=== PATIENT | male | born 1945 | race Caucasian/White ===

== ENCOUNTER 2020-06-05 09:08 | Inpatient (IN) | payer OTHER, MEDICARE, SELFPAY ==
[2020-06-05] VITALS (12 sets, daily range): BP systolic 82–107; BP diastolic 33–58; PULSE 69–77; RESP 14–22; TEMP 36.6–36.8; O2SAT 94–99; BMI 29.0; BMI 28.1
[2020-06-05 09:22] LABS: Glucose, Whole Blood 166 mg/dL (60-115)
--- NOTE | 2020-06-05 09:36 | ECG_ITS ---
Test Reason : DIZZINESS Blood Pressure : / mmHG Vent. Rate : 078 BPM Atrial Rate : 078 BPM P-R Int : 114 ms QRS Dur : 088 ms QT Int : 402 ms P-R-T Axes : -66 022 046 degrees QTc Int : 458 ms Junctional rhythm with Premature supraventricular complexes Nonspecific T wave abnormality Abnormal ECG No previous ECGs available Referred By: Shoshana Lugo Electronically Signed By:SÁNCHEZ TOMAS MD
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
[2020-06-05] MEDS: 0.9 % Sodium Chloride 500 ML 999 ML IV ×3 (09:54→13:06)
[2020-06-05 10:01] LABS: MANUAL DIFF FLAG NO
[2020-06-05 10:09] LABS: Basophils Absolute Auto 0.1 X10*3/uL (0.0-0.2); Basophils Percent Auto 0.4 % (0-2); Eosinophils Percent Auto 0.3 % (0-4); Hematocrit 40.5 % (42-52); Hemoglobin 13.7 g/dl (14.0-18.0); Imm Gran Abs Auto 0.07 X10*3/uL (0.00-0.03); Imm Gran Pct Auto 0.6 % (0.0-0.4); Lymphocytes Percent Auto 7.7 % (20-40); Mean Corpuscular HGB Conc 33.8 g/dl (31.0-36.0); Mean Corpuscular Hemoglobin 29.1 pg (27.0-33.0); Mean Corpuscular Volume 86.2 fL (80-98); Mean Platelet Volume 9.5 fL (9.4-12.4); Monocytes Absolute Auto 0.8 X10*3/uL (0.1-1.2); Neutrophils Absolute Auto 10.7 X10*3/uL (2.0-8.3); Platelet Count 271 X10*3/uL (160-400); White Blood Count 12.6 X10*3/uL (4.8-10.8)
[2020-06-05 10:19] LABS: Prothrombin Time 12.4 SEC (10.8-13.0)
[2020-06-05 10:31] LABS: Troponin-I High Sensitivity 11.2 ng/L (<3.5-35.0)
[2020-06-05 10:33] LABS: Alanine Aminotransferase 14 U/L (0-40); Albumin Level 3.8 g/dL (3.5-5.0); Alkaline Phosphatase 60 U/L (39-117); Anion Gap 18 (12-20); Aspartate Amino Transferase 10 U/L (5-37); Bilirubin Direct 0.2 mg/dL (0.0-0.5); Bilirubin Total 0.5 mg/dL (0.0-1.0); Blood Urea Nitrogen 56 mg/dL (9-16); Calcium 8.8 mg/dL (8.4-10.2); Carbon Dioxide 16 mmol/L (22-29); Chloride 104 mmol/L (96-108); Creatinine Clr Calc Pharmacy 14.7; Estimated Glomerular Filt Rate 13; Glucose Random 175 mg/dL (60-115); Magnesium 1.8 mg/dL (1.6-2.6); Sodium 134 mmol/L (135-145); Total Protein 6.4 g/dL (6.5-8.0)
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
[2020-06-05 11:59] LABS: Glucose Urine UA NEG (NEG); Leukocyte Esterase Urine NEG (NEG); Nitrite Urine NEG (NEG); Specific Gravity - Urine >= 1.030 (1.005-1.025); Urine Blood NEG (NEG); Urine Ketones 5 MG/DL (NEG); Urine Protein 1+ MG/DL (NEG-TRACE)
[2020-06-05 12:02] LABS: Appearance Urine CLOUDY; Color Urine YELLOW
[2020-06-05 12:12] LABS: Bacteria Urine 1+ /LPF; RBC Urine 0-2 /HPF (0); Squamous Epithelial Cell Urine 1+ /LPF; WBC Urine 0-2 /HPF (0-4)
[2020-06-05 12:13] LABS: Amorphous Sediment Urine 1+ /LPF
--- NOTE | 2020-06-05 12:20 | PC.NURSE ---
PT C-COLLAR WAS REMOVED BY MLP ([email or web address]).
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
[2020-06-05 13:38] LABS: Troponin-I High Sensitivity 10.7 ng/L (<3.5-35.0)
[2020-06-05 14:56] LABS: SARS COV2 PCR INHOUSE NEGATIVE (Negative)
--- NOTE | 2020-06-05 15:45 | PC.NURSE ---
1x attempt to give report
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
--- NOTE | 2020-06-05 16:05 | PC.NURSE ---
report given to Gretel on IMC
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
[2020-06-05] MEDS: 0.9 % Sodium Chloride Flush 3 ML SYRINGE IVFLUSH (17:22)
[2020-06-05] MEDS: 0.9 % Sodium Chloride 1,000 ML 100 ML IVCONT (17:22)
[2020-06-05] MEDS: Heparin Sodium,Porcine 5,000 UNIT/ML VIAL 5000 UNIT SUBCUT (17:22)
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
[2020-06-05] MEDS: Acetaminophen 325 MG TABLET 650 MG PO (17:31)
[2020-06-05] MEDS: Atorvastatin Calcium 10 MG TABLET PO (20:25)
[2020-06-06] VITALS (7 sets, daily range): BP systolic 94–116; BP diastolic 47–56; PULSE 70–85; RESP 16–18; TEMP 36.4–37.5; O2SAT 92–95
[2020-06-06] MEDS: 0.9 % Sodium Chloride Flush 3 ML SYRINGE IVFLUSH ×2 (00:41→15:50)
[2020-06-06] MEDS: 0.9 % Sodium Chloride 1,000 ML 100 ML IVCONT ×2 (02:20→09:18)
[2020-06-06] MEDS: Heparin Sodium,Porcine 5,000 UNIT/ML VIAL 5000 UNIT SUBCUT ×2 (06:13→15:51)
[2020-06-06 06:42] LABS: Basophils Percent Auto 0.2 % (0-2); Eosinophils Absolute Auto 0.1 X10*3/uL (0.0-0.4); Eosinophils Percent Auto 0.3 % (0-4); Hematocrit 34.1 % (42-52); Hemoglobin 11.3 g/dl (14.0-18.0); Imm Gran Abs Auto 0.07 X10*3/uL (0.00-0.03); Imm Gran Pct Auto 0.5 % (0.0-0.4); Lymphocytes Absolute Auto 1.1 X10*3/uL (1.2-4.9); Lymphocytes Percent Auto 7.2 % (20-40); MANUAL DIFF FLAG NO; Mean Corpuscular HGB Conc 33.1 g/dl (31.0-36.0); Mean Corpuscular Volume 87.7 fL (80-98); Mean Platelet Volume 10.3 fL (9.4-12.4); Monocytes Absolute Auto 1.1 X10*3/uL (0.1-1.2); Monocytes Percent Auto 7.6 % (2-11); Neutrophils Absolute Auto 12.4 X10*3/uL (2.0-8.3); Neutrophils Percent Auto 84.2 % (45-73); Platelet Count 244 X10*3/uL (160-400); Red Blood Count 3.89 X10*6/uL (4.60-5.80); Red Cell Distribution Width 12.1 % (11.0-16.0); White Blood Count 14.7 X10*3/uL (4.8-10.8)
[2020-06-06 07:56] LABS: Anion Gap 16 (12-20); Blood Urea Nitrogen 69 mg/dL (9-16); Calcium 7.3 mg/dL (8.4-10.2); Carbon Dioxide 16 mmol/L (22-29); Chloride 101 mmol/L (96-108); Creatinine Clr Calc Pharmacy 14.1; Estimated Glomerular Filt Rate 12; Glucose Random 157 mg/dL (60-115); Potassium 3.8 mmol/l (3.3-5.1); Sodium 129 mmol/L (135-145)
[2020-06-06] MEDS: Acetaminophen 325 MG TABLET 650 MG PO ×2 (09:18→15:50)
--- NOTE | 2020-06-06 11:14 | PM.PNNEP ---
Subjective Subjective Interval history: no complaints, reports minimal UOP Physical Exam Vital Signs: Vital Signs: Vital Signs Temp Pulse Resp BP Pulse Ox 06/06/20 07:19 98.2 F 85 18 101/51 L 93 06/06/20 03:42 98.6 F 76 18 107/53 L 94 06/06/20 00:00 97.6 F 71 18 104/54 L 95 06/05/20 19:56 97.8 F 77 18 99/58 L 94 06/05/20 17:38 73 18 97/52 L 06/05/20 16:37 98.2 F 75 18 89/47 L 96 06/05/20 15:06 69 22 H 90/46 L 99 06/05/20 14:26 97.8 F 73 18 91/54 L 97 06/05/20 13:40 71 18 92/48 L 06/05/20 12:53 70 18 85/49 L 96 06/05/20 12:36 69 16 93/41 L 06/05/20 12:00 71 18 93/41 L 97 06/05/20 11:32 71 14 92/49 L 06/05/20 11:25 69 18 82/33 L 97 Body Mass Index 28.1 Assessment & Plan Time Spent With Patient Time: Total time spent is greater than 50% in coordination of care (as documented) at patient's floor/unit and/or counseling patient:
--- NOTE | 2020-06-06 11:14 | PM.PNNEP ---
Subjective Subjective Interval history: no complaints, reports minimal UOP Physical Exam Vital Signs: Vital Signs: Vital Signs Temp Pulse Resp BP Pulse Ox 06/06/20 11:12 98.5 F 74 18 105/56 L 92 06/06/20 07:19 98.2 F 85 18 101/51 L 93 06/06/20 03:42 98.6 F 76 18 107/53 L 94 06/06/20 00:00 97.6 F 71 18 104/54 L 95 06/05/20 19:56 97.8 F 77 18 99/58 L 94 06/05/20 17:38 73 18 97/52 L 06/05/20 16:37 98.2 F 75 18 89/47 L 96 06/05/20 15:06 69 22 H 90/46 L 99 06/05/20 14:26 97.8 F 73 18 91/54 L 97 06/05/20 13:40 71 18 92/48 L 06/05/20 12:53 70 18 85/49 L 96 06/05/20 12:36 69 16 93/41 L 06/05/20 12:00 71 18 93/41 L 97 06/05/20 11:32 71 14 92/49 L 06/05/20 11:25 69 18 82/33 L 97 Body Mass Index 28.1 oral moist mucosa lungs clear s1s2 abd soft nt +BSs ext no edema neuro awake OX3 Assessment & Plan Assessment and plan (1) Acute renal failure: Status: Acute (2) Hyponatremia: Status: Acute (3) Metabolic acidosis: Status: Acute Assessment and Plan: PT with hypotensive syndrome unclear etiology BP slightly improving after 3L IVFs Hyponatremia associated appropriate ADH release as part of hyposomotic state and hypotension, likely exacerbated by excess dilutional water intake AG MEtabolic acidoses from ZAK, pt had ketones in urine (?starvation vs alcohol not documented, pt denies, doubt Diabetes) REcs GIve 1 liter of D5W+3 amps Na Bicarb 75 ml/h i ordered Thyroid Cortisol urine for esoinophils, FeNa consider BCXs if persistenly hypontesive hold off all BP meds suggest echocardiogram r/o hypokinesis and pericardial effusion I think this is ATN, if no improvement, may consider a renal biopsy. Presently no indications for dialysis Time Spent With Patient Time: Total time spent is greater than 50% in coordination of care (as documented) at patient's floor/unit and/or counseling patient:
--- NOTE | 2020-06-06 11:49 | MHC.CM.PN ---
dc plan home no servceis pt has own transportion home
[2020-06-06 12:10] LABS: T4 Thyroxine 6.2 ug/dL (4.5-12.0); Thyroid Stimulating Hormone 0.96 mIU/mL (0.32-4.0)
[2020-06-06] MEDS: Sodium Bicarbonate 8.4% 150 MEQ in Dextrose 5 % 850 ML 50 MEQ IVCONT (13:11)
[2020-06-06 13:23] LABS: Creatinine Urine 259.17 mg/dL; Sodium Urine Random < 20.0 mmol/L
[2020-06-06 14:36] LABS: EOS Counted 0 CELLS; EOS QC POS YES; EOS Stain Quality OK YES; WBC, Counted 5 CELLS
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
--- NOTE | 2020-06-06 15:00 | CA_ITS ---
Transthoracic Echocardiogram Patient (Last, First, Middle): Ministerio French, Gender: Male Date of : 1945 Age: 74 Procedure Date: 06/06/2020 Procedure Type: Transthoracic Echocardiogram [place] [facility] [place]: 170.18 cm Weight: 77.11 kg BSA: 1.89 m2 Heart Rate: bpm BP: 105 / 56 mmHg Harness Builder: Xavi MD: Josue Valle MD Symptoms: hypotension Study Quality: Good ECG Rhythm: Sinus Conclusions: - The left ventricular systolic function is normal. The visually estimated ejection fraction is between 60-65%. - There is mild calcification of the aortic valve. - There is mild tricuspid valve regurgitation. Findings Left Ventricle Normal left ventricular cavity size. There is normal left ventricular wall thickness. The left ventricular systolic function is normal. The visually estimated ejection fraction is between 60-65%. There is no evidence of regional wall motion abnormalities. Diastolic function is normal for age. Right Ventricle Normal right ventricular cavity size and systolic function. Atria The left atrium is normal in size. The right atrium is normal in size. Aortic Valve There is a normal trileaflet aortic valve. There is mild calcification of the aortic valve. There is no aortic valve stenosis. There is no aortic valve regurgitation. Mitral Valve The mitral valve appears normal. There is trace mitral valve regurgitation. There is no mitral valve stenosis. Pulmonic Valve The pulmonic valve was not well visualized. Tricuspid Valve Normal tricuspid valve structure. There is mild tricuspid valve regurgitation. The pulmonary artery systolic pressure is normal. Great Vessels The aortic annulus, sinuses of valsalva, and asc aorta are normal in size. Venous The inferior vena cava is normal in size and collapses greater than 50% with inspiration. Pericardium/Pleural There is no evidence of pericardial effusion. Prior Study Comparison No prior study available for comparison. Measurements 2D Linear Measurements RVIDd: 2.69 RVIDd Index: 1.42 IVSd: 0.86 0.6-0.9/0.6-1.0 cm LVIDd: 5.54 3.9-5.3/4.2-5.9 cm LVIDd Index: 2.93 2.4-3.2/2.2-3.1 cm/m2 LVIDs: 3.55 2.0-3.6 cm LVPWd: 1.00 0.7-1.1 cm Ao Root: 3.20 2.1-3.5 cm LA Diam: 4.00 2.7-3.8/3.0-4.0 cm LAIDs Index: 2.12 1.5-2.3 cm/m2 LV Mass: 244.09 67-162/88-224 g LV Mass Index: 129.15 43-95/49-115 g/m2 LVOT Diam: 2.10 3.0+(-)1.3 cm 2D Systolic Function EF 4C: 66.40 >55% EF 2C: 70.10 >55% EF BiP: 66.70 >55% Mitral Valve MV Pk E: 0.92 MV PK A: 0.72 MV Decel Time: 215.00 E/A: 1.30 E'Lateral: 13.20 E'Medial: 7.83 E/E' Med: 11.80 E/E' Lat: 7.00 Aortic Valve AoV Pk Frankie: 1.83 AoV Mn Frankie: 1.29 AoV VTI: 0.32 AoV Pk Grad: 13.00 Aov Mn Grad: 8.00 LOBITO Cont.VTI: 1.99 LVOT LVOT Pk Frankie: 0.98 LVOT Mn Frankie: 0.62 LVOT VTI: 0.19 LVOT Pk Grad: 4.00 LVOT Mn Grad: 2.00 LVOT Diam: 2.10 LVOT Area: 3.46 Diastolic Function MV Pk E: 0.92 MV Pk A: 0.72 E/A: 1.30 E'Medial: 7.83 E/E' Med: 11.80 E' Laterial: 13.20 E/E' Lat: 7.00 Tricuspid Valve TR Pk Frankie: 2.64 TR Pk Grad: 28.00 RA Press: 3.00 RVSP: 31.00 Great Vessels Aorta Ao Root-2D: 3.20 2.0-3.7 cm Ao Asc: 3.10 2.1-3.4 cm Ao Arch: 3.20 Updated in Other Vendor System with Status of Final Laron Tavera MD electronically signed on 06/06/2020 5:03:54 PM with status of Final
[2020-06-06] MEDS: Omeprazole 20 MG CAPSULE.DR PO (15:50)
[2020-06-06] MEDS: polyethylene glycoL 3350 17 GM POWD.PACK PO (15:51)
[2020-06-06] MEDS: Atorvastatin Calcium 10 MG TABLET PO (20:29)
[2020-06-07 03:41] VITALS: BP 103/56; PULSE 70; RESP 18; TEMP 36.9; O2SAT 90
[2020-06-07] MEDS: Heparin Sodium,Porcine 5,000 UNIT/ML VIAL 5000 UNIT SUBCUT ×2 (05:28→17:01)
[2020-06-07 06:18] LABS: MANUAL DIFF FLAG NO
[2020-06-07 06:30] LABS: Basophils Percent Auto 0.1 % (0-2); Eosinophils Percent Auto 0.3 % (0-4); Hematocrit 32.3 % (42-52); Hemoglobin 10.9 g/dl (14.0-18.0); Imm Gran Abs Auto 0.05 X10*3/uL (0.00-0.03); Imm Gran Pct Auto 0.4 % (0.0-0.4); Lymphocytes Absolute Auto 1.1 X10*3/uL (1.2-4.9); Lymphocytes Percent Auto 7.8 % (20-40); Mean Corpuscular HGB Conc 33.7 g/dl (31.0-36.0); Mean Corpuscular Hemoglobin 28.8 pg (27.0-33.0); Mean Corpuscular Volume 85.2 fL (80-98); Mean Platelet Volume 10.2 fL (9.4-12.4); Monocytes Absolute Auto 1.1 X10*3/uL (0.1-1.2); Monocytes Percent Auto 7.8 % (2-11); Neutrophils Absolute Auto 11.6 X10*3/uL (2.0-8.3); Neutrophils Percent Auto 83.6 % (45-73); Platelet Count 224 X10*3/uL (160-400); Red Blood Count 3.79 X10*6/uL (4.60-5.80); Red Cell Distribution Width 11.9 % (11.0-16.0); White Blood Count 13.9 X10*3/uL (4.8-10.8)
[2020-06-07 06:52] LABS: Estimated Average Glucose 117 mg/dL; Hemoglobin A1c % 5.7 %
[2020-06-07 07:02] LABS: Anion Gap 17 (12-20); Blood Urea Nitrogen 76 mg/dL (9-16); Calcium 6.9 mg/dL (8.4-10.2); Carbon Dioxide 17 mmol/L (22-29); Chloride 99 mmol/L (96-108); Creatinine Clr Calc Pharmacy 17.4; Estimated Glomerular Filt Rate 16; Glucose Random 147 mg/dL (60-115); Potassium 3.5 mmol/l (3.3-5.1); Sodium 129 mmol/L (135-145)
[2020-06-07 07:35] VITALS: BP 110/60; PULSE 90; RESP 18; TEMP 36.7; O2SAT 97
[2020-06-07] MEDS: polyethylene glycoL 3350 17 GM POWD.PACK PO (08:19)
[2020-06-07] MEDS: 0.9 % Sodium Chloride Flush 3 ML SYRINGE IVFLUSH (08:19)
[2020-06-07] MEDS: Acetaminophen 325 MG TABLET 650 MG PO ×2 (08:29→14:53)
[2020-06-07 10:51] VITALS: BP 110/52; PULSE 71; RESP 18; TEMP 36.6; O2SAT 97
--- NOTE | 2020-06-07 11:15 | PM.PNNEP ---
Subjective Subjective Interval history: reports feeling better this AM Physical Exam Vital Signs: Vital Signs: Vital Signs Temp Pulse Resp BP Pulse Ox 06/07/20 10:51 97.8 F 71 18 110/52 L 97 06/07/20 07:35 98.0 F 90 18 110/60 97 06/07/20 03:41 98.4 F 70 18 103/56 L 90 L 06/06/20 23:31 98.7 F 70 18 94/47 L 95 06/06/20 19:17 99.5 F 78 16 116/56 L 92 06/06/20 16:00 98.1 F 71 18 94/51 L 92 oral moist mucosa lungs clear s1s2 abd soft nt ext no edema neuro AOX3 Body Mass Index 28.1 Assessment & Plan Assessment and plan (1) Acute renal failure: Problem details: improving on fluids, BP improving Status: Acute (2) Hyponatremia: Problem details: improving Status: Acute (3) Metabolic acidosis: Problem details: as a result of ZAK improving on bicarb suppl Status: Acute Assessment and Plan: Continue IVFs with D5W + 150 mEQ (3 amps) NaBicarb at 75 ml/h when bicarb above 20 may discontinue transition to oral bicarb 650 mg PO BID hold off AntiHTN meds pt heading in the right direction Time Spent With Patient Time: Total time spent is greater than 50% in coordination of care (as documented) at patient's floor/unit and/or counseling patient:
[2020-06-07] MEDS: Sodium Bicarbonate 8.4% 150 MEQ in Dextrose 5 % 850 ML 75 MEQ IVCONT (11:44)
[2020-06-07] MEDS: Omeprazole 20 MG CAPSULE.DR PO (11:45)
[2020-06-07] MEDS: Throat Lozenge, Medicated LOZENGE 1 LOZENGE MUCOUS MEM ×2 (14:53→20:05)
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
[2020-06-07 15:31] VITALS: BP 95/54; PULSE 72; RESP 18; TEMP 37.3; O2SAT 92
[2020-06-07 19:40] VITALS: BP 114/57; PULSE 71; RESP 18; TEMP 36.9; O2SAT 92
[2020-06-07] MEDS: Atorvastatin Calcium 10 MG TABLET PO (21:48)
[2020-06-07 23:33] VITALS: BP 106/53; PULSE 66; RESP 18; TEMP 36.8; O2SAT 91
[2020-06-08] MEDS: 0.9 % Sodium Chloride Flush 3 ML SYRINGE IVFLUSH ×3 (02:35→16:40)
[2020-06-08 03:44] VITALS: BP 91/46; PULSE 65; RESP 18; TEMP 37.1; O2SAT 90
[2020-06-08] MEDS: Heparin Sodium,Porcine 5,000 UNIT/ML VIAL 5000 UNIT SUBCUT ×2 (05:54→16:39)
[2020-06-08] MEDS: Omeprazole 20 MG CAPSULE.DR PO (05:54)
[2020-06-08 06:17] LABS: MANUAL DIFF FLAG NO
[2020-06-08 06:41] LABS: Basophils Percent Auto 0.2 % (0-2); Eosinophils Absolute Auto 0.2 X10*3/uL (0.0-0.4); Hematocrit 31.4 % (42-52); Hemoglobin 10.7 g/dl (14.0-18.0); Imm Gran Abs Auto 0.05 X10*3/uL (0.00-0.03); Imm Gran Pct Auto 0.4 % (0.0-0.4); Lymphocytes Absolute Auto 1.2 X10*3/uL (1.2-4.9); Lymphocytes Percent Auto 10.7 % (20-40); Mean Corpuscular HGB Conc 34.1 g/dl (31.0-36.0); Mean Corpuscular Hemoglobin 28.6 pg (27.0-33.0); Mean Platelet Volume 10.9 fL (9.4-12.4); Monocytes Percent Auto 8.9 % (2-11); Neutrophils Absolute Auto 8.7 X10*3/uL (2.0-8.3); Neutrophils Percent Auto 77.8 % (45-73); Platelet Count 223 X10*3/uL (160-400); Red Blood Count 3.74 X10*6/uL (4.60-5.80); Red Cell Distribution Width 11.9 % (11.0-16.0); White Blood Count 11.1 X10*3/uL (4.8-10.8)
[2020-06-08 07:06] LABS: Anion Gap 17 (12-20); Blood Urea Nitrogen 75 mg/dL (9-16); Calcium 6.6 mg/dL (8.4-10.2); Carbon Dioxide 21 mmol/L (22-29); Chloride 99 mmol/L (96-108); Creatinine Clr Calc Pharmacy 18.4; Estimated Glomerular Filt Rate 17; Glucose Random 109 mg/dL (60-115); Potassium 3.6 mmol/l (3.3-5.1); Sodium 133 mmol/L (135-145)
[2020-06-08 07:44] VITALS: BP 112/54; PULSE 77; RESP 18; TEMP 36.8; O2SAT 92
--- NOTE | 2020-06-08 08:42 | PM.PNNEP ---
Subjective Subjective Interval history: patient feeling better this a.m. no complaints, voids OK Physical Exam Vital Signs: Vital Signs: Vital Signs Temp Pulse Resp BP Pulse Ox 06/08/20 07:44 98.3 F 77 18 112/54 L 92 06/08/20 03:44 98.7 F 65 18 91/46 L 90 L 06/07/20 23:33 98.3 F 66 18 106/53 L 91 L 06/07/20 19:40 98.4 F 71 18 114/57 L 92 06/07/20 15:31 99.2 F 72 18 95/54 L 92 06/07/20 10:51 97.8 F 71 18 110/52 L 97 oral moist mucosa lungs clear s1s2 abd soft +BSs ext no edema neuro no focal deficit Body Mass Index 28.1 Assessment & Plan Assessment and plan (1) Acute renal failure: Problem details: improving on fluids, BP improving Status: Acute (2) Hyponatremia: Problem details: improving Status: Acute (3) Metabolic acidosis: Problem details: as a result of ZAK improving on bicarb suppl Status: Acute Assessment and Plan: COntinue current care, gentle D5W + 3 amps (150 meQ Na Bicarbonate) at 75 ml/h for 1 more day if creatinine below 3 mg/dL, may dc home hold all antiHTN meds, on DC give Na-bicarbonate 650 mg PO BID X [address] Mayer next week at [facility] office Time Spent With Patient Time: Total time spent is greater than 50% in coordination of care (as documented) at patient's floor/unit and/or counseling patient:
[2020-06-08] MEDS: Sodium Bicarbonate 650 MG TABLET PO (09:25)
[2020-06-08 11:18] VITALS: BP 95/46; PULSE 63; RESP 18; TEMP 36.9; O2SAT 93
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
--- NOTE | 2020-06-08 13:29 | MHC.CM.PN ---
The goal for dc is for Patient to return home. Per MD documentation, Patient is feeling weak and Creatinine is being monitored (goal less than 3). CM will continue to follow for dc planning and possible need to adjust the dc plan.
[2020-06-08] MEDS: Sodium Bicarbonate 8.4% 150 MEQ in Dextrose 5 % 850 ML 75 MEQ IVCONT (13:39)
[2020-06-08 16:00] VITALS: BP 100/49; PULSE 68; RESP 18; TEMP 36.6; O2SAT 92
[2020-06-08] MEDS: Acetaminophen 325 MG TABLET 650 MG PO (16:43)
[2020-06-08 20:11] VITALS: BP 99/44; PULSE 72; RESP 18; TEMP 36.2; O2SAT 92
[2020-06-08] MEDS: Atorvastatin Calcium 10 MG TABLET PO (21:36)
[2020-06-08 23:18] VITALS: BP 107/55; PULSE 73; RESP 18; TEMP 37.1; O2SAT 94
[2020-06-09] MEDS: 0.9 % Sodium Chloride Flush 3 ML SYRINGE IVFLUSH (00:56)
[2020-06-09 03:27] VITALS: BP 106/57; PULSE 96; RESP 18; TEMP 36.6; O2SAT 93
[2020-06-09] MEDS: Sodium Bicarbonate 8.4% 150 MEQ in Dextrose 5 % 850 ML 75 MEQ IVCONT (03:28)
[2020-06-09] MEDS: Heparin Sodium,Porcine 5,000 UNIT/ML VIAL 5000 UNIT SUBCUT ×2 (06:17→16:14)
[2020-06-09] MEDS: Omeprazole 20 MG CAPSULE.DR PO (06:18)
[2020-06-09] MEDS: Acetaminophen 325 MG TABLET 650 MG PO ×3 (06:25→20:04)
[2020-06-09 07:39] VITALS: BP 107/48; PULSE 80; RESP 18; TEMP 37; O2SAT 94
[2020-06-09 08:09] LABS: Anion Gap 18 (12-20); Blood Urea Nitrogen 70 mg/dL (9-16); Carbon Dioxide 26 mmol/L (22-29); Chloride 95 mmol/L (96-108); Creatinine Clr Calc Pharmacy 20.7; Estimated Glomerular Filt Rate 19; Glucose Random 152 mg/dL (60-115); Potassium 3.3 mmol/l (3.3-5.1); Sodium 136 mmol/L (135-145)
[2020-06-09 08:27] LABS: Calcium 6.6 mg/dL (8.4-10.2)
[2020-06-09] MEDS: Potassium Chloride ER 20 MEQ TAB.ER.PRT PO (08:36)
[2020-06-09 11:34] VITALS: BP 109/54; PULSE 76; RESP 18; TEMP 36.6; O2SAT 94
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
[2020-06-09] MEDS: Lactated Ringers 1,000 ML 80 ML IVCONT (12:47)
[2020-06-09 16:00] VITALS: BP 107/53; PULSE 75; RESP 18; TEMP 37.3; O2SAT 93
[2020-06-09 19:11] VITALS: BP 104/49; PULSE 91; RESP 18; TEMP 37.9; O2SAT 94
[2020-06-09] MEDS: Atorvastatin Calcium 10 MG TABLET PO (20:04)
[2020-06-10] VITALS (7 sets, daily range): BP systolic 105–124; BP diastolic 52–58; PULSE 71–89; RESP 16–18; TEMP 33.8–37.3; O2SAT 92–98
[2020-06-10] MEDS: Lactated Ringers 1,000 ML 80 ML IVCONT ×2 (00:12→11:02)
--- NOTE | 2020-06-10 02:15 | PC.NURSE ---
P. UNABLE TO VOID- I. OOB TO COMMODE-UNABLE TO VOID I. RETURNED TO BED BLADDER SCANNED PERFORMED >900 ML OF URINE I. DR VILLALBA CALLED NOTIFIED 1. PT IS UNABLE TO VOID 2. BLADDER SCAN SHOWING AN EXCESS OF 900ML OF URINE IN BLADDER I. INSERT HOLLEY CATHETER-SEND U/A AND C+S E. ANXIOUS. ALTHOUGH READY TO GO TO SLEEP AFTER HOLLEY INSERTED. INITIALLY # 16 FR HOLLEY INSERTED WITH NO URINE RETURN. AGAIN USING ASEPTIC TECHNIQUE # 18 FR HOLLEY PASSED WITH SOME RESISTANCE ENCOUNTERED PASSING PROSTATE REGION. 1000 ML OF DARK AFSHIN URINE OBTAINED WITH INSERTION. A SMALL AMOUNT OF BLOOD AND STRANDING LIKE CLOT NOTED POST INSERTION. PT STATES GREAT RELIEF FOLLOWING BLADDER DECOMPRESSION. TO NOTE PT SENSORIUM IS INTACT/HE TENDS TO WORRY ABOUT MANY DIFFERENT EVENTS. OF CONCERN IS PTS MOBILITY WHICH IS NOTED TO BE QUITE POOR. PT HAS VERY IMPAIRED WEIGHT BEARING EFFORT AND 2 STAFF MEMBERS ARE ESSENTIAL IN TRANSFERRING PT FROM BED TO COMMODE AND BACK TO BED. PT STATES THAT HIS OSTEOARTHRITIS IS HINDERING HIS MOBILITY. COMPLEXION PALE. SKIN WARM/DRY. 1+ EDEMA APPRECIATED INVOLVING LOWER LEGS. RESP EFFORT IS REGULAR UNLABORED. BREATH SOUNDS CTA/DIMINISHED IN THE BASES. ECG DISPLAYS SR WITH SEVERAL SELF LIMITING RUNS OF PAT NOTED. HEMODYNAMICALLY STABLE. ABDOMEN WAS QUITE FIRM/DISTENDED. ABDOMINAL DISTENSION IMPROVED WITH BLADDER DECOMPRESSION.
[2020-06-10] MEDS: Heparin Sodium,Porcine 5,000 UNIT/ML VIAL 5000 UNIT SUBCUT (06:30)
[2020-06-10] MEDS: Omeprazole 20 MG CAPSULE.DR PO (06:31)
[2020-06-10 07:28] LABS: Anion Gap 16 (12-20); Blood Urea Nitrogen 68 mg/dL (9-16); Calcium 6.3 mg/dL (8.4-10.2); Carbon Dioxide 24 mmol/L (22-29); Chloride 98 mmol/L (96-108); Creatinine Clr Calc Pharmacy 18.5; Estimated Glomerular Filt Rate 17; Glucose Random 122 mg/dL (60-115); Potassium 3.6 mmol/l (3.3-5.1); Sodium 134 mmol/L (135-145)
[2020-06-10] MEDS: Acetaminophen 325 MG TABLET 650 MG PO ×3 (10:15→23:49)
[2020-06-10] MEDS: 0.9 % Sodium Chloride Flush 3 ML SYRINGE IVFLUSH ×2 (10:23→17:07)
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
[2020-06-10] MEDS: Atorvastatin Calcium 10 MG TABLET PO (22:11)
[2020-06-10] MEDS: LORazepam 2 MG/ML VIAL 1 MG IVPUSH (23:49)
[2020-06-11] VITALS: BP 110/52; PULSE 66; RESP 20; TEMP 36.6; O2SAT 92
[2020-06-11] MEDS: 0.9 % Sodium Chloride Flush 3 ML SYRINGE IVFLUSH ×2 (00:57→18:27)
[2020-06-11] MEDS: Lactated Ringers 1,000 ML 80 ML IVCONT (00:57)
[2020-06-11 04:00] VITALS: BP 99/53; PULSE 61; RESP 20; TEMP 36.9; O2SAT 92
[2020-06-11 05:00] LABS: MANUAL DIFF FLAG NO
[2020-06-11 05:29] LABS: Basophils Percent Auto 0.3 % (0-2); Eosinophils Absolute Auto 0.2 X10*3/uL (0.0-0.4); Eosinophils Percent Auto 2.7 % (0-4); Hematocrit 27.8 % (42-52); Hemoglobin 9.4 g/dl (14.0-18.0); Imm Gran Abs Auto 0.06 X10*3/uL (0.00-0.03); Imm Gran Pct Auto 0.7 % (0.0-0.4); Lymphocytes Absolute Auto 1.3 X10*3/uL (1.2-4.9); Lymphocytes Percent Auto 13.9 % (20-40); Mean Corpuscular HGB Conc 33.8 g/dl (31.0-36.0); Mean Corpuscular Hemoglobin 29.2 pg (27.0-33.0); Mean Corpuscular Volume 86.3 fL (80-98); Mean Platelet Volume 10.5 fL (9.4-12.4); Monocytes Absolute Auto 0.9 X10*3/uL (0.1-1.2); Monocytes Percent Auto 9.5 % (2-11); Neutrophils Absolute Auto 6.6 X10*3/uL (2.0-8.3); Neutrophils Percent Auto 72.9 % (45-73); Platelet Count 247 X10*3/uL (160-400); Red Blood Count 3.22 X10*6/uL (4.60-5.80); Red Cell Distribution Width 11.8 % (11.0-16.0)
[2020-06-11 05:57] LABS: Anion Gap 15 (12-20); Blood Urea Nitrogen 54 mg/dL (9-16); Calcium 6.4 mg/dL (8.4-10.2); Carbon Dioxide 24 mmol/L (22-29); Chloride 101 mmol/L (96-108); Estimated Glomerular Filt Rate 23; Glucose Random 103 mg/dL (60-115); Potassium 3.6 mmol/l (3.3-5.1); Sodium 136 mmol/L (135-145)
[2020-06-11] MEDS: Omeprazole 20 MG CAPSULE.DR PO (06:12)
[2020-06-11] MEDS: Heparin Sodium,Porcine 5,000 UNIT/ML VIAL 5000 UNIT SUBCUT (06:12)
[2020-06-11 07:20] VITALS: BP 120/56; PULSE 80; RESP 18; TEMP 37.1; O2SAT 94
[2020-06-11 11:15] VITALS: BP 103/51; PULSE 73; RESP 20; TEMP 36.8; O2SAT 94
--- NOTE | 2020-06-11 14:55 | MHC.CM.PN ---
[facility] not able to take patient. D/W patient and meds referrals to [facility], [facility], [facility] and [facility]. CM will continue to follow for discharge needs.
[2020-06-11 15:17] VITALS: BP 113/57; PULSE 75; RESP 20; TEMP 36.7; O2SAT 95
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
[2020-06-11 19:05] VITALS: BP 106/64; PULSE 72; RESP 20; TEMP 36.8; O2SAT 94
--- NOTE | 2020-06-11 19:07 | PC.NURSE ---
P Patient's sullivan removed this am, unable to urinate. I Bladder scanned for [address] Valle notified. Ordered sullivan to be reinserted. 16 FR sullivan inserted with some resistance. Urine red tinged, hospitalist notified. E Patient tolerated well, resting at present .
[2020-06-11] MEDS: Acetaminophen 325 MG TABLET 650 MG PO (22:34)
[2020-06-11] MEDS: Atorvastatin Calcium 10 MG TABLET PO (22:35)
[2020-06-12] VITALS: BP 112/64; PULSE 76; RESP 18; TEMP 36.9; O2SAT 95
[2020-06-12] MEDS: 0.9 % Sodium Chloride Flush 3 ML SYRINGE IVFLUSH ×2 (01:16→07:52)
[2020-06-12 03:16] VITALS: BP 95/54; PULSE 69; RESP 18; TEMP 36.8; O2SAT 91
[2020-06-12 04:00] VITALS: BP 95/54; PULSE 69; RESP 18; TEMP 36.8; O2SAT 91
[2020-06-12] MEDS: Omeprazole 20 MG CAPSULE.DR PO (05:54)
[2020-06-12] MEDS: Heparin Sodium,Porcine 5,000 UNIT/ML VIAL 5000 UNIT SUBCUT (05:54)
[2020-06-12 06:11] LABS: MANUAL DIFF FLAG NO
[2020-06-12 06:23] LABS: Basophils Percent Auto 0.3 % (0-2); Eosinophils Absolute Auto 0.2 X10*3/uL (0.0-0.4); Eosinophils Percent Auto 2.6 % (0-4); Hematocrit 31.9 % (42-52); Hemoglobin 10.7 g/dl (14.0-18.0); Imm Gran Abs Auto 0.08 X10*3/uL (0.00-0.03); Imm Gran Pct Auto 0.9 % (0.0-0.4); Lymphocytes Percent Auto 10.9 % (20-40); Mean Corpuscular HGB Conc 33.5 g/dl (31.0-36.0); Mean Corpuscular Hemoglobin 28.4 pg (27.0-33.0); Mean Corpuscular Volume 84.6 fL (80-98); Mean Platelet Volume 10.2 fL (9.4-12.4); Monocytes Absolute Auto 0.9 X10*3/uL (0.1-1.2); Monocytes Percent Auto 10.4 % (2-11); Neutrophils Absolute Auto 6.7 X10*3/uL (2.0-8.3); Neutrophils Percent Auto 74.9 % (45-73); Platelet Count 285 X10*3/uL (160-400); Red Blood Count 3.77 X10*6/uL (4.60-5.80); Red Cell Distribution Width 11.7 % (11.0-16.0)
[2020-06-12 07:04] LABS: Anion Gap 15 (12-20); Blood Urea Nitrogen 42 mg/dL (9-16); Carbon Dioxide 23 mmol/L (22-29); Chloride 102 mmol/L (96-108); Creatinine Clr Calc Pharmacy 27.7; Estimated Glomerular Filt Rate 27; Glucose Random 105 mg/dL (60-115); Potassium 3.9 mmol/l (3.3-5.1); Sodium 136 mmol/L (135-145)
[2020-06-12 07:39] VITALS: BP 122/59; PULSE 83; RESP 18; TEMP 36.1; O2SAT 96
--- NOTE | 2020-06-12 09:55 | P.PNNP_ITS ---
Subjective Subjective Interval history: patient feeling better this morning, in better spirits, less bilateral foot pain, denies fever doing OK this AM BP improving Physical Exam Vital Signs: Vital Signs: Vital Signs Temp Pulse Resp BP Pulse Ox 06/12/20 07:39 97.0 F 83 18 122/59 L 96 06/12/20 04:00 98.2 F 69 18 95/54 L 91 L 06/12/20 03:16 98.2 F 69 18 95/54 L 91 L 06/12/20 00:00 98.4 F 76 18 112/64 95 06/11/20 19:05 98.3 F 72 20 106/64 94 06/11/20 15:17 98.0 F 75 20 113/57 L 95 06/11/20 11:15 98.2 F 73 20 103/51 L 94 oral moist mucosa lungs clear s1s2 abd soft +BSs ext no edema Body Mass Index 28.1 Assessment & Plan Assessment and plan (1) Acute renal failure: Problem details: resolving Status: Acute (2) CKD (chronic kidney disease): Status: Inactive Assessment and Plan: pt can be DC home from renal standpoint OK to stop NaBicarbonate tablets no antiHTN meds f/u with Dr Mayer in 1 week pls give LAB SLIP to do labs at his [facility] with copies to Dr Mayer in 5 days. thank you Time Spent With Patient Time: Total time spent is greater than 50% in coordination of care (as documented) at patient's floor/unit and/or counseling patient:
[2020-06-12] MEDS: Finasteride 5 MG TABLET PO (10:54)
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
--- NOTE | 2020-06-12 11:37 | W.MHC.F2F ---
Service Date Service Date: 06/12/20 Encounter Date of encounter: 06/12/20 Encounter: ZAK, borderline blood pressure, urinary retention. Reasons for Services overseeing care: Chaparro Hendrickson MD Homebound: Leaving the home is medically contraindicated at this time without the asist of a device and/or another person due th the listed conditions above and below. Homebound supporting statement: Patient is generalized weak and needed help to go to appointments. Certification: Based on the above findings, I certify that this patient is confined to the home and needs intermittent jail care, physical therapy and/or speech therapy, or continues to need occupational therapy. The patient is under my care, and I have initiated the establishment of the plan of care. The patient will be followed by a physician who will periodically review the plan of care.
[2020-06-12 11:42] VITALS: BP 133/70; PULSE 74; RESP 18; TEMP 37.1; O2SAT 97
== END 2020-06-12 13:00 | disposition home health service (06) | DRG 683 ==
LOC: HO.ED 13:54 → HO.IMC 15:46
PROVIDERS: Hospitalist; Internal Medicine Nephrology; Nurse Practitioner Family; Admitting Provider Nurse Practitioner Acute Care; Emergency Provider Emergency Medicine; PCP Nurse Practitioner Pediatrics; Visit Provider Internal Medicine
DX: N17.0 Acute kidney failure with tubular necrosis (principal); E87.1 Hypo-osmolality and hyponatremia; E87.2 Acidosis; I12.9 Hypertensive chronic kidney disease with stage 1 through stage 4 chronic kidney disease, or unspecified chronic kidney disease; R33.9 Retention of urine, unspecified; R31.9 Hematuria, unspecified; D72.829 Elevated white blood cell count, unspecified; N18.30 Chronic kidney disease, stage 3 unspecified; I95.9 Hypotension, unspecified; E78.5 Hyperlipidemia, unspecified; Z20.828 Contact with and (suspected) exposure to other viral communicable diseases; Z79.899 Other long term (current) drug therapy
CPT/HCPCS: 36415; 70450; 71045; 71250; 72125; 74176; 76775; 80048; 80076; 81001; 81003; 82533; 82550; 82947; 83036; 83735; 84300; 84436; 84443; 84484; 85025; 85610; 87086; 87635; 89190; 93005; 93306; 97162; 99232; 99233; 99285; C1758; J2060

== ENCOUNTER 2020-06-18 10:29 | Outpatient (REF) | payer OTHER, SELFPAY ==
[2020-06-18 12:34] LABS: Anion Gap 13 (12-20); Blood Urea Nitrogen 44 mg/dL (9-16); Carbon Dioxide 21 mmol/L (22-29); Chloride 110 mmol/L (96-108); Estimated Glomerular Filt Rate 40; Glucose Fasting 102 mg/dL (60-99); Potassium 4.8 mmol/l (3.3-5.1); Sodium 139 mmol/L (135-145)
== END 2020-06-18 10:30 | disposition home or self-care (01) ==
LOC: HO.LAB 10:29
PROVIDERS: Visit Provider Internal Medicine
DX: N17.9 Acute kidney failure, unspecified (principal); E87.1 Hypo-osmolality and hyponatremia; E87.2 Acidosis; R33.9 Retention of urine, unspecified
CPT/HCPCS: 80048

== ENCOUNTER → 2020-06-21 13:06 | Outpatient (BNVA) | payer OTHER, SELFPAY | PROVIDERS: PCP Nurse Practitioner Pediatrics; Visit Provider Urology | DX: R33.9 Retention of urine, unspecified (principal); Z46.6 Encounter for fitting and adjustment of urinary device | CPT/HCPCS: 51702; 51703; 51798; 99212 ==

== ENCOUNTER → 2020-06-22 15:48 | Outpatient (BNVA) | payer MEDICARE, OTHER, SELFPAY | PROVIDERS: PCP Nurse Practitioner Pediatrics; Visit Provider Urology | DX: Z76.89 Persons encountering health services in other specified circumstances (principal) ==

== ENCOUNTER → 2020-07-18 09:23 | Outpatient (BNVA) | payer OTHER, SELFPAY | PROVIDERS: PCP Nurse Practitioner Pediatrics; Visit Provider Urology | DX: Z76.89 Persons encountering health services in other specified circumstances (principal) | CPT/HCPCS: 51700; 99212 ==

== ENCOUNTER → 2020-07-31 08:41 | Outpatient (BNVA) | payer OTHER, MEDICARE, SELFPAY | PROVIDERS: Visit Provider Urology | DX: N40.1 Benign prostatic hyperplasia with lower urinary tract symptoms (principal); N13.8 Other obstructive and reflux uropathy; R35.1 Nocturia; R39.12 Poor urinary stream | CPT/HCPCS: 51798; 81002; 99212 ==

== ENCOUNTER 2021-04-29 16:00 | Outpatient (REF) | payer MEDICARE, SELFPAY ==
[2021-04-29 18:34] LABS: Prostate Specific Antigen 14.95 ng/mL (<0.05-4.0)
== END 2021-04-29 16:01 | disposition home or self-care (01) ==
LOC: HO.LAB 16:00
PROVIDERS: Visit Provider Urology
DX: Z12.5 Encounter for screening for malignant neoplasm of prostate (principal); N40.1 Benign prostatic hyperplasia with lower urinary tract symptoms; N13.8 Other obstructive and reflux uropathy
CPT/HCPCS: 36415; 84153

== ENCOUNTER → 2021-05-01 15:24 | Outpatient (BNVA) | payer MEDICARE, SELFPAY | PROVIDERS: Visit Provider Urology | DX: N40.1 Benign prostatic hyperplasia with lower urinary tract symptoms (principal); N13.8 Other obstructive and reflux uropathy; R39.12 Poor urinary stream; R35.1 Nocturia; R97.20 Elevated prostate specific antigen [PSA] | CPT/HCPCS: 51798; 81002; 99212 ==

== ENCOUNTER 2021-10-21 15:41 | Outpatient (REF) | payer MEDICARE, SELFPAY ==
[2021-10-21 17:34] LABS: PSA,Total (Free>4and<10) 16.44 ng/mL (0.00-4.00)
== END 2021-10-21 15:42 | disposition home or self-care (01) ==
LOC: HO.LAB 15:41
PROVIDERS: Visit Provider Urology
DX: Z12.5 Encounter for screening for malignant neoplasm of prostate (principal); N13.8 Other obstructive and reflux uropathy; N40.1 Benign prostatic hyperplasia with lower urinary tract symptoms; R97.20 Elevated prostate specific antigen [PSA]
CPT/HCPCS: 36415; 84153

== ENCOUNTER → 2021-10-30 15:18 | Outpatient (BNVA) | payer MEDICARE, SELFPAY | PROVIDERS: Visit Provider Urology | DX: N40.1 Benign prostatic hyperplasia with lower urinary tract symptoms (principal); N13.8 Other obstructive and reflux uropathy; R33.9 Retention of urine, unspecified; R97.20 Elevated prostate specific antigen [PSA] | CPT/HCPCS: Q3014 ==

== ENCOUNTER 2022-04-18 16:09 | Outpatient (REF) | payer MEDICARE, SELFPAY ==
[2022-04-18 17:51] LABS: PSA,Total (Free>4and<10) 16.56 ng/mL (0.00-4.00)
== END 2022-04-18 16:10 | disposition home or self-care (01) ==
LOC: HO.LAB 16:09
PROVIDERS: Visit Provider Urology
DX: Z12.5 Encounter for screening for malignant neoplasm of prostate (principal); N40.1 Benign prostatic hyperplasia with lower urinary tract symptoms; N13.8 Other obstructive and reflux uropathy
CPT/HCPCS: 36415; 84153

== ENCOUNTER → 2022-04-30 11:51 | Outpatient (BNVA) | payer MEDICARE, SELFPAY | PROVIDERS: Visit Provider Urology | DX: R97.20 Elevated prostate specific antigen [PSA] (principal); N40.1 Benign prostatic hyperplasia with lower urinary tract symptoms; N13.8 Other obstructive and reflux uropathy | CPT/HCPCS: Q3014 ==

== ENCOUNTER 2022-10-28 16:01 | Outpatient (REF) | payer MEDICARE, SELFPAY ==
[2022-10-28 17:49] LABS: Blood Urea Nitrogen 43 mg/dL (9-16); Estimated Glomerular Filt Rate 18
[2022-10-28 18:10] LABS: PSA,Total (Free>4and<10) 13.77 ng/mL (0.00-4.00)
== END 2022-10-28 16:02 | disposition home or self-care (01) ==
LOC: HO.LAB 16:01
PROVIDERS: Visit Provider Urology
DX: R97.20 Elevated prostate specific antigen [PSA] (principal); Z12.5 Encounter for screening for malignant neoplasm of prostate
CPT/HCPCS: 36415; 82565; 84153; 84520

== ENCOUNTER → 2022-12-09 08:34 | Outpatient (BNVA) | payer MEDICARE, SELFPAY | PROVIDERS: Visit Provider Urology | DX: R97.20 Elevated prostate specific antigen [PSA] (principal); N40.1 Benign prostatic hyperplasia with lower urinary tract symptoms; N13.8 Other obstructive and reflux uropathy; R35.1 Nocturia | CPT/HCPCS: Q3014 ==

== ENCOUNTER 2023-06-04 23:21 | Inpatient (IN) | payer MEDICARE, SELFPAY ==
--- NOTE | ~2023-06-04 | IR_ITS ---
EXAMINATION: IR ULTRASOUND AND FLUOROSCOPY-GUIDED PLACEMENT OF PERMACATH CLINICAL INFORMATION: Renal failure. COMPARISON: None available. TECHNIQUE: Following explaining ultrasound and fluoroscopy-guided placement of the right tunneled permacath procedure, benefits and risks, a written consent was obtained. Patient was placed supine on fluoroscopy table and preliminary ultrasound imaging was obtained through the right neck. An optimal site was selected and marked on the skin. The entire right neck was cleaned in the usual sterile manner with 2% chlorhexidine solution and subsequently draped. 1% lidocaine was injected at the marked site. Under sterile ultrasound guidance a single wall needle was advanced and the right jugular vein was punctured distal to the clavicle. After observing venous return, a thin guidewire was placed in the SVC and needle withdrawn. A 5-Malagasy dilator was passed over the guidewire and was anchored to the skin drape with hemostats. Approximately 1 gauze length from the right neck incision along the anterior chest wall, 1% lidocaine was injected. Subsequently, 0.5% Sensorcaine was injected subcutaneously from the right anterior chest wall incision to the right neck incision. The permacath connected to a blind-ending tunneler was then advanced from the right anterior chest wall lesion and tunneled to the right neck incision. The catheter was pulled and the tunneler was removed. At the right neck incision, the guidewire over the 5-Malagasy dilator was removed. A longer 0.035 J-wire was advanced through the guidewire and placed in the IVC. The 5-Malagasy dilator was removed and the track dilated to 12 Malagasy. A 14.5 Malagasy dilator with sheath was advanced over the long guidewire. The guidewire and the dilator were removed. The permacath was then advanced through the peel-away sheath into the SVC. The peel-away sheath was removed as the catheter was advanced and placed in the mid SVC. Both ports of the permacath were flushed with heparinized saline. Nonabsorbing sutures were placed along the distal catheter and anchored to the skin. Sterile dressing applied postprocedure. Patient tolerated procedure extremely well. Conscious sedation was utilized and patient monitored for 25 minutes. There were no immediate complications. FINDINGS: Preliminary imaging of ultrasound reveals widely patent jugular vein. A 14.5-Malagasy 19 cm long tunneled permacath was placed with its tip in the mid SVC. The catheter is ready for use. IR/IR us guide venous access IMPRESSION: Successful insertion of tunneled right permacath with its tip in the mid SVC, ready for use. Fluoroscopy Time: 1.4 minutes. Dose Area Product: 219 cGy/cm2.
--- NOTE | ~2023-06-04 | IR_ITS ---
PROCEDURE: IR INSERTION OF TUNNEL CATHETER CLINICAL INFORMATION: Placement of a dialysis catheter COMPARISON: 06/05/2020 TECHNIQUE: All elements of maximal sterile barrier technique followed including use of cap, mask, sterile gown, sterile gloves, a sterile full body drape and hand hygiene. Also followed skin preparation with 2% chlorhexidine for cutaneous antisepsis, and sterile ultrasound preparation with sterile gel and probe cover when applicable. FINDINGS: Tunneled catheter placed in the brachial and coronal. These place with the right subclavian approach with the tip over the SVC. Partially visualized lungs are clear and heart is not enlarged. There is no pneumothorax. IR/IR cvc insert central tunnel IMPRESSION: Well-positioned tunneled catheter
[2023-06-04 23:25] VITALS: BP 158/72; PULSE 77; O2SAT 98; BMI 32.5
[2023-06-04 23:29] VITALS: BP 177/85; PULSE 82; RESP 16; O2SAT 99
--- NOTE | 2023-06-04 23:32 | ECG_ITS ---
Test Reason : WEAKNESS Blood Pressure : / mmHG Vent. Rate : 077 BPM Atrial Rate : 077 BPM P-R Int : 150 ms QRS Dur : 088 ms QT Int : 420 ms P-R-T Axes : 070 015 073 degrees QTc Int : 475 ms Normal sinus rhythm Nonspecific T wave abnormality Prolonged QT Abnormal ECG When compared with ECG of 05-JUN-2020 10:23, Sinus rhythm has replaced Junctional rhythm Referred By: Blanca Oconnor Electronically Signed By:SÁNCHEZ TOMAS MD
--- NOTE | 2023-06-04 23:33 | ED_ITS ---
HPI - Weakness General Chief complaint: Weakness Stated complaint: weakness Time Seen by Provider: 06/04/23 23:23 Source: patient and EMS Mode of arrival: EMS Limitations: no limitations History of Present Illness HPI Narrative: Patient comes to the emergency room complaining of generalized weakness. Patient states that today he was not sitting in the toilet seat, patient was unable to get up due to weakness in both lower extremities. Patient states that he also noted today that when he walks up the stairs he feels very weak. Patient denies chest pain or shortness of breath. Patient states the weakness started approximately 4 days ago and has gradually been getting worse. Denies pain anywhere. 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 A few days ago he was diagnosed with hyperkalemia, patient states he was given p.o. medications does not know which medications and Lasix. Did not really want to come to the emergency room but his utility worker roller shop and his made him come. Related Data Home Medications Medication Instructions Recorded Confirmed simvastatin 20 mg tablet 20 mg PO BEDTIME 06/05/20 04/30/22 amlodipine 10 mg tablet 10 mg PO DAILY 06/21/20 04/30/22 hydrochlorothiazide 25 mg tablet 12.5 mg PO DAILY 05/01/21 04/30/22 hydrochlorothiazide 12.5 mg tablet 12.5 mg PO DAILY 10/30/21 04/30/22 carvedilol 25 mg tablet 25 mg PO BID 12/09/22 spironolactone 25 mg tablet 25 mg PO DAILY 12/09/22 Previous Rx's Medication Instructions Recorded polyethylene glycol 3350 17 gram 17 g PO DAILY #30 ea 06/12/20 oral powder packet finasteride 5 mg tablet 5 mg PO DAILY 90 days #90 tabs 12/09/22 tamsulosin 0.4 mg capsule 0.4 mg PO BEDTIME #90 caps 12/09/22 Allergies Allergy/AdvReac Type Severity Reaction Status Date / Time No Known Allergies Allergy Verified 12/09/22 08:36 Review of Systems 2 Review of Systems: Constitutional : No Weight loss, No Fever, No Chills, No Night Sweats, No Fatigue, No Malaise , complaining of generalized weakness, ENT/Mouth : No Hearing loss, No Ear Pain, No Nasal Congestion, No Sinus Pain, No Hoarseness, No sore throat, No Rhinorrhea, No Swallowing Difficulty Eyes: No Eye Pain, No Swelling, No Redness, No Foreign Body, No Discharge, No Vision Changes Cardiovascular : No Chest Pain, No SOB, No Dyspnea on Exertion, No Orthopnea, No Edema, No Palpitations Respiratory : No Cough, No Sputum, No Wheezing, No Smoke Exposure, No Dyspnea Gastrointestinal : No Nausea, No Vomiting, No Diarrhea, No Constipation, No abdominal Pain, No Hematochezia, No Melena Genitourinary : no irregular bleeding, No Dysuria, No Urinary Frequency, No Hematuria, No Urinary Incontinence, No Urgency, No Flank Pain, No Urinary Flow Changes, No Hesitancy Musculoskeletal : No joint pain, No Myalgias, No Joint Swelling Skin : No Skin Lesions, No rash Neuro : No Weakness, No Numbness, No Paresthesias, No Loss of Consciousness, No Dizziness, No Headache Psych : No Anxiety/Panic, No Depression, No SI/HI/AH/VH, No Social Issues, Heme/Lymph: No Bruising, No Bleeding,No Lymphadenopathy Endocrine : No Polyuria, No Polydipsia, No Temperature Intolerance [facility] Past Medical History Medical History CKD (chronic kidney disease) High cholesterol Hypertension Social History Social History Household Members: Spouse Housing: House Do you presently have visiting nurse or other home services: No Smoked in Last 30 Days: No Use of substances other than those prescribed or required for medical reasons: No Advance Directives: No Advance Directives Information Provided: No service: No Physical Exam 2 Vital Signs: Vital Signs: Last Vital Signs Temp 97.8 F 06/05/23 01:52 Pulse 76 06/05/23 01:52 Resp 16 06/05/23 01:52 BP 135/69 06/05/23 01:52 Pulse Ox 98 06/05/23 01:52 O2 Del Method Room Air 06/05/23 01:52 BMI result Body Mass Index 32.5 Const: Other: Appearance: Alert. Oriented X3. No acute distress. Seems weak, difficulty sitting due to weakness Eyes: Pupils equal, round and reactive to light. ENT: Pharynx normal. Neck: Normal inspection. Neck supple. No lymph nodes noted. No crepitus CVS: Normal heart rate and rhythm. Pulses normal. Normal S1 and S2 Respiratory: No respiratory distress. Breath sounds normal. No Wheezing. No rales Abdomen: Soft and nontender. No rigidity. No distention. Skin: Skin warm and dry. Normal skin color. Normal skin turgor. Extremities: No lower extremity edema. No Lacerations. No Rash Neuro: Oriented X 3. No motor deficit. No sensory deficit. Moving all extremities. No slurred speech. CN 2 through 12 grossly intact Psych: calm, cooperative, normal affect Course Course Course Narrative: -all of patient's labs pending Medications Administered Discontinued Medications Generic Name Dose Route Start Last Admin Trade Name Freq PRN Reason Stop Dose Admin Sodium Chloride 1,000 mls @ 999 mls/hr 06/05/23 00:41 06/05/23 02:26 Ns IVCONT 06/05/23 01:41 Infused .Q1H1M ONE Infusion Medical Decision Making Medical Decision Making [facility] Narrative: -my interpretation of labs, hematology within normal limits. Patient has significant chemistry abnormalities. Creatinine is above baseline, BUN 105, creatinine 5.89, bicarb 10. -I discussed the patient with Dr. Carlin patient being admitted. Differential Diagnosis Differential Diagnoses: The differential diagnosis associated with the presentation includes (Dehydration, acute kidney injury) Admission/Observation Consideration of admission/observation: Escalation of care including admission/observation considered Consult Healthcare Provider Management of the patient was discussed with: Hospitalist Lab Data [facility] Lab Attestation statement: I reviewed the patient's lab results. 06/04/23 23:52 06/04/23 23:51 Labs: Lab Results 06/04/23 06/04/23 06/05/23 Range/Units 23:51 23:52 02:20 WBC 9.0 (4.8-10.8) X10*3/uL RBC 3.20 L (4.60-5.80) X10*6/uL Hgb 9.8 L (14.0-18.0) g/dl Hct 29.3 L (42.0-52.0) % MCV 91.6 (80.0-98.0) fL MCH 30.6 (27.0-33.0) pg MCHC 33.4 (31.0-36.0) g/dl RDW 13.0 (11.0-16.0) % Plt Count 228 (160-400) X10*3/uL MPV 9.5 (9.4-12.4) fL Immature Gran % (Auto) 0.6 H (0.0-0.4) % Neut % (Auto) 77.1 H (45-73) % Lymph % (Auto) 9.3 L (20-40) % [place] % (Auto) 11.1 H (2-11) % Eos % (Auto) 1.2 (0-4) % Baso % (Auto) 0.7 (0-2) % Lymph # (Auto) 0.8 L (1.2-4.9) X10*3/uL [place] # (Auto) 1.0 (0.1-1.2) X10*3/uL Eos # (Auto) 0.1 (0.0-0.4) X10*3/uL Baso # (Auto) 0.1 (0.0-0.2) X10*3/uL Abs Immat Gran (auto) 0.05 H (0.00-0.03) X10*3/uL Absolute Neuts (auto) 6.9 (2.0-8.3) x10*3/uL Absolute Nucleated RBC 0.000 (0.0-0.012) X10*3/uL Nucleated RBC % (auto) 0.0 (0.0-0.2) /100WBC VBG pH (7.32-7.43) VBG pCO2 mmHg VBG pO2 mmHg VBG HCO3 (22-26) mmol/L VBG O2 Saturation % VBG Base Excess mmol/L Sodium 134 L (135-145) mmol/L Potassium 5.2 H (3.3-5.1) mmol/L Chloride 105 (96-108) mmol/L Carbon Dioxide 10 L* D (22-29) mmol/L Anion Gap 24 H (12-20) BUN 105 H (9-16) mg/dL Creatinine 5.89 H* (0.5-1.4) mg/dL Estim Creat Clear Calc 11.4 Estimated GFR 9 Random Glucose 154 H (60-115) mg/dL Calcium 6.7 L D (8.4-10.2) mg/dL Magnesium 1.8 (1.6-2.6) mg/dL Total Bilirubin 0.3 (0.0-1.0) mg/dL Direct Bilirubin 0.2 (0.0-0.5) mg/dL AST 541 H (5-37) U/L ALT 256 H (0-40) U/L Alkaline Phosphatase 49 (39-117) U/L Troponin I High Sens 20.7 (<3.5-35.0) ng/L Total Protein 6.7 (6.5-8.0) g/dL Albumin 3.4 L (3.5-5.0) g/dL Urine Color Yellow Urine Appearance Clear Urine pH 5.5 (5.0-9.0) Ur Specific [place] 1.015 (1.005-1.025) Urine Protein 100 (2+) H (Neg-Trace) mg/dL Urine Glucose (UA) Negative (Negative) mg/dL Urine Ketones Negative (Negative) mg/dL Urine Blood Large (3+) H (Negative) Urine Nitrite Negative (Negative) Ur Leukocyte Esterase Trace H (Negative) Urine RBC >20 H (0-2) /HPF Urine WBC 0-5 (0-5) /HPF Ur Squamous Epith Cells 0-2 (0-2) /HPF Urine Bacteria None Seen (None Seen) Hyaline Casts 0-2 (0-2) /LPF COVID-19 (ANGELICA) Negative (Negative) COVID-19 Clin Com See Note Influenza Type A (LINO) Negative (Negative) Influenza Type B (LINO) Negative (Negative) Influenza A & B Note See Note 06/05/23 Range/Units 03:33 WBC (4.8-10.8) X10*3/uL RBC (4.60-5.80) X10*6/uL Hgb (14.0-18.0) g/dl Hct (42.0-52.0) % MCV (80.0-98.0) fL MCH (27.0-33.0) pg MCHC (31.0-36.0) g/dl RDW (11.0-16.0) % Plt Count (160-400) X10*3/uL MPV (9.4-12.4) fL Immature Gran % (Auto) (0.0-0.4) % Neut % (Auto) (45-73) % Lymph % (Auto) (20-40) % [place] % (Auto) (2-11) % Eos % (Auto) (0-4) % Baso % (Auto) (0-2) % Lymph # (Auto) (1.2-4.9) X10*3/uL [place] # (Auto) (0.1-1.2) X10*3/uL Eos # (Auto) (0.0-0.4) X10*3/uL Baso # (Auto) (0.0-0.2) X10*3/uL Abs Immat Gran (auto) (0.00-0.03) X10*3/uL Absolute Neuts (auto) (2.0-8.3) x10*3/uL Absolute Nucleated RBC (0.0-0.012) X10*3/uL Nucleated RBC % (auto) (0.0-0.2) /100WBC VBG pH 7.23 L (7.32-7.43) VBG pCO2 23 mmHg VBG pO2 65 mmHg VBG HCO3 10 L (22-26) mmol/L VBG O2 Saturation 89.0 % VBG Base Excess -15.2 mmol/L Sodium (135-145) mmol/L Potassium (3.3-5.1) mmol/L Chloride (96-108) mmol/L Carbon Dioxide (22-29) mmol/L Anion Gap (12-20) BUN (9-16) mg/dL Creatinine (0.5-1.4) mg/dL Estim Creat Clear Calc Estimated GFR Random Glucose (60-115) mg/dL Calcium (8.4-10.2) mg/dL Magnesium (1.6-2.6) mg/dL Total Bilirubin (0.0-1.0) mg/dL Direct Bilirubin (0.0-0.5) mg/dL AST (5-37) U/L ALT (0-40) U/L Alkaline Phosphatase (39-117) U/L Troponin I High Sens (<3.5-35.0) ng/L Total Protein (6.5-8.0) g/dL Albumin (3.5-5.0) g/dL Urine Color Urine Appearance Urine pH (5.0-9.0) Ur Specific [place] (1.005-1.025) Urine Protein (Neg-Trace) mg/dL Urine Glucose (UA) (Negative) mg/dL Urine Ketones (Negative) mg/dL Urine Blood (Negative) Urine Nitrite (Negative) Ur Leukocyte Esterase (Negative) Urine RBC (0-2) /HPF Urine WBC (0-5) /HPF Ur Squamous Epith Cells (0-2) /HPF Urine Bacteria (None Seen) Hyaline Casts (0-2) /LPF COVID-19 (ANGELICA) (Negative) COVID-19 Clin Com Influenza Type A (LINO) (Negative) Influenza Type B (LINO) (Negative) Influenza A & B Note Critical Care Time Critical Care Time Critical Care Time: Yes Total Critical Care Time: 60 Attestation: I have personally provided critical care time. Time includes review of lab data, radiology results, discussion with consultants, and monitoring for potential decompensation. Intervention performed as documented. Discharge Plan Discharge Clinical Impression: Acute kidney injury Patient Disposition: Admitted As Inpatient
[2023-06-04 23:57] LABS: MANUAL DIFF FLAG NO
[2023-06-05] VITALS (8 sets, daily range): BP systolic 135–185; BP diastolic 69–95; PULSE 76–101; RESP 16–21; TEMP 36.2–36.6; O2SAT 97–98
[2023-06-05 00:03] LABS: Basophils Absolute Auto 0.1 X10*3/uL (0.0-0.2); Basophils Percent Auto 0.7 % (0-2); Eosinophils Absolute Auto 0.1 X10*3/uL (0.0-0.4); Eosinophils Percent Auto 1.2 % (0-4); Hematocrit 29.3 % (42.0-52.0); Hemoglobin 9.8 g/dl (14.0-18.0); Imm Gran Abs Auto 0.05 X10*3/uL (0.00-0.03); Imm Gran Pct Auto 0.6 % (0.0-0.4); Lymphocytes Absolute Auto 0.8 X10*3/uL (1.2-4.9); Lymphocytes Percent Auto 9.3 % (20-40); Mean Corpuscular HGB Conc 33.4 g/dl (31.0-36.0); Mean Corpuscular Hemoglobin 30.6 pg (27.0-33.0); Mean Corpuscular Volume 91.6 fL (80.0-98.0); Mean Platelet Volume 9.5 fL (9.4-12.4); Monocytes Percent Auto 11.1 % (2-11); Neutrophils Absolute Auto 6.9 x10*3/uL (2.0-8.3); Neutrophils Percent Auto 77.1 % (45-73); Platelet Count 228 X10*3/uL (160-400)
[2023-06-05 00:17] LABS: Alanine Aminotransferase 256 U/L (0-40); Albumin Level 3.4 g/dL (3.5-5.0); Alkaline Phosphatase 49 U/L (39-117); Anion Gap 24 (12-20); Aspartate Amino Transferase 541 U/L (5-37); Bilirubin Direct 0.2 mg/dL (0.0-0.5); Bilirubin Total 0.3 mg/dL (0.0-1.0); Blood Urea Nitrogen 105 mg/dL (9-16); Calcium 6.7 mg/dL (8.4-10.2); Carbon Dioxide 10 mmol/L (22-29); Chloride 105 mmol/L (96-108); Creatinine Clr Calc Pharmacy 11.4; Estimated Glomerular Filt Rate 9; Glucose Random 154 mg/dL (60-115); Magnesium 1.8 mg/dL (1.6-2.6); Potassium 5.2 mmol/L (3.3-5.1); Sodium 134 mmol/L (135-145); Total Protein 6.7 g/dL (6.5-8.0); Troponin-I High Sensitivity 20.7 ng/L (<3.5-35.0)
[2023-06-05 00:22] LABS: COVID-19 Test Negative (Negative); IDNOW Serial# 08D9AD1C
[2023-06-05 00:39] LABS: IDNOW Serial# BCCEAD1C; Influenza A Negative (Negative); Influenza B2 Negative (Negative)
[2023-06-05] MEDS: 0.9 % Sodium Chloride 1,000 ML 999 ML IVCONT (00:44)
[2023-06-05 02:29] LABS: Appearance Urine Clear; Color Urine Yellow; Glucose Urine UA Negative (Negative); Leukocyte Esterase Urine Trace (Negative); Nitrite Urine Negative (Negative); PH 5.5 (5.0-9.0); Specific Gravity - Urine 1.015 (1.005-1.025); UMIC TRIGGER UACC YES; Urine Blood Large (3+) (Negative); Urine Ketones Negative (Negative); Urine Protein 100 (2+) mg/dL (Neg-Trace)
[2023-06-05 02:44] LABS: Bacteria Urine None Seen (None Seen); Hyaline Casts Urine 0-2 /LPF (0-2); Squamous Epithelial Cell Urine 0-2 /HPF (0-2); WBC Urine 0-5 /HPF (0-5)
[2023-06-05 02:46] LABS: RBC Urine >20 /HPF (0-2)
[2023-06-05 03:39] LABS: Venous Blood Gas Refer to POC result
[2023-06-05 03:40] LABS: VBG Base Excess -15.2 mmol/L; VBG HCO3 10 mmol/L (22-26); VBG pCO2 23 mmHg; VBG pH 7.23 (7.32-7.43); VBG pO2 65 mmHg
--- NOTE | 2023-06-05 03:46 | P.HPHOSP_ITS ---
History of Present Illness Date of Service: 06/05/23 Chief Complaint: Generalized weakness This is a 77-year-old male with pertinent history of chronic kidney disease, BPH, essential hypertension, mixed hyperlipidemia who presents to the emergency department for evaluation of generalized weakness. Patient states he has generalized fatigability that started about 4-5 days prior to presentation. He has difficulty ambulating long distances or walking up the stairs. Patient was unable to get up from the toilet seat on the day of presentation. Patient states he has chronic kidney disease and is followed by his cafe or restaurant manager. He got biopsy of his kidney done which revealed scarring . Patient was on cyclosporine until recently which was discontinued by his cafe or restaurant manager. He still makes urine and has not been on dialysis yet. No fever, chills, nausea, vomiting, diarrhea, abdominal pain, chest discomfort, palpitations, changes in bowel habits. In the emergency department, patient's creatinine was found to be elevated Review of Systems 2 Constitutional: Constitutional: Reports fatigue, Reports lethargy and Reports malaise Cardiovascular: Cardiovascular: Reports no additional cardiovascular complaints Respiratory: Respiratory: Reports no additional respiratory complaints Gastrointestinal: Gastrointestinal: Reports no additional gastrointestinal complaints Genitourinary: Genitourinary: Reports no additional male genitourinary complaints Endocrine: Endocrine: Reports fatigue [facility] Medical History CKD (chronic kidney disease) High cholesterol Hypertension Pertinent family history: No family history of early CAD Social History Household Members: Spouse Housing: House Do you presently have visiting nurse or other home services: No Smoked in Last 30 Days: No Use of substances other than those prescribed or required for medical reasons: No Advance Directives: No Advance Directives Information Provided: No service: No Meds Allergies Allergy/AdvReac Type Severity Reaction Status Date / Time No Known Allergies Allergy Verified 12/09/22 08:36 Home Medications Medication Instructions Recorded Confirmed Last Taken Type simvastatin 20 mg tablet 20 mg PO BEDTIME 06/05/20 04/30/22 06/04/20 History amlodipine 10 mg tablet 10 mg PO DAILY 06/21/20 04/30/22 Unknown History hydrochlorothiazide 25 mg tablet 12.5 mg PO DAILY 05/01/21 04/30/22 Unknown History hydrochlorothiazide 12.5 mg tablet 12.5 mg PO DAILY 10/30/21 04/30/22 Unknown History carvedilol 25 mg tablet 25 mg PO BID 12/09/22 Unknown History spironolactone 25 mg tablet 25 mg PO DAILY 12/09/22 Unknown History Physical Exam 2 Vital Signs and Narrative: Vital Signs: Last Vital Signs Temp 97.8 F 06/05/23 01:52 Pulse 76 06/05/23 01:52 Resp 16 06/05/23 01:52 BP 135/69 06/05/23 01:52 Pulse Ox 98 06/05/23 01:52 O2 Del Method Room Air 06/05/23 01:52 BMI result Body Mass Index 32.5 Middle-aged male lying in bed in no distress Neck supple, no JVD Regular rate and rhythm, S1-S2 heard Regular breath sounds bilaterally, no wheezing or crackles appreciated Abdomen soft nontender, no guarding, no rigidity Patient is awake, alert and oriented to self, place, time and person ; no focal motor deficit Psych: Normal mood No pedal edema Results Labs 06/04/23 23:52 06/04/23 23:51 Labs: Laboratory Results - last 24 hr 06/04/23 06/04/23 06/05/23 23:51 23:52 02:20 MCV 91.6 MCH 30.6 MCHC 33.4 RDW 13.0 Plt Count 228 MPV 9.5 Immature Gran % (Auto) 0.6 H Neut % (Auto) 77.1 H Lymph % (Auto) 9.3 L [place] % (Auto) 11.1 H Eos % (Auto) 1.2 Baso % (Auto) 0.7 Lymph # (Auto) 0.8 L [place] # (Auto) 1.0 Eos # (Auto) 0.1 Baso # (Auto) 0.1 Abs Immat Gran (auto) 0.05 H Absolute Neuts (auto) 6.9 Absolute Nucleated RBC 0.000 Nucleated RBC % (auto) 0.0 VBG pH VBG pCO2 VBG pO2 VBG HCO3 VBG O2 Saturation VBG Base Excess Anion Gap 24 H Estim Creat Clear Calc 11.4 Estimated GFR 9 Random Glucose 154 H Calcium 6.7 L D Magnesium 1.8 Total Bilirubin 0.3 Direct Bilirubin 0.2 AST 541 H ALT 256 H Alkaline Phosphatase 49 Total Protein 6.7 Albumin 3.4 L Urine Color Yellow Urine Appearance Clear Urine pH 5.5 Ur Specific [place] 1.015 Urine Protein 100 (2+) H Urine Glucose (UA) Negative Urine Ketones Negative Urine Blood Large (3+) H Urine Nitrite Negative Ur Leukocyte Esterase Trace H Urine RBC >20 H Urine WBC 0-5 Ur Squamous Epith Cells 0-2 Urine Bacteria None Seen Hyaline Casts 0-2 COVID-19 (ANGELICA) Negative COVID-19 Clin Com See Note Influenza Type A (LINO) Negative Influenza Type B (LINO) Negative Influenza A & B Note See Note 06/05/23 03:33 MCV MCH MCHC RDW Plt Count MPV Immature Gran % (Auto) Neut % (Auto) Lymph % (Auto) [place] % (Auto) Eos % (Auto) Baso % (Auto) Lymph # (Auto) [place] # (Auto) Eos # (Auto) Baso # (Auto) Abs Immat Gran (auto) Absolute Neuts (auto) Absolute Nucleated RBC Nucleated RBC % (auto) VBG pH 7.23 L VBG pCO2 23 VBG pO2 65 VBG HCO3 10 L VBG O2 Saturation 89.0 VBG Base Excess -15.2 Anion Gap Estim Creat Clear Calc Estimated GFR Random Glucose Calcium Magnesium Total Bilirubin Direct Bilirubin AST ALT Alkaline Phosphatase Total Protein Albumin Urine Color Urine Appearance Urine pH Ur Specific [place] Urine Protein Urine Glucose (UA) Urine Ketones Urine Blood Urine Nitrite Ur Leukocyte Esterase Urine RBC Urine WBC Ur Squamous Epith Cells Urine Bacteria Hyaline Casts COVID-19 (ANGELICA) COVID-19 Clin Com Influenza Type A (LINO) Influenza Type B (ILNO) Influenza A & B Note Assessment and Plan (1) Acute kidney injury: Status: Acute Plan This is a 77-year-old male with pertinent history of chronic kidney disease, BPH, essential hypertension, mixed hyperlipidemia who presents to the emergency department for evaluation of generalized weakness. #. Acute kidney injury on chronic kidney disease: Urine studies pending. Consulted Nephrology, appreciate assistance. Monitor creatinine, urine output and avoid nephrotoxins. Received IV crystalloids in the ER #. Anion gap metabolic acidosis, likely in the setting of above. No ketones in urine. Lactic acid pending #. Mixed hyperlipidemia: On statin #. BPH: On finasteride and Flomax #. Essential hypertension: Continue home antihypertensives, avoid nephrotoxins Med rec pending DVT prophylaxis: Heparin Admit as inpatient and will require two night minimum hospital stay for close monitoring of kidney function. Specialist consult pending Time Spent With Patient Time: Total time managing care of this patient today ____ minutes. Quality Stroke Does the patient have a stroke diagnosis?: No VTE Prior VTE?: No VTE Risk Level:: Medical - moderate - high VTE Device Contraindication: Treatment Not Indicated VTE Drug Contraindication: N/A - Med Ordered
[2023-06-05 04:47] LABS: Beta-Hydroxybutyrate 0.17 mmol/L (0.02-0.27)
[2023-06-05 05:15] LABS: Lactic Acid 0.7 mmol/L (0.5-2.0)
[2023-06-05 05:32] LABS: MANUAL DIFF FLAG NO
[2023-06-05] MEDS: Heparin Sodium,Porcine 5,000 UNIT/ML VIAL 5000 UNIT SUBCUT ×2 (05:40→17:34)
[2023-06-05] MEDS: Sodium Bicarbonate 8.4% 50 MEQ/50 ML SYRINGE IVPUSH (05:40)
[2023-06-05 05:42] LABS: Basophils Percent Auto 0.5 % (0-2); Eosinophils Absolute Auto 0.1 X10*3/uL (0.0-0.4); Eosinophils Percent Auto 0.9 % (0-4); Hematocrit 29.2 % (42.0-52.0); Hemoglobin 9.7 g/dl (14.0-18.0); Imm Gran Abs Auto 0.05 X10*3/uL (0.00-0.03); Imm Gran Pct Auto 0.6 % (0.0-0.4); Lymphocytes Absolute Auto 0.8 X10*3/uL (1.2-4.9); Lymphocytes Percent Auto 9.6 % (20-40); Mean Corpuscular HGB Conc 33.2 g/dl (31.0-36.0); Mean Corpuscular Hemoglobin 29.9 pg (27.0-33.0); Mean Corpuscular Volume 90.1 fL (80.0-98.0); Mean Platelet Volume 9.8 fL (9.4-12.4); Monocytes Absolute Auto 0.9 X10*3/uL (0.1-1.2); Monocytes Percent Auto 9.9 % (2-11); Neutrophils Absolute Auto 6.8 x10*3/uL (2.0-8.3); Neutrophils Percent Auto 78.5 % (45-73); Platelet Count 224 X10*3/uL (160-400); Red Blood Count 3.24 X10*6/uL (4.60-5.80); Red Cell Distribution Width 12.9 % (11.0-16.0); White Blood Count 8.7 X10*3/uL (4.8-10.8)
[2023-06-05 05:50] LABS: Anion Gap 23 (12-20); Blood Urea Nitrogen 110 mg/dL (9-16); Calcium 6.5 mg/dL (8.4-10.2); Carbon Dioxide 10 mmol/L (22-29); Chloride 106 mmol/L (96-108); Creatinine Clr Calc Pharmacy 11.8; Estimated Glomerular Filt Rate 10; Glucose Random 126 mg/dL (60-115); Potassium 5.5 mmol/L (3.3-5.1); Sodium 133 mmol/L (135-145)
[2023-06-05] MEDS: Calcium Gluconate/NaCl,Iso-Osm 2 GM/100 ML PLAST..BAG IV (06:31)
[2023-06-05] MEDS: Sodium Zirconium Cyclosilicate 5 GM POWD.PACK PO (06:31)
[2023-06-05] MEDS: Insulin Regular, Human 100 UNIT/ML 3 ML VIAL IVPUSH (06:32)
[2023-06-05 06:53] LABS: Glucose, Whole Blood 101 mg/dL (60-115)
--- NOTE | 2023-06-05 07:11 | PC.NURSE ---
resumed care of patient, he is currently a/ox4, denies pain, all needs met at this time awaiting bed placement
--- NOTE | 2023-06-05 07:28 | P.PNIM_ITS ---
Subjective Subjective Date of Service: 06/05/23 Interval History: f/u on ZAK,hyperkalemia, feels better, no new issues Physical Exam 2 Vital Signs: Vital Signs: Last Vital Signs Temp 97.8 F 06/05/23 01:52 Pulse 80 06/05/23 04:00 Resp 20 06/05/23 04:00 BP 141/82 H 06/05/23 04:00 Pulse Ox 97 06/05/23 04:00 O2 Del Method Room Air 06/05/23 04:00 BMI result Body Mass Index 32.5 Const: Other: General: AO X 3, no acute distress Resp: CTA bilateral CVS: S1,S2,RRR GI: +BS, NT, no distention Skin: No rash Neuro: motor grossly intact Psych: appropriate affect Objective Data Active Medications Acetaminophen (Acetaminophen 325 Mg Tablet) 650 mg PO Q6H PRN PRN Reason: Pain, Mild (Pain Scale 1-3) Dextrose (Dextrose 50 % 25 Gm/50 Ml Syringe) 25 gm IVPUSH Q15M PRN PRN Reason: per Hypoglycemia Standing Ord. Heparin Sodium (Porcine) (Heparin Sodium,Porcine 5,000 Unit/Ml Vial) 5,000 unit SUBCUT Q12H [facility] Last Admin: 06/05/23 05:40 Dose: 5,000 unit Documented By: MELISSA Calcium Gluconate (Calcium Gluconate) 2 gm in 100 mls @ 50 mls/hr IV ONCE ONE Stop: 06/05/23 07:59 Last Admin: 06/05/23 06:31 Dose: 50 mls/hr Documented By: MELISSA Melatonin (Melatonin 3 Mg Tablet) 6 mg PO BEDTIME PRN PRN Reason: Insomnia Ondansetron HCl (Ondansetron Hcl 4 Mg/2 Ml Vial) 4 mg IVPUSH Q8H PRN PRN Reason: Nausea and Vomiting Sodium Chloride (0.9 % Sodium Chloride Flush 3 Ml Syringe) 3 ml IVFLUSH QSHIFT [facility] Labs 06/05/23 05:02 06/05/23 05:02 Labs: Laboratory Results - last 24 hr 06/04/23 06/04/23 06/05/23 23:51 23:52 02:20 MCV 91.6 MCH 30.6 MCHC 33.4 RDW 13.0 Plt Count 228 MPV 9.5 Immature Gran % (Auto) 0.6 H Neut % (Auto) 77.1 H Lymph % (Auto) 9.3 L [place] % (Auto) 11.1 H Eos % (Auto) 1.2 Baso % (Auto) 0.7 Lymph # (Auto) 0.8 L [place] # (Auto) 1.0 Eos # (Auto) 0.1 Baso # (Auto) 0.1 Abs Immat Gran (auto) 0.05 H Absolute Neuts (auto) 6.9 Absolute Nucleated RBC 0.000 Nucleated RBC % (auto) 0.0 VBG pH VBG pCO2 VBG pO2 VBG HCO3 VBG O2 Saturation VBG Base Excess Anion Gap 24 H Estim Creat Clear Calc 11.4 Estimated GFR 9 POC Glucose Random Glucose 154 H Lactic Acid Calcium 6.7 L D Magnesium 1.8 Total Bilirubin 0.3 Direct Bilirubin 0.2 AST 541 H ALT 256 H Alkaline Phosphatase 49 Total Protein 6.7 Albumin 3.4 L Beta-Hydroxybutyrate 0.17 Urine Color Yellow Urine Appearance Clear Urine pH 5.5 Ur Specific [place] 1.015 Urine Protein 100 (2+) H Urine Glucose (UA) Negative Urine Ketones Negative Urine Blood Large (3+) H Urine Nitrite Negative Ur Leukocyte Esterase Trace H Urine RBC >20 H Urine WBC 0-5 Ur Squamous Epith Cells 0-2 Urine Bacteria None Seen Hyaline Casts 0-2 COVID-19 (ANGELICA) Negative COVID-19 Clin Com See Note Influenza Type A (LINO) Negative Influenza Type B (LINO) Negative Influenza A & B Note See Note 06/05/23 06/05/23 06/05/23 03:33 05:02 06:49 MCV 90.1 MCH 29.9 MCHC 33.2 RDW 12.9 Plt Count 224 MPV 9.8 Immature Gran % (Auto) 0.6 H Neut % (Auto) 78.5 H Lymph % (Auto) 9.6 L [place] % (Auto) 9.9 Eos % (Auto) 0.9 Baso % (Auto) 0.5 Lymph # (Auto) 0.8 L [place] # (Auto) 0.9 Eos # (Auto) 0.1 Baso # (Auto) 0.0 Abs Immat Gran (auto) 0.05 H Absolute Neuts (auto) 6.8 Absolute Nucleated RBC 0.000 Nucleated RBC % (auto) 0.0 VBG pH 7.23 L VBG pCO2 23 VBG pO2 65 VBG HCO3 10 L VBG O2 Saturation 89.0 VBG Base Excess -15.2 Anion Gap 23 H Estim Creat Clear Calc 11.8 Estimated GFR 10 POC Glucose 101 Random Glucose 126 H Lactic Acid 0.7 Calcium 6.5 L Magnesium Total Bilirubin Direct Bilirubin AST ALT Alkaline Phosphatase Total Protein Albumin Beta-Hydroxybutyrate Urine Color Urine Appearance Urine pH Ur Specific [place] Urine Protein Urine Glucose (UA) Urine Ketones Urine Blood Urine Nitrite Ur Leukocyte Esterase Urine RBC Urine WBC Ur Squamous Epith Cells Urine Bacteria Hyaline Casts COVID-19 (ANGELICA) COVID-19 Clin Com Influenza Type A (LINO) Influenza Type B (LINO) Influenza A & B Note Assessment and Plan (1) Acute kidney injury: Status: Acute Plan This is a 77-year-old male with pertinent history of chronic kidney disease, BPH, essential hypertension, mixed hyperlipidemia who presents to the emergency department for evaluation of generalized weakness. Acute kidney injury on chronic kidney disease 4: etiology not clear, IVF, Nephrology asssesement repeat labs Hyperkalemia--d/t renal failure, treated with bicab, lokelma. Will repet later. Further w/u per nephrology Anion gap metabolic acidosis, likely in the setting of above. D/t renal failure Mixed hyperlipidemia: On statin Anemia--likely of chronic disease, monitor BPH: On finasteride and Flomax Essential hypertension: Continue home antihypertensives, avoid nephrotoxins DVT prophylaxis: Heparin need for inpatient:,management of severe ZAK, hyperkalemia and expert evaluation Time Spent With Patient Time: Total time managing care of this patient today ____ minutes. Quality Stroke Does the patient have a stroke diagnosis?: No VTE Prior VTE?: No VTE Risk Level:: Medical - moderate - high VTE Device Contraindication: Treatment Not Indicated VTE Drug Contraindication: N/A - Med Ordered
[2023-06-05 08:31] LABS: Creatinine Urine 46.39 mg/dL
--- NOTE | 2023-06-05 09:08 | PC.NURSE ---
pt resting in bed. talking well. no distress. denies pain/CP/SOB/dizziness. pt eating snack. voided in urinal yellow urine. no focal deficits.
--- NOTE | 2023-06-05 09:20 | PHA.MEDREC ---
Pharmacy Consult ? Medication Reconciliation Pharmacy has completed the medication reconciliation. Patient stated his provider stopped him on HCTZ, spironolactone, cyclosporine and furosemide recently
[2023-06-05 09:28] LABS: Glucose, Whole Blood 131 mg/dL (60-115)
--- NOTE | 2023-06-05 12:13 | PC.NURSE ---
called phlebotomy to follow up regarding BMP blood order- stated they are working on coming down- will continue to follow up as needed
--- NOTE | 2023-06-05 13:00 | PC.NURSE ---
pt ate lunch. no distress. no pain noted. breathing well. +CMS. able to turn/pivot with x2 assist to commode.
--- NOTE | 2023-06-05 15:02 | MHC.CM.PN ---
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
--- NOTE | 2023-06-05 15:50 | P.EN_ITS ---
Event Note Date of Service: 06/05/23 Event Note: Pt seen and examined in ER D/w family Full consult to follow 1. ZAK 2. CKD 4/5 3. AG Met Acidosis - Likely due to severe CKD r/o lactic acidosis 4. HYperkalemia Will review out pt records Pt follows up with Dr. 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 Ramirez Time Spent With Patient Time: Total time managing care of this patient today ____ minutes.
[2023-06-05 15:58] LABS: Anion Gap 21 (12-20); Blood Urea Nitrogen 106 mg/dL (9-16); Calcium 7.2 mg/dL (8.4-10.2); Carbon Dioxide 12 mmol/L (22-29); Chloride 106 mmol/L (96-108); Creatinine Clr Calc Pharmacy 11.2; Estimated Glomerular Filt Rate 9; Glucose Random 183 mg/dL (60-115); Potassium 4.8 mmol/L (3.3-5.1); Sodium 134 mmol/L (135-145)
--- NOTE | 2023-06-05 16:00 | PC.NURSE ---
calm, coop. no distress. x2 assist to commode for bm. voided in urinal. breathing well. no pain noted/reported
[2023-06-05 16:51] LABS: Phosphorus 11.4 mg/dL (2.7-4.5)
[2023-06-05] MEDS: Sodium Bicarbonate 8.4% 150 MEQ in Dextrose 5 % 850 ML 100 MEQ IV (17:35)
[2023-06-05] MEDS: 0.9 % Sodium Chloride Flush 3 ML SYRINGE IVFLUSH (17:37)
--- NOTE | 2023-06-05 17:57 | PC.NURSE ---
called phlebotomy to follow up regarding phosphorus level draw as it is not showing up as received in lab. notified RUBINA Medina during report that pt will still need this blood value drawn. report called. calling transport
--- NOTE | 2023-06-05 18:05 | PC.NURSE ---
ed transport on way
--- NOTE | 2023-06-05 18:09 | PC.NURSE ---
confirmed w lab- phosphorus was a duplicate. no need.
[2023-06-05] MEDS: carvediloL 12.5 MG TABLET PO (22:02)
[2023-06-05] MEDS: amLODIPine Besylate 10 MG TABLET PO (22:02)
[2023-06-05] MEDS: Tamsulosin HCL 0.4 MG CAPSULE PO (22:03)
[2023-06-05] MEDS: Finasteride 5 MG TABLET PO (22:03)
[2023-06-06] VITALS (7 sets, daily range): BP systolic 136–154; BP diastolic 73–82; PULSE 77–98; RESP 16–22; TEMP 36.2–37.1; O2SAT 93–97
[2023-06-06] MEDS: Heparin Sodium,Porcine 5,000 UNIT/ML VIAL 5000 UNIT SUBCUT ×2 (05:12→16:47)
[2023-06-06] MEDS: Sodium Bicarbonate 8.4% 150 MEQ in Dextrose 5 % 850 ML 100 MEQ IV ×2 (06:38→16:47)
[2023-06-06 08:45] LABS: Vitamin D 25-OH Total 9.2 ng/mL (>30)
[2023-06-06] MEDS: Acetaminophen 325 MG TABLET 650 MG PO ×2 (09:20→16:46)
[2023-06-06] MEDS: Loratadine 10 MG TABLET PO (09:20)
[2023-06-06] MEDS: amLODIPine Besylate 10 MG TABLET PO (09:20)
[2023-06-06] MEDS: carvediloL 12.5 MG TABLET PO ×2 (09:20→20:52)
[2023-06-06] MEDS: Tamsulosin HCL 0.4 MG CAPSULE PO (09:21)
[2023-06-06] MEDS: Finasteride 5 MG TABLET PO (09:21)
--- NOTE | 2023-06-06 09:31 | HO.PM.IMPN ---
Subjective Subjective Date of Service: 06/06/23 Interval History: f/u on ZAK,hyperkalemia. Renal function is worse, K is normal Physical Exam Vital Signs: Vital Signs: Last Vital Signs Temp 97.6 F 06/06/23 08:00 Pulse 92 06/06/23 08:00 Resp 18 06/06/23 08:00 BP 140/82 H 06/06/23 08:00 Pulse Ox 95 06/06/23 08:00 O2 Del Method Room Air 06/06/23 08:00 BMI result Body Mass Index 32.5 Const: Other: General: AO X 3, no acute distress Resp: CTA bilateral CVS: S1,S2,RRR GI: +BS, NT, no distention Skin: No rash Neuro: motor grossly intact Psych: appropriate affect Objective Data Active Medications Acetaminophen (Acetaminophen 325 Mg Tablet) 650 mg PO Q6H PRN PRN Reason: Pain, Mild (Pain Scale 1-3) Acetaminophen (Acetaminophen 325 Mg Tablet) 650 mg PO BID@0900,1700 [facility] Last Admin: 06/06/23 09:20 Dose: 650 mg Documented By: TIFFANY Amlodipine Besylate (Amlodipine Besylate 10 Mg Tablet) 10 mg PO DAILY [facility]; Protocol Last Admin: 06/06/23 09:20 Dose: 10 mg Documented By: TIFFANY Atorvastatin Calcium (Atorvastatin Calcium 10 Mg Tablet) 10 mg PO BEDTIME [facility] Carvedilol (Carvedilol 12.5 Mg Tablet) 12.5 mg PO BID [facility]; Protocol Last Admin: 06/06/23 09:20 Dose: 12.5 mg Documented By: TIFFANY Dextrose (Dextrose 50 % 25 Gm/50 Ml Syringe) 25 gm IVPUSH Q15M PRN PRN Reason: per Hypoglycemia Standing Ord. Finasteride (Finasteride 5 Mg Tablet) 5 mg PO DAILY [facility] Last Admin: 06/06/23 09:21 Dose: 5 mg Documented By: TIFFANY Heparin Sodium (Porcine) (Heparin Sodium,Porcine 5,000 Unit/Ml Vial) 5,000 unit SUBCUT Q12H [facility] Last Admin: 06/06/23 05:12 Dose: 5,000 unit Documented By: JOSSIE Sodium Bicarbonate 150 meq/ (Dextrose) 1,000 mls @ 100 mls/hr IV .Q10H [facility] Last Admin: 06/06/23 06:38 Dose: 100 mls/hr Documented By: JOSSIE Loratadine (Loratadine 10 Mg Tablet) 10 mg PO DAILY [facility] Last Admin: 06/06/23 09:20 Dose: 10 mg Documented By: TIFFANY Melatonin (Melatonin 3 Mg Tablet) 6 mg PO BEDTIME PRN PRN Reason: Insomnia Ondansetron HCl (Ondansetron Hcl 4 Mg/2 Ml Vial) 4 mg IVPUSH Q8H PRN PRN Reason: Nausea and Vomiting Polyethylene Glycol (Polyethylene Glycol 3350 17 Gm Powd.Pack) 17 gm PO DAILY [facility] Last Admin: 06/06/23 09:21 Dose: Not Given Documented By: TIFFANY Non-Admin Reason: Patient Refused Sodium Chloride (0.9 % Sodium Chloride Flush 3 Ml Syringe) 3 ml IVFLUSH QSHIFT [facility] Last Admin: 06/06/23 09:20 Dose: Not Given Documented By: TIFFANY Non-Admin Reason: IV Running Tamsulosin HCl (Tamsulosin Hcl 0.4 Mg Capsule) 0.4 mg PO DAILY [facility] Last Admin: 06/06/23 09:21 Dose: 0.4 mg Documented By: TIFFANY Labs 06/05/23 05:02 06/05/23 15:35 Labs: Laboratory Results - last 24 hr 06/05/23 06/06/23 15:35 07:46 Hold Purple Top SEE NOTE Anion Gap 21 H Estim Creat Clear Calc 11.2 Estimated GFR 9 Random Glucose 183 H Calcium 7.2 L D Phosphorus 11.4 H 25-OH Vitamin D Total 9.2 L Assessment and Plan (1) Acute kidney injury: Status: Acute Plan This is a 77-year-old male with pertinent history of chronic kidney disease, BPH, essential hypertension, mixed hyperlipidemia who presents to the emergency department for evaluation of generalized weakness. Acute kidney injury on chronic kidney disease 4: etiology not clear, IVF, Nephrology asssesement, follow labs Hyperkalemia--d/t renal failure, treated with bicab, lokelma. Will repet later. Further w/u per nephrology Anion gap metabolic acidosis, likely in the setting of above. bicab Mixed hyperlipidemia: On statin Anemia--likely of chronic disease, monitor BPH: On finasteride and Flomax Essential hypertension: Continue home antihypertensives, avoid nephrotoxins DVT prophylaxis: Heparin need for inpatient:,management of severe ZAK, hyperkalemia and expert evaluation Time Spent With Patient Time: Total time managing care of this patient today ____ minutes. Quality Stroke Does the patient have a stroke diagnosis?: No VTE Prior VTE?: No VTE Risk Level:: Medical - moderate - high VTE Device Contraindication: Treatment Not Indicated VTE Drug Contraindication: N/A - Med Ordered
[2023-06-06 09:53] LABS: Anion Gap 23 (12-20); Blood Urea Nitrogen 116 mg/dL (9-16); Carbon Dioxide 14 mmol/L (22-29); Chloride 103 mmol/L (96-108); Creatinine Clr Calc Pharmacy 11.1; Estimated Glomerular Filt Rate 9; Glucose Random 147 mg/dL (60-115); Potassium 4.4 mmol/L (3.3-5.1); Sodium 136 mmol/L (135-145)
--- NOTE | 2023-06-06 16:57 | P.PNNP_ITS ---
Subjective Subjective Date of Service: 06/06/23 Interval history: f/u on ZAK,hyperkalemia. Renal function is worse, K is normal Physical Exam 2 Vital Signs: Vital Signs: Last Vital Signs Temp 98.8 F 06/06/23 15:46 Pulse 80 06/06/23 15:46 Resp 20 06/06/23 15:46 BP 146/75 H 06/06/23 15:46 Pulse Ox 93 06/06/23 15:46 O2 Del Method Room Air 06/06/23 15:46 BMI result Body Mass Index 32.5 Const: Other: General: AO X 3, no acute distress Resp: CTA bilateral CVS: S1,S2,RRR GI: +BS, NT, no distention Skin: No rash Neuro: motor grossly intact Psych: appropriate affect Objective Data Labs 06/05/23 05:02 06/06/23 07:46 Labs: Laboratory Results - last 24 hr 06/06/23 07:46 Hold Purple Top SEE NOTE Sodium 136 Potassium 4.4 Chloride 103 Carbon Dioxide 14 L Anion Gap 23 H BUN 116 H Creatinine 6.09 H* Estim Creat Clear Calc 11.1 Estimated GFR 9 Random Glucose 147 H Calcium 7.0 L 25-OH Vitamin D Total 9.2 L Procedures Date of Service Date of Service: 06/06/23 Assessment & Plan Assessment and plan (1) Acute renal failure: Status: Acute (2) 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 ZAK vs Progressive CKD / ESRD 2. CKD 5 3. AG Met Acidosis - Likely due to severe CKD r/o lactic acidosis 4. HYperkalemia 5. 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 Ramirez Time Spent With Patient Time: Total time managing care of this patient today ____ minutes. Progress Note: Quality Stroke Does the patient have a stroke diagnosis?: No
[2023-06-06] MEDS: Calcium Acetate 667 MG CAPSULE 1334 MG PO (17:54)
[2023-06-06] MEDS: 0.9 % Sodium Chloride Flush 3 ML SYRINGE IVFLUSH (20:53)
[2023-06-06] MEDS: Melatonin 3 MG TABLET 6 MG PO (20:53)
[2023-06-06] MEDS: Atorvastatin Calcium 10 MG TABLET PO (20:53)
[2023-06-06] MEDS: LORazepam 2 MG/ML VIAL 1 MG IVPUSH (23:50)
[2023-06-07] MEDS: Sodium Bicarbonate 8.4% 150 MEQ in Dextrose 5 % 850 ML 100 MEQ IV ×2 (02:58→14:07)
[2023-06-07 03:15] VITALS: BP 143/78; PULSE 79; RESP 20; TEMP 36.4; O2SAT 96
[2023-06-07] MEDS: Heparin Sodium,Porcine 5,000 UNIT/ML VIAL 5000 UNIT SUBCUT ×2 (04:34→16:29)
--- NOTE | 2023-06-07 06:28 | CONS_ITS ---
DATE OF SERVICE: 06/05/2023 REASON FOR CONSULTATION: Consult requested by the medical team to evaluate and help in management of patient with severe renal insufficiency. HISTORY OF PRESENT ILLNESS: Patient is a 77-year-old male with past medical history of severe chronic kidney disease followed up by Dr. Mayer in the office, history of BPH, hypertension, hyperlipidemia, history of kidney biopsy done in the past, which showed focal segmental glomerulosclerosis for which he was on Cytoxan, which has been discontinued based on the medical records, who presents to the hospital complains of generalized weakness. He had difficulty ambulating and had generalized fatigue for about a week. He was apparently not able to get up from the toilet seat. 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 He continues to pass urine. There is no fever, chills, nausea, vomiting, diarrhea, abdominal pain, chest pain, palpitation. In the ER, patient was noted to have significantly elevated BUN, creatinine, hyperkalemia, and metabolic acidosis. Patient was treated medically for his hyperkalemia. He denies using any nonsteroidal anti-inflammatory agents. He was recommended by his family, who states that there has been some discussion about dialysis, but nothing specific. REVIEW OF SYSTEMS: As noted above. Other systems were reviewed and negative. PAST MEDICAL HISTORY: History of chronic kidney disease stage 4/5 at baseline, baseline creatinine ranging around 4 to 5 day, history of biopsy-proven FSGS for which he has been on immunosuppressive medication, which has been discontinued. Looks like he was on cyclosporine. Unclear if he had treatment with prednisone/steroid. History of hypercholesterolemia, hypertension, history of metabolic acidosis. PERSONAL AND SOCIAL HISTORY: Patient lives with spouse. Does not drink or smoke at the present time. PAST SURGICAL HISTORY: None significant. ALLERGIES: PATIENT HAS NO KNOWN DRUG ALLERGIES. HOME MEDICATIONS: Include simvastatin 20 mg daily, amlodipine, hydrochlorothiazide 12.5 daily, carvedilol, spironolactone 25 mg daily. PHYSICAL EXAMINATION: GENERAL: Patient is resting in the bed. In ER, awake, alert, oriented x3. No significant distress. VITAL SIGNS: Blood pressure was 141/82, pulse was 80, afebrile. HEENT: Shows pupils equal, round, and reactive bilaterally to light. No jugular venous distention is noted. Neck was supple. No thyromegaly is noted. Mucosa dry. There is no scleral icterus or conjunctival congestion. CARDIOVASCULAR SYSTEM: S1, S2 without rub or murmur. RESPIRATORY SYSTEM: Decreased in the bases. No crepitation or rhonchi is noted. ABDOMEN: Soft, nontender. No guarding. Bowel sounds normal. EXTREMITIES: Showed no edema. There is no peripheral cyanosis or clubbing. NEURO: Essentially nonfocal. LABORATORY DATA: Done today, sodium 133, potassium 5.5, chloride 106, CO2 of 10, BUN 110, creatinine 5.72, glucose 126. Hemoglobin 9.7, hematocrit 29.2, WBCs 8.7, platelets 224. Urinalysis shows yellow urine is clear specific gravity 1.015, protein 100, glucose negative, ketone large, RBC more than 20, WBC 0 to 5. COVID testing was negative. ABG here showed metabolic acidosis 7.23, pCO2 of 23, pO2 of 65, anion gap was 23, lactic acid 0.7, calcium 6.5. IMPRESSION: 1. 77-year-old male with severe renal insufficiency. Patient likely has acute kidney injury superimposed on stage 5 chronic kidney disease versus progressive chronic kidney disease. The likely reason for acute kidney injury is poor p.o. intake/dehydration. Patient did have CT scan of the abdomen and pelvis on admission, which did not show any evidence of obstructive uropathy. 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 I do not have the full biopsy report at the present time. 2. Hyperkalemia in the setting of acute kidney injury, chronic kidney disease and use of potassium-sparing diuretics spironolactone. 3. Anion gap metabolic acidosis with normal lactic acid in the setting of severe progressive chronic kidney disease. 4. 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 5. Hypertension. 6. Anemia of chronic disease. RECOMMENDATION: At this juncture, I have taken the liberty to discontinue potassium started the patient on IV fluids with sodium bicarbonate 150 mEq at 100 mL/hour to correct the acidosis. Spot urine for electrolytes protein creatinine has been ordered. I agree with discontinuing hydrochlorothiazide and spironolactone and these 2 medications should not be used in this patient as he has stage 5 chronic kidney disease. Continue present antihypertensive medication. Continue low-potassium diet and use Lokelma to bring down potassium to less than 5.3. Calcium replacement. I will check vitamin D level, PTH level in view of vitamin D analogue, calcitriol/ergocalciferol as needed based on the levels. I suspect he has significant secondary hyperparathyroidism. In regard to anemia, we will check iron stores and consider giving IV iron with erythropoietin. Looks like patient has progressive CKD and his renal function does not improve, he might require initiation of renal replacement therapy during this admission. Above plan was discussed with the medical team and the family/patient at the bedside. Thank you for allowing me to participate in medical management of the patient. MD DOT Baker/CARMELO / [id number]
[2023-06-07 06:46] LABS: Iron 37 mcg/dL (45-160); Percent Iron Saturation 21 % (15-50); Total Iron Binding Capacity 174 mcg/dL (228-428); Unsaturated Iron Binding 137 ug/dL
[2023-06-07 07:05] VITALS: BP 134/77; PULSE 94; RESP 20; TEMP 36.8; O2SAT 95
[2023-06-07] MEDS: Loratadine 10 MG TABLET PO (07:59)
[2023-06-07] MEDS: Calcium Acetate 667 MG CAPSULE 1334 MG PO ×3 (07:59→16:29)
[2023-06-07] MEDS: amLODIPine Besylate 10 MG TABLET PO (07:59)
[2023-06-07] MEDS: Ergocalciferol (Vitamin D2) 1,250 MCG CAPSULE 1250 MCG PO (07:59)
[2023-06-07] MEDS: Acetaminophen 325 MG TABLET 650 MG PO ×2 (07:59→16:29)
[2023-06-07] MEDS: Tamsulosin HCL 0.4 MG CAPSULE PO (07:59)
[2023-06-07] MEDS: carvediloL 12.5 MG TABLET PO ×2 (08:00→21:21)
[2023-06-07] MEDS: 0.9 % Sodium Chloride Flush 3 ML SYRINGE IVFLUSH ×3 (08:00→21:23)
[2023-06-07] MEDS: Finasteride 5 MG TABLET PO (08:00)
[2023-06-07 08:09] LABS: HBS Num1 0.38 mIU/mL (0-7.99); HBc Num1 0.12 S/CO (0.00-0.79); HBsAGNum1 0.51 S/CO (0.00-0.99); Hepatitis B Core Antibody Nonreactive (Nonreactive); Hepatitis B Surface Antigen Negative (Negative); ~Hepatitis B Surface Antibody NONREACTIVE (Nonreactive)
--- NOTE | 2023-06-07 08:35 | HO.PM.IMPN ---
Subjective Subjective Date of Service: 06/07/23 Interval History: f/u on ZAK,hyperkalemia. Renal function is worse, K is normal Physical Exam Vital Signs: Vital Signs: Last Vital Signs Temp 98.2 F 06/07/23 07:05 Pulse 94 06/07/23 07:05 Resp 20 06/07/23 07:05 BP 134/77 06/07/23 07:05 Pulse Ox 95 06/07/23 07:05 O2 Del Method Room Air 06/07/23 07:05 BMI result Body Mass Index 32.5 Const: Other: General: AO X 3, no acute distress Resp: CTA bilateral CVS: S1,S2,RRR GI: +BS, NT, no distention Skin: No rash Neuro: motor grossly intact Psych: appropriate affect Objective Data Active Medications Acetaminophen (Acetaminophen 325 Mg Tablet) 650 mg PO Q6H PRN PRN Reason: Pain, Mild (Pain Scale 1-3) Acetaminophen (Acetaminophen 325 Mg Tablet) 650 mg PO BID@0900,1700 [facility] Last Admin: 06/07/23 07:59 Dose: 650 mg Documented By: YULIA Amlodipine Besylate (Amlodipine Besylate 10 Mg Tablet) 10 mg PO DAILY [facility]; Protocol Last Admin: 06/07/23 07:59 Dose: 10 mg Documented By: YULIA Atorvastatin Calcium (Atorvastatin Calcium 10 Mg Tablet) 10 mg PO BEDTIME [facility] Last Admin: 06/06/23 20:53 Dose: 10 mg Documented By: THOMAS Calcium Acetate (Calcium Acetate 667 Mg Capsule) 1,334 mg PO TIDWM [facility] Last Admin: 06/07/23 07:59 Dose: 1,334 mg Documented By: YULIA Carvedilol (Carvedilol 12.5 Mg Tablet) 12.5 mg PO BID [facility]; Protocol Last Admin: 06/07/23 08:00 Dose: 12.5 mg Documented By: YULIA Dextrose (Dextrose 50 % 25 Gm/50 Ml Syringe) 25 gm IVPUSH Q15M PRN PRN Reason: per Hypoglycemia Standing Ord. Ergocalciferol (Ergocalciferol (Vitamin D2) 1,250 Mcg Capsule) 1,250 mcg PO Maria@0900 [facility] Last Admin: 06/07/23 07:59 Dose: 1,250 mcg Documented By: YULIA Finasteride (Finasteride 5 Mg Tablet) 5 mg PO DAILY [facility] Last Admin: 06/07/23 08:00 Dose: 5 mg Documented By: YULIA Heparin Sodium (Porcine) (Heparin Sodium,Porcine 5,000 Unit/Ml Vial) 5,000 unit SUBCUT Q12H [facility] Last Admin: 06/07/23 04:34 Dose: 5,000 unit Documented By: THOMAS Sodium Bicarbonate 150 meq/ (Dextrose) 1,000 mls @ 100 mls/hr IV .Q10H [facility] Last Admin: 06/07/23 08:12 Dose: Not Given Documented By: YULIA Non-Admin Reason: IV Running Loratadine (Loratadine 10 Mg Tablet) 10 mg PO DAILY [facility] Last Admin: 06/07/23 07:59 Dose: 10 mg Documented By: YULIA Melatonin (Melatonin 3 Mg Tablet) 6 mg PO BEDTIME PRN PRN Reason: Insomnia Last Admin: 06/06/23 20:53 Dose: 6 mg Documented By: THOMAS Ondansetron HCl (Ondansetron Hcl 4 Mg/2 Ml Vial) 4 mg IVPUSH Q8H PRN PRN Reason: Nausea and Vomiting Polyethylene Glycol (Polyethylene Glycol 3350 17 Gm Powd.Pack) 17 gm PO DAILY [facility] Last Admin: 06/07/23 08:01 Dose: Not Given Documented By: YULIA Non-Admin Reason: Patient Refused Sodium Chloride (0.9 % Sodium Chloride Flush 3 Ml Syringe) 3 ml IVFLUSH QSHIFT [facility] Last Admin: 06/07/23 08:00 Dose: 3 ml Documented By: YULIA Tamsulosin HCl (Tamsulosin Hcl 0.4 Mg Capsule) 0.4 mg PO DAILY [facility] Last Admin: 06/07/23 07:59 Dose: 0.4 mg Documented By: YULIA Labs 06/05/23 05:02 06/06/23 07:46 Labs: Laboratory Results - last 24 hr 06/06/23 06/07/23 06/07/23 07:46 06:15 08:19 Hold Purple Top SEE NOTE Anion Gap 23 H Estim Creat Clear Calc 11.1 Estimated GFR 9 Random Glucose 147 H Calcium 7.0 L Iron 37 L TIBC 174 L % Saturation 21 Unsat Iron Binding 137 25-OH Vitamin D Total 9.2 L Hep Bs Antigen Negative Hep Bs Antibody NONREACTIVE Hep B Core Total Ab Nonreactive Assessment and Plan (1) Acute kidney injury: Status: Acute Plan This is a 77-year-old male with pertinent history of chronic kidney disease, BPH, essential hypertension, mixed hyperlipidemia who presents to the emergency department for evaluation of generalized weakness. Acute kidney injury on chronic kidney disease 4: know history of FSGS according to Nephro. Requesting permacath for acute dialysis tomorrow Hyperkalemia--d/t renal failure, treated with bicab, lokelma. Will repet later. Further w/u per nephrology Anion gap metabolic acidosis, likely in the setting of above. bicab Mixed hyperlipidemia: On statin Anemia--likely of chronic disease, monitor BPH: On finasteride and Flomax Essential hypertension: Continue home antihypertensives, avoid nephrotoxins DVT prophylaxis: Heparin need for inpatient:,management of severe ZAK, hyperkalemia and expert evaluation Time Spent With Patient Time: Total time managing care of this patient today ____ minutes. Quality Stroke Does the patient have a stroke diagnosis?: No VTE Prior VTE?: No VTE Risk Level:: Medical - moderate - high VTE Device Contraindication: Treatment Not Indicated VTE Drug Contraindication: N/A - Med Ordered
[2023-06-07 08:44] LABS: INTERNATIONAL NORM RATIO 0.9 (0.9-1.1); Prothrombin Time 11.5 SEC (11.1-13.3)
[2023-06-07 08:47] LABS: Partial Thromboplastin Time 25.1 SEC (26.0-36.4)
[2023-06-07 09:08] LABS: Anion Gap 25 (12-20); Blood Urea Nitrogen 123 mg/dL (9-16); Calcium 6.2 mg/dL (8.4-10.2); Carbon Dioxide 18 mmol/L (22-29); Chloride 96 mmol/L (96-108); Creatinine Clr Calc Pharmacy 9.9; Estimated Glomerular Filt Rate 8; Glucose Random 118 mg/dL (60-115); Potassium 4.6 mmol/L (3.3-5.1); Sodium 134 mmol/L (135-145)
[2023-06-07 11:27] VITALS: BP 115/62; PULSE 80; RESP 20; TEMP 36.4; O2SAT 97
--- NOTE | 2023-06-07 13:13 | PM.PNNEP ---
Subjective Subjective Date of Service: 06/07/23 Interval history: f/u on ZAK,hyperkalemia. Renal function is worse, K is normal] Has a [place] Physical Exam Vital Signs: Vital Signs: Last Vital Signs Temp 97.5 F 06/07/23 11:27 Pulse 80 06/07/23 11:27 Resp 20 06/07/23 11:27 BP 115/62 06/07/23 11:27 Pulse Ox 97 06/07/23 11:27 O2 Del Method Room Air 06/07/23 11:27 BMI result Body Mass Index 32.5 Const: Other: General: AO X 3, no acute distress Resp: CTA bilateral CVS: S1,S2,RRR GI: +BS, NT, no distention Skin: No rash Neuro: motor grossly intact Psych: appropriate affect Objective Data Labs 06/05/23 05:02 06/07/23 08:19 Labs: Laboratory Results - last 24 hr 06/07/23 06/07/23 06:15 08:19 Hold Purple Top SEE NOTE PT 11.5 INR 0.9 APTT 25.1 L Sodium 134 L Potassium 4.6 Chloride 96 Carbon Dioxide 18 L Anion Gap 25 H BUN 123 H Creatinine 6.79 H* Estim Creat Clear Calc 9.9 Estimated GFR 8 Random Glucose 118 H Calcium 6.2 L D Iron 37 L TIBC 174 L % Saturation 21 Unsat Iron Binding 137 Hep Bs Antigen Negative Hep Bs Antibody NONREACTIVE Hep B Core Total Ab Nonreactive Procedures Date of Service Date of Service: 06/07/23 Assessment & Plan Assessment and plan (1) ESRD (end stage renal disease): Status: Acute (2) BPH w urinary obs/LUTS: Status: Acute (3) Metabolic acidosis: Status: Acute (4) Acute renal failure: Status: Acute (5) 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 ZAK vs Progressive CKD 5 . Now ESRD 2. CKD 5 - HTN / Age / FSGS based on Biopsy 3. AG Met Acidosis - Likely due to severe CKD r/o lactic acidosis 4. Hyperkalemia 5. 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 Mayer - I informed the pt that his group does ot come to [place] and Family wants to stay with [facility] for future care D/c IV bicarb and fluids PO phoslow for high PO4/ Vit D Po 50 K once a week F/u PTH levels Will start [employer] - Asked Medical team to order a permcath for Thursday Coag profile OK No improvement in renal func - D/w pt and family - D/w medical team Medical team ordering a Permcath for AM . Keep pt NPO . Coag profile OK / Platelets OK Pt lives in [facility] - [facility] ? [facility] if rehab needed ( Does not want to go to [facility] - Unit) Dr. Peacock Covering in AM - Needs an out pt spot arranged next week based on where the patient is going Thx Dr. Ramirez Time Spent With Patient Time: Total time managing care of this patient today ____ minutes. Progress Note: Quality Stroke Does the patient have a stroke diagnosis?: No
[2023-06-07 16:00] VITALS: BP 132/65; PULSE 83; RESP 20; TEMP 36.7; O2SAT 95
[2023-06-07 19:46] VITALS: BP 153/72; PULSE 80; RESP 18; TEMP 36.2; O2SAT 94
[2023-06-07] MEDS: Melatonin 3 MG TABLET 6 MG PO (21:21)
[2023-06-07 23:47] VITALS: BP 123/72; PULSE 73; RESP 18; TEMP 37.1; O2SAT 92
[2023-06-08] VITALS (7 sets, daily range): BP systolic 112–143; BP diastolic 57–86; PULSE 70–84; RESP 16–20; TEMP 36.4–37.2; O2SAT 93–97
--- NOTE | 2023-06-08 08:26 | HO.PM.IMPN ---
Subjective Subjective Date of Service: 06/08/23 Interval History: f/u on ZAK,hyperkalemia. renal function has progressed, d/t Permacath today Physical Exam Vital Signs: Vital Signs: Last Vital Signs Temp 99.0 F 06/08/23 07:46 Pulse 82 06/08/23 07:46 Resp 18 06/08/23 07:46 BP 134/69 06/08/23 07:46 Pulse Ox 93 06/08/23 07:46 O2 Del Method Room Air 06/08/23 07:46 BMI result Body Mass Index 32.5 Const: Other: General: AO X 3, no acute distress Resp: CTA bilateral CVS: S1,S2,RRR GI: +BS, NT, no distention Skin: No rash Neuro: motor grossly intact Psych: appropriate affect Objective Data Active Medications Acetaminophen (Acetaminophen 325 Mg Tablet) 650 mg PO Q6H PRN PRN Reason: Pain, Mild (Pain Scale 1-3) Acetaminophen (Acetaminophen 325 Mg Tablet) 650 mg PO BID@0900,1700 [facility] Last Admin: 06/07/23 16:29 Dose: 650 mg Documented By: YULIA Amlodipine Besylate (Amlodipine Besylate 10 Mg Tablet) 10 mg PO DAILY [facility]; Protocol Last Admin: 06/07/23 07:59 Dose: 10 mg Documented By: YULIA Atorvastatin Calcium (Atorvastatin Calcium 10 Mg Tablet) 10 mg PO BEDTIME [facility] Last Admin: 06/06/23 20:53 Dose: 10 mg Documented By: THOMAS Calcium Acetate (Calcium Acetate 667 Mg Capsule) 1,334 mg PO TIDWM [facility] Last Admin: 06/07/23 16:29 Dose: 1,334 mg Documented By: YULIA Carvedilol (Carvedilol 12.5 Mg Tablet) 12.5 mg PO BID [facility]; Protocol Last Admin: 06/07/23 21:21 Dose: 12.5 mg Documented By: THOMAS Dextrose (Dextrose 50 % 25 Gm/50 Ml Syringe) 25 gm IVPUSH Q15M PRN PRN Reason: per Hypoglycemia Standing Ord. Ergocalciferol (Ergocalciferol (Vitamin D2) 1,250 Mcg Capsule) 1,250 mcg PO Maria@0900 [facility] Last Admin: 06/07/23 07:59 Dose: 1,250 mcg Documented By: YULIA Finasteride (Finasteride 5 Mg Tablet) 5 mg PO DAILY [facility] Last Admin: 06/07/23 08:00 Dose: 5 mg Documented By: YULIA Heparin Sodium (Porcine) (Heparin Sodium,Porcine 5,000 Unit/Ml Vial) 5,000 unit SUBCUT Q12H [facility] Last Admin: 06/08/23 03:20 Dose: Not Given Documented By: THOMAS Non-Admin Reason: hold per MD.Pt will have procedure in AM Loratadine (Loratadine 10 Mg Tablet) 10 mg PO DAILY [facility] Last Admin: 06/07/23 07:59 Dose: 10 mg Documented By: YULIA Melatonin (Melatonin 3 Mg Tablet) 6 mg PO BEDTIME PRN PRN Reason: Insomnia Last Admin: 06/07/23 21:21 Dose: 6 mg Documented By: THOMAS Ondansetron HCl (Ondansetron Hcl 4 Mg/2 Ml Vial) 4 mg IVPUSH Q8H PRN PRN Reason: Nausea and Vomiting Polyethylene Glycol (Polyethylene Glycol 3350 17 Gm Powd.Pack) 17 gm PO DAILY [facility] Last Admin: 06/07/23 08:01 Dose: Not Given Documented By: YULIA Non-Admin Reason: Patient Refused Sodium Chloride (0.9 % Sodium Chloride Flush 3 Ml Syringe) 3 ml IVFLUSH QSHIFT [facility] Last Admin: 06/07/23 21:23 Dose: 3 ml Documented By: THOMAS Tamsulosin HCl (Tamsulosin Hcl 0.4 Mg Capsule) 0.4 mg PO DAILY [facility] Last Admin: 06/07/23 07:59 Dose: 0.4 mg Documented By: YULIA Labs 06/05/23 05:02 06/07/23 08:19 Labs: Laboratory Results - last 24 hr 06/07/23 08:19 Hold Purple Top SEE NOTE PT 11.5 INR 0.9 APTT 25.1 L Anion Gap 25 H Estim Creat Clear Calc 9.9 Estimated GFR 8 Random Glucose 118 H Calcium 6.2 L D Assessment and Plan (1) Acute kidney injury: Status: Acute Plan This is a 77-year-old male with pertinent history of chronic kidney disease, BPH, essential hypertension, mixed hyperlipidemia who presents to the emergency department for evaluation of generalized weakness. 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 Requesting permacath for acute dialysis today Hyperkalemia--d/t renal failure, treated with bicab, lokelma. Will repet later. Further w/u per nephrology Anion gap metabolic acidosis, likely in the setting of above. bicab Mixed hyperlipidemia: On statin Anemia--likely of chronic disease, monitor BPH: On finasteride and Flomax Essential hypertension: Continue home antihypertensives, avoid nephrotoxins DVT prophylaxis: Heparin need for inpatient:,management of severe ZAK, hyperkalemia and expert evaluation Time Spent With Patient Time: Total time managing care of this patient today ____ minutes. Quality Stroke Does the patient have a stroke diagnosis?: No VTE Prior VTE?: No VTE Risk Level:: Medical - moderate - high VTE Device Contraindication: Treatment Not Indicated VTE Drug Contraindication: N/A - Med Ordered
[2023-06-08] MEDS: Calcium Acetate 667 MG CAPSULE 1334 MG PO ×2 (09:25→15:49)
[2023-06-08] MEDS: Loratadine 10 MG TABLET PO (09:25)
[2023-06-08] MEDS: Finasteride 5 MG TABLET PO (09:26)
[2023-06-08] MEDS: carvediloL 12.5 MG TABLET PO ×2 (09:26→20:15)
[2023-06-08] MEDS: Acetaminophen 325 MG TABLET 650 MG PO ×2 (09:26→15:49)
[2023-06-08] MEDS: 0.9 % Sodium Chloride Flush 3 ML SYRINGE IVFLUSH ×2 (09:26→16:00)
[2023-06-08] MEDS: Tamsulosin HCL 0.4 MG CAPSULE PO (09:26)
[2023-06-08] MEDS: polyethylene glycoL 3350 17 GM POWD.PACK PO (09:26)
[2023-06-08] MEDS: amLODIPine Besylate 10 MG TABLET PO (09:26)
--- NOTE | 2023-06-08 10:16 | MHC.CM.PN ---
Per ROUNDS discussion, Patient is not yet medically cleared for dc (New HD/permacath today); Patient would benefit from a PT eval to assist with disposition. CM will follow.
[2023-06-08 11:48] LABS: Calcium (PTHI) 6.1 mg/dL (8.6-10.3); PTHI 328 pg/mL (16-77)
[2023-06-08 15:44] LABS: Urea, Random Urine 336 mg/dL
[2023-06-08] MEDS: Heparin Sodium,Porcine 5,000 UNIT/ML VIAL 5000 UNIT SUBCUT (16:00)
--- NOTE | 2023-06-08 18:50 | P.PNNP_ITS ---
Subjective Subjective Date of Service: 06/08/23 Interval history: Seen and examined, events noted Physical Exam 2 Vital Signs: Vital Signs: Last Vital Signs Temp 98.4 F 06/08/23 12:45 Pulse 70 06/08/23 12:45 Resp 16 06/08/23 12:45 BP 112/57 L 06/08/23 12:45 Pulse Ox 94 06/08/23 12:45 O2 Del Method Room Air 06/08/23 12:45 BMI result Body Mass Index 32.5 Const: Other: General: AO X 3, no acute distress Resp: CTA bilateral CVS: S1,S2,RRR GI: +BS, NT, no distention Skin: No rash Neuro: motor grossly intact Psych: appropriate affect Objective Data Labs 06/05/23 05:02 06/07/23 08:19 Labs: Laboratory Results - last 24 hr 06/05/23 06/06/23 08:01 07:46 PTH Intact 328 H Calcium (PTH Intact) 6.1 L Ur Random Urea 336 Procedures Date of Service Date of Service: 06/08/23 Assessment & Plan Assessment and plan (1) ESRD (end stage renal disease): Status: Acute (2) BPH w urinary obs/LUTS: Status: Acute (3) Metabolic acidosis: Status: Acute (4) Acute renal failure: Status: Acute (5) 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 ZAK vs Progressive CKD 5 . Now ESRD s/p Permcath and 1st HD Tx today 2. CKD 5 - HTN / Age / FSGS based on Biopsy 3. AG Met Acidosis - Likely due to severe CKD 4. Hyperkalemia 5. 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 Mayer - I informed the pt that his group does ot come to [place] and Family wants to stay with [facility] for future care PO phoslow for high PO4/ Vit D Po 50 K once a week F/u PTH levels Protect non-dominat arm for AVF Pt lives in [facility] - wants to go to [facility] ? [facility] if rehab needed ( Does not want to go to [facility] - Unit) Time Spent With Patient Time: Total time managing care of this patient today ____ minutes. Progress Note: Quality Stroke Does the patient have a stroke diagnosis?: No
[2023-06-09] MEDS: Heparin Sodium,Porcine 5,000 UNIT/ML VIAL 5000 UNIT SUBCUT ×2 (03:07→16:32)
[2023-06-09 03:11] VITALS: BP 141/67; PULSE 80; RESP 18; TEMP 37.1; O2SAT 93
[2023-06-09 08:00] VITALS: BP 124/67; PULSE 88; RESP 20; TEMP 36.4; O2SAT 93
[2023-06-09 11:46] VITALS: BP 143/78; PULSE 92; RESP 20; TEMP 36.7; O2SAT 94
[2023-06-09] MEDS: Calcium Acetate 667 MG CAPSULE 1334 MG PO ×2 (11:51→16:33)
[2023-06-09] MEDS: Finasteride 5 MG TABLET PO (11:51)
[2023-06-09] MEDS: amLODIPine Besylate 10 MG TABLET PO (11:52)
[2023-06-09] MEDS: carvediloL 12.5 MG TABLET PO ×2 (11:52→19:46)
[2023-06-09] MEDS: Tamsulosin HCL 0.4 MG CAPSULE PO (11:53)
[2023-06-09] MEDS: Acetaminophen 325 MG TABLET 650 MG PO ×2 (11:53→16:33)
[2023-06-09] MEDS: 0.9 % Sodium Chloride Flush 3 ML SYRINGE IVFLUSH ×2 (11:54→16:33)
[2023-06-09] MEDS: Loratadine 10 MG TABLET PO (12:02)
[2023-06-09 15:23] VITALS: BP 131/65; PULSE 82; RESP 20; TEMP 36.6; O2SAT 92
--- NOTE | 2023-06-09 17:00 | HO.PM.IMPN ---
Subjective Subjective Date of Service: 06/09/23 Interval History: f/u on ZAK,hyperkalemia. renal function has progressed, d/t Permacath today Review of Systems no new c/o Physical Exam Vital Signs: Vital Signs: Last Vital Signs Temp 97.8 F 06/09/23 15:23 Pulse 82 06/09/23 15:23 Resp 20 06/09/23 15:23 BP 131/65 06/09/23 15:23 Pulse Ox 92 06/09/23 15:23 O2 Del Method Room Air 06/09/23 15:23 BMI result Body Mass Index 32.5 General: AO X 3, no acute distress Resp: CTA bilateral CVS: S1,S2,RRR GI: +BS, NT, no distention Skin: No rash Neuro: motor grossly intact Psych: appropriate affect Objective Data Active Medications Acetaminophen (Acetaminophen 325 Mg Tablet) 650 mg PO Q6H PRN PRN Reason: Pain, Mild (Pain Scale 1-3) Acetaminophen (Acetaminophen 325 Mg Tablet) 650 mg PO BID@0900,1700 [facility] Last Admin: 06/09/23 16:33 Dose: 650 mg Documented By: VASYL Amlodipine Besylate (Amlodipine Besylate 10 Mg Tablet) 10 mg PO DAILY [facility]; Protocol Last Admin: 06/09/23 11:52 Dose: 10 mg Documented By: VASYL Atorvastatin Calcium (Atorvastatin Calcium 10 Mg Tablet) 10 mg PO BEDTIME [facility] Last Admin: 06/06/23 20:53 Dose: 10 mg Documented By: THOMAS Calcium Acetate (Calcium Acetate 667 Mg Capsule) 1,334 mg PO TIDWM [facility] Last Admin: 06/09/23 16:33 Dose: 1,334 mg Documented By: VASYL Carvedilol (Carvedilol 12.5 Mg Tablet) 12.5 mg PO BID [facility]; Protocol Last Admin: 06/09/23 11:52 Dose: 12.5 mg Documented By: VASYL Dextrose (Dextrose 50 % 25 Gm/50 Ml Syringe) 25 gm IVPUSH Q15M PRN PRN Reason: per Hypoglycemia Standing Ord. Ergocalciferol (Ergocalciferol (Vitamin D2) 1,250 Mcg Capsule) 1,250 mcg PO Maria@0900 [facility] Last Admin: 06/07/23 07:59 Dose: 1,250 mcg Documented By: YULIA Finasteride (Finasteride 5 Mg Tablet) 5 mg PO DAILY [facility] Last Admin: 06/09/23 11:51 Dose: 5 mg Documented By: VASYL Heparin Sodium (Porcine) (Heparin Sodium,Porcine 5,000 Unit/Ml Vial) 5,000 unit SUBCUT Q12H [facility] Last Admin: 06/09/23 16:32 Dose: 5,000 unit Documented By: VASYL Loratadine (Loratadine 10 Mg Tablet) 10 mg PO DAILY [facility] Last Admin: 06/09/23 12:02 Dose: 10 mg Documented By: VASYL Melatonin (Melatonin 3 Mg Tablet) 6 mg PO BEDTIME PRN PRN Reason: Insomnia Last Admin: 06/07/23 21:21 Dose: 6 mg Documented By: THOMAS Ondansetron HCl (Ondansetron Hcl 4 Mg/2 Ml Vial) 4 mg IVPUSH Q8H PRN PRN Reason: Nausea and Vomiting Polyethylene Glycol (Polyethylene Glycol 3350 17 Gm Powd.Pack) 17 gm PO DAILY [facility] Last Admin: 06/09/23 12:02 Dose: Not Given Documented By: VASYL Non-Admin Reason: Patient Refused Sodium Chloride (0.9 % Sodium Chloride Flush 3 Ml Syringe) 3 ml IVFLUSH QSHIFT [facility] Last Admin: 06/09/23 16:33 Dose: 3 ml Documented By: VASYL Tamsulosin HCl (Tamsulosin Hcl 0.4 Mg Capsule) 0.4 mg PO DAILY [facility] Last Admin: 06/09/23 11:53 Dose: 0.4 mg Documented By: VASYL Labs 06/05/23 05:02 06/07/23 08:19 Assessment and Plan (1) Acute kidney injury: Status: Acute (2) ESRD (end stage renal disease): Status: Acute Plan 77-year-old male with pertinent history of chronic kidney disease, BPH, essential hypertension, mixed hyperlipidemia who presents to the emergency department for evaluation of generalized weakness. 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 Requesting permacath for acute dialysis today Hyperkalemia--d/t renal failure, treated with deepali campos. Will repet later. Further w/u per nephrology Anion gap metabolic acidosis, likely in the setting of above. bicab Mixed hyperlipidemia: On statin Anemia--likely of chronic disease, monitor BPH: On finasteride and Flomax Essential hypertension: Continue home antihypertensives, avoid nephrotoxins DVT prophylaxis: Heparin need for inpatient:,management of severe ZAK-requiring HD. Time Spent With Patient Time: Total time managing care of this patient today ____ minutes. Quality Stroke Does the patient have a stroke diagnosis?: No VTE Prior VTE?: No VTE Risk Level:: Medical - moderate - high VTE Device Contraindication: Treatment Not Indicated VTE Drug Contraindication: N/A - Med Ordered
[2023-06-09 19:10] VITALS: BP 124/58; PULSE 77; RESP 20; TEMP 36.9; O2SAT 93
--- NOTE | 2023-06-09 19:52 | P.PNNP_ITS ---
Subjective Subjective Date of Service: 06/09/23 Interval history: Seen and examiend, events noted currnently in HD (day # 2) Physical Exam 2 Vital Signs: Vital Signs: Last Vital Signs Temp 98.5 F 06/09/23 19:10 Pulse 77 06/09/23 19:10 Resp 20 06/09/23 19:10 BP 124/58 L 06/09/23 19:10 Pulse Ox 93 06/09/23 19:10 O2 Del Method Room Air 06/09/23 19:10 BMI result Body Mass Index 32.5 Const: Other: General: AO X 3, no acute distress Resp: CTA bilateral CVS: S1,S2,RRR GI: +BS, NT, no distention Skin: No rash Neuro: motor grossly intact Psych: appropriate affect Objective Data Labs 06/05/23 05:02 06/07/23 08:19 Procedures Date of Service Date of Service: 06/09/23 Assessment & Plan Assessment and plan (1) ESRD (end stage renal disease): Status: Acute (2) BPH w urinary obs/LUTS: Status: Acute (3) Metabolic acidosis: Status: Acute (4) Acute renal failure: Status: Acute (5) 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 ZAK vs Progressive CKD 5 . Now ESRD s/p Permcath and day # 2 HD Tx today 2. CKD 5 - HTN / Age / FSGS based on Biopsy 3. AG Met Acidosis - Likely due to severe CKD--resolving 4. Hyperkalemia -- resolved 5. 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 Mayer - Dr Ramirez informed the pt that his group does not come to Patient again restated he and Family want to stay with [facility] for future care PO phoslow for high PO4/ Vit D Po 50 K once a week F/u PTH levels Protect non-dominat arm for AVF Pt [facility] in [facility] - wants to go to [facility] unit ? [facility] if rehab needed ( Does not want to go to [facility] - Unit); I gave info to [facility] to begin process of getting him a spot Time Spent With Patient Time: Total time managing care of this patient today ____ minutes. Progress Note: Quality Stroke Does the patient have a stroke diagnosis?: No
[2023-06-09 23:50] VITALS: BP 129/65; PULSE 78; RESP 18; TEMP 36.6; O2SAT 96
[2023-06-10] VITALS (7 sets, daily range): BP systolic 105–142; BP diastolic 57–66; PULSE 74–80; RESP 16–18; TEMP 35.9–36.5; O2SAT 92–97
[2023-06-10] MEDS: Heparin Sodium,Porcine 5,000 UNIT/ML VIAL 5000 UNIT SUBCUT ×2 (03:42→15:19)
[2023-06-10] MEDS: 0.9 % Sodium Chloride Flush 3 ML SYRINGE IVFLUSH ×2 (08:56→15:19)
[2023-06-10] MEDS: Finasteride 5 MG TABLET PO (09:01)
[2023-06-10] MEDS: amLODIPine Besylate 10 MG TABLET PO (09:02)
[2023-06-10] MEDS: carvediloL 12.5 MG TABLET PO ×2 (09:02→22:12)
[2023-06-10] MEDS: Acetaminophen 325 MG TABLET 650 MG PO ×2 (09:02→16:37)
[2023-06-10] MEDS: Calcium Acetate 667 MG CAPSULE 1334 MG PO ×3 (09:02→16:36)
[2023-06-10] MEDS: Loratadine 10 MG TABLET PO (09:02)
[2023-06-10] MEDS: Tamsulosin HCL 0.4 MG CAPSULE PO (09:02)
--- NOTE | 2023-06-10 10:12 | MHC.CM.PN ---
Patient would benefit from a PT eval to assist with disposition and he will need a new HD slot. CM will follow.
--- NOTE | 2023-06-10 12:51 | MHC.CM.PN ---
PT is recommending STR and Patient is a new HD Patient. Referrals have been made to the 2 SNFs with on-site HD ([facility] and [facility]); CM will follow.
--- NOTE | 2023-06-10 15:20 | HO.PM.IMPN ---
Subjective Subjective Date of Service: 06/10/23 Interval History: f/u on ZAK,hyperkalemia. renal function has progressed, d/t Permacath Review of Systems no new c/o Physical Exam Vital Signs: Vital Signs: Last Vital Signs Temp 97.3 F 06/10/23 11:14 Pulse 79 06/10/23 11:14 Resp 18 06/10/23 11:14 BP 105/57 L 06/10/23 11:14 Pulse Ox 94 06/10/23 11:14 O2 Del Method Room Air 06/10/23 11:14 BMI result Body Mass Index 32.5 General: AO X 3, no acute distress Resp: CTA bilateral CVS: S1,S2,RRR GI: +BS, NT, no distention Skin: No rash Neuro: motor grossly intact Psych: appropriate affect Objective Data Active Medications Acetaminophen (Acetaminophen 325 Mg Tablet) 650 mg PO Q6H PRN PRN Reason: Pain, Mild (Pain Scale 1-3) Acetaminophen (Acetaminophen 325 Mg Tablet) 650 mg PO BID@0900,1700 [facility] Last Admin: 06/10/23 09:02 Dose: 650 mg Documented By: PARISH Amlodipine Besylate (Amlodipine Besylate 10 Mg Tablet) 10 mg PO DAILY [facility]; Protocol Last Admin: 06/10/23 09:02 Dose: 10 mg Documented By: PARISH Atorvastatin Calcium (Atorvastatin Calcium 10 Mg Tablet) 10 mg PO BEDTIME [facility] Last Admin: 06/06/23 20:53 Dose: 10 mg Documented By: THOMAS Calcium Acetate (Calcium Acetate 667 Mg Capsule) 1,334 mg PO TIDWM [facility] Last Admin: 06/10/23 11:51 Dose: 1,334 mg Documented By: PARISH Carvedilol (Carvedilol 12.5 Mg Tablet) 12.5 mg PO BID [facility]; Protocol Last Admin: 06/10/23 09:02 Dose: 12.5 mg Documented By: PARISH Dextrose (Dextrose 50 % 25 Gm/50 Ml Syringe) 25 gm IVPUSH Q15M PRN PRN Reason: per Hypoglycemia Standing Ord. Ergocalciferol (Ergocalciferol (Vitamin D2) 1,250 Mcg Capsule) 1,250 mcg PO Maria@0900 [facility] Last Admin: 06/07/23 07:59 Dose: 1,250 mcg Documented By: YULIA Finasteride (Finasteride 5 Mg Tablet) 5 mg PO DAILY [facility] Last Admin: 06/10/23 09:01 Dose: 5 mg Documented By: PARISH Heparin Sodium (Porcine) (Heparin Sodium,Porcine 5,000 Unit/Ml Vial) 5,000 unit SUBCUT Q12H [facility] Last Admin: 06/10/23 03:42 Dose: 5,000 unit Documented By: LAFLAMSam Loratadine (Loratadine 10 Mg Tablet) 10 mg PO DAILY [facility] Last Admin: 06/10/23 09:02 Dose: 10 mg Documented By: PARISH Melatonin (Melatonin 3 Mg Tablet) 6 mg PO BEDTIME PRN PRN Reason: Insomnia Last Admin: 06/07/23 21:21 Dose: 6 mg Documented By: THOMAS Ondansetron HCl (Ondansetron Hcl 4 Mg/2 Ml Vial) 4 mg IVPUSH Q8H PRN PRN Reason: Nausea and Vomiting Polyethylene Glycol (Polyethylene Glycol 3350 17 Gm Powd.Pack) 17 gm PO DAILY [facility] Last Admin: 06/10/23 08:56 Dose: Not Given Documented By: PARISH Non-Admin Reason: Patient Refused Sodium Chloride (0.9 % Sodium Chloride Flush 3 Ml Syringe) 3 ml IVFLUSH QSHIFT [facility] Last Admin: 06/10/23 08:56 Dose: 3 ml Documented By: PARISH Tamsulosin HCl (Tamsulosin Hcl 0.4 Mg Capsule) 0.4 mg PO DAILY [facility] Last Admin: 06/10/23 09:02 Dose: 0.4 mg Documented By: PARISH Labs 06/05/23 05:02 06/07/23 08:19 Assessment and Plan (1) Acute kidney injury: Status: Acute Plan 77-year-old male with pertinent history of chronic kidney disease, BPH, essential hypertension, mixed hyperlipidemia who presents to the emergency department for evaluation of generalized weakness. 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 Requesting permacath for acute dialysis today Hyperkalemia--d/t renal failure, treated with deepali campos. Will repet later. Further w/u per nephrology Anion gap metabolic acidosis, likely in the setting of above. bicab Mixed hyperlipidemia: On statin Anemia--likely of chronic disease, monitor BPH: On finasteride and Flomax Essential hypertension: Continue home antihypertensives, avoid nephrotoxins DVT prophylaxis: Heparin need for inpatient:,management of severe ZAK-requiring HD.( need dialysis spot arranged). Quality Stroke Does the patient have a stroke diagnosis?: No VTE Prior VTE?: No VTE Risk Level:: Medical - moderate - high VTE Device Contraindication: Treatment Not Indicated VTE Drug Contraindication: N/A - Med Ordered
--- NOTE | 2023-06-10 18:24 | P.PNNP_ITS ---
Subjective Subjective Date of Service: 06/10/23 Interval history: Seen and examiend, events noted Physical Exam 2 Vital Signs: Vital Signs: Last Vital Signs Temp 97.6 F 06/10/23 15:19 Pulse 74 06/10/23 15:19 Resp 18 06/10/23 15:19 BP 114/57 L 06/10/23 15:19 Pulse Ox 93 06/10/23 15:19 O2 Del Method Room Air 06/10/23 15:19 BMI result Body Mass Index 32.5 Const: Other: General: AO X 3, no acute distress Resp: CTA bilateral CVS: S1,S2,RRR GI: +BS, NT, no distention Skin: No rash Neuro: motor grossly intact Psych: appropriate affect Objective Data Labs 06/05/23 05:02 06/07/23 08:19 Procedures Date of Service Date of Service: 06/10/23 Assessment & Plan Assessment and plan (1) ESRD (end stage renal disease): Status: Acute (2) BPH w urinary obs/LUTS: Status: Acute (3) Metabolic acidosis: Status: Acute (4) Acute renal failure: Status: Acute (5) 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 ZAK vs Progressive CKD 5 . Now ESRD s/p Permcath and s/p HD x 2 2. CKD 5 - HTN / Age / FSGS based on Biopsy 3. AG Met Acidosis - Likely due to severe CKD--resolving 4. Hyperkalemia -- resolved 5. 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 Mayer - Dr Ramirez informed the pt that his group does not come to Patient again restated he and Family want to stay with [facility] for future care PO phoslow for high PO4/ Vit D Po 50 K once a week F/u PTH levels Protect non-dominat arm for AVF D/C planning--looks like to weakto go home so looking at Rehab ( [facility]ton Flores) Pt [facility] in [facility] - wants to go to [facility] ? Adalid Florse if rehab needed ( Does not want to go to [place] - Unit); I gave info to [facility] to begin process of getting him a spot Time Spent With Patient Time: Total time managing care of this patient today ____ minutes. Progress Note: Quality Stroke Does the patient have a stroke diagnosis?: No
[2023-06-11 03:05] VITALS: BP 127/62; PULSE 77; RESP 16; TEMP 36.8; O2SAT 96
[2023-06-11] MEDS: Melatonin 3 MG TABLET PO (03:17)
[2023-06-11] MEDS: Heparin Sodium,Porcine 5,000 UNIT/ML VIAL 5000 UNIT SUBCUT ×2 (03:18→15:32)
[2023-06-11] MEDS: carvediloL 12.5 MG TABLET PO ×2 (09:53→20:40)
[2023-06-11] MEDS: Acetaminophen 325 MG TABLET 650 MG PO ×2 (09:53→17:00)
[2023-06-11] MEDS: Loratadine 10 MG TABLET PO (09:54)
[2023-06-11] MEDS: Finasteride 5 MG TABLET PO (09:54)
[2023-06-11] MEDS: Tamsulosin HCL 0.4 MG CAPSULE PO (09:54)
[2023-06-11] MEDS: amLODIPine Besylate 10 MG TABLET PO (09:54)
[2023-06-11 09:58] VITALS: BP 137/63; PULSE 94; RESP 17; TEMP 36.4; O2SAT 94
[2023-06-11 11:13] VITALS: BP 112/58; PULSE 82; RESP 17; TEMP 36.5; O2SAT 94
[2023-06-11] MEDS: Calcium Acetate 667 MG CAPSULE 1334 MG PO ×2 (11:59→17:00)
[2023-06-11 15:22] VITALS: BP 118/59; PULSE 61; RESP 18; TEMP 37; O2SAT 96
--- NOTE | 2023-06-11 15:28 | P.PNIM_ITS ---
Subjective Subjective Date of Service: 06/11/23 Interval History: f/u on ZAK,hyperkalemia. renal function has progressed, d/t Permacath Review of Systems eating breakfast, denies any chest pain or shortness of breath. Physical Exam 2 Vital Signs: Vital Signs: Last Vital Signs Temp 98.6 F 06/11/23 15:22 Pulse 61 06/11/23 15:22 Resp 18 06/11/23 15:22 BP 118/59 L 06/11/23 15:22 Pulse Ox 96 06/11/23 15:22 O2 Del Method Room Air 06/11/23 15:22 BMI result Body Mass Index 32.5 General: AO X 3, no acute distress Resp: CTA bilateral CVS: S1,S2,RRR GI: +BS, NT, no distention Skin: No rash Neuro: motor grossly intact Psych: appropriate affect Objective Data Active Medications Acetaminophen (Acetaminophen 325 Mg Tablet) 650 mg PO Q6H PRN PRN Reason: Pain, Mild (Pain Scale 1-3) Acetaminophen (Acetaminophen 325 Mg Tablet) 650 mg PO BID@0900,1700 [facility] Last Admin: 06/11/23 09:53 Dose: 650 mg Documented By: SHIRLEY Amlodipine Besylate (Amlodipine Besylate 10 Mg Tablet) 10 mg PO DAILY [facility]; Protocol Last Admin: 06/11/23 09:54 Dose: 10 mg Documented By: SHIRLEY Atorvastatin Calcium (Atorvastatin Calcium 10 Mg Tablet) 10 mg PO BEDTIME [facility] Last Admin: 06/06/23 20:53 Dose: 10 mg Documented By: THOMAS Calcium Acetate (Calcium Acetate 667 Mg Capsule) 1,334 mg PO TIDWM [facility] Last Admin: 06/11/23 11:59 Dose: 1,334 mg Documented By: SHIRLEY Carvedilol (Carvedilol 12.5 Mg Tablet) 12.5 mg PO BID [facility]; Protocol Last Admin: 06/11/23 09:53 Dose: 12.5 mg Documented By: SHIRLEY Dextrose (Dextrose 50 % 25 Gm/50 Ml Syringe) 25 gm IVPUSH Q15M PRN PRN Reason: per Hypoglycemia Standing Ord. Ergocalciferol (Ergocalciferol (Vitamin D2) 1,250 Mcg Capsule) 1,250 mcg PO Maria@0900 [facility] Last Admin: 06/07/23 07:59 Dose: 1,250 mcg Documented By: YULIA Finasteride (Finasteride 5 Mg Tablet) 5 mg PO DAILY [facility] Last Admin: 06/11/23 09:54 Dose: 5 mg Documented By: SHIRLEY Heparin Sodium (Porcine) (Heparin Sodium,Porcine 5,000 Unit/Ml Vial) 5,000 unit SUBCUT Q12H [facility] Last Admin: 06/11/23 03:18 Dose: 5,000 unit Documented By: DEEDEE Loratadine (Loratadine 10 Mg Tablet) 10 mg PO DAILY [facility] Last Admin: 06/11/23 09:54 Dose: 10 mg Documented By: SHIRLEY Melatonin (Melatonin 3 Mg Tablet) 6 mg PO BEDTIME PRN PRN Reason: Insomnia Last Admin: 06/07/23 21:21 Dose: 6 mg Documented By: THOMAS Ondansetron HCl (Ondansetron Hcl 4 Mg/2 Ml Vial) 4 mg IVPUSH Q8H PRN PRN Reason: Nausea and Vomiting Polyethylene Glycol (Polyethylene Glycol 3350 17 Gm Powd.Pack) 17 gm PO DAILY [facility] Last Admin: 06/11/23 09:04 Dose: Not Given Documented By: SHIRLEY Non-Admin Reason: Off unit: Dialysis Sodium Chloride (0.9 % Sodium Chloride Flush 3 Ml Syringe) 3 ml IVFLUSH QSHIFT [facility] Last Admin: 06/11/23 09:04 Dose: Not Given Documented By: SHIRLEY Non-Admin Reason: Off unit: Dialysis Tamsulosin HCl (Tamsulosin Hcl 0.4 Mg Capsule) 0.4 mg PO DAILY [facility] Last Admin: 06/11/23 09:54 Dose: 0.4 mg Documented By: SHIRLEY Labs 06/05/23 05:02 06/07/23 08:19 Assessment and Plan (1) Acute kidney injury: Status: Acute Plan 77-year-old male with pertinent history of chronic kidney disease, BPH, essential hypertension, mixed hyperlipidemia who presents to the emergency department for evaluation of generalized weakness. 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 Requesting permacath for acute dialysis today Hyperkalemia--d/t renal failure, treated with bicabdeepali. Will repet later. Further w/u per nephrology Anion gap metabolic acidosis, likely in the setting of above. bicab Mixed hyperlipidemia: On statin Anemia--likely of chronic disease, monitor BPH: On finasteride and Flomax Essential hypertension: Continue home antihypertensives, avoid nephrotoxins DVT prophylaxis: Heparin need for inpatient:,management of severe ZAK-requiring HD.( need dialysis spot arranged). Quality Stroke Does the patient have a stroke diagnosis?: No VTE Prior VTE?: No VTE Risk Level:: Medical - moderate - high VTE Device Contraindication: Treatment Not Indicated VTE Drug Contraindication: N/A - Med Ordered
[2023-06-11] MEDS: 0.9 % Sodium Chloride Flush 3 ML SYRINGE IVFLUSH ×2 (15:33→23:35)
--- NOTE | 2023-06-11 15:40 | PM.PNNEP ---
Subjective Subjective Date of Service: 06/11/23 Interval history: Seen and examiend,aisha lopez noted Feels tired after HD Tx Physical Exam Vital Signs: Vital Signs: Last Vital Signs Temp 98.6 F 06/11/23 15:22 Pulse 61 06/11/23 15:22 Resp 18 06/11/23 15:22 BP 118/59 L 06/11/23 15:22 Pulse Ox 96 06/11/23 15:22 O2 Del Method Room Air 06/11/23 15:22 BMI result Body Mass Index 32.5 Const: Other: General: AO X 3, no acute distress Resp: CTA bilateral CVS: S1,S2,RRR GI: +BS, NT, no distention Skin: No rash Neuro: motor grossly intact Psych: appropriate affect Objective Data Labs 06/05/23 05:02 06/07/23 08:19 Procedures Date of Service Date of Service: 06/11/23 Assessment & Plan Assessment and plan (1) ESRD (end stage renal disease): Status: Acute (2) BPH w urinary obs/LUTS: Status: Acute (3) Metabolic acidosis: Status: Acute (4) Acute renal failure: Status: Acute (5) 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 ZAK vs Progressive CKD 5 . Now ESRD TTS s/p Permcath and s/p HD x 3 2. CKD 5 - HTN / Age / FSGS based on Biopsy Pt has FSGS based on Bx - Baseline creat 5-5.5 Pt follows up with Dr. Mayer - Dr Ramirez informed the pt that his group does not come to Patient again restated he and Family want to stay with [facility] for future care PO phoslow for high PO4/ Vit D Po 50 K once a week F/u PTH levels Protect non-dominat arm for AVF D/C planning--looks like to weak to go home so looking at Rehab ( Everton Flores) Pt lives in [facility] - wants to go to [facility] unit ? Adalid Flores if rehab needed ( Does not want to go to [place] - Unit); I gave info to [facility] [place] [facility] to begin process of getting him a spot Time Spent With Patient Time: Total time managing care of this patient today ____ minutes. Progress Note: Quality Stroke Does the patient have a stroke diagnosis?: No
[2023-06-11 20:00] VITALS: BP 131/60; PULSE 71; RESP 18; TEMP 36.4; O2SAT 96
[2023-06-11 23:32] VITALS: BP 127/60; PULSE 60; RESP 20; TEMP 36.1; O2SAT 95
[2023-06-12] VITALS (7 sets, daily range): BP systolic 110–137; BP diastolic 57–65; PULSE 62–77; RESP 18–20; TEMP 36.2–37.1; O2SAT 95–96
[2023-06-12] MEDS: Heparin Sodium,Porcine 5,000 UNIT/ML VIAL 5000 UNIT SUBCUT ×2 (04:01→14:26)
[2023-06-12] MEDS: amLODIPine Besylate 10 MG TABLET PO (07:58)
[2023-06-12] MEDS: 0.9 % Sodium Chloride Flush 3 ML SYRINGE IVFLUSH ×3 (07:58→20:03)
[2023-06-12] MEDS: carvediloL 12.5 MG TABLET PO ×2 (07:58→20:02)
[2023-06-12] MEDS: Loratadine 10 MG TABLET PO (07:59)
[2023-06-12] MEDS: Acetaminophen 325 MG TABLET 650 MG PO ×2 (07:59→16:17)
[2023-06-12] MEDS: Tamsulosin HCL 0.4 MG CAPSULE PO (07:59)
[2023-06-12] MEDS: Finasteride 5 MG TABLET PO (07:59)
[2023-06-12] MEDS: Calcium Acetate 667 MG CAPSULE 1334 MG PO ×3 (08:01→16:17)
--- NOTE | 2023-06-12 08:45 | MHC.CM.PN ---
CM awaits a HD slot and STR SNF bed offer; CM will follow.
[2023-06-12 09:35] LABS: Anion Gap 17 (12-20); Blood Urea Nitrogen 61 mg/dL (9-16); Calcium 8.3 mg/dL (8.4-10.2); Carbon Dioxide 22 mmol/L (22-29); Chloride 97 mmol/L (96-108); Creatinine Clr Calc Pharmacy 13.1; Estimated Glomerular Filt Rate 11; Glucose Random 125 mg/dL (60-115); Potassium 4.2 mmol/L (3.3-5.1); Sodium 132 mmol/L (135-145)
--- NOTE | 2023-06-12 15:38 | P.PNNP_ITS ---
Subjective Subjective Date of Service: 06/12/23 Interval history: dialyzed yesterday Physical Exam 2 Vital Signs: Vital Signs: Last Vital Signs Temp 98.7 F 06/12/23 15:23 Pulse 68 06/12/23 15:23 Resp 18 06/12/23 15:23 BP 114/60 06/12/23 15:23 Pulse Ox 96 06/12/23 15:23 O2 Del Method Room Air 06/12/23 15:23 BMI result Body Mass Index 32.5 Const: Other: General: AO X 3, no acute distress Resp: CTA bilateral CVS: S1,S2,RRR GI: +BS, NT, no distention Skin: No rash Neuro: motor grossly intact Psych: appropriate affect Objective Data Labs 06/05/23 05:02 06/12/23 08:24 Labs: Laboratory Results - last 24 hr 06/12/23 08:24 Hold Purple Top SEE NOTE Sodium 132 L Potassium 4.2 Chloride 97 Carbon Dioxide 22 Anion Gap 17 BUN 61 H Creatinine 5.13 H* Estim Creat Clear Calc 13.1 Estimated GFR 11 Random Glucose 125 H Calcium 8.3 L D Procedures Date of Service Date of Service: 06/12/23 Assessment & Plan Assessment and plan (1) ESRD (end stage renal disease): Status: Acute (2) BPH w urinary obs/LUTS: Status: Acute (3) Metabolic acidosis: Status: Acute (4) Acute renal failure: Status: Acute (5) 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 ZAK vs Progressive CKD 5 . Now ESRD TTS s/p Permcath and s/p HD initiation. Pt has FSGS based on Bx Protect non-dominat arm for AVF D/C planning--looks like to weak to go home so looking at Rehab ( Everton Flores) Pt lives in [facility] - wants to go to [place] [facility] unit ? Adalid Flores if rehab needed ( Does not want to go to [place] - Unit) [facility] [place] [facility] to begin process of getting him a spot Time Spent With Patient Time: Total time managing care of this patient today ____ minutes. Progress Note: Quality Stroke Does the patient have a stroke diagnosis?: No
--- NOTE | 2023-06-12 16:03 | HO.PM.IMPN ---
Subjective Subjective Date of Service: 06/12/23 Interval History: f/u on ZAK,hyperkalemia. renal function has progressed, d/t Permacath Review of Systems eating breakfast, denies any chest pain or shortness of breath. Physical Exam Vital Signs: Vital Signs: Last Vital Signs Temp 98.7 F 06/12/23 15:23 Pulse 68 06/12/23 15:23 Resp 18 06/12/23 15:23 BP 114/60 06/12/23 15:23 Pulse Ox 96 06/12/23 15:23 O2 Del Method Room Air 06/12/23 15:23 BMI result Body Mass Index 32.5 General: AO X 3, no acute distress Resp: CTA bilateral CVS: S1,S2,RRR GI: +BS, NT, no distention Skin: No rash Neuro: motor grossly intact Psych: appropriate affect Objective Data Active Medications Acetaminophen (Acetaminophen 325 Mg Tablet) 650 mg PO Q6H PRN PRN Reason: Pain, Mild (Pain Scale 1-3) Acetaminophen (Acetaminophen 325 Mg Tablet) 650 mg PO BID@0900,1700 [facility] Last Admin: 06/12/23 07:59 Dose: 650 mg Documented By: RENNY Amlodipine Besylate (Amlodipine Besylate 10 Mg Tablet) 10 mg PO DAILY [facility]; Protocol Last Admin: 06/12/23 07:58 Dose: 10 mg Documented By: RENNY Atorvastatin Calcium (Atorvastatin Calcium 10 Mg Tablet) 10 mg PO BEDTIME [facility] Last Admin: 06/06/23 20:53 Dose: 10 mg Documented By: THOMAS Calcium Acetate (Calcium Acetate 667 Mg Capsule) 1,334 mg PO TIDWM [facility] Last Admin: 06/12/23 11:23 Dose: 1,334 mg Documented By: RENNY Carvedilol (Carvedilol 12.5 Mg Tablet) 12.5 mg PO BID [facility]; Protocol Last Admin: 06/12/23 07:58 Dose: 12.5 mg Documented By: RENNY Dextrose (Dextrose 50 % 25 Gm/50 Ml Syringe) 25 gm IVPUSH Q15M PRN PRN Reason: per Hypoglycemia Standing Ord. Ergocalciferol (Ergocalciferol (Vitamin D2) 1,250 Mcg Capsule) 1,250 mcg PO Maria@0900 [facility] Last Admin: 06/07/23 07:59 Dose: 1,250 mcg Documented By: YULIA Finasteride (Finasteride 5 Mg Tablet) 5 mg PO DAILY [facility] Last Admin: 06/12/23 07:59 Dose: 5 mg Documented By: RENNY Heparin Sodium (Porcine) (Heparin Sodium,Porcine 5,000 Unit/Ml Vial) 5,000 unit SUBCUT Q12H [facility] Last Admin: 06/12/23 14:26 Dose: 5,000 unit Documented By: RENNY Loratadine (Loratadine 10 Mg Tablet) 10 mg PO DAILY [facility] Last Admin: 06/12/23 07:59 Dose: 10 mg Documented By: RENNY Melatonin (Melatonin 3 Mg Tablet) 6 mg PO BEDTIME PRN PRN Reason: Insomnia Last Admin: 06/07/23 21:21 Dose: 6 mg Documented By: THOMAS Ondansetron HCl (Ondansetron Hcl 4 Mg/2 Ml Vial) 4 mg IVPUSH Q8H PRN PRN Reason: Nausea and Vomiting Polyethylene Glycol (Polyethylene Glycol 3350 17 Gm Powd.Pack) 17 gm PO DAILY [facility] Last Admin: 06/12/23 07:59 Dose: Not Given Documented By: RENNY Non-Admin Reason: Patient Refused Sodium Chloride (0.9 % Sodium Chloride Flush 3 Ml Syringe) 3 ml IVFLUSH QSHIFT [facility] Last Admin: 06/12/23 14:27 Dose: 3 ml Documented By: RENNY Tamsulosin HCl (Tamsulosin Hcl 0.4 Mg Capsule) 0.4 mg PO DAILY [facility] Last Admin: 06/12/23 07:59 Dose: 0.4 mg Documented By: RENNY Labs 06/05/23 05:02 06/12/23 08:24 Labs: Laboratory Results - last 24 hr 06/12/23 08:24 Hold Purple Top SEE NOTE Anion Gap 17 Estim Creat Clear Calc 13.1 Estimated GFR 11 Random Glucose 125 H Calcium 8.3 L D Assessment and Plan (1) 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 Requesting permacath for acute dialysis today Hyperkalemia--d/t renal failure, treated with bicab, lokelma. Will repet later. Further w/u per nephrology Anion gap metabolic acidosis, likely in the setting of above. bicab Mixed hyperlipidemia: On statin Anemia--likely of chronic disease, monitor BPH: On finasteride and Flomax Essential hypertension: Continue home antihypertensives, avoid nephrotoxins DVT prophylaxis: Heparin need for inpatient:,management of severe ZAK-requiring HD.( need dialysis spot arranged). Quality Stroke Does the patient have a stroke diagnosis?: No VTE Prior VTE?: No VTE Risk Level:: Medical - moderate - high VTE Device Contraindication: Treatment Not Indicated VTE Drug Contraindication: N/A - Med Ordered
[2023-06-13 03:09] VITALS: BP 125/60; PULSE 78; RESP 20; TEMP 36.9; O2SAT 95
[2023-06-13] MEDS: Heparin Sodium,Porcine 5,000 UNIT/ML VIAL 5000 UNIT SUBCUT ×2 (04:13→16:38)
--- NOTE | 2023-06-13 09:14 | P.PNNP_ITS ---
Subjective Subjective Date of Service: 06/13/23 Interval history: f/u on ZAK,hyperkalemia. renal function has progressed, d/t Permacath Physical Exam 2 Vital Signs: Vital Signs: Last Vital Signs Temp 98.5 F 06/13/23 03:09 Pulse 78 06/13/23 03:09 Resp 20 06/13/23 03:09 BP 125/60 06/13/23 03:09 Pulse Ox 95 06/13/23 03:09 O2 Del Method Room Air 06/13/23 03:09 BMI result Body Mass Index 32.5 Const: Other: General: AO X 3, no acute distress Resp: CTA bilateral CVS: S1,S2,RRR GI: +BS, NT, no distention Skin: No rash Neuro: motor grossly intact Psych: appropriate affect Objective Data Labs 06/05/23 05:02 06/12/23 08:24 Labs: Laboratory Results - last 24 hr 06/12/23 08:24 Sodium 132 L Potassium 4.2 Chloride 97 Carbon Dioxide 22 Anion Gap 17 BUN 61 H Creatinine 5.13 H* Estim Creat Clear Calc 13.1 Estimated GFR 11 Random Glucose 125 H Calcium 8.3 L D Procedures Date of Service Date of Service: 06/13/23 Assessment & Plan Assessment and plan (1) ESRD (end stage renal disease): Status: Acute (2) BPH w urinary obs/LUTS: Status: Acute (3) Metabolic acidosis: Status: Acute (4) Acute renal failure: Status: Acute (5) 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 Progressive CKD 5 transitioned to ESRD s/p Permcath and s/p HD initiation. Pt has FSGS based on Bx Plan: - hd TTS schedule - c/w amlodipine and coreg - Protect non-dominat arm for AVF -D/C planning--looks like to weak to go home so looking at Rehab ( Everton Flores) Time Spent With Patient Time: Total time managing care of this patient today ____ minutes. Progress Note: Quality Stroke Does the patient have a stroke diagnosis?: No
[2023-06-13 09:39] VITALS: BP 132/73; PULSE 65; RESP 20; TEMP 37.1; O2SAT 96
[2023-06-13] MEDS: 0.9 % Sodium Chloride Flush 3 ML SYRINGE IVFLUSH ×3 (09:39→21:23)
[2023-06-13] MEDS: Calcium Acetate 667 MG CAPSULE 1334 MG PO ×3 (09:40→17:54)
[2023-06-13] MEDS: Acetaminophen 325 MG TABLET 650 MG PO ×2 (09:40→17:55)
[2023-06-13] MEDS: Tamsulosin HCL 0.4 MG CAPSULE PO (09:41)
[2023-06-13] MEDS: carvediloL 12.5 MG TABLET PO ×2 (09:41→21:23)
[2023-06-13] MEDS: amLODIPine Besylate 10 MG TABLET PO (09:41)
[2023-06-13] MEDS: Loratadine 10 MG TABLET PO (09:41)
[2023-06-13] MEDS: Finasteride 5 MG TABLET PO (09:42)
[2023-06-13 11:12] VITALS: BP 116/59; PULSE 53; RESP 20; TEMP 36.4; O2SAT 97
--- NOTE | 2023-06-13 12:27 | HO.PM.IMPN ---
Subjective Subjective Date of Service: 06/13/23 Interval History: zak,advanced renal dis, s/p permacath Review of Systems denies any chest pain or shortness of breath. Physical Exam Vital Signs: Vital Signs: Last Vital Signs Temp 97.6 F 06/13/23 11:12 Pulse 53 06/13/23 11:12 Resp 20 06/13/23 11:12 BP 116/59 L 06/13/23 11:12 Pulse Ox 97 06/13/23 11:12 O2 Del Method Room Air 06/13/23 11:12 BMI result Body Mass Index 32.5 General: AO X 3, no acute distress Resp: CTA bilateral CVS: S1,S2,RRR GI: +BS, NT, no distention Skin: No rash Neuro: motor grossly intact Psych: appropriate affect Objective Data Active Medications Acetaminophen (Acetaminophen 325 Mg Tablet) 650 mg PO Q6H PRN PRN Reason: Pain, Mild (Pain Scale 1-3) Acetaminophen (Acetaminophen 325 Mg Tablet) 650 mg PO BID@0900,1700 [facility]S [facility] 234 BEDS AT [facility] Last Admin: 06/13/23 09:40 Dose: 650 mg Documented By: ANANDA Amlodipine Besylate (Amlodipine Besylate 10 Mg Tablet) 10 mg PO DAILY COUNTS INCLUDE 234 BEDS AT THE [facility]; Protocol Last Admin: 06/13/23 09:41 Dose: 10 mg Documented By: ANANDA Atorvastatin Calcium (Atorvastatin Calcium 10 Mg Tablet) 10 mg PO BEDTIME COUNTS INCLUDE 234 BEDS AT THE [facility] Last Admin: 06/06/23 20:53 Dose: 10 mg Documented By: THOMAS Calcium Acetate (Calcium Acetate 667 Mg Capsule) 1,334 mg PO TIDWM COUNTS INCLUDE 234 BEDS AT THE [facility] Last Admin: 06/13/23 09:40 Dose: 1,334 mg Documented By: ANANDA Carvedilol (Carvedilol 12.5 Mg Tablet) 12.5 mg PO BID COUNTS INCLUDE 234 BEDS AT THE [facility]; Protocol Last Admin: 06/13/23 09:41 Dose: 12.5 mg Documented By: ANANDA Dextrose (Dextrose 50 % 25 Gm/50 Ml Syringe) 25 gm IVPUSH Q15M PRN PRN Reason: per Hypoglycemia Standing Ord. Ergocalciferol (Ergocalciferol (Vitamin D2) 1,250 Mcg Capsule) 1,250 mcg PO Maria@0900 COUNTS INCLUDE 234 BEDS AT THE [facility] Last Admin: 06/07/23 07:59 Dose: 1,250 mcg Documented By: YULIA Finasteride (Finasteride 5 Mg Tablet) 5 mg PO DAILY COUNTS INCLUDE 234 BEDS AT THE [facility] Last Admin: 06/13/23 09:42 Dose: 5 mg Documented By: ANANDA Heparin Sodium (Porcine) (Heparin Sodium,Porcine 5,000 Unit/Ml Vial) 5,000 unit SUBCUT Q12H COUNTS INCLUDE 234 BEDS AT THE [facility] Last Admin: 06/13/23 04:13 Dose: 5,000 unit Documented By: MIK Loratadine (Loratadine 10 Mg Tablet) 10 mg PO DAILY COUNTS INCLUDE 234 BEDS AT THE [facility] Last Admin: 06/13/23 09:41 Dose: 10 mg Documented By: ANANDA Melatonin (Melatonin 3 Mg Tablet) 6 mg PO BEDTIME PRN PRN Reason: Insomnia Last Admin: 06/07/23 21:21 Dose: 6 mg Documented By: THOMAS Ondansetron HCl (Ondansetron Hcl 4 Mg/2 Ml Vial) 4 mg IVPUSH Q8H PRN PRN Reason: Nausea and Vomiting Polyethylene Glycol (Polyethylene Glycol 3350 17 Gm Powd.Pack) 17 gm PO DAILY COUNTS INCLUDE 234 BEDS AT THE [facility] Last Admin: 06/13/23 09:42 Dose: Not Given Documented By: ANANDA Non-Admin Reason: Patient Refused Sodium Chloride (0.9 % Sodium Chloride Flush 3 Ml Syringe) 3 ml IVFLUSH QSHIFT COUNTS INCLUDE 234 BEDS AT THE [facility] Last Admin: 06/13/23 09:39 Dose: 3 ml Documented By: ANANDA Tamsulosin HCl (Tamsulosin Hcl 0.4 Mg Capsule) 0.4 mg PO DAILY COUNTS INCLUDE 234 BEDS AT THE [facility] Last Admin: 06/13/23 09:41 Dose: 0.4 mg Documented By: ANANDA Labs 06/05/23 05:02 06/12/23 08:24 Assessment and Plan (1) Acute kidney injury: Status: Acute Plan 77-year-old male with pertinent history of chronic kidney disease, BPH, essential hypertension, mixed hyperlipidemia who presents to the emergency department for evaluation of generalized weakness. 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 Requesting permacath for acute dialysis today Hyperkalemia--d/t renal failure, treated with bicabdeepali. Will repet later. Further w/u per nephrology Anion gap metabolic acidosis, likely in the setting of above. bicab Mixed hyperlipidemia: On statin Anemia--likely of chronic disease, monitor BPH: On finasteride and Flomax Essential hypertension: Continue home antihypertensives, avoid nephrotoxins DVT prophylaxis: Heparin need for inpatient:,management of severe ZAK-requiring HD.( need dialysis spot arranged). Quality Stroke Does the patient have a stroke diagnosis?: No VTE Prior VTE?: No VTE Risk Level:: Medical - moderate - high VTE Device Contraindication: Treatment Not Indicated VTE Drug Contraindication: N/A - Med Ordered
[2023-06-13 15:37] VITALS: BP 118/58; PULSE 75; RESP 18; TEMP 36.7; O2SAT 97
[2023-06-13 19:50] VITALS: BP 122/62; PULSE 58; RESP 18; TEMP 36.6; O2SAT 94
[2023-06-13 23:15] VITALS: BP 120/58; PULSE 77; RESP 17; TEMP 37.1; O2SAT 93
[2023-06-14 03:04] VITALS: BP 124/62; PULSE 89; RESP 18; TEMP 36.8; O2SAT 95
[2023-06-14] MEDS: Heparin Sodium,Porcine 5,000 UNIT/ML VIAL 5000 UNIT SUBCUT ×2 (03:10→16:45)
[2023-06-14 07:29] VITALS: BP 119/69; PULSE 66; RESP 20; TEMP 36.7; O2SAT 98
--- NOTE | 2023-06-14 08:33 | P.PNNP_ITS ---
Subjective Subjective Date of Service: 06/14/23 Interval history: no events overnight Physical Exam 2 Vital Signs: Vital Signs: Last Vital Signs Temp 98.1 F 06/14/23 07:29 Pulse 66 06/14/23 07:29 Resp 20 06/14/23 07:29 BP 119/69 06/14/23 07:29 Pulse Ox 98 06/14/23 07:29 O2 Del Method Room Air 06/14/23 07:29 BMI result Body Mass Index 32.5 Const: Other: General: AO X 3, no acute distress Resp: CTA bilateral CVS: S1,S2,RRR GI: +BS, NT, no distention Skin: No rash Neuro: motor grossly intact Psych: appropriate affect Objective Data Labs 06/05/23 05:02 06/12/23 08:24 Procedures Date of Service Date of Service: 06/14/23 Assessment & Plan Assessment and plan (1) ESRD (end stage renal disease): Status: Acute (2) BPH w urinary obs/LUTS: Status: Acute (3) Metabolic acidosis: Status: Acute (4) Acute renal failure: Status: Acute (5) 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 Progressive CKD 5 transitioned to ESRD s/p Permcath and s/p HD initiation. 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 Progress Note: Quality Stroke Does the patient have a stroke diagnosis?: No
[2023-06-14] MEDS: Loratadine 10 MG TABLET PO (09:59)
[2023-06-14] MEDS: Acetaminophen 325 MG TABLET 650 MG PO ×2 (09:59→16:46)
[2023-06-14] MEDS: carvediloL 12.5 MG TABLET PO ×2 (09:59→20:46)
[2023-06-14] MEDS: amLODIPine Besylate 10 MG TABLET PO (09:59)
[2023-06-14] MEDS: Finasteride 5 MG TABLET PO (09:59)
[2023-06-14] MEDS: Tamsulosin HCL 0.4 MG CAPSULE PO (09:59)
[2023-06-14] MEDS: Calcium Acetate 667 MG CAPSULE 1334 MG PO ×3 (09:59→16:45)
[2023-06-14] MEDS: 0.9 % Sodium Chloride Flush 3 ML SYRINGE IVFLUSH ×2 (10:00→16:45)
[2023-06-14 11:19] VITALS: BP 112/61; PULSE 65; RESP 20; TEMP 37.4; O2SAT 96
[2023-06-14] MEDS: Ergocalciferol (Vitamin D2) 1,250 MCG CAPSULE 1250 MCG PO (11:31)
--- NOTE | 2023-06-14 12:49 | P.PNIM_ITS ---
Subjective Subjective Date of Service: 06/14/23 Interval History: kiera,advanced renal dis, s/p permacath Review of Systems denies any chest pain or shortness of breath. Physical Exam 2 Vital Signs: Vital Signs: Last Vital Signs Temp 99.4 F 06/14/23 11:19 Pulse 65 06/14/23 11:19 Resp 20 06/14/23 11:19 BP 112/61 06/14/23 11:19 Pulse Ox 96 06/14/23 11:19 O2 Del Method Room Air 06/14/23 11:19 BMI result Body Mass Index 32.5 General: AO X 3, no acute distress Resp: CTA bilateral CVS: S1,S2,RRR GI: +BS, NT, no distention Skin: No rash Neuro: motor grossly intact Psych: appropriate affect Objective Data Active Medications Acetaminophen (Acetaminophen 325 Mg Tablet) 650 mg PO Q6H PRN PRN Reason: Pain, Mild (Pain Scale 1-3) Acetaminophen (Acetaminophen 325 Mg Tablet) 650 mg PO BID@0900,1700 [facility] Last Admin: 06/14/23 09:59 Dose: 650 mg Documented By: ANANDA Amlodipine Besylate (Amlodipine Besylate 10 Mg Tablet) 10 mg PO DAILY [facility]; Protocol Last Admin: 06/14/23 09:59 Dose: 10 mg Documented By: ANANDA Atorvastatin Calcium (Atorvastatin Calcium 10 Mg Tablet) 10 mg PO BEDTIME [facility] Last Admin: 06/06/23 20:53 Dose: 10 mg Documented By: THOMAS Calcium Acetate (Calcium Acetate 667 Mg Capsule) 1,334 mg PO TIDWM [facility] Last Admin: 06/14/23 11:31 Dose: 1,334 mg Documented By: ANANDA Carvedilol (Carvedilol 12.5 Mg Tablet) 12.5 mg PO BID [facility]; Protocol Last Admin: 06/14/23 09:59 Dose: 12.5 mg Documented By: ANANDA Dextrose (Dextrose 50 % 25 Gm/50 Ml Syringe) 25 gm IVPUSH Q15M PRN PRN Reason: per Hypoglycemia Standing Ord. Ergocalciferol (Ergocalciferol (Vitamin D2) 1,250 Mcg Capsule) 1,250 mcg PO Maria@0900 [facility] Last Admin: 06/14/23 11:31 Dose: 1,250 mcg Documented By: ANANDA Finasteride (Finasteride 5 Mg Tablet) 5 mg PO DAILY [facility] Last Admin: 06/14/23 09:59 Dose: 5 mg Documented By: ANANDA Heparin Sodium (Porcine) (Heparin Sodium,Porcine 5,000 Unit/Ml Vial) 5,000 unit SUBCUT Q12H [facility] Last Admin: 06/14/23 03:10 Dose: 5,000 unit Documented By: ANA Loratadine (Loratadine 10 Mg Tablet) 10 mg PO DAILY [facility] Last Admin: 06/14/23 09:59 Dose: 10 mg Documented By: ANANDA Melatonin (Melatonin 3 Mg Tablet) 6 mg PO BEDTIME PRN PRN Reason: Insomnia Last Admin: 06/07/23 21:21 Dose: 6 mg Documented By: THOMAS Ondansetron HCl (Ondansetron Hcl 4 Mg/2 Ml Vial) 4 mg IVPUSH Q8H PRN PRN Reason: Nausea and Vomiting Polyethylene Glycol (Polyethylene Glycol 3350 17 Gm Powd.Pack) 17 gm PO DAILY [facility] Last Admin: 06/14/23 10:00 Dose: Not Given Documented By: ANANDA Non-Admin Reason: Patient Refused Sodium Chloride (0.9 % Sodium Chloride Flush 3 Ml Syringe) 3 ml IVFLUSH QSHIFT [facility] Last Admin: 06/14/23 10:00 Dose: 3 ml Documented By: ANANDA Tamsulosin HCl (Tamsulosin Hcl 0.4 Mg Capsule) 0.4 mg PO DAILY [facility] Last Admin: 06/14/23 09:59 Dose: 0.4 mg Documented By: ANANDA Labs 06/05/23 05:02 06/12/23 08:24 Assessment and Plan (1) Acute kidney injury: Status: Acute Plan 77-year-old male with pertinent history of chronic kidney disease, BPH, essential hypertension, mixed hyperlipidemia who presents to the emergency department for evaluation of generalized weakness. 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 Requesting permacath for acute dialysis today Hyperkalemia--d/t renal failure, treated with bicabdeepali. Will repet later. Further w/u per nephrology Anion gap metabolic acidosis, likely in the setting of above. bicab Mixed hyperlipidemia: On statin Anemia--likely of chronic disease, monitor BPH: On finasteride and Flomax Essential hypertension: Continue home antihypertensives, avoid nephrotoxins DVT prophylaxis: Heparin need for inpatient:,management of severe KIERA-requiring HD.( need dialysis spot arranged). Quality Stroke Does the patient have a stroke diagnosis?: No VTE Prior VTE?: No VTE Risk Level:: Medical - moderate - high VTE Device Contraindication: Treatment Not Indicated VTE Drug Contraindication: N/A - Med Ordered
[2023-06-14 15:28] VITALS: BP 115/56; PULSE 73; RESP 18; TEMP 36.3; O2SAT 95
[2023-06-14 19:57] VITALS: BP 123/58; PULSE 70; RESP 18; TEMP 36.5; O2SAT 95
[2023-06-14 23:30] VITALS: BP 105/59; PULSE 62; RESP 18; TEMP 36.7; O2SAT 97
[2023-06-15] MEDS: Heparin Sodium,Porcine 5,000 UNIT/ML VIAL 5000 UNIT SUBCUT ×2 (03:04→15:27)
[2023-06-15 03:33] VITALS: BP 125/60; PULSE 67; RESP 18; TEMP 37.3; O2SAT 96
[2023-06-15] MEDS: 0.9 % Sodium Chloride Flush 3 ML SYRINGE IVFLUSH ×3 (07:21→20:02)
[2023-06-15 07:59] VITALS: BP 134/69; PULSE 76; RESP 18; TEMP 36.5; O2SAT 97
[2023-06-15] MEDS: Acetaminophen 325 MG TABLET 650 MG PO ×2 (08:16→17:16)
[2023-06-15] MEDS: carvediloL 12.5 MG TABLET PO ×2 (08:16→20:02)
[2023-06-15] MEDS: Finasteride 5 MG TABLET PO (08:16)
[2023-06-15] MEDS: Calcium Acetate 667 MG CAPSULE 1334 MG PO ×3 (08:17→17:16)
[2023-06-15] MEDS: Tamsulosin HCL 0.4 MG CAPSULE PO (08:17)
[2023-06-15] MEDS: amLODIPine Besylate 10 MG TABLET PO (08:17)
[2023-06-15] MEDS: Loratadine 10 MG TABLET PO (08:17)
--- NOTE | 2023-06-15 09:29 | MHC.CLN ---
NUTRITION ADDED DIABETIC 2000 KCAL TO DIET ORDER. DIET=DIABETIC 2000 KCAL, 2 G SODIUM. PATIENT WITH DIABETES, ESRD, RECEIVES HD.
--- NOTE | 2023-06-15 10:28 | MHC.CM.PN ---
Per ROUNDS discussion, Patient is medically cleared for dc today to STR. Patient is a new HD Patient.The 2 SNFs with onsite HD ([facility] and [facility]) are following for snf bed availability and a new HD slot. CM will continue to follow.
[2023-06-15 11:27] VITALS: BP 125/58; PULSE 56; RESP 20; TEMP 37; O2SAT 96
--- NOTE | 2023-06-15 13:12 | PM.PNNEP ---
Subjective Subjective Date of Service: 06/15/23 Interval history: Seen and examined,events noted Physical Exam Vital Signs: Vital Signs: Last Vital Signs Temp 98.6 F 06/15/23 11:27 Pulse 56 06/15/23 11:27 Resp 20 06/15/23 11:27 BP 125/58 L 06/15/23 11:27 Pulse Ox 96 06/15/23 11:27 O2 Del Method Room Air 06/15/23 11:27 BMI result Body Mass Index 32.5 Const: Other: General: AO X 3, no acute distress Resp: CTA bilateral CVS: S1,S2,RRR GI: +BS, NT, no distention Skin: No rash Neuro: motor grossly intact Psych: appropriate affect Objective Data Labs 06/05/23 05:02 06/12/23 08:24 Procedures Date of Service Date of Service: 06/15/23 Assessment & Plan Assessment and plan (1) ESRD (end stage renal disease): Status: Acute (2) BPH w urinary obs/LUTS: Status: Acute (3) Metabolic acidosis: Status: Acute (4) Acute renal failure: Status: Acute (5) 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 Progressive CKD 5 transitioned to ESRD s/p Permcath and s/p HD initiation. 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 Progress Note: Quality Stroke Does the patient have a stroke diagnosis?: No
--- NOTE | 2023-06-15 14:48 | HO.PM.IMPN ---
Subjective Subjective Date of Service: 06/15/23 Interval History: kiera,advanced renal dis, s/p permacath Review of Systems denies any chest pain or shortness of breath. Physical Exam Vital Signs: Vital Signs: Last Vital Signs Temp 98.6 F 06/15/23 11:27 Pulse 56 06/15/23 11:27 Resp 20 06/15/23 11:27 BP 125/58 L 06/15/23 11:27 Pulse Ox 96 06/15/23 11:27 O2 Del Method Room Air 06/15/23 11:27 BMI result Body Mass Index 32.5 General: AO X 3, no acute distress Resp: CTA bilateral CVS: S1,S2,RRR GI: +BS, NT, no distention Skin: No rash Neuro: motor grossly intact Psych: appropriate affect Objective Data Active Medications Acetaminophen (Acetaminophen 325 Mg Tablet) 650 mg PO Q6H PRN PRN Reason: Pain, Mild (Pain Scale 1-3) Acetaminophen (Acetaminophen 325 Mg Tablet) 650 mg PO BID@0900,1700 [facility] Last Admin: 06/15/23 08:16 Dose: 650 mg Documented By: DARCY Amlodipine Besylate (Amlodipine Besylate 10 Mg Tablet) 10 mg PO DAILY [facility]; Protocol Last Admin: 06/15/23 08:17 Dose: 10 mg Documented By: DARCY Atorvastatin Calcium (Atorvastatin Calcium 10 Mg Tablet) 10 mg PO BEDTIME [facility] Last Admin: 06/06/23 20:53 Dose: 10 mg Documented By: THOMAS Calcium Acetate (Calcium Acetate 667 Mg Capsule) 1,334 mg PO TIDWM [facility] Last Admin: 06/15/23 11:31 Dose: 1,334 mg Documented By: DARCY Carvedilol (Carvedilol 12.5 Mg Tablet) 12.5 mg PO BID [facility]; Protocol Last Admin: 06/15/23 08:16 Dose: 12.5 mg Documented By: DARCY Dextrose (Dextrose 50 % 25 Gm/50 Ml Syringe) 25 gm IVPUSH Q15M PRN PRN Reason: per Hypoglycemia Standing Ord. Ergocalciferol (Ergocalciferol (Vitamin D2) 1,250 Mcg Capsule) 1,250 mcg PO Maria@0900 [facility] Last Admin: 06/14/23 11:31 Dose: 1,250 mcg Documented By: ANANDA Finasteride (Finasteride 5 Mg Tablet) 5 mg PO DAILY [facility] Last Admin: 06/15/23 08:16 Dose: 5 mg Documented By: DARCY Heparin Sodium (Porcine) (Heparin Sodium,Porcine 5,000 Unit/Ml Vial) 5,000 unit SUBCUT Q12H [facility] Last Admin: 06/15/23 03:04 Dose: 5,000 unit Documented By: ANA Loratadine (Loratadine 10 Mg Tablet) 10 mg PO DAILY [facility] Last Admin: 06/15/23 08:17 Dose: 10 mg Documented By: DARCY Melatonin (Melatonin 3 Mg Tablet) 6 mg PO BEDTIME PRN PRN Reason: Insomnia Last Admin: 06/07/23 21:21 Dose: 6 mg Documented By: THOMAS Ondansetron HCl (Ondansetron Hcl 4 Mg/2 Ml Vial) 4 mg IVPUSH Q8H PRN PRN Reason: Nausea and Vomiting Polyethylene Glycol (Polyethylene Glycol 3350 17 Gm Powd.Pack) 17 gm PO DAILY [facility] Last Admin: 06/15/23 08:16 Dose: Not Given Documented By: DARCY Non-Admin Reason: Patient Refused Sodium Chloride (0.9 % Sodium Chloride Flush 3 Ml Syringe) 3 ml IVFLUSH QSHIFT [facility] Last Admin: 06/15/23 07:21 Dose: 3 ml Documented By: DARCY Tamsulosin HCl (Tamsulosin Hcl 0.4 Mg Capsule) 0.4 mg PO DAILY [facility] Last Admin: 06/15/23 08:17 Dose: 0.4 mg Documented By: DARCY Labs 06/05/23 05:02 06/12/23 08:24 Assessment and Plan (1) Acute kidney injury: Status: Acute Plan 77-year-old male with pertinent history of chronic kidney disease, BPH, essential hypertension, mixed hyperlipidemia who presents to the emergency department for evaluation of generalized weakness. 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 Requesting permacath for acute dialysis today Hyperkalemia--d/t renal failure, treated with bicab, lokelma. Will repet later. Further w/u per nephrology Anion gap metabolic acidosis, likely in the setting of above. bicab Mixed hyperlipidemia: On statin Anemia--likely of chronic disease, monitor BPH: On finasteride and Flomax Essential hypertension: Continue home antihypertensives, avoid nephrotoxins DVT prophylaxis: Heparin need for inpatient:,management of severe KIERA-requiring HD.( need dialysis spot arranged). Quality Stroke Does the patient have a stroke diagnosis?: No VTE Prior VTE?: No VTE Risk Level:: Medical - moderate - high VTE Device Contraindication: Treatment Not Indicated VTE Drug Contraindication: N/A - Med Ordered
[2023-06-15 15:17] VITALS: BP 127/57; PULSE 65; RESP 20; TEMP 36.2; O2SAT 96
--- NOTE | 2023-06-15 16:06 | MHC.CM.PN ---
CM has assisted Patient with the completion of a HCP; Patient has named his /[facility]ora as his Agent.
[2023-06-15 19:18] VITALS: BP 114/61; PULSE 66; RESP 20; TEMP 36.6; O2SAT 95
[2023-06-15 23:49] VITALS: BP 121/64; PULSE 72; RESP 20; TEMP 36.2; O2SAT 96
[2023-06-16] VITALS (7 sets, daily range): BP systolic 107–137; BP diastolic 56–66; PULSE 64–75; RESP 20; TEMP 36.1–36.8; O2SAT 96–98
[2023-06-16] MEDS: Heparin Sodium,Porcine 5,000 UNIT/ML VIAL 5000 UNIT SUBCUT ×2 (03:47→16:48)
[2023-06-16] MEDS: carvediloL 12.5 MG TABLET PO ×2 (08:57→22:02)
[2023-06-16] MEDS: amLODIPine Besylate 10 MG TABLET PO (08:57)
[2023-06-16] MEDS: Loratadine 10 MG TABLET PO (08:57)
[2023-06-16] MEDS: Acetaminophen 325 MG TABLET 650 MG PO ×2 (08:57→16:49)
[2023-06-16] MEDS: Calcium Acetate 667 MG CAPSULE 1334 MG PO ×3 (08:57→16:49)
[2023-06-16] MEDS: Finasteride 5 MG TABLET PO (08:57)
[2023-06-16] MEDS: Tamsulosin HCL 0.4 MG CAPSULE PO (08:57)
[2023-06-16] MEDS: 0.9 % Sodium Chloride Flush 3 ML SYRINGE IVFLUSH (08:58)
--- NOTE | 2023-06-16 14:54 | P.PNIM_ITS ---
Subjective Subjective Date of Service: 06/16/23 Interval History: kiera,advanced renal dis, Review of Systems denies any chest pain or shortness of breath. boderline bp post hd. Physical Exam 2 Vital Signs: Vital Signs: Last Vital Signs Temp 97.7 F 06/16/23 10:57 Pulse 68 06/16/23 13:14 Resp 20 06/16/23 10:57 BP 109/56 L 06/16/23 13:14 Pulse Ox 98 06/16/23 13:14 O2 Del Method Room Air 06/16/23 10:57 BMI result Body Mass Index 32.5 General: AO X 3, no acute distress Resp: CTA bilateral CVS: S1,S2,RRR GI: +BS, NT, no distention Skin: No rash Neuro: motor grossly intact Psych: appropriate affect Objective Data Active Medications Acetaminophen (Acetaminophen 325 Mg Tablet) 650 mg PO Q6H PRN PRN Reason: Pain, Mild (Pain Scale 1-3) Acetaminophen (Acetaminophen 325 Mg Tablet) 650 mg PO BID@0900,1700 [facility] Last Admin: 06/16/23 08:57 Dose: 650 mg Documented By: BILL Amlodipine Besylate (Amlodipine Besylate 10 Mg Tablet) 10 mg PO DAILY [facility]; Protocol Last Admin: 06/16/23 08:57 Dose: 10 mg Documented By: BILL Atorvastatin Calcium (Atorvastatin Calcium 10 Mg Tablet) 10 mg PO BEDTIME [facility] Last Admin: 06/06/23 20:53 Dose: 10 mg Documented By: THOMAS Calcium Acetate (Calcium Acetate 667 Mg Capsule) 1,334 mg PO TIDWM [facility] Last Admin: 06/16/23 12:41 Dose: 1,334 mg Documented By: JI Carvedilol (Carvedilol 12.5 Mg Tablet) 12.5 mg PO BID [facility]; Protocol Last Admin: 06/16/23 08:57 Dose: 12.5 mg Documented By: BILL Dextrose (Dextrose 50 % 25 Gm/50 Ml Syringe) 25 gm IVPUSH Q15M PRN PRN Reason: per Hypoglycemia Standing Ord. Ergocalciferol (Ergocalciferol (Vitamin D2) 1,250 Mcg Capsule) 1,250 mcg PO Maria@0900 [facility] Last Admin: 06/14/23 11:31 Dose: 1,250 mcg Documented By: ANANDA Finasteride (Finasteride 5 Mg Tablet) 5 mg PO DAILY [facility] Last Admin: 06/16/23 08:57 Dose: 5 mg Documented By: BILL Heparin Sodium (Porcine) (Heparin Sodium,Porcine 5,000 Unit/Ml Vial) 5,000 unit SUBCUT Q12H [facility] Last Admin: 06/16/23 03:47 Dose: 5,000 unit Documented By: NAVEED Loratadine (Loratadine 10 Mg Tablet) 10 mg PO DAILY [facility] Last Admin: 06/16/23 08:57 Dose: 10 mg Documented By: BILL Melatonin (Melatonin 3 Mg Tablet) 6 mg PO BEDTIME PRN PRN Reason: Insomnia Last Admin: 06/07/23 21:21 Dose: 6 mg Documented By: THOMAS Ondansetron HCl (Ondansetron Hcl 4 Mg/2 Ml Vial) 4 mg IVPUSH Q8H PRN PRN Reason: Nausea and Vomiting Polyethylene Glycol (Polyethylene Glycol 3350 17 Gm Powd.Pack) 17 gm PO DAILY [facility] Last Admin: 06/16/23 08:58 Dose: Not Given Documented By: BILL Non-Admin Reason: Patient Refused Sodium Chloride (0.9 % Sodium Chloride Flush 3 Ml Syringe) 3 ml IVFLUSH QSHIFT [facility] Last Admin: 06/16/23 08:58 Dose: 3 ml Documented By: BILL Tamsulosin HCl (Tamsulosin Hcl 0.4 Mg Capsule) 0.4 mg PO DAILY [facility] Last Admin: 06/16/23 08:57 Dose: 0.4 mg Documented By: BILL Labs 06/05/23 05:02 06/12/23 08:24 Assessment and Plan (1) Acute kidney injury: Status: Acute Plan 77-year-old male with pertinent history of chronic kidney disease, BPH, essential hypertension, mixed hyperlipidemia who presents to the emergency department for evaluation of generalized weakness. Acute kidney injury on chronic kidney disease 4: know history of FSGS according to Nephro with baseline /Cr 5 to 5.5.has permacath on HD bodelrine bp -hold bpmeds. Hyperkalemia--d/t renal failure, treated with bicabeankelma. Will repet later. Further w/u per nephrology Anion gap metabolic acidosis, likely in the setting of above. bicab Mixed hyperlipidemia: On statin Anemia--likely of chronic disease, monitor BPH: On finasteride and Flomax Essential hypertension: Continue home antihypertensives, avoid nephrotoxins DVT prophylaxis: Heparin need for inpatient:,awaiting placement). Quality Stroke Does the patient have a stroke diagnosis?: No VTE Prior VTE?: No VTE Risk Level:: Medical - moderate - high VTE Device Contraindication: Treatment Not Indicated VTE Drug Contraindication: N/A - Med Ordered
--- NOTE | 2023-06-16 18:53 | PM.PNNEP ---
Subjective Subjective Date of Service: 06/16/23 Interval history: Seen and examined,e vents noted Physical Exam Vital Signs: Vital Signs: Last Vital Signs Temp 98.1 F 06/16/23 15:20 Pulse 75 06/16/23 15:20 Resp 20 06/16/23 15:20 BP 120/58 L 06/16/23 15:20 Pulse Ox 96 06/16/23 15:20 O2 Del Method Room Air 06/16/23 15:20 BMI result Body Mass Index 32.5 Const: Other: General: AO X 3, no acute distress Resp: CTA bilateral CVS: S1,S2,RRR GI: +BS, NT, no distention Skin: No rash Neuro: motor grossly intact Psych: appropriate affect Objective Data Labs 06/05/23 05:02 06/12/23 08:24 Procedures Date of Service Date of Service: 06/16/23 Assessment & Plan Assessment and plan (1) ESRD (end stage renal disease): Status: Acute (2) BPH w urinary obs/LUTS: Status: Acute (3) Metabolic acidosis: Status: Acute (4) Acute renal failure: Status: Acute (5) 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 Progressive CKD 5 transitioned to ESRD s/p Permcath and s/p HD initiation. 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 Progress Note: Quality Stroke Does the patient have a stroke diagnosis?: No
[2023-06-16] MEDS: Docusate Sodium 100 MG CAPSULE 200 MG PO (22:02)
[2023-06-17 03:08] VITALS: BP 126/58; PULSE 62; RESP 20; TEMP 36.3; O2SAT 97
[2023-06-17] MEDS: 0.9 % Sodium Chloride Flush 3 ML SYRINGE IVFLUSH ×2 (03:32→07:56)
[2023-06-17] MEDS: Heparin Sodium,Porcine 5,000 UNIT/ML VIAL 5000 UNIT SUBCUT (03:57)
[2023-06-17 07:44] VITALS: BP 138/68; PULSE 73; RESP 20; TEMP 36.4; O2SAT 95
[2023-06-17] MEDS: Calcium Acetate 667 MG CAPSULE 1334 MG PO (07:55)
[2023-06-17] MEDS: Tamsulosin HCL 0.4 MG CAPSULE PO (07:55)
[2023-06-17] MEDS: Acetaminophen 325 MG TABLET 650 MG PO (07:55)
[2023-06-17] MEDS: Loratadine 10 MG TABLET PO (07:55)
[2023-06-17] MEDS: amLODIPine Besylate 10 MG TABLET PO (07:56)
[2023-06-17] MEDS: Finasteride 5 MG TABLET PO (07:56)
[2023-06-17] MEDS: carvediloL 12.5 MG TABLET PO (07:56)
--- NOTE | 2023-06-17 08:10 | MHC.CM.PN ---
Per MD, Patient is medically cleared for dc today to SNF/STR. Patient will dc to his first choice SNF/[facility] today at 3 PM(after receiving HD here this morning), via [facility].CM met with Patient at bedside and addressed IMM with him, providing Patient with the original and placing a copy on the chart. CM left a detailed message for /HCP/Debora @ [phone], informing her of the dc plan.
--- NOTE | 2023-06-17 12:26 | P.DS_ITS ---
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 Patient states he has generalized fatigability that started about 4-5 days prior to presentation. He has difficulty ambulating long distances or walking up the stairs. Patient was unable to get up from the toilet seat on the day of presentation. Patient states he has chronic kidney disease and is followed by his behavioral health counselor. He got biopsy of his kidney done which revealed scarring . Patient was on cyclosporine until recently which was discontinued by his behavioral health counselor. He still makes urine and has not been on dialysis yet. No fever, chills, nausea, vomiting, diarrhea, abdominal pain, chest discomfort, palpitations, changes in bowel habits. In the emergency department, patient's creatinine was found to be elevated. Hospital course: Patient initially admitted for ZAK on CKD, anion gap metabolic acidosis: started iv hydration with bicarb and consulted nephrology:as per nephrology notes patient has FSGS : patient did not improve with above -placed permacath and started on HD. HTN : Blood pressure is in 110-130 range, specially after the dialysis. We will adjust amlodipine to 5 mg and continue Coreg. Monitor blood pressure in rehab and further management outpatient. Monitor BMP Patient is to follow-up PCP and Nephrology Dr cox ( [facility] group). plan: Continue hemodialysis, follow-up BMP and outpatient nephrology. Monitor blood pressure closely if needed further adjustment of above medications including amlodipine can be done in rehab. Assessment plan coordination time spent 50 minute, plan discussed with patient and his family in detail and they understand in agreement with the plan. Time Attestation Discharge coordination time: Greater than 30 minutes Quality: Safe Use of Opioids Does Pt have an Active Cancer Diagnosis on the Problem List?: No Quality: Stroke Does the patient have a stroke diagnosis?: No Physical Exam Vital Signs: Vital Signs: Last Vital Signs Temp 97.6 F 06/17/23 07:44 Pulse 73 06/17/23 07:44 Resp 20 06/17/23 07:44 BP 138/68 06/17/23 07:44 Pulse Ox 95 06/17/23 07:44 O2 Del Method Room Air 06/17/23 07:44 BMI result Body Mass Index 32.5 General: AO X 3, no acute distress Resp: CTA bilateral CVS: S1,S2,RRR GI: +BS, NT, no distention Skin: No rash Neuro: motor grossly intact Psych: appropriate affect DS: Data Imaging Chest x-ray: Radiologist's impression: ITS Impressions Insertion Tunneled Catheter 06/08/23 12:22 IMPRESSION: Well-positioned tunneled catheter Discharge Plan Discharge Anticipated Discharge Date/Time: 06/17/23 12:15 Patient Disposition: Xfer SNF Discharge Diagnosis: advanced renal failure need HD. Referrals: [facility] [Outside] - 1 Week Physician,Mercedes Conde [Primary Care Provider] - 1 Week Discharge Medications: Continued finasteride 5 mg tablet 5 mg PO DAILY 90 Days Qty: 90 2RF simvastatin 20 mg Tablet 20 mg PO BEDTIME polyethylene glycol 3350 17 gram Powder In Packet 17 g PO DAILY Qty: 30 0RF acetaminophen [Tylenol Arthritis Pain] 650 mg Tablet Extended Release 650 mg PO BID@0900,1700 loratadine 10 mg Tablet 10 mg PO DAILY tamsulosin 0.4 mg capsule 0.4 mg PO DAILY carvedilol 25 mg tablet 12.5 mg PO BID Changed amlodipine 10 mg tablet 5 mg PO DAILY Qty: 1 0RF Discharge Orders: Discharge Order (Routine); Ordered 06/17/23 Ordered By: Chaparro Hendrickson Diet: Advance to usual diet Activity on Discharge: As tolerated Stand Alone Forms: Patient Portal Discharge page Care Plan Goals: Patient initially admitted for ZAK on CKD, anion gap metabolic acidosis: started iv hydration with bicarb and consulted nephrology:as per nephrology notes patient has FSGS : patient did not improve with above -placed permacath and started on HD. HTN : Blood pressure is in 110-130 range, specially after the dialysis. We will adjust amlodipine to 5 mg and continue Coreg. Monitor blood pressure in rehab and further management outpatient. Monitor BMP Patient is to follow-up PCP and Nephrology Dr cox ( [facility] group). Health Concerns: As above. Plan of Treatment: As above. Assessment: As above.
[2023-06-17 12:32] VITALS: BP 141/64
--- NOTE | 2023-06-17 15:00 | PC.NURSE ---
RN to RN report given to Shavonne at [facility] @ [phone]
--- NOTE | 2023-06-17 16:00 | MHC.CM.PN ---
CORRECTION! Patient will transport via [facility], not [facility]( [facility]).
== END 2023-06-17 17:16 | disposition skilled nursing facility (03) | DRG 673 ==
LOC: HO.ED 06-05 00:34 → HO.EDOVER 06-05 03:59 → HO.IMC 06-05 17:02
PROVIDERS: Internal Medicine Nephrology; Radiology Diagnostic Radiology; Admitting Provider Student in an Organized Health Care Education/Training Program; Emergency Provider Emergency Medicine; Responsible Provider Internal Medicine; Visit Provider Internal Medicine
DX: I12.0 Hypertensive chronic kidney disease with stage 5 chronic kidney disease or end stage renal disease (principal); N18.6 End stage renal disease; N17.9 Acute kidney failure, unspecified; E87.20 Acidosis, unspecified; N13.8 Other obstructive and reflux uropathy; N25.81 Secondary hyperparathyroidism of renal origin; E87.5 Hyperkalemia; N40.1 Benign prostatic hyperplasia with lower urinary tract symptoms; E10.22 Type 1 diabetes mellitus with diabetic chronic kidney disease; D63.1 Anemia in chronic kidney disease; E86.0 Dehydration; E78.2 Mixed hyperlipidemia; Z20.822 Contact with and (suspected) exposure to COVID-19; Z79.899 Other long term (current) drug therapy
CPT/HCPCS: 36415; 36558; 76937; 80048; 80076; 81001; 82010; 82306; 82570; 82803; 82947; 83540; 83605; 83735; 83970; 84100; 84300; 84484; 84540; 85025; 85610; 85730; 86704; 86706; 87340; 87502; 87635; 90999; 93005; 97116; 97162; 97530; 99152; 99153; 99285; C1750; C1769; J0613; J1643; J2060

== ENCOUNTER 2023-06-05 03:42 | Outpatient (BNV) | payer MEDICARE, SELFPAY | END 2023-06-08 11:45 | PROVIDERS: Admitting Provider Student in an Organized Health Care Education/Training Program; Emergency Provider Emergency Medicine; Responsible Provider Internal Medicine; Visit Provider Radiology Diagnostic Radiology | DX: N18.6 End stage renal disease (principal) | CPT/HCPCS: 36566; 76937; 77001 ==

== ENCOUNTER → 2023-06-05 03:42 | Outpatient (BNV) | payer MEDICARE, SELFPAY | PROVIDERS: Admitting Provider Student in an Organized Health Care Education/Training Program; Emergency Provider Emergency Medicine; Visit Provider Student in an Organized Health Care Education/Training Program | DX: N17.9 Acute kidney failure, unspecified (principal); E10.22 Type 1 diabetes mellitus with diabetic chronic kidney disease; N18.6 End stage renal disease; E87.20 Acidosis, unspecified; N40.1 Benign prostatic hyperplasia with lower urinary tract symptoms; N13.8 Other obstructive and reflux uropathy | CPT/HCPCS: 99222; 99231; 99232; 99233; 99239; 99499 ==

== ENCOUNTER 2023-06-18 05:54 | Outpatient (REF) | payer MEDICARE, SELFPAY ==
[2023-06-18 05:56] LABS: MANUAL DIFF FLAG NO
[2023-06-18 06:23] LABS: Basophils Absolute Auto 0.1 X10*3/uL (0.0-0.2); Basophils Percent Auto 0.6 % (0-2); Eosinophils Absolute Auto 0.2 X10*3/uL (0.0-0.4); Eosinophils Percent Auto 1.8 % (0-4); Hematocrit 22.7 % (42.0-52.0); Hemoglobin 7.4 g/dl (14.0-18.0); Imm Gran Abs Auto 0.17 X10*3/uL (0.00-0.03); Imm Gran Pct Auto 1.6 % (0.0-0.4); Lymphocytes Absolute Auto 1.4 X10*3/uL (1.2-4.9); Lymphocytes Percent Auto 13.6 % (20-40); Mean Corpuscular HGB Conc 32.6 g/dl (31.0-36.0); Mean Corpuscular Hemoglobin 30.2 pg (27.0-33.0); Mean Corpuscular Volume 92.7 fL (80.0-98.0); Mean Platelet Volume 9.7 fL (9.4-12.4); Monocytes Absolute Auto 1.3 X10*3/uL (0.1-1.2); Monocytes Percent Auto 12.1 % (2-11); Neutrophils Absolute Auto 7.2 x10*3/uL (2.0-8.3); Neutrophils Percent Auto 70.3 % (45-73); Platelet Count 231 X10*3/uL (160-400); Red Blood Count 2.45 X10*6/uL (4.60-5.80); Red Cell Distribution Width 12.8 % (11.0-16.0); White Blood Count 10.3 X10*3/uL (4.8-10.8)
[2023-06-18 06:42] LABS: Alanine Aminotransferase 13 U/L (0-40); Alkaline Phosphatase 47 U/L (39-117); Anion Gap 16 (12-20); Aspartate Amino Transferase 12 U/L (5-37); Bilirubin Total 0.2 mg/dL (0.0-1.0); Blood Urea Nitrogen 58 mg/dL (9-16); Carbon Dioxide 18 mmol/L (22-29); Chloride 101 mmol/L (96-108); Estimated Glomerular Filt Rate 11; Glucose Random 106 mg/dL (60-115); Potassium 4.3 mmol/L (3.3-5.1); Sodium 131 mmol/L (135-145); Total Protein 5.7 g/dL (6.5-8.0)
== END 2023-06-18 05:55 | disposition home or self-care (01) ==
LOC: HO.MMNH1L 05:54
PROVIDERS: Visit Provider Family Medicine
DX: N17.9 Acute kidney failure, unspecified (principal)
CPT/HCPCS: 36415; 80053; 85025

== ENCOUNTER 2023-06-22 06:24 | Outpatient (REF) | payer MEDICARE, SELFPAY ==
[2023-06-22 06:19] LABS: MANUAL DIFF FLAG NO
[2023-06-22 07:03] LABS: Basophils Absolute Auto 0.1 X10*3/uL (0.0-0.2); Basophils Percent Auto 0.8 % (0-2); Eosinophils Absolute Auto 0.3 X10*3/uL (0.0-0.4); Eosinophils Percent Auto 3.7 % (0-4); Hematocrit 21.3 % (42.0-52.0); Imm Gran Abs Auto 0.06 X10*3/uL (0.00-0.03); Imm Gran Pct Auto 0.7 % (0.0-0.4); Lymphocytes Absolute Auto 1.4 X10*3/uL (1.2-4.9); Lymphocytes Percent Auto 16.6 % (20-40); Mean Corpuscular HGB Conc 31.5 g/dl (31.0-36.0); Mean Corpuscular Hemoglobin 30.3 pg (27.0-33.0); Mean Corpuscular Volume 96.4 fL (80.0-98.0); Mean Platelet Volume 10.2 fL (9.4-12.4); Monocytes Absolute Auto 0.9 X10*3/uL (0.1-1.2); Monocytes Percent Auto 11.1 % (2-11); Neutrophils Absolute Auto 5.6 x10*3/uL (2.0-8.3); Neutrophils Percent Auto 67.1 % (45-73); Platelet Count 246 X10*3/uL (160-400); Red Blood Count 2.21 X10*6/uL (4.60-5.80); Red Cell Distribution Width 12.7 % (11.0-16.0); White Blood Count 8.3 X10*3/uL (4.8-10.8)
[2023-06-22 07:17] LABS: Anion Gap 18 (12-20); Bilirubin Total 0.2 mg/dL (0.0-1.0); Blood Urea Nitrogen 69 mg/dL (9-16); Carbon Dioxide 20 mmol/L (22-29); Chloride 101 mmol/L (96-108); Glucose Random 87 mg/dL (60-115); Sodium 135 mmol/L (135-145)
[2023-06-22 07:18] LABS: Alanine Aminotransferase 8 U/L (0-40); Alkaline Phosphatase 47 U/L (39-117); Aspartate Amino Transferase 11 U/L (5-37); Calcium 6.9 mg/dL (8.4-10.2); Total Protein 5.8 g/dL (6.5-8.0)
[2023-06-22 07:25] LABS: Hemoglobin 6.7 g/dl (14.0-18.0)
[2023-06-22 07:54] LABS: Estimated Glomerular Filt Rate 8
== END 2023-06-22 06:25 | disposition home or self-care (01) ==
LOC: HO.MMNH1L 06:24
PROVIDERS: Visit Provider Family Medicine
DX: N17.9 Acute kidney failure, unspecified (principal)
CPT/HCPCS: 36415; 80053; 85025

== ENCOUNTER 2023-06-23 05:41 | Outpatient (REF) | payer MEDICARE, SELFPAY ==
[2023-06-23 05:44] LABS: MANUAL DIFF FLAG NO
[2023-06-23 06:11] LABS: Basophils Absolute Auto 0.1 X10*3/uL (0.0-0.2); Basophils Percent Auto 0.9 % (0-2); Eosinophils Absolute Auto 0.3 X10*3/uL (0.0-0.4); Eosinophils Percent Auto 3.7 % (0-4); Hematocrit 21.4 % (42.0-52.0); Imm Gran Abs Auto 0.05 X10*3/uL (0.00-0.03); Imm Gran Pct Auto 0.7 % (0.0-0.4); Lymphocytes Absolute Auto 1.4 X10*3/uL (1.2-4.9); Lymphocytes Percent Auto 18.8 % (20-40); Mean Corpuscular HGB Conc 31.8 g/dl (31.0-36.0); Mean Corpuscular Hemoglobin 29.8 pg (27.0-33.0); Mean Corpuscular Volume 93.9 fL (80.0-98.0); Mean Platelet Volume 9.5 fL (9.4-12.4); Monocytes Absolute Auto 0.9 X10*3/uL (0.1-1.2); Monocytes Percent Auto 12.2 % (2-11); Neutrophils Absolute Auto 4.9 x10*3/uL (2.0-8.3); Neutrophils Percent Auto 63.7 % (45-73); Platelet Count 255 X10*3/uL (160-400); Red Blood Count 2.28 X10*6/uL (4.60-5.80); Red Cell Distribution Width 12.7 % (11.0-16.0); White Blood Count 7.6 X10*3/uL (4.8-10.8)
[2023-06-23 06:23] LABS: Hemoglobin 6.8 g/dl (14.0-18.0)
== END 2023-06-23 05:42 | disposition home or self-care (01) ==
LOC: HO.MMNH1L 05:41
PROVIDERS: Visit Provider Family Medicine
DX: I10 Essential (primary) hypertension (principal); E78.5 Hyperlipidemia, unspecified; N40.0 Benign prostatic hyperplasia without lower urinary tract symptoms
CPT/HCPCS: 36415; 85025

== ENCOUNTER 2023-06-25 05:41 | Outpatient (REF) | payer MEDICARE, SELFPAY ==
[2023-06-25 06:38] LABS: Ferritin 255 ng/mL (20-250); Iron 47 mcg/dL (45-160); Percent Iron Saturation 25 % (15-50); Phosphorus 3.7 mg/dL (2.7-4.5); Total Iron Binding Capacity 187 mcg/dL (228-428); Unsaturated Iron Binding 140 ug/dL; Vitamin D 25-OH Total 13.6 ng/mL (>30)
== END 2023-06-25 05:42 | disposition home or self-care (01) ==
LOC: HO.MMNH1L 05:41
PROVIDERS: Visit Provider Family Medicine
DX: N18.6 End stage renal disease (principal)
CPT/HCPCS: 36415; 82306; 82728; 83540; 84100

== ENCOUNTER 2023-06-29 06:49 | Outpatient (REF) | payer MEDICARE, SELFPAY ==
[2023-06-29 06:44] LABS: MANUAL DIFF FLAG NO
[2023-06-29 07:13] LABS: Basophils Absolute Auto 0.1 X10*3/uL (0.0-0.2); Basophils Percent Auto 0.9 % (0-2); Eosinophils Absolute Auto 0.3 X10*3/uL (0.0-0.4); Eosinophils Percent Auto 4.3 % (0-4); Hematocrit 22.6 % (42.0-52.0); Hemoglobin 7.2 g/dl (14.0-18.0); Imm Gran Abs Auto 0.07 X10*3/uL (0.00-0.03); Lymphocytes Absolute Auto 1.3 X10*3/uL (1.2-4.9); Lymphocytes Percent Auto 17.9 % (20-40); Mean Corpuscular HGB Conc 31.9 g/dl (31.0-36.0); Mean Corpuscular Hemoglobin 30.6 pg (27.0-33.0); Mean Corpuscular Volume 96.2 fL (80.0-98.0); Monocytes Absolute Auto 0.7 X10*3/uL (0.1-1.2); Monocytes Percent Auto 9.8 % (2-11); Neutrophils Absolute Auto 4.6 x10*3/uL (2.0-8.3); Neutrophils Percent Auto 66.1 % (45-73); Platelet Count 235 X10*3/uL (160-400); Red Blood Count 2.35 X10*6/uL (4.60-5.80); Red Cell Distribution Width 12.6 % (11.0-16.0)
[2023-06-29 07:35] LABS: Alanine Aminotransferase 8 U/L (0-40); Albumin Level 3.2 g/dL (3.5-5.0); Alkaline Phosphatase 43 U/L (39-117); Anion Gap 14 (12-20); Aspartate Amino Transferase 14 U/L (5-37); Bilirubin Total 0.3 mg/dL (0.0-1.0); Blood Urea Nitrogen 22 mg/dL (9-16); Calcium 7.7 mg/dL (8.4-10.2); Carbon Dioxide 28 mmol/L (22-29); Chloride 99 mmol/L (96-108); Estimated Glomerular Filt Rate 17; Glucose Random 90 mg/dL (60-115); Potassium 3.8 mmol/L (3.3-5.1); Sodium 137 mmol/L (135-145); Total Protein 5.8 g/dL (6.5-8.0)
== END 2023-06-29 06:50 | disposition home or self-care (01) ==
LOC: HO.MMNH1L 06:49
PROVIDERS: Visit Provider Family Medicine
DX: N17.9 Acute kidney failure, unspecified (principal)
CPT/HCPCS: 36415; 80053; 85025

== ENCOUNTER 2023-11-19 16:41 | Outpatient (REF) | payer MEDICARE, SELFPAY ==
[2023-11-19 18:11] LABS: PSA,Total (Free>4and<10) 14.17 ng/mL (0.00-4.00)
== END 2023-11-19 16:42 | disposition home or self-care (01) ==
LOC: HO.LAB 16:41
PROVIDERS: PCP Internal Medicine; Visit Provider Urology
DX: N40.1 Benign prostatic hyperplasia with lower urinary tract symptoms (principal); N13.8 Other obstructive and reflux uropathy; Z12.5 Encounter for screening for malignant neoplasm of prostate
CPT/HCPCS: 36415; 84153

== ENCOUNTER 2023-12-09 15:46 | Outpatient (AMB) | payer MEDICARE, SELFPAY ==
--- NOTE | 2023-12-09 15:48 | MHC.OFFVIS ---
Intake Visit Reasons: 6m/PSA(set)vm to confirm Intake Note: Patient is Present for Telephone Follow Up For Urology Med: Tamsulosin, Finasteride Antibiotic Allergy: None Blood Thinner:None Allergies No Known Allergies Allergy (Verified 12/09/23 15:48) Medication List - Last Reconciled 12/09/23 by Fernie Lorenzo MD acetaminophen ER (Tylenol Arthritis Pain) 650 mg PO BID@0900,1700 amlodipine 5 mg (1/2 x 10 mg) PO DAILY carvedilol 12.5 mg PO BID finasteride 5 mg PO DAILY 90 days loratadine 10 mg PO DAILY polyethylene glycol 3350 17 grams PO DAILY simvastatin 20 mg PO BEDTIME tamsulosin 0.4 mg PO DAILY 90 days HPI Comments Details: 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 He seen for the following urologic issues - lower urinary tract symptoms - elevated PSA Telemedicine evaluation 15 minute consultation Wan Shidao management ivone Video attempted Discussed current PSA Recently started dialysis due to renal failure Still making urine Will continue with prostate medications 11/30 MRI shows 2.1 and 1.9 cm lesions, total volume 120 cc Lesions described as PI-RADS 4 and PI-RADS 5 Discussed biopsy with patient - at this stage he would prefer to continue to follow PSA as this has remained relatively stable for the past 5-6 years Prior negative biopsy 2004 PSA has run in the 12-15 range for many years HUEY normal Lower urinary tract symptoms Current visit is for - further evaluation of lower urinary tract symptoms, predominantly obstructive - episode of retention June 2020 Current treatment includes - tamsulosin and finasteride Prior treatments include - none Prostate Symptom Score - moderate, bother 2 Symptoms include - incomplete emptying, weak stream, nocturia Results from testing include - PSA 04/30 15 this is in historic range for him and has prior negative biopsy from 2004 - 15.0, 05/01 16.5, 10/30 13.7, 12/01 14 Prostate volume 120g Testing at next visit will include - PSA in 6 months [facility] Medical History ESRD (end stage renal disease) 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 CKD (chronic kidney disease) High cholesterol Hypertension Social History Household Members: Family Housing: House Do you presently have visiting nurse or other home services: No Comment: bed 2 Patient Tobacco Use Status: Never used Tobacco service: No Review of Systems Const All systems reviewed & are unremarkable except as noted in HPI and below Reports no additional complaints Resp Reports no additional complaints GI Reports no additional complaints Reports as per HPI Musc Reports no additional complaints Physical Exam Telemedicine evaluation Appropriate responses Regular breathing rate and rhythm HEENT Head: Yes normal to inspection Ears: hearing grossly normal bilaterally Eyes General: appearance normal, both eyes and all related structures Neck Neck: Yes normal visual inspection Chest Chest palpation & inspection: normal inspection of the chest Resp Effort & Inspection: normal respiratory effort and able to speak in complete sentences Telehealth Telehealth Telehealth Platform: Telephone Location of provider rendering services: practice address Location of patient: address on file Patient Identification confirmed using: Name, : Yes Telehealth method: voice only Patient verbally consented to treatment: Yes Patient verbally consented to billing insurance company: Yes Patient informed of any privacy concerns related to visit: Yes Minutes spent on Phone/Video with Pt.: 15 Assessment & Plan Assessment & Plan (1) Elevated PSA: Code(s): R97.20 - Elevated prostate specific antigen [PSA] Category: Medical (2) BPH w urinary obs/LUTS: Code(s): N40.1 - Benign prostatic hyperplasia with lower urinary tract symptoms; N13.8 - Other obstructive and reflux uropathy Category: Medical Plan Six-month follow-up Orders: Orders Prostate Specific Antigen 6 Months R97.20 - Elevated prostate specific antigen [PSA] Medications: Changed From tamsulosin 0.4 mg PO DAILY To tamsulosin 0.4 mg PO DAILY 90 days 90 caps 1RF Refilled finasteride 5 mg PO DAILY 90 days 90 tabs 1RF N13.8 - Other obstructive and reflux uropathy, N40.1 - Benign prostatic hyperplasia with lower urinary tract symptoms Patient Instructions: Imaging studies, laboratory and physical exam results were discussed and reviewed in detail. No major barriers to patient understanding were identified. An opportunity to ask questions regarding the treatment plan was provided. All questions were answered. The patient expressed understanding and agreement with the above treatment plan. The patient is aware they should contact our office by phone for worsening of their current condition or the appearance of new urologic symptoms. Compliance is encouraged with any medications and followup testing that is ordered. It is a privilege to participate in the urologic care of your patient. If you have any questions or concerns regarding treatment for the above conditions, or other urologic issues, please do not hesitate to contact me. The office telephone contact is [phone]. This note is constructed using voice recognition software. While every effort has been made to ensure accuracy testing projects administrator errors may have been included. Yours sincerely, Dr Fernie Lorenzo MD, [facility] - Urology Providers of Expert, Compassionate Care for the Genitourinary System Coding Level of Care Code Tele Est Pt Level 3 (57721) Diagnoses Elevated PSA R97.20 BPH w urinary obs/LUTS N40.1; N13.8
== END 2023-12-09 16:39 | disposition home or self-care (01) ==
LOC: HO.HUSH 15:46
PROVIDERS: PCP Internal Medicine; Visit Provider Urology
DX: R97.20 Elevated prostate specific antigen [PSA] (principal); N40.1 Benign prostatic hyperplasia with lower urinary tract symptoms; N13.8 Other obstructive and reflux uropathy
CPT/HCPCS: 99442

== ENCOUNTER → 2023-12-09 15:46 | Outpatient (BNVA) | payer MEDICARE, SELFPAY | PROVIDERS: PCP Internal Medicine; Visit Provider Urology ==

== ENCOUNTER 2023-12-14 13:39 | Outpatient (AMB) | payer MEDICARE, SELFPAY ==
--- NOTE | 2023-12-14 13:39 | MHC.PC.OV ---
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 Intake Note: Patient is a new patient here to establish care [place] Required: No Allergies No Known Allergies Allergy (Verified 12/14/23 13:45) Medication List - Last Reconciled 12/14/23 by Jada Andrews MD acetaminophen ER (Tylenol Arthritis Pain) 650 mg PO BID@0900,1700 amlodipine 5 mg PO DAILY calcium acetate(phosphat bind) 1,334 mg orally; carvedilol 12.5 mg PO BID docusate sodium (Colace) 100 mg PO DAILY ergocalciferol (vitamin D2) 62.5 mcg PO DAILY finasteride 5 mg PO DAILY 90 days loratadine 10 mg PO DAILY [renovite 1 tab PO .QD] simvastatin 20 mg PO BEDTIME tamsulosin 0.4 mg PO DAILY 90 days Tobacco use date assessed: 12/14/23 Fall risk assessment: No Falls in past year Last assessed Fall Risk: 12/14/23 Dental Screening Dental Screen Date: 12/14/23 Did you have a dental visit in the last 12 months?: Yes Did you have a dental problem in the last 6 months where you did not have access to dental care?: No Was dental information given to patient?: Patient has dentist 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 Patient follows up with urology December 2023 for elevated PSA had an MRI in November 2022 showing lesions in the prostate. Declined prostate biopsy but has been stable for the past 5-6 years has had biopsy before in 2004-on tamsulosin and finasteride prostate volume 120 g.. May 2023 ER visit patient follows up with Nephrology FSGS. Has hypertension, hypercholesterolemia. MWF Dr. Peacock. on Dialysis days stop amlodipine PFSH Medical History (Updated 12/14/23 @ 14:22 by Jada Andrews MD) Weak urinary stream Acute kidney injury ESRD (end stage renal disease) CKD (chronic kidney disease) High cholesterol Hypertension Surgical History (Updated 12/14/23 @ 14:14 by Jada Andrews MD) Hx of tonsillectomy Social History (Updated 12/14/23 @ 14:15 by Jada Andrews MD) Household Members: Family Housing: House Do you presently have visiting nurse or other home services: No Alcohol intake: never Patient Tobacco Use Status: Never used Tobacco Years Smoked: quit 25 year/old service: No 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: Yes (walker ) Hearing needs: No Vision needs: No Questionnaire PHQ-9 Over the last 2 weeks, how often have you been bothered by any of the following problems? 1. Little interest or pleasure in doing things: not at all 2. Feeling down, depressed, or hopeless: not at all 3. Trouble falling or staying asleep, or sleeping too much: not at all 4. Feeling tired or having little energy: not at all 5. Poor appetite or overeating: not at all 6. Feeling bad about yourself - or that you are a failure or have let yourself or your family down: not at all 7. Trouble concentrating on things, such as reading the newspaper or watching television: not at all 8. Moving or speaking so slowly that other people could have noticed. Or the opposite - being so fidgety or restless that you have been moving around a lot more than usual: not at all 9. Thoughts that you would be better off or of hurting yourself in some way: not at all Total score: 0 Depression Screening Interpretation: Negative Depression Screening Done: Yes 84936 - PHQ-9 Billing: Yes Source: Developed by Drs. Ministerio Ngo, Marcella Mariano, Azar Bower and colleagues, with an educational letitia from [employer]. Thrive Questionnaire Date Thrive assessed: 12/14/23 I am a: Patient What is your living situation today?: I have a steady place to live Within the past 12 months, did the food you bought not last and you didn't have the money to get more?: Never true Within the past 12 months, did you worry whether your food would run out before you got money to buy more?: Never true Do you have trouble paying for medicines?: No Do you have trouble getting transportation to medical appointments?: No Do you have trouble paying your heating and electricity bill?: No Do you have trouble taking care of your child, family member or friend?: No Do you have trouble with day-to-day activities such as bathing, preparing meals, shopping, managing finances, etc.?: No Are you currently unemployed and looking for a job?: No Are you interested in more education?: No Please select the resources that you would like help with: None Currently or been in a relationship where the following occur: no concerns reported THRIVE Score: 0 AUDIT C Alcohol Use Questionnaire (AUDIT-C) 1. How often do you have a drink containing alcohol?: Never 2. How many drinks containing alcohol do you have on a typical day when you are drinking?: 1 or 2 3. How often do you have six or more drinks on one occasion?: Never Total Score: 0 BONNY-7 AMB Questionnaire BONNY-7 Date BONNY - 7 assessed: 12/14/23 Feeling nervous, anxious, or on edge: 0 = Not at all Not being able to stop or control worryin = Not at all Worrying too much about different things: 0 = Not at all Trouble relaxin = Not at all Being so restless that it is hard to sit still: 0 = Not at all Becoming easily annoyed or irritable: 0 = Not at all Feeling afraid as if something awful might happen: 0 = Not at all Total BONNY-7 score (0-4 normal; 5-9 mild; 10-14 moderate; 15-21 severe): 0 Source: Developed by Drs. Ministerio Ngo, Marcella Mariano, Azar Bower and colleagues, with an educational letitia from [employer]. BONNY-7 Assessment Billing BONNY-7 Assessment Tool: BONNY-7 Assessment 68235 Physical exam (Primary Care) Vital Signs: Last Vital Signs Pulse 73 12/14/23 13:42 BP 130/62 12/14/23 13:42 Pulse Ox 96 12/14/23 13:42 Oxygen Delivery Method Room Air 12/14/23 13:42 BMI result Body Mass Index 32.3 Tobacco/Smoking Status: Tobacco use Status Tobacco use date assessed 12/14/23 12/14/23 13:53 Patient Tobacco Use Status Never used Tobacco 12/14/23 13:40 PHQ-9: PHQ-9 Score PHQ-9: Total score 0 12/14/23 13:56 Depression Screening Interpretation: Negative Thrive Assessment: Date of Thrive Assessment Date Thrive assessed 12/14/23 12/14/23 13:40 Currently or been in a relationship where the following occur: no concerns reported Const General: alert; No acute distress Eyes Conjunctivae: conjunctivae normal Resp Auscultation: clear to auscultation bilaterally Cardio Rate: regular rate Rhythm: regular rhythm GI Inspection: Yes normal to inspection Extrem General: Yes normal to inspection and No edema Assessment and Plan Assessment & Plan (1) BPH w urinary obs/LUTS: Code(s): N40.1 - Benign prostatic hyperplasia with lower urinary tract symptoms; N13.8 - Other obstructive and reflux uropathy Plan: Patient follows up with urology on finasteride and tamsulosin (2) Elevated PSA: Code(s): R97.20 - Elevated prostate specific antigen [PSA] Plan: Continue to be followed up by Urology (3) ESRD (end stage renal disease): Code(s): N18.6 - End stage renal disease Plan: Patient on dialysis (4) Hypercholesterolemia: Code(s): E78.00 - Pure hypercholesterolemia, unspecified Plan: Avoid fried foods, chicken skin, eggs, butter margarine, pastries and meat. Be it pork or beef they have a lot of cholesterol LDL goal of less than 100 and triglyceride of less than 150. Patient on simvastatin 20 mg at bedtime (5) Hypertension: Code(s): I10 - Essential (primary) hypertension Plan: Continue with blood pressure medication. Decrease salt intake and exercise carvedilol 12.5 mg twice a day amlodipine 5 mg once a day (6) Umbilical hernia: Code(s): K42.9 - Umbilical hernia without obstruction or gangrene Plan: avoid heavy lifting Orders: Orders Complete Blood Count Auto Diff Today E78.00 - Pure hypercholesterolemia, unspecified Comprehensive Met. Panel Today E78.00 - Pure hypercholesterolemia, unspecified Vitamin B12 and Folate Today E78.00 - Pure hypercholesterolemia, unspecified Lipid Panel Today E78.00 - Pure hypercholesterolemia, unspecified Magnesium Today E78.00 - Pure hypercholesterolemia, unspecified Phosphorus Today E78.00 - Pure hypercholesterolemia, unspecified Ferritin Today E78.00 - Pure hypercholesterolemia, unspecified IRON PROFILE Today E78.00 - Pure hypercholesterolemia, unspecified Reticulocyte Count Today E78.00 - Pure hypercholesterolemia, unspecified Vitamin D 25-OH Total Today E78.00 - Pure hypercholesterolemia, unspecified Thyroid Stimulating Hormone Today E78.00 - Pure hypercholesterolemia, unspecified Free T4 (Free Thyroxine) Today E78.00 - Pure hypercholesterolemia, unspecified Hemoglobin A1c Today E78.00 - Pure hypercholesterolemia, unspecified Medications: New atorvastatin 10 mg PO DAILY 30 tabs 3RF E78.00 - Pure hypercholesterolemia, unspecified Coding Level of Care Code New Pt Level 4 (19543) Diagnoses BPH w urinary obs/LUTS N40.1; N13.8 Elevated PSA R97.20 ESRD (end stage renal disease) N18.6 Hypercholesterolemia E78.00 Hypertension I10 Umbilical hernia K42.9 Additional Codes BONNY-7 Assessment Billing - BONNY-7 Assessment Tool: BONNY-7 Assessment [id number] ([id number])
[2023-12-14 13:42] VITALS: BP 130/62; PULSE 73; O2SAT 96; BMI 32.3
== END 2023-12-14 14:33 | disposition home or self-care (01) ==
PROVIDERS: PCP Internal Medicine; Visit Provider Internal Medicine
DX: I12.0 Hypertensive chronic kidney disease with stage 5 chronic kidney disease or end stage renal disease (principal); N18.6 End stage renal disease; N40.1 Benign prostatic hyperplasia with lower urinary tract symptoms; N13.8 Other obstructive and reflux uropathy; R97.20 Elevated prostate specific antigen [PSA]; E78.00 Pure hypercholesterolemia, unspecified; K42.9 Umbilical hernia without obstruction or gangrene
CPT/HCPCS: 99204

== ENCOUNTER 2024-04-12 07:00 | Outpatient (REF) | payer MEDICARE, SELFPAY ==
[2024-04-12 07:13] LABS: MANUAL DIFF FLAG NO
[2024-04-12 07:27] LABS: Basophils Absolute Auto 0.1 X10*3/uL (0.0-0.2); Basophils Percent Auto 1.1 % (0-2); Eosinophils Absolute Auto 0.2 X10*3/uL (0.0-0.4); Eosinophils Percent Auto 3.2 % (0-4); Hematocrit 28.2 % (42.0-52.0); Hemoglobin 9.6 g/dl (14.0-18.0); Imm Gran Abs Auto 0.05 X10*3/uL (0.00-0.03); Imm Gran Pct Auto 0.7 % (0.0-0.4); Immature Retic Fraction 15.6 % (2.3-13.4); Lymphocytes Absolute Auto 2.1 X10*3/uL (1.2-4.9); Lymphocytes Percent Auto 28.2 % (20-40); Mean Corpuscular Hemoglobin 32.3 pg (27.0-33.0); Mean Corpuscular Volume 94.9 fL (80.0-98.0); Mean Platelet Volume 9.1 fL (9.4-12.4); Monocytes Absolute Auto 0.7 X10*3/uL (0.1-1.2); Monocytes Percent Auto 9.7 % (2-11); Neutrophils Absolute Auto 4.3 x10*3/uL (2.0-8.3); Neutrophils Percent Auto 57.1 % (45-73); Platelet Count 201 X10*3/uL (160-400); Red Blood Count 2.97 X10*6/uL (4.60-5.80); Red Cell Distribution Width 14.6 % (11.0-16.0); Reticulocyte Percent 2.3 % (0.5-1.8); Reticulocytes Absolute 0.068 X10*6/uL (0.026-0.095); White Blood Count 7.6 X10*3/uL (4.8-10.8)
[2024-04-12 07:33] LABS: Estimated Average Glucose 186 mg/dL; Hemoglobin A1c % 8.1 % (<6.0)
[2024-04-12 08:17] LABS: Alanine Aminotransferase 21 U/L (0-40); Albumin Level 4.4 g/dL (3.5-5.0); Alkaline Phosphatase 44 U/L (39-117); Anion Gap 20 (12-20); Aspartate Amino Transferase 15 U/L (5-37); Bilirubin Total 0.3 mg/dL (0.0-1.0); Blood Urea Nitrogen 56 mg/dL (9-16); Calcium 9.6 mg/dL (8.4-10.2); Carbon Dioxide 28 mmol/L (22-29); Chloride 92 mmol/L (96-108); Cholesterol 227 mg/dL (<200); Estimated Glomerular Filt Rate 10; Glucose Random 204 mg/dL (60-115); HDL Cholesterol 36 mg/dL (>40); Iron 96 mcg/dL (45-160); Percent Iron Saturation 38 % (15-50); Phosphorus 4.1 mg/dL (2.7-4.5); Potassium 4.1 mmol/L (3.3-5.1); Sodium 136 mmol/L (135-145); Total Iron Binding Capacity 253 mcg/dL (228-428); Total Protein 7.7 g/dL (6.5-8.0); Triglycerides 546 mg/dL (<150); Unsaturated Iron Binding 157 ug/dL
[2024-04-12 08:26] LABS: Free T4 (Free Thyroxine) 0.86 ng/dL (0.71-1.85); Thyroid Stimulating Hormone 3.13 uIU/mL (0.32-4.0); Vitamin D 25-OH Total 20.9 ng/mL (>30)
[2024-04-12 08:27] LABS: Folate 17.4 ng/mL (> or = 4.0); Vitamin B12 460 pg/mL (200-900)
[2024-04-12 09:02] LABS: Ferritin 2221 ng/mL (20-250)
== END 2024-04-12 07:01 | disposition home or self-care (01) ==
LOC: HO.LAB 07:00
PROVIDERS: PCP Internal Medicine; Visit Provider Internal Medicine
DX: E78.00 Pure hypercholesterolemia, unspecified (principal); Z13.1 Encounter for screening for diabetes mellitus
CPT/HCPCS: 36415; 80053; 80061; 82306; 82607; 82728; 82746; 83036; 83540; 83735; 84100; 84439; 84443; 85025; 85045

== ENCOUNTER 2024-08-18 14:46 | Outpatient (AMB) | payer MEDICARE, SELFPAY ==
[2024-08-18 15:15] VITALS: BP 128/72; PULSE 75; O2SAT 98; BMI 32.4
--- NOTE | 2024-08-18 15:15 | A.OFFPC_ITS ---
Vital Signs 08/18/24 15:15 Height 5 ft 7 in Weight 207 lb BMI 32.4 BP 128/72 Blood Pressure Location Rt brachial Position Sitting Pulse 75 Pulse Source Pulse Oximeter Pulse Oximetry (%) 98 Oxygen Delivery Method Room Air Intake Visit Reasons: PE Allergies No Known Allergies Allergy (Verified 08/18/24 15:15) Medication List - Last Reconciled 08/18/24 by Jada Andrews MD acetaminophen ER (Tylenol Arthritis Pain) 650 mg PO BID@0900,1700 amlodipine 5 mg PO DAILY atorvastatin 10 mg PO DAILY carvedilol 12.5 mg PO BID docusate sodium (Colace) 100 mg PO DAILY ergocalciferol (vitamin D2) 62.5 mcg PO DAILY finasteride 5 mg PO DAILY 90 days loratadine 10 mg PO DAILY [renovite 1 tab PO .QD] sevelamer HCl 400 mg PO DAILY tamsulosin 0.4 mg PO DAILY 90 days Tobacco use date assessed: 08/18/24 Fall risk assessment: No Falls in past year Last assessed Fall Risk: 08/18/24 Dental Screening Dental Screen Date: 08/18/24 Did you have a dental visit in the last 12 months?: No Did you have a dental problem in the last 6 months where you did not have access to dental care?: No Was dental information given to patient?: Patient has dentist HPI PE HPI Details dialysis May 2023 Dr. Peacock The patient is an 79-year-old male presenting with a follow-up for the management of multiple chronic conditions, including Chronic Kidney Disease (CKD) requiring dialysis, and Diabetes Mellitus Type 2. The patient started dialysis on June 08, 2023, and undergoes treatment three times per week. he reports no significant side effects from dialysis and feels that it is going well. She exercises regularly and maintains a good diet. His diabetes mellitus has been managed with lifestyle measures, but recent labs indicate a Hemoglobin A1c of 8.1%, indicating poor control. The patient reports fruit juices consumption decreased due to high sugar content, and he has been mindful of dietary intake. The patient?s hyperlipidemia is being monitored, and she reports consuming a low-fat diet with little fast food. However, recent tests revealed triglycerides at 546 mg/dL and LDL cholesterol was persistently high. Despite diet measures, his blood sugar levels have fluctuated, with a past glucose of 204 mg/dL. he does not check her blood glucose levels regularly but is willing to begin monitoring. 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 - Received influenza, COVID-19, shingles , and RSV vaccinations. - Advised regular monitoring and control of blood glucose levels. - Discussed dietary changes to manage hy perlipidemia and blood pressure. - Exercise is maintained regularly; clark mmended to continue current activity levels. - Follow-up was recommended with an assistance specialist for annual diabetic retinopathy screening. - Does not consume alcohol or tobacco. - Exercises regularly; walks and stretch es most days of the week. - Attempts to maintain a balanced diet w ith reduced fat intake. - Lives independently and manages hishea lth actively. - Cardiovascular: Denies chest pain, hannah rtness of breath, or edema. - Gastrointestinal: Denies nausea, vomit ing, or bowel irregularities. - Genitourinary: Denies urinary incontin ence. - Neurological: Denies dizziness, fainti ng, or motor weakness. - Musculoskeletal: Reports arthritis in both feet, particularly in the right foot. - Ears, Nose & Throat: Hearing difficult ies noted. - Labs: Hemoglobin A1c 8.1%; Triglycerid es 546 mg/dL; LDL cholesterol elevated; creatinine around 5; anemia noted with hemoglobin at 9.6; glucose was recorded at 204 mg/dL in past labs. [facility] Medical History (Updated 08/18/24 @ 16:02 by Jada Andrews MD) Weak urinary stream Acute kidney injury ESRD (end stage renal disease) CKD (chronic kidney disease) High cholesterol Hypertension Surgical History (Updated 12/14/23 @ 14:14 by Jada Andrews MD) Hx of tonsillectomy Social History (Updated 12/14/23 @ 14:15 by Jada Andrews MD) Household Members: Family Housing: House Do you presently have visiting nurse or other home services: No Alcohol intake: never Patient Tobacco Use Status: Former Tobacco user Tobacco use type: Cigarette Years Smoked: quit 25 year/old e-Cigarette/Vaping Use: Never Used Second Hand Smoke Exposure: No service: No 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: Yes (walker ) Hearing needs: No Vision needs: Yes Questionnaire PHQ-9 Over the last 2 weeks, how often have you been bothered by any of the following problems? 1. Little interest or pleasure in doing things: not at all 2. Feeling down, depressed, or hopeless: not at all 3. Trouble falling or staying asleep, or sleeping too much: not at all 4. Feeling tired or having little energy: not at all 5. Poor appetite or overeating: not at all 6. Feeling bad about yourself - or that you are a failure or have let yourself or your family down: not at all 7. Trouble concentrating on things, such as reading the newspaper or watching television: not at all 8. Moving or speaking so slowly that other people could have noticed. Or the opposite - being so fidgety or restless that you have been moving around a lot more than usual: not at all 9. Thoughts that you would be better off or of hurting yourself in some way: not at all Total score: 0 Source: Developed by Drs. Ministerio Ngo, Marcella Mariano, Azar Bower and colleagues, with an educational letitia from [employer]. Thrive Questionnaire Date Thrive assessed: 08/18/24 I am a: Patient What is your living situation today?: I have a steady place to live Within the past 12 months, did the food you bought not last and you didn't have the money to get more?: Never true Within the past 12 months, did you worry whether your food would run out before you got money to buy more?: Never true Do you have trouble paying for medicines?: No Do you have trouble getting transportation to medical appointments?: No Do you have trouble paying your heating and electricity bill?: No Do you have trouble taking care of your child, family member or friend?: No Do you have trouble with day-to-day activities such as bathing, preparing meals, shopping, managing finances, etc.?: No Are you currently unemployed and looking for a job?: No Are you interested in more education?: No Please select the resources that you would like help with: None Currently or been in a relationship where the following occur: No concerns reported THRIVE Score: 0 AUDIT C Alcohol Use Questionnaire (AUDIT-C) 1. How often do you have a drink containing alcohol?: Never Total Score: 0 BONNY-7 AMB Questionnaire BONNY-7 Date BONNY - 7 assessed: 08/18/24 Feeling nervous, anxious, or on edge: 0 = Not at all Not being able to stop or control worryin = Not at all Worrying too much about different things: 0 = Not at all Trouble relaxin = Not at all Being so restless that it is hard to sit still: 0 = Not at all Becoming easily annoyed or irritable: 0 = Not at all Feeling afraid as if something awful might happen: 0 = Not at all Total BONNY-7 score (0-4 normal; 5-9 mild; 10-14 moderate; 15-21 severe): 0 Source: Developed by Drs. Ministerio Ngo, Marcella Mariano, Azar Bower and colleagues, with an educational letitia from [employer]. Review of Systems Const Denies poor appetite and Denies weakness Eyes Denies no additional complaints ENT Reports Normal hearing present, Denies dizziness, Denies nasal congestion, Denies tinnitus and Denies sore throat Card Denies chest pain, Denies syncope, Denies rapid heart rate and Denies dyspnea Resp Denies cough and Denies dyspnea GI Denies change in stool character, Reports constipation, Denies diarrhea, Denies nausea and Denies vomiting Denies dysuria and Denies urinary frequency Neuro Reports Normal hearing present, Denies confusion, Denies dizziness, Denies syncope and Denies weakness Psych Denies confusion Physical exam (Primary Care) Vital Signs: Last Vital Signs Pulse 75 08/18/24 15:15 BP 128/72 08/18/24 15:15 Pulse Ox 98 08/18/24 15:15 Oxygen Delivery Method Room Air 08/18/24 15:15 BMI result Body Mass Index 32.4 Tobacco/Smoking Status: Tobacco use Status Tobacco use date assessed 08/18/24 08/18/24 15:18 Patient Tobacco Use Status Former Tobacco user 08/18/24 15:18 Tobacco use type Cigarette 08/18/24 15:18 e-Cigarette/Vaping Use Never Used 08/18/24 15:18 PHQ-9: PHQ-9 Score PHQ-9: Total score 0 08/18/24 15:59 Thrive Assessment: Date of Thrive Assessment Date Thrive assessed 08/18/24 08/18/24 15:18 Currently or been in a relationship where the following occur: No concerns reported Const General: No confusion Orientation/consciousness: No confusion HENMT Head: Yes normocephalic Ears: external ears normal and TM's normal bilaterally Face and sinus: Yes normal facial exam Mouth: moist mucous membranes Throat: Yes tonsils normal Eyes Conjunctivae: conjunctivae normal Pupils: Equal, round and reactive pupils present and Pupil accommodation reflex normal Direct Ophthalmoscopy: normal light reflex Neck Neck: No lymphadenopathy Thyroid: Thyroid normal Chest Chest palpation & inspection: normal inspection of the chest Resp Effort & Inspection: normal respiratory effort and no audible wheezes Auscultation: clear to auscultation bilaterally, no crackles, no wheezes and lung sounds not diminished Cardio Rate: regular rate Rhythm: regular rhythm Peripheral pulses: radial pulses present and dorsalis pedis present GI Other: Guaiac negative stools enlarged prostate Palpation (GI): no masses Auscultation: normal bowel sounds and normoactive bowel sounds Skin General skin exam: no rashes or lesions noted Rashes: no rashes Neuro General: No confusion Cranial nerves: Yes Equal, round and reactive pupils present and Yes Normal hearing present Cognition (Neuro): normal cognition Gait exam (Neuro): Normal gait present Motor exam (neuro): 5/5 motor strength present throughout Deep tendon reflexes (DTR's): Right brachioradialis reflex intensity grade: 2+, Left brachioradialis reflex intensity grade: 2+, Right patellar reflex intensity grade: 2+ and Left patellar reflex intensity grade: 2+ Extrem General: No edema Coding Level of Care Code Est Pt Prev Care >65y(69486) Diagnoses Annual physical exam Z00.00 Type 2 diabetes mellitus with hyperglycemia E11.65 Hypertension I10 Hypercholesterolemia E78.00 ESRD (end stage renal disease) N18.6 BPH w urinary obs/LUTS N40.1; N13.8 Assessment & Plan Assessment & Plan (1) Annual physical exam: Code(s): Z00.00 - Encounter for general adult medical examination without abnormal findings Category: Medical (2) Type 2 diabetes mellitus with hyperglycemia: Code(s): E11.65 - Type 2 diabetes mellitus with hyperglycemia Category: Medical (3) Hypertension: Code(s): I10 - Essential (primary) hypertension Category: Medical (4) Hypercholesterolemia: Code(s): E78.00 - Pure hypercholesterolemia, unspecified Category: Medical (5) ESRD (end stage renal disease): Comment: L arm fistula dialysis 06/2023 Code(s): N18.6 - End stage renal disease Category: Medical (6) BPH w urinary obs/LUTS: Code(s): N40.1 - Benign prostatic hyperplasia with lower urinary tract symptoms; N13.8 - Other obstructive and reflux uropathy Category: Medical Plan - Initiate regular blood glucose monitoring with provided glucometer. - Adjust diet further to reduce triglycerides and LDL levels. - Continue current antihypertensive medications and adjust if necessary based on home BP monitors. - Manage CKD with ongoing dialysis and monthly EPO injections. - Monitor and manage anemia; consider further supplementation if necessary. - Schedule follow-up appointments after the next set of lab tests. I explained the importance of better controlling her blood glucose levels and recommended starting home monitoring to help adjust his dietary intake effectively. We discussed her current cholesterol levels and the possible need for medication adjustments once the follow-up lab tests are available. I emphasized the importance of regular ophthalmological evaluations due to the risks associated with diabetes. I addressed her questions about sugars and provided clear guidance on dietary adjustments for both her diabetes and cholesterol management. There was also a discussion about the potential need for insulin therapy should her glucose not improve. The patient was made aware of the need to continue EPO therapy to treat anemia secondary to CKD. - Begin using the glucometer to check blood glucose before meals once a day, alternating between breakfast, lunch, and dinner. - Reduce consumption of foods high in sugars and fats, including fruit juices and refined carbohydrates. - Maintain regular exercise and follow the prescribed medication regimen. - Schedule a yearly eye examination to screen for diabetic retinopathy. - Return for follow-up blood work in three months to re-evaluate cholesterol and glucose levels. Orders: Orders Thyroid Stimulating Hormone Today E11.65 - Type 2 diabetes mellitus with hyperglycemia Vitamin D 25-OH Total Today E11.65 - Type 2 diabetes mellitus with hyperglycemia Ferritin Today E11.65 - Type 2 diabetes mellitus with hyperglycemia Hemoglobin A1c Today E11.65 - Type 2 diabetes mellitus with hyperglycemia Complete Blood Count Auto Diff Today E11.65 - Type 2 diabetes mellitus with hyperglycemia Comprehensive Met. Panel Today E11.65 - Type 2 diabetes mellitus with hyperglycemia Free T4 (Free Thyroxine) Today E11.65 - Type 2 diabetes mellitus with hyperglycemia Lipid Panel Today E11.65 - Type 2 diabetes mellitus with hyperglycemia, E78.00 - Pure hypercholesterolemia, unspecified Vitamin B12 and Folate Today E11.65 - Type 2 diabetes mellitus with hyperglycemia IRON PROFILE Today E11.65 - Type 2 diabetes mellitus with hyperglycemia Reticulocyte Count Today E11.65 - Type 2 diabetes mellitus with hyperglycemia Medications: New blood-glucose meter (FreeStyle Lite Meter kit) As directed 1 ea 0RF E11.65 - Type 2 diabetes mellitus with hyperglycemia lancets (FreeStyle Lancets) As directed check BS QD 300 ea 3RF E11.65 - Type 2 diabetes mellitus with hyperglycemia blood sugar diagnostic (FreeStyle Lite Strips) As directed check the BS TID 300 ea 3RF E11.65 - Type 2 diabetes mellitus with hyperglycemia, E11.9 - Type 2 diabetes mellitus without complications
== END 2024-08-18 16:28 | disposition home or self-care (01) ==
PROVIDERS: PCP Internal Medicine; Visit Provider Internal Medicine
DX: Z00.00 Encounter for general adult medical examination without abnormal findings (principal); I12.0 Hypertensive chronic kidney disease with stage 5 chronic kidney disease or end stage renal disease; E11.65 Type 2 diabetes mellitus with hyperglycemia; N18.6 End stage renal disease; E78.00 Pure hypercholesterolemia, unspecified; N40.1 Benign prostatic hyperplasia with lower urinary tract symptoms; N13.8 Other obstructive and reflux uropathy

== ENCOUNTER → 2024-08-18 14:46 | Outpatient (BNVA) | payer MEDICARE, SELFPAY | PROVIDERS: PCP Internal Medicine; Visit Provider Internal Medicine | DX: Z00.00 Encounter for general adult medical examination without abnormal findings (principal); E11.22 Type 2 diabetes mellitus with diabetic chronic kidney disease; E11.65 Type 2 diabetes mellitus with hyperglycemia; I10 Essential (primary) hypertension; E78.00 Pure hypercholesterolemia, unspecified; N18.6 End stage renal disease; N40.1 Benign prostatic hyperplasia with lower urinary tract symptoms; N13.8 Other obstructive and reflux uropathy; Z99.2 Dependence on renal dialysis | CPT/HCPCS: 96127; 99397 ==

== ENCOUNTER 2024-10-05 15:48 | Outpatient (REF) | payer MEDICARE, SELFPAY ==
[2024-10-05 16:00] LABS: MANUAL DIFF FLAG NO
[2024-10-05 16:11] LABS: Basophils Absolute Auto 0.1 X10*3/uL (0.0-0.2); Basophils Percent Auto 0.6 % (0-2); Eosinophils Absolute Auto 0.2 X10*3/uL (0.0-0.4); Eosinophils Percent Auto 1.8 % (0-4); Hemoglobin 10.1 g/dl (14.0-18.0); Imm Gran Abs Auto 0.06 X10*3/uL (0.00-0.03); Imm Gran Pct Auto 0.7 % (0.0-0.4); Immature Retic Fraction 19.2 % (2.3-13.4); Lymphocytes Absolute Auto 1.3 X10*3/uL (1.2-4.9); Lymphocytes Percent Auto 15.3 % (20-40); Mean Corpuscular HGB Conc 32.6 g/dl (31.0-36.0); Mean Platelet Volume 9.2 fL (9.4-12.4); Monocytes Absolute Auto 0.9 X10*3/uL (0.1-1.2); Monocytes Percent Auto 10.4 % (2-11); Neutrophils Percent Auto 71.2 % (45-73); Platelet Count 259 X10*3/uL (160-400); Red Blood Count 3.37 X10*6/uL (4.60-5.80); Red Cell Distribution Width 15.7 % (11.0-16.0); Reticulocyte Percent 1.1 % (0.5-1.8); Reticulocytes Absolute 0.037 X10*6/uL (0.026-0.095); White Blood Count 8.5 X10*3/uL (4.8-10.8)
[2024-10-05 16:17] LABS: Estimated Average Glucose 126 mg/dL
[2024-10-05 16:52] LABS: Alanine Aminotransferase 26 U/L (0-40); Alkaline Phosphatase 44 U/L (39-117); Anion Gap 17 (12-20); Aspartate Amino Transferase 19 U/L (5-37); Bilirubin Total 0.4 mg/dL (0.0-1.0); Blood Urea Nitrogen 31 mg/dL (9-16); Calcium 8.7 mg/dL (8.4-10.2); Carbon Dioxide 31 mmol/L (22-29); Chloride 95 mmol/L (96-108); Cholesterol 134 mg/dL (<200); Estimated Glomerular Filt Rate 23; Glucose Random 113 mg/dL (60-115); HDL Cholesterol 27 mg/dL (>40); Iron 50 mcg/dL (45-160); LDL Cholesterol Calculated 35 mg/dL (<100); Percent Iron Saturation 25 % (15-50); Potassium 3.5 mmol/L (3.3-5.1); Sodium 139 mmol/L (135-145); Total Iron Binding Capacity 203 mcg/dL (228-428); Triglycerides 360 mg/dL (<150); Unsaturated Iron Binding 153 ug/dL
[2024-10-05 16:58] LABS: Prostate Specific Antigen 26.76 ng/mL (<0.05-4.0)
[2024-10-05 17:12] LABS: Folate 16.2 ng/mL (> or = 4.0); Vitamin B12 457 pg/mL (200-900)
[2024-10-05 17:15] LABS: Free T4 (Free Thyroxine) 1.11 ng/dL (0.71-1.85); Thyroid Stimulating Hormone 2.43 uIU/mL (0.32-4.0); Vitamin D 25-OH Total 20.5 ng/mL (>30)
[2024-10-05 17:48] LABS: Ferritin 2284 ng/mL (20-250)
--- OUTSIDE RECORDS SUMMARY | 2024-10-05 19:19 | XMS_ITS | Encounter Summary ---
Author Organization [facility] Address [address] [place] [address] Phone Care Team Providers Care Kiln Stacker Name Role Phone Unavailable Primary Care Provider Unavailabl e Encounter Details Date Type Department Care Team (Late st Contact Info) Description 11/20/2022 Documentation Only [facility] [address] [address] Shubham Mayer MD [address] [place] [id number] Social History Tobacco Use Types Packs/Day Years Used Date Smoking Tobacco: Never Smokeless Tobacco: Never Sex and Gender Information Value Date Recorded Sex Assigned at Not on file Legal Sex Male 11:55 AM EDT Gender Identity Not on file Sexual Orientation Not on file documented as of this encounter Plan of Treatment Not on file documented as of this encounter Visit Diagnoses Not on filedocumented in this encounter
--- OUTSIDE RECORDS SUMMARY | 2024-10-05 19:19 | XMS_ITS | Clinical Summary ---
Author Organization [facility] Address [address] [address] Phone Care Team Providers Care Wire Inserter Name Role Phone Unavailable Primary Care Provider Unavailabl e Allergies No known active allergies Medications lisinopril (PRINIVIL,ZESTR IL) 40 MG tablet Take 40 mg by mouth 1 (one) time each day 04/21/2020 Active finasteride (PROSCAR) 5 MG tablet Take 5 mg by mouth 1 (one) time each day 06/12/2020 Active loratadine (CLARITIN) 10 MG tablet Take 10 mg by mouth Active Elastic Bandages & Supports (T.E.D. Below Knee/Medium) misc 1 Device 12/09/2011 Active tamsulosin (FLOMAX) 0.4 MG 24 hr capsule 0.4 mg 06/21/2020 Activ e hydroCHLOROthia zide 12.5 MG tablet TAKE 1 TABLET BY MOUTH 1 TIME EACH DAY. 90 tablet 3 04/21/2022 Active spironolactone (Aldactone) 25 MG tablet Take 1 tablet (25 mg total) by mouth 1 (one) time each day 30 tablet 11 10/22/2022 Active dicloxacillin (DYNAPEN) 250 MG capsule TAKE 1 CAPSULE (250 MG TOTAL) BY MOUTH IN THE MORNING, IN THE EVENING, AND BEFORE BEDTIME. 21 capsule 04/14/2023 Active simvastatin (ZOCOR) 20 MG tablet TAKE 1 TABLET (20 MG TOTAL) BY MOUTH EVERY NIGHT. 90 tablet 3 04/14/2023 Active amLODIPine (NORVASC) 10 MG tablet TAKE 1 TABLET BY MOUTH EVERY DAY 90 tablet 3 04/14/2023 Active furosemide (LASIX) 80 MG tablet Take 1 tablet (80 mg total) by mouth in the morning and 1 tablet (80 mg total) in the evening. 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 Acute nontraumatic kidney injury 06/25/2020 Anemia 06/22/2020 Primary gout 05/29/2020 Stage 3b chronic kidney disease 04/24/2017 Overview (08/13/2020): Update for Diagnosis Load 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 Benign essential hypertension 11/12/2005 Pure hypercholesterolemia 11/12/2005 Encounters Date Type Department Care Team Description 09/28/2024 Treatment [facility] [address] [address] Quan Peacock MD 09/19/2024 Treatment [facility] [address] [address] Quan Peacock MD 09/12/2024 Treatment [facility] [address] [address] Quan Peacock MD 09/09/2024 Treatment [facility] [address] [address] Quan Peacock MD 09/02/2024 Treatment [facility] [address] [address] Quan Peacock MD 08/31/2024 Orders Only [facility] [address] [address] Quan Peacock MD 08/19/2024 Treatment [facility] [address] [address] Quan Peacock MD 08/12/2024 Treatment [facility] [address] [address] Quan Peacock MD 08/02/2024 Treatment [facility] [address] [address] Quan Peacock MD 07/27/2024 Treatment [facility] [address] [address] Quan Peacock MD 07/20/2024 Treatment [facility] [address] [address] Quan Peacock MD 07/13/2024 Treatment [facility] [address] [address] Quan Peacock MD 07/05/2024 Treatment [facility] [address] [address] Quan Peacock MD from Last 3 Months Immunizations Name Administration Dates Next Due Influenza Split High Dose Pr eservative Free IM 06/22/2020,07/21/2019,07/16/2018,04/28 Influenza TIV (IM) 06/06/2016, 5,07/20/2013,06/08,07/09/2010,05/15/2009 Pneumococcal Conjugate 13-Valent 06/30/2016 Pneumococcal Polysaccharide 12/28/2017, 0 Td 06/30/2016,01/01/2006 Zoster 02/23/2013 Family History Medical History Relation Comments Hypertension Maternal Grandfather mi Diabetes Maternal Grandmother Suicide Attempts Mother depression Relation Status Comments Father Maternal Grandfather Maternal Grandmother Mother Social History Tobacco Use Types Packs/Day Years Used Date Smoking Tobacco: Never Smokeless Tobacco: Never Sex and Gender Information Value Date Recorded Sex Assigned at Not on file Legal Sex Male 11:55 AM EDT Gender Identity Not on file Sexual Orientation Not on file Last Filed Vital Signs Vital Sign Reading Time Taken Comments Blood Pressure 120/73 05/12/2023 9:24 AM EDT Pulse - - Temperature - - Respiratory Rate - - Oxygen Saturation - - Inhaled Oxygen Concentration - - Weight - - Height - - Body Mass Index - - Plan of Treatment Health Maintenance Due Date Last Done Comments Hepatitis B Vaccine (1 of 5 - Risk Dialysis 4-dose series) 1965 Influenza Vaccine (#1) 2024 0, 06/22/2020, 07/21/2019, Additional history exists Pneumococcal Vaccine: 65+ Years Completed 12/28/2017, 06/30/2016, 07/09/2010 Procedures Procedure Name Priority Date/Time Associated Diagnosis Comments HEMOGLOBIN Routine 10/03/2024 3:00 AM EST LIH () Routine 09/28/2024 3:00 AM EST POTASSIUM Routine 09/28/2024 3:00 AM EST LIH () Routine 09/21/2024 3:00 AM EST POTASSIUM Routine 09/21/2024 3:00 AM EST TRANSFERRIN SATURATION Routine 3:00 AM EST PROTEIN, TOTAL, SERUM Routine 09/14/2024 3:00 AM EST MAGNESIUM Routine 09/14/2024 3:00 AM EST ELECTROLYTE PANEL Routine 09/14/2024 3:0 0 AM EST LIH (HC) Routine 09/14/2024 3:00 AM EST GLUCOSE, RANDOM Routine 09/14/2024 3:00 AM EST LACTATE DEHYDROGENASE Routine 09/14/2024 3:00 AM EST CREATININE, SERUM Routine 09/14/2024 3:0 0 AM EST BILIRUBIN, TOTAL Routine 09/14/2024 3:00 AM EST AST Routine 09/14/2024 3:00 AM EST CALCIUM PHOSPHORUS PRODUCT, ADJUSTED (HC) Routine 09/14/2024 3:00 AM EST ALT Routine 09/14/2024 3:00 AM EST ALKALINE PHOSPHATASE Routine 09/14/2024 3:00 AM EST FERRITIN Routine 09/14/2024 3:00 AM EST KT/V NATURAL LOG, URR (HC) Routine 09/14/2024 3:00 AM EST CBC AND DIFFERENTIAL Routine 09/14/2024 3:00 AM EST LIH (HC) Routine 09/07/2024 3:00 AM EST POTASSIUM Routine 09/07/2024 3:00 AM EST POTASSIUM Routine 08/31/2024 3:00 AM EST LIH (HC) Routine 08/31/2024 3:00 AM EST LIH (HC) Routine 08/24/2024 3:00 AM EST POTASSIUM Routine 08/24/2024 3:00 AM EST ALUMINUM LEVEL Routine 08/17/2024 3:00 AM EST CONFIRMATION TEST HCV Routine 08/17/2024 3:00 AM EST HEPATITIS C ABS W/REFLEX RNA DETECTR Routine 08/17/2024 3:00 AM EST HEPATITIS B SURFACE ANTIGEN W/REFL CONFIRM Routine 08/17/2024 3:00 AM EST URIC ACID Routine 08/17/2024 3:00 AM EST TRANSFERRIN SATURATION Routine 3:00 AM EST PROTEIN, TOTAL, SERUM Routine 08/17/2024 3:00 AM EST MAGNESIUM Routine 08/17/2024 3:00 AM EST ELECTROLYTE PANEL Routine 08/17/2024 3:0 0 AM EST LIPID PANEL Routine 08/17/2024 3:00 AM EST LIH (HC) Routine 08/17/2024 3:00 AM EST LACTATE DEHYDROGENASE Routine 08/17/2024 3:00 AM EST GLUCOSE, RANDOM Routine 08/17/2024 3:00 AM EST CREATININE, SERUM Routine 08/17/2024 3:0 0 AM EST BILIRUBIN, TOTAL Routine 08/17/2024 3:00 AM EST AST Routine 08/17/2024 3:00 AM EST ALT Routine 08/17/2024 3:00 AM EST ALKALINE PHOSPHATASE Routine 08/17/2024 3:00 AM EST CALCIUM PHOSPHORUS PRODUCT, ADJUSTED (HC) Routine 08/17/2024 3:00 AM EST PTH, INTACT Routine 08/17/2024 3:00 AM EST FERRITIN Routine 08/17/2024 3:00 AM EST HEPATITIS B SURFACE ANTIBODY QUANT Routine 08/17/2024 3:00 AM EST CBC AND DIFFERENTIAL Routine 08/17/2024 3:00 AM EST KT/V NATURAL LOG, URR (HC) Routine 08/17/2024 3:00 AM EST HEPATITIS B SURFACE ANTIGEN W/REFL CONFIRM Routine 07/13/2024 3:00 AM EST PROTEIN, TOTAL, SERUM Routine 07/13/2024 3:00 AM EST MAGNESIUM Routine 07/13/2024 3:00 AM EST ELECTROLYTE PANEL Routine 07/13/2024 3:0 0 AM EST TRANSFERRIN SATURATION Routine 3:00 AM EST GLUCOSE, RANDOM Routine 07/13/2024 3:00 AM EST LACTATE DEHYDROGENASE Routine 07/13/2024 3:00 AM EST LIH (HC) Routine 07/13/2024 3:00 AM EST AST Routine 07/13/2024 3:00 AM EST BILIRUBIN, TOTAL Routine 07/13/2024 3:00 AM EST ALT Routine 07/13/2024 3:00 AM EST CREATININE, SERUM Routine 07/13/2024 3:0 0 AM EST ALKALINE PHOSPHATASE Routine 07/13/2024 3:00 AM EST CALCIUM PHOSPHORUS PRODUCT, ADJUSTED (HC) Routine 07/13/2024 3:00 AM EST CBC AND DIFFERENTIAL Routine 07/13/2024 3:00 AM EST KT/V NATURAL LOG, URR (HC) Routine 07/13/2024 3:00 AM EST from Last 3 Months Results * (ABNORMAL) Hemoglobin (10/03/2024 3:00 AM EST) Hgb 9.1(L) 13.7 - 17.5 g/dL [facility] Hemoglobin x 3 27.3(L) 41.1 - 52.5 g/dL [facility] 10/03/2024 3:00 AM EST 10/04/2024 12:58 PM EST Quan Peacock MD LAB BLOOD ORDERABLES Final Re sult [facility] [address] [place] [address] * LIH (09/28/2024 3:00 AM EST) Only the most recent of8 resultswithin the time period is included. Lipemia Normal Normal [facility] Icterus Normal Normal [facility] Hemolysis Normal Normal [facility] 09/28/2024 3:00 AM EST 09/30/2024 12:52 PM EST Quan Peacock MD LAB [id number] SOLICITED RESULTS Final Result Performing Organization Address City/[facility]/ZIP Co de Phone Number [facility] [address] [place] [address] * Potassium (09/28/2024 3:00 AM EST) Only the most recent of5 resultswithin the time period is included. Potassium 4.3 3.4 - 5.0 mEq/L [facility] 09/28/2024 3:00 AM EST 09/30/2024 12:52 PM EST us Quan Peacock MD LAB BLOOD ORDERABLES Final Re sult Performing Organization Address [facility] Co de Phone Number [facility] [address] [place] [address] * (ABNORMAL) Kt/V Natural Log, URR (09/14/2024 3:00 AM EST) Only the most recent of3 resultswithin the time period is included. Treatment Time 195 min [facility] Pre-Weight, lb 92.3 kg [facility] Post-Weight, lb 90.8 kg [facility] Ultrafiltration Rate 5 <=13 mL/kg/hr [facility] Comment: Recommend achieving Ultrafiltration Rate (UFR) <=10 mL/kg/hr References: Ralph MARIE et al. Kidney Int. 2010; 79(2):250-257 BUN 60(H) 7 - 25 mg/dL [facility] BUN Post Dialysis 16 7 - 25 mg/dL [facility] UREA REDUCTION RATIO (%) 73 >=65 % [facility] Kt/V Natural Log 1.48 >=1.2 [facility] 09/14/2024 3:00 AM EST 09/15/2024 1:18 PM EST Quan Peacock MD LAB [id number] SOLICITED RESULTS Final Result Performing Organization Address [facility] de Phone Number [facility] [address] [place] [address] * (ABNORMAL) Calcium Phosphorus Product, Adjusted (09/14/2024 3:00 AM EST) Only the most recent of3 resultswithin the time period is included. Albumin 4.6 3.6 - 5.4 g/dL [facility] Calcium 9.0 8.6 - 10.3 mg/dL [facility] Phosphorus, Serum 5.3(H) 2.5 - 5.0 mg/dL [facility] Ca*PO4 47.7 <55.0 mg2/dL2 [facility] Calcium, Adjusted Total 9.0 8.6 - 10.3 mg/dL [facility] CA*PO4 CORRCTD 47.7 <55.0 mg2/dL2 [facility] 09/14/2024 3:00 AM EST 09/15/2024 1:18 PM EST Quan Peacock MD LAB [id number] SOLICITED RESULTS Final Result Performing Organization Address [facility] de Phone Number [facility] [address] [place] [address] * (ABNORMAL) TSAT (09/14/2024 3:00 AM EST) Only the most recent of3 resultswithin the time period is included. Pathologist [facility] Iron 44(L) 65 - 175 ug/dL [facility] Transferrin 196(L) 215 - 365 mg/dL [facility] TIBC 274 211 - 406 ug/dL [facility] Iron Saturation (TSat) 16(L) 22 - 52 % [facility] 09/14/2024 3:00 AM EST 09/15/2024 1:18 PM EST Quan Peacock MD LAB BLOOD ORDERABLES Final Re sult Performing Organization Address [facility] de Phone Number [facility] [address] [place] [address] * (ABNORMAL) CBC and Differential (09/14/2024 3:00 AM EST) Only the most recent of3 resultswithin the time period is included. Pathologist [facility] DIFFERENTIAL MANUAL, 2 Not Indicated [facility] White Blood Cells 6.9 4.2 - 9.1 K/uL [facility] RBC 3.16(L) 4.63 - 6.08 M/uL [facility] Hgb 9.7(L) 13.7 - 17.5 g/dL [facility] Hemoglobin x 3 29.1(L) 41.1 - 52.5 g/dL [facility] Hematocrit 31.0(L) 40.1 - 51.0 % [facility] MCV 98.1(H) 79.0 - 92.2 fL [facility] MCH 30.7 25.7 - 32.2 pg [facility] MCHC 31.3(L) 32.3 - 36.5 g/dL [facility] Platelets 201 163 - 337 K/uL [facility] RDW 16.4(H) 11.6 - 14.4 % [facility] Neutrophils Relative 58.2 34.0 - 67.9 % [facility] Lymphocytes Relative 25.4 21.8 - 53.1 % [facility] Monocytes 11.4 5.3 - 12.2 % [facility] Eosinophils Relative 2.8 0.8 - 7.0 % [facility] Basophils Relative 0.9 0.2 - 1.2 % [facility] Immature Granulocytes 1.3(H) 0.0 - 1.0 % [facility] 09/14/2024 3:00 AM EST 09/15/2024 1:10 PM EST Quan Peacock MD LAB BLOOD ORDERABLES Final Re sult Performing Organization Address [facility] de Phone Number [facility] [address] [place] [address] * ALT (09/14/2024 3:00 AM EST) Only the most recent of3 resultswithin the time period is included. ALT (SGPT) 13 10 - 49 U/L [facility] 09/14/2024 3:00 AM EST 09/15/2024 1:18 PM EST Quan Peacock MD LAB BLOOD ORDERABLES Final Re sult Performing Organization Address [facility] de Phone Number [facility] [address] [place] [address] * AST (09/14/2024 3:00 AM EST) Only the most recent of3 resultswithin the time period is included. AST (SGOT) 14 <34 U/L [facility] 09/14/2024 3:00 AM EST 09/15/2024 1:18 PM EST Quan Peacock MD LAB BLOOD ORDERABLES Final Re sult Performing Organization Address [facility] de Phone Number [facility] [address] [place] [address] * Protein, total (09/14/2024 3:00 AM EST) Only the most recent of3 resultswithin the time period is included. Total Protein 7.3 6.4 - 8.9 g/dL [facility] 09/14/2024 3:00 AM EST 09/15/2024 1:18 PM EST Quan Peacock MD LAB BLOOD ORDERABLES Final Re sult Performing Organization Address [facility] Co de Phone Number [facility] [address] [place] [address] * (ABNORMAL) Alkaline phosphatase (09/14/2024 3:00 AM EST) Only the most recent of3 resultswithin the time period is included. Alkaline Phosphatase 33(L) 46 - 116 U/L [facility] 09/14/2024 3:00 AM EST 09/15/2024 1:18 PM EST Quan Peacock MD LAB BLOOD ORDERABLES Final Re sult Performing Organization Address [facility] Co de Phone Number [facility] [address] [place] [address] * (ABNORMAL) Magnesium (09/14/2024 3:00 AM EST) Only the most recent of3 resultswithin the time period is included. Magnesium 1.8(L) 1.9 - 2.7 mg/dL [facility] 09/14/2024 3:00 AM EST 09/15/2024 1:18 PM EST Quan Peacock MD LAB BLOOD ORDERABLES Final Re sult Performing Organization Address [facility] Co de Phone Number [facility] [address] [place] [address] * Lactate dehydrogenase (09/14/2024 3:00 AM EST) Only the most recent of3 resultswithin the time period is included. LDH 231 120 - 246 U/L [facility] 09/14/2024 3:00 AM EST 09/15/2024 1:18 PM EST Quan Peacock MD LAB BLOOD ORDERABLES Final Re sult Performing Organization Address [facility] de Phone Number [facility] [address] [place] [address] * (ABNORMAL) Glucose, random (09/14/2024 3:00 AM EST) Only the most recent of3 resultswithin the time period is included. Glucose 168(H) 74 - 109 mg/dL [facility] 09/14/2024 3:00 AM EST 09/15/2024 1:18 PM EST Quan Peacock MD LAB BLOOD ORDERABLES Final Re sult Performing Organization Address [facility] de Phone Number [facility] [address] [place] [address] * (ABNORMAL) Ferritin (09/14/2024 3:00 AM EST) Only the most recent of2 resultswithin the time period is included. Ferritin 947(H) 22 - 322 ng/mL [facility] 09/14/2024 3:00 AM EST 09/15/2024 1:18 PM EST Quan Peacock MD LAB BLOOD ORDERABLES Final Re sult Performing Organization Address [facility] de Phone Number [facility] [address] [place] [address] * (ABNORMAL) Creatinine, serum (09/14/2024 3:00 AM EST) Only the most recent of3 resultswithin the time period is included. Creatinine 5.44(H) 0.70 - 1.30 mg/dL [facility] 09/14/2024 3:00 AM EST 09/15/2024 1:18 PM EST Quan Peacock MD LAB BLOOD ORDERABLES Final Re sult Performing Organization Address [facility] Co de Phone Number [facility] [address] [place] [address] * Bilirubin, total (09/14/2024 3:00 AM EST) Only the most recent of3 resultswithin the time period is included. Total Bilirubin 0.3 0.3 - 1.2 mg/dL [facility] 09/14/2024 3:00 AM EST 09/15/2024 1:18 PM EST Quan Peacock MD LAB BLOOD ORDERABLES Final Re sult Performing Organization Address [facility] de Phone Number [facility] [address] [place] [address] * (ABNORMAL) Electrolyte panel (09/14/2024 3:00 AM EST) Only the most recent of3 resultswithin the time period is included. Sodium 135(L) 136 - 145 mEq/L [facility] Potassium 4.1 3.4 - 5.0 mEq/L [facility] Chloride 98 98 - 107 mEq/L [facility] Bicarbonate (CO2) 24 21 - 31 mEq/L [facility] Anion Gap 13 3 - 14 mEq/L [facility] 09/14/2024 3:00 AM EST 09/15/2024 1:18 PM EST Quan Peacock MD LAB BLOOD ORDERABLES Final Re sult Performing Organization Address [facility] de Phone Number [facility] [address] [place] [address] * Confirmation Test HCV (08/17/2024 3:00 AM EST) Hep C Ab Confirmation Not needed [facility] 08/17/2024 3:00 AM EST 08/18/2024 1:26 PM EST Quan Peacock MD LAB BLOOD ORDERABLES Final Re sult Performing Organization Address [facility] de Phone Number [facility] [address] [place] [address] * HEPATITIS C ABS W/REFLEX RNA DETECTR (08/17/2024 3:00 AM EST) Hep C Virus Ab Non-Reacti ve Non-Reacti ve [facility] 08/17/2024 3:00 AM EST 08/18/2024 12:58 PM EST us Quan Peacock MD LAB [id number] SOLICITED RESULTS Final Result Performing Organization Address [facility] de Phone Number [facility] [address] [place] [address] * Hepatitis B Surface Ag w/Reflex Confirmation (08/17/2024 3:00 AM EST) Only the most recent of2 resultswithin the time period is included. Pathologist [facility] Hep B Surface Antigen Negative Negative [facility] 08/17/2024 3:00 AM EST 08/18/2024 12:58 PM EST Quan Peacock MD LAB BLOOD ORDERABLES Final Re sult Performing Organization Address [facility] de Phone Number [facility] [address] [place] [address] * Aluminum level (08/17/2024 3:00 AM EST) Pathologist [facility] Aluminum 4 1 - 20 ug/L [facility] 08/17/2024 3:00 AM EST 08/18/2024 12:37 PM EST Quan Peacock MD LAB BLOOD ORDERABLES Final Re sult Performing Organization Address [facility] de Phone Number [facility] [address] [place] [address] * Hepatitis B Surface Antibody (08/17/2024 3:00 AM EST) Hep B Surface Antibody 459 mIU/mL [facility] Comment: Interpretation: <10: No Immunity >=10: Probable Immunity 08/17/2024 3:00 AM EST 08/18/2024 12:58 PM EST Quan Peacock MD LAB BLOOD ORDERABLES Final Re sult Performing Organization Address [facility] de Phone Number [facility] [address] [place] [address] * (ABNORMAL) Uric Acid (08/17/2024 3:00 AM EST) Uric Acid 8.1(H) 4.4 - 7.6 mg/dL [facility] 08/17/2024 3:00 AM EST 08/18/2024 12:58 PM EST Quan Peacock MD LAB BLOOD ORDERABLES Final Re sult Performing Organization Address [facility] Phone Number [facility] [address] [place] [address] * PTH, Intact (08/17/2024 3:00 AM EST) PTH, Intact 271 160 - 721 pg/mL [facility] Comment: Suggested (KDIGO) ESRD maintenance range is two to nine times the upper normal limit (80.1 pg/mL) for the laboratory. 08/17/2024 3:00 AM EST 08/18/2024 12:58 PM EST Quan Peacock MD LAB BLOOD ORDERABLES Final Re sult Performing Organization Address [facility] de Phone Number [facility] [address] [place] [address] * (ABNORMAL) Lipid panel (08/17/2024 3:00 AM EST) Cholesterol 166 <200 mg/dL [facility] Comment: Optimal: ?<200 Borderline: ? 200-239 Higher Risk: ?>239 Triglycerides 549(A) <150 mg/dL [facility] Comment: Optimal: ?<150 Borderline High: ??150-199 High: ? 200-499 Very High: ?>499 HDL 30(A) >59 mg/dL [facility] Comment: Desirable: ?>59 Higher Risk: ?<40 LDL-Calc See Comment <100 mg/dL [facility] Comment: LDL/VLDL Cholesterol calculation not valid for Triglycerides >400 Optimal: ?<100 Above Optimal: ?100-129 Borderline High: ??130-159 High: ? 160-189 Very High: ?>189 VLDL Cholesterol Juaquin See Comment <30 mg/dL [facility] Comment: LDL/VLDL Cholesterol calculation not valid for Triglycerides >400 Optimal: ?<30 Borderline High: ??30-39 High: ? 40-99 Very High: ?>99 Chol/HDL Ratio 5.5(A) <3.3 [facility] Comment: Optimal: ?<3.3 Higher Risk: ?>6.2 08/17/2024 3:00 AM EST 08/18/2024 12:58 PM EST us Quan Peacock MD LAB BLOOD ORDERABLES Final Re sult [facility] [address] [place] [address] from Last 3 Months Insurance [facility] [place] [address] [place] [address]
--- OUTSIDE RECORDS SUMMARY | 2024-10-05 19:19 | XMS_ITS | Encounter Summary ---
Author Organization [facility], Address [address] [place] [address] Phone Care Team Providers Care Transit Specialist Name Role Phone Unavailable Primary Care Provider Unavailabl e Encounter Details Date Type Department Care Team (Late st Contact Info) Description 06/02/2023 Documentation Only [facility], [address] [place] [address] Yeol Davey, [address] [place] [id number] Social History Tobacco Use Types Packs/Day Years [...]
--- OUTSIDE RECORDS SUMMARY | 2024-10-05 19:19 | XMS_ITS | Encounter Summary ---
Author Organization [facility] Address [address] [place] [address] Phone Care Team Providers Care Hydrogen Power Plant Manager Name Role Phone Unavailable Primary Care Provider Unavailabl e Encounter Details Date Type Department Care Team (Late st Contact Info) Description 03/20/2023 Documentation Only [facility] [address] [address] Shubham Mayer MD [address] [place] [phone] Social History Tobacco Use Types Packs/Day Years [...]
--- OUTSIDE RECORDS SUMMARY | 2024-10-05 19:19 | XMS_ITS | Encounter Summary ---
Author Organization [facility] Address [address] [place] [address] Phone Care Team Providers Care Director Airport Name Role Phone Unavailable Primary Care Provider Unavailabl e Encounter Details Date Type Department Care Team (Late st Contact Info) Description 04/16/2023 Documentation Only [facility] [address] [place] [address] Shubham Mayer MD [address] [place] [phone] Social History Tobacco Use Types Packs/Day Years [...]
--- OUTSIDE RECORDS SUMMARY | 2024-10-05 19:19 | XMS_ITS ---
Author Name Ge[facility]a, Clinic Address [address] [place] [address] Phone [phone] Organization [facility] Formerly [facility] e, NA DOCUMENT DISCLAIMER Multiple document versions may exist, please be sure you review the latest version. The information in the [facility] Continuity of Care Document represents a summary of certain health and medical information. It may not contain the complete medical history for the patient and should be independently verified. The represented time in the document is Eastern Time. PROBLEMS Problem Code Status Onset Date Dependence on renal dialysis Z99.2 Active January 11, 2024 Coagulation defect, unspecified D68.9 Active January 11, 2024 ALLERGIES AND ADVERSE REACTIONS No Known Allergies SOCIAL HISTORY Tobacco Use Status Tobacco Type Unknown if ever consumed tobacco - Caregiver Characteristics No Information Available Characteristics of Home environment No Information Available Gender and Sex Information Gender Identity Sexual Orientation No Information Available No Information Available MEDICATIONS No Medications VITAL SIGNS Other Other Value Date / Time Height 170 cm January 11, 2024 12 :00 AM LAB RESULTS Infectious Diseases Result Type Result Value Relevant Referen ce Range Interpretation Date Hep B Surface Ag (HBsAg) Negative No Reference Range Provided - January 11, 2024 Hep B core Ab Total (anti-HBc) Negative No Reference Range Provided - January 11, 2024 Hep B Surface Ab (anti-HBs) > 1000 mIU/mL No Reference Range Provided - January 11, 2024 TRANSPLANT WAITLIST STATUS No Information on Transplant Waitlist Status
--- OUTSIDE RECORDS SUMMARY | 2024-10-05 19:19 | XMS_ITS | Encounter Summary ---
Author Organization [facility] Address [address] [place] [address] Phone Care Team Providers Care Boiler House Operator Name Role Phone Unavailable Primary Care Provider Unavailabl e Encounter Details Date Type Department Care Team (Late st Contact Info) Description 05/20/2023 Documentation Only [facility] [address] [place] [address] Shubham Mayer MD [address] [place] [phone] Social History Tobacco Use Types Packs/Day Years [...]
--- OUTSIDE RECORDS SUMMARY | 2024-10-05 19:19 | XMS_ITS | Encounter Summary ---
Author Organization [facility] [place], Address [address] [place] [address] Phone Care Team Providers Care Ingot Passer Name Role Phone Unavailable Primary Care Provider Unavailabl e Reason for Visit * Reason Comments Med Refill Encounter Details Date Type Department Care Team (Late st Contact Info) Description 08/09/2022 Refill [facility], [address] [place] [address] Shubham Mayer MD [address] [place] [phone] Social History Tobacco Use Types Packs/Day Years [...]
--- OUTSIDE RECORDS SUMMARY | 2024-10-05 19:19 | XMS_ITS | Encounter Summary ---
Author Organization [facility] Address [address] [place] [address] Phone Care Team Providers Care Supervisor Garage Name Role Phone Unavailable Primary Care Provider Unavailabl e Encounter Details Date Type Department Care Team (Late st Contact Info) Description 04/21/2023 Documentation Only [facility] [address] [place] [address] Shubham Mayer MD [address] [place] [phone] Social History Tobacco Use Types Packs/Day Years [...]
--- OUTSIDE RECORDS SUMMARY | 2024-10-05 19:19 | XMS_ITS | Encounter Summary ---
Author Organization [facility] Address [address] [place] [address] Phone Care Team Providers Care First Assistant Manager Name Role Phone Unavailable Primary Care Provider Unavailabl e Encounter Details Date Type Department Care Team (Late st Contact Info) Description 01/30/2023 Documentation Only [facility] [address] [place] [address] Shubham Mayer MD [address] [place] [phone] Social History Tobacco Use Types Packs/Day Years [...]
--- OUTSIDE RECORDS SUMMARY | 2024-10-05 19:20 | XMS_ITS | Encounter Summary ---
Author Organization [facility] Address [address] [place] [phone] Phone Care Team Providers Care Identification Clerk Name Role Phone Unavailable Primary Care Provider Unavailabl e Encounter Details Date Type Department Care Team ([facility] st Contact Info) Description 09/02/2024 Treatment [facility] [address] [address] Kelli Calvin MD [address] [address] Social History Tobacco Use Types Packs/Day Years Used Date Smoking Tobacco: Never Smokeless Tobacco: Never Sex and Gender Information Value Date Recorded Sex Assigned at Not on file Legal Sex Male 11:55 AM EDT Gender Identity Not on file Sexual Orientation Not on file documented as of this encounter Miscellaneous Notes * Dialysis Note - Kelli Calvin MD - 09/02/2024 12:00 AM EST Patient: Ministerio French : 1945 Note Type: Dialysis Rounds-Basic Telehealth Service Date: 09/02/2024 Telehealth encounter using audiovisual technology, performed according to state requirements. Appropriate patient consent obtained. This patient was personally seen for a basic visit as part of routine monthly dialysis care for end stage renal disease. Attending Pinball Machine Repairer: KELLI CALVIN Dialysis Location: [facility] Schedule: Shift: 1 ADEQUACY ASSESSMENT Kt/V, Natural Log 1.44 (08/17/24) 1.35 (07/13/24) 1.57 (06/15/24) UREA REDUCTION RATIO (%) 72 (08/17/24) 69 (07/13/24) 76 (06/15/24) BUN 76 (08/17/24) 49 (07/13/24) 45 (06/15/24) BUN Post Dialysis 21 (08/17/24) 15 (07/13/24) 11 (06/15/24) Creatinine 6.52 (08/17/24) 4.80 (07/13/24) 4.72 (06/15/24) Bicarbonate (CO2) 25 (08/17/24) 26 (07/13/24) 25 (06/15/24) Sodium 130 (08/17/24) 136 (07/13/24) 139 (06/15/24) ANEMIA ASSESSMENT Hgb 10.3 (08/17/24) 10.2 (07/13/24) 9.3 (06/15/24) Iron Saturation (TSat) 29 (08/17/24) 42 (07/13/24) 16 (06/15/24) Ferritin 1,268 (08/17/24) 923 (06/15/24) Iron 65 (08/17/24) 92 (07/13/24) 39 (06/15/24) TIBC 223 (08/17/24) 217 (07/13/24) 242 (06/15/24) MCV 94.1 (08/17/24) 96.9 (07/13/24) 100.3 (06/15/24) Platelets 210 (08/17/24) 233 (07/13/24) 233 (06/15/24) BMM ASSESSMENT Calcium, Adjusted Total 9.0 08/17/24 10.2 07/13/24 9.8 06/15/24 Calcium 9.0 08/17/24 10.2 07/13/24 9.8 06/15/24 Phosphorus, Serum 5.4 08/17/24 4.4 07/13/24 4.3 06/15/24 Ca*PO4 48.6 08/17/24 44.9 07/13/24 42.1 06/15/24 PTH, Intact 271 08/17/24 Magnesium 1.9 08/17/24 1.9 07/13/24 1.8 06/15/24 Alkaline Phosphatase 47 08/17/24 41 07/13/24 39 06/15/24 Aluminum 4 08/17/24 NUTRITION ASSESSMENT Albumin 4.5 08/17/24 4.4 07/13/24 4.4 06/15/24 Potassium 4.0 08/31/24 4.0 08/24/24 4.0 08/17/24 ADDITIONAL LABS White Blood Cells 7.6 (08/17/24) 6.8 (07/13/24) 6.9 (06/15/24) Cholesterol 166 (08/17/24) HDL 30 (08/17/24) LDL-Calc See Comment (08/17/24) Triglycerides 549 (08/17/24) Hep B Surface Antibody 459 (08/17/24) Hepatitis B Surface Ab >1,000 (01/11/24) Uric Acid 8.1 (08/17/24) ADDITIONAL COMMENT COMMENTS: 07/13/24 doing well stable 07/27/24 no new issues 08/02/24 stable 08/12/23 doing ok 08/19/24 stable 09/02/24 stable 04/13/24 stable 05/04/24 doing ok 05/11/24 stable 05/18/24 no need to issues 05/25/24 stable 06/03/24 doing ok 06/17/24 stable 06/24/24 no new issues 06/27/24 doong well 07/05/24 stable Signed by: KELLI CALVIN MD on 09/08/2024 at 08:49:14 AM Transcribed by: KELLI CALVIN MD on 09/08/2024 at 08:49:14 AM documented in this encounter Plan of Treatment Not on file documented as of this encounter Visit Diagnoses Not on filedocumented in this encounter
--- OUTSIDE RECORDS SUMMARY | 2024-10-05 19:20 | XMS_ITS | Encounter Summary ---
Author Organization [facility], Address [address] [place] [address] Phone Care Team Providers Care Automation Control Integrator Name Role Phone Unavailable Primary Care Provider Unavailabl e Reason for Visit * Reason Comments Med Refill Encounter Details Date Type Department Care Team (Late st Contact Info) Description 10/03/2023 Refill [facility], [address] [place] [address] Shubham Mayer MD [address] [place] [phone] Social History Tobacco Use Types Packs/Day Years [...]
--- OUTSIDE RECORDS SUMMARY | 2024-10-05 19:20 | XMS_ITS | Encounter Summary ---
Author Organization [facility] Address [address] [place] [phone] Phone Care Team Providers Care Chalk Machine Operator Name Role Phone Unavailable Primary Care Provider Unavailabl e Encounter Details Date Type Department Care Team ([facility] st Contact Info) Description 09/19/2024 Treatment [facility] [address] [phone] Kelli Calvin MD [address] [address] Social History Tobacco Use Types Packs/Day Years Used Date Smoking Tobacco: Never Smokeless Tobacco: Never Sex and Gender Information Value Date Recorded Sex Assigned at Not on file Legal Sex Male 11:55 AM EDT Gender Identity Not on file Sexual Orientation Not on file documented as of this encounter Miscellaneous Notes * Dialysis Note - Kelli Calvin MD - 09/19/2024 12:00 AM EST Patient: Ministerio French : 1945 Note Type: Dialysis Rounds-Basic Service Date: 09/19/2024 This patient was personally seen for a basic visit as part of routine monthly dialysis care for end stage renal disease. Attending Dyslexia Teacher: KELLI CALVIN MD Dialysis Location: [facility] Schedule: Shift: 1 ADEQUACY ASSESSMENT Kt/V, Natural Log 1.48 (09/14/24) 1.44 (08/17/24) 1.35 (07/13/24) UREA REDUCTION RATIO (%) 73 (09/14/24) 72 (08/17/24) 69 (07/13/24) BUN 60 (09/14/24) 76 (08/17/24) 49 (07/13/24) BUN Post Dialysis 16 (09/14/24) 21 (08/17/24) 15 (07/13/24) Creatinine 5.44 (09/14/24) 6.52 (08/17/24) 4.80 (07/13/24) Bicarbonate (CO2) 24 (09/14/24) 25 (08/17/24) 26 (07/13/24) Sodium 135 (09/14/24) 130 (08/17/24) 136 (07/13/24) ANEMIA ASSESSMENT Hgb 9.7 (09/14/24) 10.3 (08/17/24) 10.2 (07/13/24) Iron Saturation (TSat) 16 (09/14/24) 29 (08/17/24) 42 (07/13/24) Ferritin 947 (09/14/24) 1,268 (08/17/24) 923 (06/15/24) Iron 44 (09/14/24) 65 (08/17/24) 92 (07/13/24) TIBC 274 (09/14/24) 223 (08/17/24) 217 (07/13/24) MCV 98.1 (09/14/24) 94.1 (08/17/24) 96.9 (07/13/24) Platelets 201 (09/14/24) 210 (08/17/24) 233 (07/13/24) BMM ASSESSMENT Calcium, Adjusted Total 9.0 09/14/24 9.0 08/17/24 10.2 07/13/24 Calcium 9.0 09/14/24 9.0 08/17/24 10.2 07/13/24 Phosphorus, Serum 5.3 09/14/24 5.4 08/17/24 4.4 07/13/24 Ca*PO4 47.7 09/14/24 48.6 08/17/24 44.9 07/13/24 PTH, Intact 271 08/17/24 Magnesium 1.8 09/14/24 1.9 08/17/24 1.9 07/13/24 Alkaline Phosphatase 33 09/14/24 47 08/17/24 41 07/13/24 Aluminum 4 08/17/24 NUTRITION ASSESSMENT Albumin 4.6 09/14/24 4.5 08/17/24 4.4 07/13/24 Potassium 4.1 09/14/24 4.0 09/07/24 4.0 08/31/24 ADDITIONAL LABS White Blood Cells 6.9 (09/14/24) 7.6 (08/17/24) 6.8 (07/13/24) Cholesterol 166 (08/17/24) HDL 30 (08/17/24) LDL-Calc See Comment (08/17/24) Triglycerides 549 (08/17/24) Hep B Surface Antibody 459 (08/17/24) Hepatitis B Surface Ab >1,000 (01/11/24) Uric Acid 8.1 (08/17/24) ADDITIONAL COMMENT COMMENTS: 09/12/24 stable 09/19/24 doing well 07/13/24 doing well stable 07/27/24 no new issues 08/02/24 stable 08/12/23 doing ok 08/19/24 stable 09/02/24 stable 09/09/24 no new issues 04/13/24 stable 05/04/24 doing ok 05/11/24 stable 05/18/24 no need to issues 05/25/24 stable 06/03/24 doing ok 06/17/24 stable 06/24/24 no new issues 06/27/24 doong well 07/05/24 stable Signed by: KELLI CALVIN MD on 09/19/2024 at 09:09:30 AM documented in this encounter Plan of Treatment Not on file documented as of this encounter Visit Diagnoses Not on filedocumented in this encounter
--- OUTSIDE RECORDS SUMMARY | 2024-10-05 19:20 | XMS_ITS | Encounter Summary ---
Author Organization [facility] Address [address] [place] [phone] Phone Care Team Providers Care Community Association Manager Name Role Phone Unavailable Primary Care Provider Unavailabl e Encounter Details Date Type Department Care Team ([facility] st Contact Info) Description 09/09/2024 Treatment [facility] [address] [address] Kelli Calvin MD [address] [phone] Social History Tobacco Use Types Packs/Day Years Used Date Smoking Tobacco: Never Smokeless Tobacco: Never Sex and Gender Information Value Date Recorded Sex Assigned at Not on file Legal Sex Male 11:55 AM EDT Gender Identity Not on file Sexual Orientation Not on file documented as of this encounter Miscellaneous Notes * Dialysis Note - Kelli Calvin MD - 09/09/2024 12:00 AM EST Patient: Ministerio French : 1945 Note Type: Dialysis Rounds-Basic Telehealth Service Date: 09/09/2024 Telehealth encounter using audiovisual technology, performed according to state requirements. Appropriate patient consent obtained. This patient was personally seen for a basic visit as part of routine monthly dialysis care for end stage renal disease. Attending Nurse Midwife/Clinical Instructor: KELLI CALVIN Dialysis Location: [facility] Schedule: Shift: 1 ADEQUACY ASSESSMENT Kt/V, [...] 08/17/24 4.4 07/13/24 4.4 06/15/24 Potassium 4.0 09/07/24 4.0 08/31/24 4.0 08/24/24 ADDITIONAL LABS White Blood Cells 7.6 (08/17/24) [...] stable Signed by: KELLI CALVIN MD on 09/09/2024 at 07:52:42 PM Transcribed by: KELLI CALVIN MD on 09/09/2024 at 07:52:42 PM documented in this encounter Plan of Treatment Not on file documented as of this encounter Visit Diagnoses Not on filedocumented in this encounter
--- OUTSIDE RECORDS SUMMARY | 2024-10-05 19:20 | XMS_ITS | Encounter Summary ---
Author Organization [facility] Address [address] [place] [phone] Phone Care Team Providers Care Simulation Software Engineer Name Role Phone Unavailable Primary Care Provider Unavailabl e Encounter Details Date Type Department Care Team ([facility] st Contact Info) Description 09/12/2024 Treatment [facility] [address] [phone] Kelli Calvin MD [address] [phone] Social History Tobacco Use Types Packs/Day Years Used Date Smoking Tobacco: Never Smokeless Tobacco: Never Sex and Gender Information Value Date Recorded Sex Assigned at Not on file Legal Sex Male 11:55 AM EDT Gender Identity Not on file Sexual Orientation Not on file documented as of this encounter Miscellaneous Notes * Dialysis Note - Kelli Calvin MD - 09/12/2024 12:00 AM EST Patient: Ministerio French : 1945 Note Type: Dialysis Rounds-Comp Service Date: 09/12/2024 This patient was personally seen for a complete visit as part of routine monthly dialysis care for end stage renal disease. Attending Laundry Machine Tender: KELLI CALVIN MD [facility] [...] 8.1 (08/17/24) ADDITIONAL COMMENT COMMENTS: 09/12/24 stable 07/13/24 doing well stable 07/27/24 no new issues 08/02/24 stable 08/12/23 doing ok 08/19/24 stable 09/02/24 stable 09/09/24 no new issues 04/13/24 stable 05/04/24 doing ok 05/11/24 stable 05/18/24 no need to issues 05/25/24 stable 06/03/24 doing ok 06/17/24 stable 06/24/24 no new issues 06/27/24 doong well 07/05/24 stable Signed by: KELLI CALVIN MD on 09/12/2024 at 09:51:07 PM documented in this encounter Plan of Treatment Not on file documented as of this encounter Visit Diagnoses Not on filedocumented in this encounter
--- OUTSIDE RECORDS SUMMARY | 2024-10-05 19:20 | XMS_ITS | Encounter Summary ---
Author Organization [facility] Address [address] [place] [phone] Phone Care Team Providers Care Pigment Presser Name Role Phone Unavailable Primary Care Provider Unavailabl e Encounter Details Date Type Department Care Team ([facility] st Contact Info) Description 09/28/2024 Treatment [facility] [address] [phone] Kelli Calvin MD [address] [phone] Social History Tobacco Use Types Packs/Day Years Used Date Smoking Tobacco: Never Smokeless Tobacco: Never Sex and Gender Information Value Date Recorded Sex Assigned at Not on file Legal Sex Male 11:55 AM EDT Gender Identity Not on file Sexual Orientation Not on file documented as of this encounter Miscellaneous Notes * Dialysis Note - Kelli Calvin MD - 09/28/2024 12:00 AM EST Patient: Ministerio French : 1945 Note Type: Dialysis Rounds-Basic Telehealth Service Date: 09/28/2024 Telehealth encounter using audiovisual technology, performed according to state requirements. Appropriate patient consent obtained. This patient was personally seen for a basic visit as part of routine monthly dialysis care for end stage renal disease. Attending Microbiology Manager: KELLI CALVIN MD Dialysis Location: [facility] Schedule: Shift: 1 ADEQUACY ASSESSMENT Kt/V, [...] 4.6 09/14/24 4.5 08/17/24 4.4 07/13/24 Potassium 4.3 09/28/24 4.6 09/21/24 4.1 09/14/24 ADDITIONAL LABS White Blood Cells 6.9 (09/14/24) 7.6 (08/17/24) 6.8 (07/13/24) Cholesterol 166 (08/17/24) HDL 30 (08/17/24) LDL-Calc See Comment (08/17/24) Triglycerides 549 (08/17/24) Hep B Surface Antibody 459 (08/17/24) Hepatitis B Surface Ab >1,000 (01/11/24) Uric Acid 8.1 (08/17/24) ADDITIONAL COMMENT COMMENTS: 09/12/24 stable 09/19/24 doing well 09/28/24 no new issues 07/13/24 doing well stable 07/27/24 no new issues 08/02/24 stable 08/12/23 doing ok 08/19/24 stable 09/02/24 stable 09/09/24 no new issues 04/13/24 stable 05/04/24 doing ok 05/11/24 stable 05/18/24 no need to issues 05/25/24 stable 06/03/24 doing ok 06/17/24 stable 06/24/24 no new issues 06/27/24 doong well 07/05/24 stable Signed by: KELLI CALVIN MD on 10/02/2024 at 02:24:54 PM documented in this encounter Plan of Treatment Not on file documented as of this encounter Visit Diagnoses Not on filedocumented in this encounter
--- OUTSIDE RECORDS SUMMARY | 2024-10-05 19:20 | XMS_ITS | Encounter Summary ---
Author Organization [facility], Address [address] [place] [address] Phone Care Team Providers Care Polysomnograph Tech Name Role Phone Unavailable Primary Care Provider Unavailabl e Reason for Visit * Reason Comments Med Refill Encounter Details Date Type Department Care Team ([facility] st Contact Info) Description 06/01/2024 Refill [facility], [address] [place] [phone] Shubham Mayer MD [address] [place] [phone] Social History Tobacco Use Types Packs/Day Years Used Date Smoking Tobacco: Never Smokeless Tobacco: Never Sex and Gender Information Value Date Recorded Sex Assigned at Not on file Legal Sex Male 11:55 AM EDT Gender Identity Not on file Sexual Orientation Not on file documented as of this encounter Plan of Treatment Not on file documented as of this encounter Procedures Procedure Name Priority Date/Time Associated Diagnosis Comments ENDER () Routine 08/24/2024 3:00 AM EST POTASSIUM Routine 08/24/2024 3:00 AM EST CONFIRMATION TEST HCV Routine 08/17/2024 3:00 AM EST STEVEN () Routine 08/17/2024 3:00 AM EST KT/V NATURAL LOG, URR () Routine 08/17/2024 3:00 AM EST CALCIUM PHOSPHORUS PRODUCT, ADJUSTED (HC) Routine 08/17/2024 3:00 AM EST HEPATITIS C ABS W/REFLEX RNA DETECTR Routine 08/17/2024 3:00 AM EST HEPATITIS B SURFACE ANTIGEN W/REFL CONFIRM Routine 08/17/2024 3:00 AM EST TRANSFERRIN SATURATION Routine 3:00 AM EST ALUMINUM LEVEL Routine 08/17/2024 3:00 AM EST HEPATITIS B SURFACE ANTIBODY QUANT Routine 08/17/2024 3:00 AM EST CBC AND DIFFERENTIAL Routine 08/17/2024 3:00 AM EST URIC ACID Routine 08/17/2024 3:00 AM EST ALT Routine 08/17/2024 3:00 AM EST AST Routine 08/17/2024 3:00 AM EST PROTEIN, TOTAL, SERUM Routine 08/17/2024 3:00 AM EST ALKALINE PHOSPHATASE Routine 08/17/2024 3:00 AM EST PTH, INTACT Routine 08/17/2024 3:00 AM EST MAGNESIUM Routine 08/17/2024 3:00 AM EST LACTATE DEHYDROGENASE Routine 08/17/2024 3:00 AM EST GLUCOSE, RANDOM Routine 08/17/2024 3:00 AM EST FERRITIN Routine 08/17/2024 3:00 AM EST CREATININE, SERUM Routine 08/17/2024 3:0 0 AM EST BILIRUBIN, TOTAL Routine 08/17/2024 3:00 AM EST LIPID PANEL Routine 08/17/2024 3:00 AM EST ELECTROLYTE PANEL Routine 08/17/2024 3:0 0 AM EST LIH (HC) Routine 07/13/2024 3:00 AM EST KT/V NATURAL LOG, URR (HC) Routine 07/13/2024 3:00 AM EST CALCIUM PHOSPHORUS PRODUCT, ADJUSTED (HC) Routine 07/13/2024 3:00 AM EST HEPATITIS B SURFACE ANTIGEN W/REFL CONFIRM Routine 07/13/2024 3:00 AM EST TRANSFERRIN SATURATION Routine 3:00 AM EST CBC AND DIFFERENTIAL Routine 07/13/2024 3:00 AM EST ALT Routine 07/13/2024 3:00 AM EST AST Routine 07/13/2024 3:00 AM EST PROTEIN, TOTAL, SERUM Routine 07/13/2024 3:00 AM EST ALKALINE PHOSPHATASE Routine 07/13/2024 3:00 AM EST MAGNESIUM Routine 07/13/2024 3:00 AM EST LACTATE DEHYDROGENASE Routine 07/13/2024 3:00 AM EST GLUCOSE, RANDOM Routine 07/13/2024 3:00 AM EST CREATININE, SERUM Routine 07/13/2024 3:0 0 AM EST BILIRUBIN, TOTAL Routine 07/13/2024 3:00 AM EST ELECTROLYTE PANEL Routine 07/13/2024 3:0 0 AM EST LIH (HC) Routine 06/15/2024 3:00 AM EST KT/V NATURAL LOG, URR (HC) Routine 06/15/2024 3:00 AM EST CALCIUM PHOSPHORUS PRODUCT, ADJUSTED (HC) Routine 06/15/2024 3:00 AM EST HEPATITIS B SURFACE ANTIGEN W/REFL CONFIRM Routine 06/15/2024 3:00 AM EST TRANSFERRIN SATURATION Routine 3:00 AM EST CBC AND DIFFERENTIAL Routine 06/15/2024 3:00 AM EST ALT Routine 06/15/2024 3:00 AM EST AST Routine 06/15/2024 3:00 AM EST PROTEIN, TOTAL, SERUM Routine 06/15/2024 3:00 AM EST ALKALINE PHOSPHATASE Routine 06/15/2024 3:00 AM EST MAGNESIUM Routine 06/15/2024 3:00 AM EST LACTATE DEHYDROGENASE Routine 06/15/2024 3:00 AM EST GLUCOSE, RANDOM Routine 06/15/2024 3:00 AM EST FERRITIN Routine 06/15/2024 3:00 AM EST CREATININE, SERUM Routine 06/15/2024 3:0 0 AM EST BILIRUBIN, TOTAL Routine 06/15/2024 3:00 AM EST ELECTROLYTE PANEL Routine 06/15/2024 3:0 0 AM EST documented in this encounter Results * LIH (08/24/2024 3:00 AM EST) Lipemia Normal Normal [facility] Icterus Normal Normal [facility] Hemolysis Normal Normal [facility] 08/24/2024 3:00 AM EST 08/25/2024 3:11 PM EST Quan Peacock MD LAB [id number] SOLICITED RESULTS Final Result Performing Organization Address [facility] de Phone Number [facility] [address] [place] [address] * Potassium (08/24/2024 3:00 AM EST) Pathologist [facility] Potassium 4.0 3.4 - 5.0 mEq/L [facility] 08/24/2024 3:00 AM EST 08/25/2024 3:11 PM EST Quan Peacock MD LAB BLOOD ORDERABLES Final Re sult Performing Organization Address [facility] de Phone Number [facility] [address] [place] [address] * Aluminum level (08/17/2024 3:00 AM EST) Pathologist [facility] Aluminum 4 1 - 20 ug/L [facility] 08/17/2024 3:00 AM EST 08/18/2024 12:37 PM EST Quan Peacock MD LAB BLOOD ORDERABLES Final Re sult Performing Organization Address [facility] de Phone Number [facility] [address] [place] [address] * Confirmation Test HCV (08/17/2024 3:00 AM EST) Pathologist [facility] Hep C Ab Confirmation Not needed [facility] 08/17/2024 3:00 AM EST 08/18/2024 1:26 PM EST Quan Peacock MD LAB BLOOD ORDERABLES Final Re sult Performing Organization Address [facility] Co de Phone Number [facility] [address] [place] [address] * HEPATITIS C ABS W/REFLEX RNA DETECTR (08/17/2024 3:00 AM EST) Pathologist [facility] Hep C Virus Ab Non-Reacti ve Non-Reacti ve [facility] 08/17/2024 3:00 AM EST 08/18/2024 12:58 PM EST Quan Peacock MD LAB [id number] SOLICITED RESULTS Final Result Performing Organization Address [facility] de Phone Number [facility] [address] [place] [address] * Hepatitis B Surface Ag w/Reflex Confirmation (08/17/2024 3:00 AM EST) Pathologist [facility] Hep B Surface Antigen Negative Negative [facility] 08/17/2024 3:00 AM EST 08/18/2024 12:58 PM EST Quan Peacock MD LAB BLOOD ORDERABLES Final Re sult Performing Organization Address [facility] de Phone Number [facility] [address] [place] [address] * (ABNORMAL) Uric Acid (08/17/2024 3:00 AM EST) [facility] Uric Acid 8.1(H) 4.4 - 7.6 mg/dL [facility] 08/17/2024 3:00 AM EST 08/18/2024 12:58 PM EST Quan Peacock MD LAB BLOOD ORDERABLES Final Re sult Performing Organization Address [facility] de Phone Number [facility] [address] [place] [address] * (ABNORMAL) TSAT (08/17/2024 3:00 AM EST) Pathologist [facility] Iron 65 65 - 175 ug/dL [facility] Transferrin 159(L) 215 - 365 mg/dL [facility] TIBC 223 211 - 406 ug/dL [facility] Iron Saturation (TSat) 29 22 - 52 % [facility] 08/17/2024 3:00 AM EST 08/18/2024 12:58 PM EST Quan Peacock MD LAB BLOOD ORDERABLES Final Re sult Performing Organization Address [facility] de Phone Number [facility] [address] [place] [address] * Protein, total (08/17/2024 3:00 AM EST) Total Protein 7.3 6.4 - 8.9 g/dL [facility] 08/17/2024 3:00 AM EST 08/18/2024 12:58 PM EST Quan Peacock MD LAB BLOOD ORDERABLES Final Re sult Performing Organization Address [facility] de Phone Number [facility] [address] [place] [address] * Magnesium (08/17/2024 3:00 AM EST) Pathologist [facility] Magnesium 1.9 1.9 - 2.7 mg/dL [facility] 08/17/2024 3:00 AM EST 08/18/2024 12:58 PM EST Quan Peacock MD LAB BLOOD ORDERABLES Final Re sult Performing Organization Address [facility] de Phone Number [facility] [address] [place] [address] * (ABNORMAL) Electrolyte panel (08/17/2024 3:00 AM EST) Sodium 130(L) 136 - 145 mEq/L [facility] Potassium 4.0 3.4 - 5.0 mEq/L [facility] Chloride 91(L) 98 - 107 mEq/L [facility] Bicarbonate (CO2) 25 21 - 31 mEq/L [facility] Anion Gap 14 3 - 14 mEq/L [facility] 08/17/2024 3:00 AM EST 08/18/2024 12:58 PM EST us Quan Peacock MD LAB BLOOD ORDERABLES Final Re sult [facility] [address] [place] [address] * (ABNORMAL) Lipid panel (08/17/2024 3:00 AM [...] Re sult Performing Organization Address [facility] Co de Phone Number [facility] [address] [place] [address] * LIH (08/17/2024 3:00 AM EST) Lipemia Normal Normal [facility] Icterus Normal Normal [facility] Hemolysis Normal Normal [facility] 08/17/2024 3:00 AM EST 08/18/2024 12:58 PM EST us Quan Peacock MD LAB [id number] SOLICITED RESULTS Final Result Performing Organization Address [facility] Phone Number [facility] [address] [place] [address] * Lactate dehydrogenase (08/17/2024 3:00 AM EST) Pathologist [facility] LDH 203 120 - 246 U/L [facility] 08/17/2024 3:00 AM EST 08/18/2024 12:58 PM EST us Quan Peacock MD LAB BLOOD ORDERABLES Final Re sult Performing Organization Address [facility] de Phone Number [facility] [address] [place] [address] * (ABNORMAL) Glucose, random (08/17/2024 3:00 AM EST) Pathologist [facility] Glucose 290(H) 74 - 109 mg/dL [facility] 08/17/2024 3:00 AM EST 08/18/2024 12:58 PM EST us Quan Peacock MD LAB BLOOD ORDERABLES Final Re sult Performing Organization Address [facility] de Phone Number [facility] [address] [place] [address] * (ABNORMAL) Creatinine, serum (08/17/2024 3:00 AM EST) Pathologist [facility] Creatinine 6.52(H) 0.70 - 1.30 mg/dL [facility] 08/17/2024 3:00 AM EST 08/18/2024 12:58 PM EST Quan Peacock MD LAB BLOOD ORDERABLES Final Re sult Performing Organization Address [facility] de Phone Number [facility] [address] [place] [address] * Bilirubin, total (08/17/2024 3:00 AM EST) Total Bilirubin 0.3 0.3 - 1.2 mg/dL [facility] 08/17/2024 3:00 AM EST 08/18/2024 12:58 PM EST Quan Peacock MD LAB BLOOD ORDERABLES Final Re sult Performing Organization Address [facility] de Phone Number [facility] [address] [place] [address] * AST (08/17/2024 3:00 AM EST) AST (SGOT) 13 <34 U/L [facility] 08/17/2024 3:00 AM EST 08/18/2024 12:58 PM EST Quan Peacock MD LAB BLOOD ORDERABLES Final Re sult Performing Organization Address [facility] de Phone Number [facility] [address] [place] [address] * ALT (08/17/2024 3:00 AM EST) ALT (SGPT) 17 10 - 49 U/L [facility] 08/17/2024 3:00 AM EST 08/18/2024 12:58 PM EST Quan Peacock MD LAB BLOOD ORDERABLES Final Re sult Performing Organization Address [facility] de Phone Number [facility] [address] [place] [address] * Alkaline phosphatase (08/17/2024 3:00 AM EST) Alkaline Phosphatase 47 46 - 116 U/L [facility] 08/17/2024 3:00 AM EST 08/18/2024 12:58 PM EST Quan Peacock MD LAB BLOOD ORDERABLES Final Re sult Performing Organization Address [facility] de Phone Number [facility] [address] [place] [address] * (ABNORMAL) Calcium Phosphorus Product, Adjusted (08/17/2024 3:00 AM EST) Albumin 4.5 3.6 - 5.4 g/dL [facility] Calcium 9.0 8.6 - 10.3 mg/dL [facility] Phosphorus, Serum 5.4(H) 2.5 - 5.0 mg/dL [facility] Ca*PO4 48.6 <55.0 mg2/dL2 [facility] Calcium, Adjusted Total 9.0 8.6 - 10.3 mg/dL [facility] CA*PO4 CORRCTD 48.6 <55.0 mg2/dL2 [facility] 08/17/2024 3:00 AM EST 08/18/2024 12:58 PM EST Quan Peacock MD LAB [id number] SOLICITED RESULTS Final Result Performing Organization Address [facility] de Phone Number [facility] [address] [place] [address] * PTH, Intact (08/17/2024 3:00 AM EST) PTH, Intact 271 160 - 721 pg/mL [facility] Comment: Suggested (KDIGO) ESRD maintenance range is two to nine times the upper normal limit (80.1 pg/mL) for the laboratory. 08/17/2024 3:00 AM EST 08/18/2024 12:58 PM EST Quan Peacock MD LAB BLOOD ORDERABLES Final Re sult Performing Organization Address [facility] de Phone Number [facility] [address] [place] [address] * (ABNORMAL) Ferritin (08/17/2024 3:00 AM EST) [facility] Ferritin 1,268(H) 22 - 322 ng/mL [facility] 08/17/2024 3:00 AM EST 08/18/2024 12:58 PM EST Quan Peacock MD LAB BLOOD ORDERABLES Final Re sult Performing Organization Address [facility] de Phone Number [facility] [address] [place] [address] * Hepatitis B Surface Antibody (08/17/2024 3:00 AM EST) [facility] Hep B Surface Antibody 459 mIU/mL [facility] Comment: Interpretation: <10: No Immunity >=10: Probable Immunity 08/17/2024 3:00 AM EST 08/18/2024 12:58 PM EST Quan Peacock MD LAB BLOOD ORDERABLES Final Re sult Performing Organization Address [facility] de Phone Number [facility] [address] [place] [address] * (ABNORMAL) CBC and Differential (08/17/2024 3:00 AM EST) [facility] DIFFERENTIAL MANUAL, 2 Not Indicated [facility] White Blood Cells 7.6 4.2 - 9.1 K/uL [facility] RBC 3.22(L) 4.63 - 6.08 M/uL [facility] Hgb 10.3(L) 13.7 - 17.5 g/dL [facility] Hemoglobin x 3 30.9(L) 41.1 - 52.5 g/dL [facility] Hematocrit 30.3(L) 40.1 - 51.0 % [facility] MCV 94.1(H) 79.0 - 92.2 fL [facility] MCH 32.0 25.7 - 32.2 pg [facility] MCHC 34.0 32.3 - 36.5 g/dL [facility] Platelets 210 163 - 337 K/uL [facility] RDW 16.3(H) 11.6 - 14.4 % [facility] Neutrophils Relative 56.8 34.0 - 67.9 % [facility] Lymphocytes Relative 27.2 21.8 - 53.1 % [facility] Monocytes 10.9 5.3 - 12.2 % [facility] Eosinophils Relative 2.8 0.8 - 7.0 % [facility] Basophils Relative 1.1 0.2 - 1.2 % [facility] Immature Granulocytes 1.2(H) 0.0 - 1.0 % [facility] 08/17/2024 3:00 AM EST 08/18/2024 1:26 PM EST Quan Peacock MD LAB BLOOD ORDERABLES Final Re sult Performing Organization Address [facility] Co de Phone Number [facility] [address] [place] [address] * (ABNORMAL) Kt/V Natural Log, URR (08/17/2024 3:00 AM EST) Pathologist [facility] Treatment Time 197 min [facility] Pre-Weight, lb 94.4 kg [facility] Post-Weight, lb 92.7 kg [facility] Ultrafiltration Rate 6 <=13 mL/kg/hr [facility] Comment: Recommend achieving Ultrafiltration Rate (UFR) <=10 mL/kg/hr References: Ralph MARIE et al. Kidney Int. 2010; 79(2):250-257 BUN 76(H) 7 - 25 mg/dL [facility] BUN Post Dialysis 21 7 - 25 mg/dL [facility] UREA REDUCTION RATIO (%) 72 >=65 % [facility] Kt/V Natural Log 1.44 >=1.2 [facility] 08/17/2024 3:00 AM EST 08/18/2024 12:52 PM EST Quan Peacock MD LAB [id number] SOLICITED RESULTS Final Result Performing Organization Address [facility] Co de Phone Number [facility] [address] [place] [address] * Hepatitis B Surface Ag w/Reflex Confirmation (07/13/2024 3:00 AM EST) Hep B Surface Antigen Negative Negative [facility] 07/13/2024 3:00 AM EST 07/14/2024 3:21 PM EST us Quan Peacock MD LAB BLOOD ORDERABLES Final Re sult Performing Organization Address [facility] Phone Number [facility] [address] [place] [address] * Protein, total (07/13/2024 3:00 AM EST) Pathologist [facility] Total Protein 7.3 6.4 - 8.9 g/dL [facility] 07/13/2024 3:00 AM EST 07/14/2024 3:21 PM EST us Quan Peacock MD LAB BLOOD ORDERABLES Final Re sult Performing Organization Address [facility] Phone Number [facility] [address] [place] [address] * Magnesium (07/13/2024 3:00 AM EST) Pathologist [facility] Magnesium 1.9 1.9 - 2.7 mg/dL [facility] 07/13/2024 3:00 AM EST 07/14/2024 3:21 PM EST us Quan Peacock MD LAB BLOOD ORDERABLES Final Re sult Performing Organization Address [facility] Phone Number [facility] [address] [place] [address] * Electrolyte panel (07/13/2024 3:00 AM EST) Sodium 136 136 - 145 mEq/L [facility] Potassium 4.6 3.4 - 5.0 mEq/L [facility] Chloride 98 98 - 107 mEq/L [facility] Bicarbonate (CO2) 26 21 - 31 mEq/L [facility] Anion Gap 12 3 - 14 mEq/L [facility] 07/13/2024 3:00 AM EST 07/14/2024 3:21 PM EST Quan Peacock MD LAB BLOOD ORDERABLES Final Re sult Performing Organization Address [facility] Co de Phone Number [facility] [address] [place] [address] * (ABNORMAL) TSAT (07/13/2024 3:00 AM EST) Iron 92 65 - 175 ug/dL [facility] Transferrin 155(L) 215 - 365 mg/dL [facility] TIBC 217 211 - 406 ug/dL [facility] Iron Saturation (TSat) 42 22 - 52 % [facility] 07/13/2024 3:00 AM EST 07/14/2024 3:21 PM EST Quan Peacock MD LAB BLOOD ORDERABLES Final Re sult Performing Organization Address [facility] de Phone Number [facility] [address] [place] [address] * (ABNORMAL) Glucose, random (07/13/2024 3:00 AM EST) Glucose 180(H) 74 - 109 mg/dL [facility] 07/13/2024 3:00 AM EST 07/14/2024 3:21 PM EST Quan Peacock MD LAB BLOOD ORDERABLES Final Re sult Performing Organization Address [facility] de Phone Number [facility] [address] [place] [address] * Lactate dehydrogenase (07/13/2024 3:00 AM EST) LDH 186 120 - 246 U/L [facility] 07/13/2024 3:00 AM EST 07/14/2024 3:21 PM EST Quan Peacock MD LAB BLOOD ORDERABLES Final Re sult Performing Organization Address [facility] de Phone Number [facility] [address] [place] [address] * LIH (07/13/2024 3:00 AM EST) Lipemia Normal Normal [facility] Icterus Normal Normal [facility] Hemolysis Normal Normal [facility] 07/13/2024 3:00 AM EST 07/14/2024 3:21 PM EST us Quan Peacock MD LAB [id number] SOLICITED RESULTS Final Result Performing Organization Address [facility] Phone Number [facility] [address] [place] [address] * AST (07/13/2024 3:00 AM EST) AST (SGOT) 14 <34 U/L [facility] 07/13/2024 3:00 AM EST 07/14/2024 3:21 PM EST Quan Peacock MD LAB BLOOD ORDERABLES Final Re sult Performing Organization Address [facility] Phone Number [facility] [address] [place] [address] * (ABNORMAL) Bilirubin, total (07/13/2024 3:00 AM EST) Total Bilirubin 0.2(L) 0.3 - 1.2 mg/dL [facility] 07/13/2024 3:00 AM EST 07/14/2024 3:21 PM EST Quan Peacock MD LAB BLOOD ORDERABLES Final Re sult Performing Organization Address [facility] de Phone Number [facility] [address] [place] [address] * ALT (07/13/2024 3:00 AM EST) ALT (SGPT) 17 10 - 49 U/L [facility] 07/13/2024 3:00 AM EST 07/14/2024 3:21 PM EST us Quan Peacock MD LAB BLOOD ORDERABLES Final Re sult [facility] [address] [place] [address] * (ABNORMAL) Creatinine, serum (07/13/2024 3:00 AM EST) Creatinine 4.80(H) 0.70 - 1.30 mg/dL [facility] 07/13/2024 3:00 AM EST 07/14/2024 3:21 PM EST us Quan Peacock MD LAB BLOOD ORDERABLES Final Re sult Performing Organization Address [facility] de Phone Number [facility] [address] [place] [address] * (ABNORMAL) Alkaline phosphatase (07/13/2024 3:00 AM EST) Alkaline Phosphatase 41(L) 46 - 116 U/L [facility] 07/13/2024 3:00 AM EST 07/14/2024 3:21 PM EST us Quan Peacock MD LAB BLOOD ORDERABLES Final Re sult Performing Organization Address [facility] de Phone Number [facility] [address] [place] [address] * Calcium Phosphorus Product, Adjusted (07/13/2024 3:00 AM EST) Albumin 4.4 3.6 - 5.4 g/dL [facility] Calcium 10.2 8.6 - 10.3 mg/dL [facility] Phosphorus, Serum 4.4 2.5 - 5.0 mg/dL [facility] Ca*PO4 44.9 <55.0 mg2/dL2 [facility] Calcium, Adjusted Total 10.2 8.6 - 10.3 mg/dL [facility] CA*PO4 CORRCTD 44.9 <55.0 mg2/dL2 [facility] 07/13/2024 3:00 AM EST 07/14/2024 3:21 PM EST us Quan Peacock MD LAB [id number] SOLICITED RESULTS Final Result [facility] [address] [place] [address] * (ABNORMAL) CBC and Differential (07/13/2024 3:00 AM EST) Pathologist [facility] DIFFERENTIAL MANUAL, 2 Not Indicated [facility] White Blood Cells 6.8 4.2 - 9.1 K/uL [facility] RBC 3.26(L) 4.63 - 6.08 M/uL [facility] Hgb 10.2(L) 13.7 - 17.5 g/dL [facility] Hemoglobin x 3 30.6(L) 41.1 - 52.5 g/dL [facility] Hematocrit 31.6(L) 40.1 - 51.0 % [facility] MCV 96.9(H) 79.0 - 92.2 fL [facility] MCH 31.3 25.7 - 32.2 pg [facility] MCHC 32.3 32.3 - 36.5 g/dL [facility] Platelets 233 163 - 337 K/uL [facility] RDW 15.2(H) 11.6 - 14.4 % [facility] Neutrophils Relative 55.6 34.0 - 67.9 % [facility] Lymphocytes Relative 30.1 21.8 - 53.1 % [facility] Monocytes 9.9 5.3 - 12.2 % [facility] Eosinophils Relative 3.0 0.8 - 7.0 % [facility] Basophils Relative 1.3(H) 0.2 - 1.2 % [facility] Immature Granulocytes 0.1 0.0 - 1.0 % [facility] 07/13/2024 3:00 AM EST 07/14/2024 3:26 PM EST us Quan Peacock MD LAB BLOOD ORDERABLES Final Re sult Performing Organization Address [facility] Co de Phone Number [facility] [address] [place] [address] * (ABNORMAL) Kt/V Natural Log, URR (07/13/2024 3:00 AM EST) Pathologist [facility] Treatment Time 205 min [facility] Pre-Weight, lb 94.8 kg [facility] Post-Weight, lb 92.6 kg [facility] Ultrafiltration Rate 7 <=13 mL/kg/hr [facility] Comment: Recommend achieving Ultrafiltration Rate (UFR) <=10 mL/kg/hr References: Ralph MARIE et al. Kidney Int. 2010; 79(2):250-257 BUN 49(H) 7 - 25 mg/dL [facility] BUN Post Dialysis 15 7 - 25 mg/dL [facility] UREA REDUCTION RATIO (%) 69 >=65 % [facility] Kt/V Natural Log 1.35 >=1.2 [facility] 07/13/2024 3:00 AM EST 07/14/2024 3:19 PM EST Quan Peacock MD LAB [id number] SOLICITED RESULTS Final Result Performing Organization Address [facility] de Phone Number [facility] [address] [place] [address] * Hepatitis B Surface Ag w/Reflex Confirmation (06/15/2024 3:00 AM EST) Hep B Surface Antigen Negative Negative [facility] 06/15/2024 3:00 AM EST 06/16/2024 5:14 PM EST Quan Peacock MD LAB BLOOD ORDERABLES Final Re sult Performing Organization Address [facility] de Phone Number [facility] [address] [place] [address] * (ABNORMAL) Ferritin (06/15/2024 3:00 AM EST) Ferritin 923(H) 22 - 322 ng/mL [facility] 06/15/2024 3:00 AM EST 06/16/2024 5:14 PM EST Quan Peacock MD LAB BLOOD ORDERABLES Final Re sult Performing Organization Address [facility] de Phone Number [facility] [address] [place] [address] * (ABNORMAL) TSAT (06/15/2024 3:00 AM EST) Iron 39(L) 65 - 175 ug/dL [facility] Transferrin 173(L) 215 - 365 mg/dL [facility] TIBC 242 211 - 406 ug/dL [facility] Iron Saturation (TSat) 16(L) 22 - 52 % [facility] 06/15/2024 3:00 AM EST 06/16/2024 5:14 PM EST Quan Peacock MD LAB BLOOD ORDERABLES Final Re sult Performing Organization Address [facility] de Phone Number [facility] [address] [place] [address] * (ABNORMAL) Magnesium (06/15/2024 3:00 AM EST) Magnesium 1.8(L) 1.9 - 2.7 mg/dL [facility] 06/15/2024 3:00 AM EST 06/16/2024 5:14 PM EST Quan Peacock MD LAB BLOOD ORDERABLES Final Re sult Performing Organization Address [facility] de Phone Number [facility] [address] [place] [address] * Protein, total (06/15/2024 3:00 AM EST) Pathologist [facility] Total Protein 7.0 6.4 - 8.9 g/dL [facility] 06/15/2024 3:00 AM EST 06/16/2024 5:14 PM EST Quan Peacock MD LAB BLOOD ORDERABLES Final Re sult Performing Organization Address [facility] de Phone Number [facility] [address] [place] [address] * LIH (06/15/2024 3:00 AM EST) Lipemia Normal Normal [facility] Icterus Normal Normal [facility] Hemolysis Normal Normal [facility] 06/15/2024 3:00 AM EST 06/16/2024 5:14 PM EST Quan Peacock MD LAB [id number] SOLICITED RESULTS Final Result Performing Organization Address [facility] de Phone Number [facility] [address] [place] [address] * Lactate dehydrogenase (06/15/2024 3:00 AM EST) LDH 221 120 - 246 U/L [facility] 06/15/2024 3:00 AM EST 06/16/2024 5:14 PM EST Quan Peacock MD LAB BLOOD ORDERABLES Final Re sult Performing Organization Address [facility] Co de Phone Number [facility] [address] [place] [address] * Electrolyte panel (06/15/2024 3:00 AM EST) Sodium 139 136 - 145 mEq/L [facility] Potassium 4.4 3.4 - 5.0 mEq/L [facility] Chloride 101 98 - 107 mEq/L [facility] Bicarbonate (CO2) 25 21 - 31 mEq/L [facility] Anion Gap 13 3 - 14 mEq/L [facility] 06/15/2024 3:00 AM EST 06/16/2024 5:14 PM EST Quna Peacock MD LAB BLOOD ORDERABLES Final Re sult Performing Organization Address [facility] de Phone Number [facility] [facility] [address] [place] [address] * (ABNORMAL) Creatinine, serum (06/15/2024 3:00 AM EST) Creatinine 4.72(H) 0.70 - 1.30 mg/dL [facility] 06/15/2024 3:00 AM EST 06/16/2024 5:14 PM EST Quan Peacock MD LAB BLOOD ORDERABLES Final Re sult Performing Organization Address [facility] Co de Phone Number APS [facility] [address] [place] [address] * (ABNORMAL) Glucose, random (06/15/2024 3:00 AM EST) Glucose 155(H) 74 - 109 mg/dL [facility] 06/15/2024 3:00 AM EST 06/16/2024 5:14 PM EST Quan Peacock MD LAB BLOOD ORDERABLES Final Re sult Performing Organization Address [facility] de Phone Number [facility] [address] [place] [address] * (ABNORMAL) Bilirubin, total (06/15/2024 3:00 AM EST) Total Bilirubin 0.2(L) 0.3 - 1.2 mg/dL [facility] 06/15/2024 3:00 AM EST 06/16/2024 5:14 PM EST Quan Peacock MD LAB BLOOD ORDERABLES Final Re sult Performing Organization Address [facility] de Phone Number [facility]PS [facility] [address] [place] [address] * AST (06/15/2024 3:00 AM EST) AST (SGOT) 14 <34 U/L [facility] 06/15/2024 3:00 AM EST 06/16/2024 5:14 PM EST Quan Peacock MD LAB BLOOD ORDERABLES Final Re sult Performing Organization Address [facility] de Phone Number [facility]PS [facility] [address] [place] [address] * ALT (06/15/2024 3:00 AM EST) ALT (SGPT) 14 10 - 49 U/L [facility] 06/15/2024 3:00 AM EST 06/16/2024 5:14 PM EST Quan Peacock MD LAB BLOOD ORDERABLES Final Re sult Performing Organization Address [facility] de Phone Number [facility] [address] [place] [address] * (ABNORMAL) Alkaline phosphatase (06/15/2024 3:00 AM EST) Alkaline Phosphatase 39(L) 46 - 116 U/L [facility] 06/15/2024 3:00 AM EST 06/16/2024 5:14 PM EST Quan Peacock MD LAB BLOOD ORDERABLES Final Re sult Performing Organization Address [facility] de Phone Number [facility]PS [facility] [address] [place] [address] * Calcium Phosphorus Product, Adjusted (06/15/2024 3:00 AM EST) Pathologist [facility] Albumin 4.4 3.6 - 5.4 g/dL [facility] Calcium 9.8 8.6 - 10.3 mg/dL [facility] Phosphorus, Serum 4.3 2.5 - 5.0 mg/dL [facility] Ca*PO4 42.1 <55.0 mg2/dL2 [facility] Calcium, Adjusted Total 9.8 8.6 - 10.3 mg/dL [facility] CA*PO4 CORRCTD 42.1 <55.0 mg2/dL2 [facility] 06/15/2024 3:00 AM EST 06/16/2024 5:14 PM EST Quan Peacock MD LAB [id number] SOLICITED RESULTS Final Result Performing Organization Address [facility] de Phone Number [facility]PS [facility] [address] [place] [address] * (ABNORMAL) Kt/V Natural Log, URR (06/15/2024 3:00 AM EST) Pathologist [facility] Treatment Time 195 min [facility] Pre-Weight, lb 95.2 kg [facility] Post-Weight, lb 93.7 kg [facility] Ultrafiltration Rate 5 <=13 mL/kg/hr [facility] Comment: Recommend achieving Ultrafiltration Rate (UFR) <=10 mL/kg/hr References: Ralph MARIE et al. Kidney Int. 2010; 79(2):250-257 BUN 45(H) 7 - 25 mg/dL [facility] BUN Post Dialysis 11 7 - 25 mg/dL [facility] UREA REDUCTION RATIO (%) 76 >=65 % [facility] Kt/V Natural Log 1.57 >=1.2 [facility] 06/15/2024 3:00 AM EST 06/16/2024 5:14 PM EST us Quan Peacock MD LAB [id number] SOLICITED RESULTS Final Result [facility] [address] [place] [address] * (ABNORMAL) CBC and Differential (06/15/2024 3:00 AM EST) DIFFERENTIAL MANUAL, 2 Not Indicated [facility] White Blood Cells 6.9 4.2 - 9.1 K/uL [facility] RBC 2.98(L) 4.63 - 6.08 M/uL [facility] Hgb 9.3(L) 13.7 - 17.5 g/dL [facility] Hemoglobin x 3 27.9(L) 41.1 - 52.5 g/dL [facility] Hematocrit 29.9(L) 40.1 - 51.0 % [facility] MCV 100.3(H) 79.0 - 92.2 fL [facility] MCH 31.2 25.7 - 32.2 pg [facility] MCHC 31.1(L) 32.3 - 36.5 g/dL [facility] Platelets 233 163 - 337 K/uL [facility] RDW 15.1(H) 11.6 - 14.4 % [facility] Neutrophils Relative 62.4 34.0 - 67.9 % [facility] Lymphocytes Relative 23.7 21.8 - 53.1 % [facility] Monocytes 9.7 5.3 - 12.2 % [facility] Eosinophils Relative 2.9 0.8 - 7.0 % [facility] Basophils Relative 0.9 0.2 - 1.2 % [facility] Immature Granulocytes 0.4 0.0 - 1.0 % [facility] 06/15/2024 3:00 AM EST 06/16/2024 5:15 PM EST us Quan Peacock MD LAB BLOOD ORDERABLES Final Re sult [facility] [address] [place] [address] documented in this encounter Visit Diagnoses Not on filedocumented in this encounter
== END 2024-10-05 15:49 | disposition home or self-care (01) ==
LOC: HO.LAB 15:48
PROVIDERS: PCP Internal Medicine; Visit Provider Urology
DX: R97.20 Elevated prostate specific antigen [PSA] (principal); E11.65 Type 2 diabetes mellitus with hyperglycemia; E78.00 Pure hypercholesterolemia, unspecified; Z12.5 Encounter for screening for malignant neoplasm of prostate
CPT/HCPCS: 36415; 80053; 80061; 82306; 82607; 82728; 82746; 83036; 83540; 84153; 84439; 84443; 85025; 85045

== ENCOUNTER → 2024-10-12 15:27 | Outpatient (BNVA) | payer MEDICARE, SELFPAY | PROVIDERS: PCP Internal Medicine; Visit Provider Urology ==

== ENCOUNTER 2024-11-17 15:43 | Outpatient (AMB) | payer MEDICARE, SELFPAY ==
[2024-11-17 15:46] VITALS: BP 122/74; PULSE 86; O2SAT 96; BMI 30.6
--- NOTE | 2024-11-17 15:46 | MHC.PC.OV ---
Vital Signs 11/17/24 15:46 Height 5 ft 7 in Weight 195 lb 6 oz BMI 30.6 BP 122/74 Blood Pressure Location Lt brachial Position Sitting Pulse 86 Pulse Source Pulse Oximeter Pulse Oximetry (%) 96 Oxygen Delivery Method Room Air Intake Visit Reasons: DM , Hypertriglyceride Senior Credit Analyst Required: No Accompanied by: Self / Same As Patient Allergies No Known Allergies Allergy (Verified 11/17/24 15:47) Medication List - Last Reconciled 11/17/24 by Jada Andrews MD acetaminophen ER (Tylenol Arthritis Pain) 650 mg PO BID@0900,1700 amlodipine 5 mg PO DAILY atorvastatin 10 mg PO DAILY blood sugar diagnostic (FreeStyle Lite Strips) As directed check the BS TID blood-glucose meter (FreeStyle Lite Meter kit) As directed carvedilol 12.5 mg PO BID docusate sodium (Colace) 100 mg PO DAILY ergocalciferol (vitamin D2) 62.5 mcg PO DAILY finasteride 5 mg PO DAILY 90 days lancets (FreeStyle Lancets) As directed check BS QD loratadine 10 mg PO DAILY [renovite 1 tab PO .QD] sevelamer HCl 400 mg PO DAILY tamsulosin 0.4 mg PO DAILY 90 days Tobacco use date assessed: 11/17/24 Fall risk assessment: No Falls in past year Last assessed Fall Risk: 11/17/24 Dental Screening Dental Screen Date: 11/17/24 Did you have a dental visit in the last 12 months?: No Did you have a dental problem in the last 6 months where you did not have access to dental care?: No Was dental information given to patient?: No [facility] Medical History (Updated 11/17/24 @ 16:29 by Jada Andrews MD) Weak urinary stream Acute kidney injury ESRD (end stage renal disease) CKD (chronic kidney disease) High cholesterol Hypertension Surgical History Hx of tonsillectomy Social History Household Members: Family Housing: House Do you presently have visiting nurse or other home services: No Alcohol intake: never Patient Tobacco Use Status: Former Tobacco user Tobacco use type: Cigarette Years Smoked: quit 25 year/old e-Cigarette/Vaping Use: Never Used Second Hand Smoke Exposure: No service: No 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: Yes (walker ) Hearing needs: No Vision needs: Yes Questionnaire PHQ-9 Over the last 2 weeks, how often have you been bothered by any of the following problems? 1. Little interest or pleasure in doing things: not at all 2. Feeling down, depressed, or hopeless: not at all 3. Trouble falling or staying asleep, or sleeping too much: not at all 4. Feeling tired or having little energy: not at all 5. Poor appetite or overeating: not at all 6. Feeling bad about yourself - or that you are a failure or have let yourself or your family down: not at all 7. Trouble concentrating on things, such as reading the newspaper or watching television: not at all 8. Moving or speaking so slowly that other people could have noticed. Or the opposite - being so fidgety or restless that you have been moving around a lot more than usual: not at all 9. Thoughts that you would be better off or of hurting yourself in some way: not at all Total score: 0 Source: Developed by Drs. Ministerio Ngo, Marcella Mariano, Azar Bower and colleagues, with an educational letitia from [employer]. Thrive Questionnaire Date Thrive assessed: 11/17/24 I am a: Patient What is your living situation today?: I have a steady place to live Within the past 12 months, did the food you bought not last and you didn't have the money to get more?: Never true Within the past 12 months, did you worry whether your food would run out before you got money to buy more?: Never true Do you have trouble paying for medicines?: No Do you have trouble getting transportation to medical appointments?: No Do you have trouble paying your heating and electricity bill?: No Do you have trouble taking care of your child, family member or friend?: No Do you have trouble with day-to-day activities such as bathing, preparing meals, shopping, managing finances, etc.?: No Are you currently unemployed and looking for a job?: No Are you interested in more education?: No Please select the resources that you would like help with: None Currently or been in a relationship where the following occur: No concerns reported THRIVE Score: 0 AUDIT C Alcohol Use Questionnaire (AUDIT-C) 1. How often do you have a drink containing alcohol?: Never 3. How often do you have six or more drinks on one occasion?: Never Total Score: 0 BONNY-7 AMB Questionnaire BONNY-7 Date BONNY - 7 assessed: 11/17/24 Feeling nervous, anxious, or on edge: 0 = Not at all Not being able to stop or control worryin = Not at all Worrying too much about different things: 0 = Not at all Trouble relaxin = Not at all Being so restless that it is hard to sit still: 0 = Not at all Becoming easily annoyed or irritable: 0 = Not at all Feeling afraid as if something awful might happen: 0 = Not at all Total BONNY-7 score (0-4 normal; 5-9 mild; 10-14 moderate; 15-21 severe): 0 Source: Developed by Drs. Ministerio Ngo, Marcella Mariano, Azar Bower and colleagues, with an educational letitia from [employer]. Physical exam (Primary Care) Vital Signs: Last Vital Signs Pulse 86 11/17/24 15:46 BP 122/74 11/17/24 15:46 Pulse Ox 96 11/17/24 15:46 Oxygen Delivery Method Room Air 11/17/24 15:46 BMI result Body Mass Index 30.6 Tobacco/Smoking Status: Tobacco use Status Tobacco use date assessed 11/17/24 11/17/24 15:51 Patient Tobacco Use Status Former Tobacco user 11/17/24 15:51 Tobacco use type Cigarette 11/17/24 15:51 e-Cigarette/Vaping Use Never Used 11/17/24 15:51 PHQ-9: PHQ-9 Score PHQ-9: Total score 0 11/17/24 16:29 Thrive Assessment: Date of Thrive Assessment Date Thrive assessed 11/17/24 11/17/24 15:51 Currently or been in a relationship where the following occur: No concerns reported Const General: alert; No acute distress Eyes Conjunctivae: conjunctivae normal Resp Auscultation: clear to auscultation bilaterally Cardio Rate: regular rate Rhythm: regular rhythm GI Inspection: Yes normal to inspection Extrem General: Yes normal to inspection and No edema Coding Level of Care Code Est Pt Level 4 (54485) Complex EM visit Add On G2211 Diagnoses Type 2 diabetes mellitus with hyperglycemia E11.65 Hypertension I10 Hypercholesterolemia E78.00 ESRD (end stage renal disease) N18.6 BPH w urinary obs/LUTS N40.1; N13.8 Cloudy urine R82.90 Assessment & Plan Assessment & Plan (1) Type 2 diabetes mellitus with hyperglycemia: Code(s): E11.65 - Type 2 diabetes mellitus with hyperglycemia Category: Medical Plan: T Decrease the amount of carbohydrate intake, pasta, bread, rice and potatoes are all sugar and that is aside from all the sweet stuff, remember that fruits are good but they are Sweet also. Hemoglobin A1c goal of less than 7.0 on diet control (2) Hypertension: Code(s): I10 - Essential (primary) hypertension Category: Medical Plan: Continue with blood pressure medication. Decrease salt intake and exercise on carvedilol 12.5 mg twice a day amlodipine 5 mg once once a day (3) Hypercholesterolemia: Code(s): E78.00 - Pure hypercholesterolemia, unspecified Category: Medical Plan: Avoid fried foods, chicken skin, eggs, butter margarine, pastries and meat. Be it pork or beef they have a lot of cholesterol on atorvastatin 10 mg once a day. Discussed my concerns about triglyceride being elevated to 300+. Concern about pancreatitis. Medication can not be given due to very low GFR (4) ESRD (end stage renal disease): Comment: L arm fistula dialysis 06/2023 Code(s): N18.6 - End stage renal disease Category: Medical Plan: Continue with dialysis (5) BPH w urinary obs/LUTS: Code(s): N40.1 - Benign prostatic hyperplasia with lower urinary tract symptoms; N13.8 - Other obstructive and reflux uropathy Category: Medical Plan: On tamsulosin finasteride (6) Cloudy urine: Code(s): R82.90 - Unspecified abnormal findings in urine Category: Medical Plan History of Present Illness The patient is a 79-year-old male presenting for a follow-up visit for hypertension, hypercholesterolemia, diabetes mellitus, and monitoring of prostate-specific antigen (PSA) levels. He has a history of end-stage renal disease on dialysis since 2022. The patient reports a 12-pound weight loss and episodes of intermittent hematuria. His diabetes is managed with an A1c of 6.0%, while his cholesterol levels are under control with atorvastatin. Hypertriglyceridemia remains an issue with levels at 360 mg/dL, and treatment options such as fenofibrate are avoided due to contraindications with kidney function. The patient reports seeing a urologist for further evaluation of an elevated PSA level of 26. Additionally, the patient has been diagnosed with a cataract in the left eye, with possible surgery anticipated. Health Maintenance - Vaccinations up to date: Shingles, RSV, Pneumonia, Influenza - Discussion on low-potassium and low-phosphate diet for dialysis - Encouragement to maintain a hydration level of 40 ounces daily - Walking 1.5 hours a day, four days a week, outside of dialysis days - Low-cholesterol diet with attention to triglyceride levels - Review of medications for hypertension, cholesterol, and renal care Social History - The patient is actively engaged in family life and enjoys playing the [employer] - Does not consume unhealthy foods like pepperoni or kielbasa and follows a clean, lean protein-rich diet - Complies with dietary restrictions aligned with renal care, including low potassium and low phosphate intake - Regular exercise includes walking 1.5 hours daily, four days a week Review of Systems - Cardiovascular: Reports decreased blood pressure management with carvedilol and amlodipine - Gastrointestinal: Denies issues with bowel movements, no longer requires dulcolax - Genitourinary: Reports intermittent hematuria, changes in urination pattern, cloudy urine, with advice to increase fluid intake - Musculoskeletal: Reports regular walking regimen without issues - Visual: Reports cataracts in the left eye, possible surgery in the near future - General: Reports feeling better with weight loss, no acute malaise Physical Exam Results - Labs: Hemoglobin 10.2 g/dL, A1c 6.0%, Creatinine 2.73 mg/dL, LDL cholesterol 35 mg/dL, Elevated Triglycerides 360 mg/dL, PSA 26 ng/mL - Imaging: Cataract in left eye pending evaluation Plan I managed the patient's chronic conditions with a specific and focused approach. Hypertension is addressed with carvedilol and amlodipine. His LDL cholesterol management with atorvastatin continues to prove effective. Due to renal contraindications, I advised dietary management for elevated triglycerides. I recommended a urinalysis to further investigate episodes of hematuria. The patient's diabetes remains controlled with dietary management, maintaining the A1c goal. I emphasized follow-up with his urologist for elevated PSA levels and to determine further actions for his BPH. His cataract in the left eye may need surgery, contingent on symptom progression. Regular follow-up for blood pressure, cholesterol, anemia, and renal function is planned. Patient was informed and verbally consented to the use of an ambient scribe for clinic note documentation during this visit. Discussion Notes I discussed the patient's diagnosis of hypertension, hypercholesterolemia, diabetes management, and elevated PSA. The benefits of the current medication regimen for blood pressure and cholesterol were reviewed, and the risks of high triglycerides and potential pancreatitis were addressed, noting that fenofibrate is contraindicated. I advised dietary changes and regular exercise as an alternative management for triglycerides due to renal concerns. I discussed the follow-up plan for evaluating elevated PSA with urology and emphasized the importance of follow-up to monitor the potential need for cataract surgery for his left eye. I highlighted the importance of avoiding certain medications due to renal function and advised regular monitoring via follow-up visits and urologist evaluations. Patient Instructions - Continue taking carvedilol and amlodipine for blood pressure as prescribed. - Maintain a healthy diet focused on low cholesterol and low-potassium intake. - Engage in regular physical activity, walking four days a week, 1.5 hours daily. - Schedule an appointment with your urologist within three weeks to evaluate PSA levels. - Monitor and limit foods contributing to high triglycerides, aiming to lower them through diet. - Drink 40 ounces of water daily to assist with urination and reduce cloudy urine. - Follow up for a urinalysis to further assess episodes of hematuria. - Plan a follow-up visit to assess the need for cataract surgery based on symptom progression. - Contact the clinic if experiencing any new or worsening symptoms. Orders: Orders UA CC w/rflx Micro + Cult Today R30.0 - Dysuria Medications: New amlodipine 5 mg QD except for Dialysis days not taken 5 mg PO DAILY 90 tabs 2RF E78.00 - Pure hypercholesterolemia, unspecified Refilled atorvastatin 10 mg PO DAILY 90 tabs 2RF E78.00 - Pure hypercholesterolemia, unspecified
--- OUTSIDE RECORDS SUMMARY | 2024-11-17 17:51 | XMS_ITS | Encounter Summary ---
Author Organization [facility] Address [address] [place] [address] Phone Care Team Providers Care Building Inspection Engineer Name Role Phone Unavailable Primary Care Provider Unavailabl e Encounter Details Date Type Department Care Team (Late st Contact Info) Description 11/20/2022 Documentation Only [facility] [address] [place] [address] Shubham Mayer MD [address] [place] [phone] Social History Tobacco Use Types Packs/Day Years [...]
--- OUTSIDE RECORDS SUMMARY | 2024-11-17 17:51 | XMS_ITS | Encounter Summary ---
Author Organization [facility] Address [address] [place] [address] Phone Care Team Providers Care Customs And Immigration Officer Name Role Phone Unavailable Primary Care Provider Unavailabl e Reason for Visit * Reason Comments Med Refill Encounter Details Date Type Department Care Team (Late st Contact Info) Description 08/09/2022 Refill [facility] [place], [address] [place] [address] Shubham Mayer MD [address] [place] [phone] Social History Tobacco Use Types Packs/Day Years [...]
--- OUTSIDE RECORDS SUMMARY | 2024-11-17 17:51 | XMS_ITS | Encounter Summary ---
Author Organization [facility] Address [address] [place] [address] Phone Care Team Providers Care Prison Warden Name Role Phone Unavailable Primary Care Provider Unavailabl e Encounter Details Date Type Department Care Team (Late st Contact Info) Description 01/30/2023 Documentation Only [facility] [address] [place] [address] Shubham Mayer MD [address] [place] [phone] Social History Tobacco Use Types Packs/Day Years [...]
--- OUTSIDE RECORDS SUMMARY | 2024-11-17 17:51 | XMS_ITS | Encounter Summary ---
Author Organization [facility] Address [address] [place] [address] Phone Care Team Providers Care Licensed Physical Therapist Name Role Phone Unavailable Primary Care Provider Unavailabl e Encounter Details Date Type Department Care Team (Late st Contact Info) Description 04/16/2023 Documentation Only [facility] [address] [place] [address] Shubham Mayer MD [address] [place] [phone] Social History Tobacco Use Types Packs/Day Years [...]
--- OUTSIDE RECORDS SUMMARY | 2024-11-17 17:51 | XMS_ITS | Clinical Summary ---
Author Organization [facility] Address [address] [address] Phone Care Team Providers Care Clinical Rehabilitation Specialist Name Role Phone Unavailable Primary Care [...] Encounters Date Type Department Care Team Description 11/11/2024 Treatment [facility] [address] [phone] Quan Peacock MD End stage renal disease; Dependence on renal dialysis 11/09/2024 Treatment [facility] [address] [phone] Quan Peacock MD End stage renal disease; Dependence on renal dialysis 11/04/2024 Treatment [facility] [place] [id number] [phone] Quan Peacock MD End stage renal disease; Dependence on renal dialysis 10/31/2024 Treatment [facility] [address] [phone] Quan Peacock MD End stage renal disease; Dependence on renal dialysis 10/24/2024 Treatment [facility] [address] [address] Quan Peacock MD End stage renal disease; Dependence on renal dialysis 10/14/2024 Treatment [facility] [address] [address] Quan Peacock MD End stage renal disease; Dependence on renal dialysis 10/07/2024 Treatment [facility] [address] [phone] Quan Peacock MD End stage renal disease; Dependence on renal dialysis 09/28/2024 Treatment [facility] [address] [phone] Quan Peacock MD 09/19/2024 Treatment [facility] [address] [phone] Quan Peacock MD 09/12/2024 Treatment [facility] [address] [phone] Quan Peacock MD 09/09/2024 Treatment [facility] [address] [address] Quan Peacock MD 09/02/2024 Treatment [facility] [address] [address] Quan Peacock MD 08/31/2024 Orders Only [facility] [address] [address] Quan Peacock MD 08/19/2024 Treatment [facility] [address] [phone] Quan Peacock MD from Last 3 Months Immunizations Immunization Administration Dates Next Due Influenza Split High [...] Risk Dialysis 4-dose series) 1965 Influenza Vaccine (Season Ended) 2025 06/22/2020, 06/22/2020, 07/21/2019, Additional history exists Pneumococcal Vaccine: 50+ Years Completed 12/28/2017, 06/30/2016, 07/09/2010 Procedures Procedure Name Priority Date/Time Associated Diagnosis Comments FERRITIN Routine 11/09/2024 3:00 AM EDT PTH, INTACT Routine 11/09/2024 3:00 AM EDT TRANSFERRIN SATURATION Routine 3:00 AM EDT PROTEIN, TOTAL, SERUM Routine 11/09/2024 3:00 AM EDT MAGNESIUM Routine 11/09/2024 3:00 AM EDT LIPID PANEL Routine 11/09/2024 3:00 AM EDT ELECTROLYTE PANEL Routine 11/09/2024 3:0 0 AM EDT LIH (HC) Routine 11/09/2024 3:00 AM EDT LACTATE DEHYDROGENASE Routine 11/09/2024 3:00 AM EDT GLUCOSE, RANDOM Routine 11/09/2024 3:00 AM EDT CREATININE, SERUM Routine 11/09/2024 3:0 0 AM EDT BILIRUBIN, TOTAL Routine 11/09/2024 3:00 AM EDT ALT Routine 11/09/2024 3:00 AM EDT AST Routine 11/09/2024 3:00 AM EDT ALKALINE PHOSPHATASE Routine 11/09/2024 3:00 AM EDT CALCIUM PHOSPHORUS PRODUCT, ADJUSTED (HC) Routine 11/09/2024 3:00 AM EDT CBC AND DIFFERENTIAL Routine 11/09/2024 3:00 AM EDT KT/V NATURAL LOG, URR (HC) Routine 11/09/2024 3:00 AM EDT HEMOGLOBIN Routine 11/07/2024 3:00 AM EDT LIH (HC) Routine 11/02/2024 3:00 AM EDT POTASSIUM Routine 11/02/2024 3:00 AM EDT HEMOGLOBIN Routine 11/02/2024 3:00 AM EDT HEMOGLOBIN Routine 10/26/2024 3:00 AM EDT POTASSIUM Routine 10/26/2024 3:00 AM EDT LIH (HC) Routine 10/26/2024 3:00 AM EDT LIH (HC) Routine 10/19/2024 3:00 AM EDT POTASSIUM Routine 10/19/2024 3:00 AM EDT TRANSFERRIN SATURATION Routine 3:00 AM EST PROTEIN, TOTAL, SERUM Routine 10/12/2024 3:00 AM EST MAGNESIUM Routine 10/12/2024 3:00 AM EST ELECTROLYTE PANEL Routine 10/12/2024 3:0 0 AM EST LACTATE DEHYDROGENASE Routine 10/12/2024 3:00 AM EST LIH (HC) Routine 10/12/2024 3:00 AM EST CREATININE, SERUM Routine 10/12/2024 3:0 0 AM EST GLUCOSE, RANDOM Routine 10/12/2024 3:00 AM EST AST Routine 10/12/2024 3:00 AM EST BILIRUBIN, TOTAL Routine 10/12/2024 3:00 AM EST ALKALINE PHOSPHATASE Routine 10/12/2024 3:00 AM EST CALCIUM PHOSPHORUS PRODUCT, ADJUSTED (HC) Routine 10/12/2024 3:00 AM EST ALT Routine 10/12/2024 3:00 AM EST FERRITIN Routine 10/12/2024 3:00 AM EST CBC AND DIFFERENTIAL Routine 10/12/2024 3:00 AM EST KT/V NATURAL LOG, URR (HC) Routine 10/12/2024 3:00 AM EST LIH (HC) Routine 10/05/2024 3:00 AM EST POTASSIUM Routine 10/05/2024 3:00 AM EST HEMOGLOBIN Routine 10/03/2024 3:00 AM EST LIH (HC) Routine 09/28/2024 3:00 AM EST POTASSIUM Routine 09/28/2024 3:00 AM EST LIH (HC) Routine 09/21/2024 3:00 AM EST POTASSIUM Routine [...] EST POTASSIUM Routine 08/24/2024 3:00 AM EST from Last 3 Months Results * LIH (11/09/2024 3:00 AM EDT) Only the most recent of12 resultswithin the time period is included. Lipemia Normal Normal [facility] Icterus Normal Normal [facility] Hemolysis Normal Normal [facility] 11/09/2024 3:00 AM EDT 11/11/2024 5:13 PM EDT us Quan Peacock MD LAB [id number] SOLICITED RESULTS Final Result [facility] [address] [place] [address] * (ABNORMAL) Kt/V Natural Log, URR (11/09/2024 3:00 AM EDT) Only the most recent of3 resultswithin the time period is included. Treatment Time 198 min [facility] Pre-Weight, lb 89.3 kg [facility] Post-Weight, lb 87.4 kg [facility] Ultrafiltration Rate 7 <=13 mL/kg/hr [facility] Comment: Recommend achieving Ultrafiltration Rate (UFR) <=10 mL/kg/hr References: Ralph MARIE et al. Kidney Int. 2010; 79(2):250-257 BUN 67(H) 7 - 25 mg/dL [facility] BUN Post Dialysis 18 7 - 25 mg/dL [facility] UREA REDUCTION RATIO (%) 73 >=65 % [facility] Kt/V Natural Log 1.48 >=1.2 [facility] 11/09/2024 3:00 AM EDT 11/11/2024 4:56 PM EDT us Quan Peacock MD LAB [id number] SOLICITED RESULTS Final Result Performing Organization Address [facility] de Phone Number [facility]PS [facility] [address] [place] [address] * (ABNORMAL) Calcium Phosphorus Product, Adjusted (11/09/2024 3:00 AM EDT) Only the most recent of3 resultswithin the time period is included. Albumin 4.5 3.6 - 5.4 g/dL [facility] Calcium 8.7 8.6 - 10.3 mg/dL [facility] Phosphorus, Serum 5.6(H) 2.5 - 5.0 mg/dL [facility] Ca*PO4 48.7 <55.0 mg2/dL2 [facility] Calcium, Adjusted Total 8.7 8.6 - 10.3 mg/dL [facility] CA*PO4 CORRCTD 48.7 <55.0 mg2/dL2 [facility] 11/09/2024 3:00 AM EDT 11/11/2024 5:13 PM EDT Quan Peacock MD LAB [id number] SOLICITED RESULTS Final Result Performing Organization Address [facility] Co de Phone Number [facility] [address] [place] [address] * (ABNORMAL) TSAT (11/09/2024 3:00 AM EDT) Only the most recent of3 resultswithin the time period is included. [facility] Iron 62(L) 65 - 175 ug/dL [facility] Transferrin 172(L) 215 - 365 mg/dL [facility] TIBC 241 211 - 406 ug/dL [facility] Iron Saturation (TSat) 26 22 - 52 % [facility] 11/09/2024 3:00 AM EDT 11/11/2024 5:13 PM EDT Quan Peacock MD LAB BLOOD ORDERABLES Final Re sult Performing Organization Address [facility] de Phone Number [facility] [address] [place] [address] * (ABNORMAL) CBC and Differential (11/09/2024 3:00 AM EDT) Only the most recent of3 resultswithin the time period is included. [facility] DIFFERENTIAL MANUAL, 2 Not Indicated [facility] White Blood Cells 7.2 4.2 - 9.1 K/uL [facility] RBC 3.41(L) 4.63 - 6.08 M/uL [facility] Hgb 10.2(L) 13.7 - 17.5 g/dL [facility] Hemoglobin x 3 30.6(L) 41.1 - 52.5 g/dL [facility] Hematocrit 32.2(L) 40.1 - 51.0 % [facility] MCV 94.4(H) 79.0 - 92.2 fL [facility] MCH 29.9 25.7 - 32.2 pg [facility] MCHC 31.7(L) 32.3 - 36.5 g/dL [facility] Platelets 244 163 - 337 K/uL [facility] RDW 16.2(H) 11.6 - 14.4 % [facility] Neutrophils Relative 60.6 34.0 - 67.9 % [facility] Lymphocytes Relative 28.1 21.8 - 53.1 % [facility] Monocytes 7.6 5.3 - 12.2 % [facility] Eosinophils Relative 2.5 0.8 - 7.0 % [facility] Basophils Relative 0.8 0.2 - 1.2 % [facility] Immature Granulocytes 0.4 0.0 - 1.0 % [facility] 11/09/2024 3:00 AM EDT 11/11/2024 5:17 PM EDT Quan Peacock MD LAB BLOOD ORDERABLES Final Re sult Performing Organization Address [facility] Co de Phone Number [facility] [address] [place] [address] * ALT (11/09/2024 3:00 AM EDT) Only the most recent of3 resultswithin the time period is included. ALT (SGPT) 16 10 - 49 U/L [facility] 11/09/2024 3:00 AM EDT 11/11/2024 5:13 PM EDT us Quan Peacock MD LAB BLOOD ORDERABLES Final Re sult Performing Organization Address [facility] de Phone Number [facility] [address] [place] [address] * AST (11/09/2024 3:00 AM EDT) Only the most recent of3 resultswithin the time period is included. AST (SGOT) 14 <34 U/L [facility] 11/09/2024 3:00 AM EDT 11/11/2024 5:13 PM EDT us Quan Peacock MD LAB BLOOD ORDERABLES Final Re sult Performing Organization Address [facility] de Phone Number [facility] [address] [place] [address] * Protein, total (11/09/2024 3:00 AM EDT) Only the most recent of3 resultswithin the time period is included. Total Protein 7.4 6.4 - 8.9 g/dL [facility] 11/09/2024 3:0 0 AM EDT 11/11/2024 5:13 PM EDT Quan Peacock MD LAB BLOOD ORDERABLES Final Re sult Performing Organization Address [facility] Co de Phone Number [facility] [address] [place] [address] * (ABNORMAL) Alkaline phosphatase (11/09/2024 3:00 AM EDT) Only the most recent of3 resultswithin the time period is included. Alkaline Phosphatase 45(L) 46 - 116 U/L [facility] 11/09/2024 3:00 AM EDT 11/11/2024 5:13 PM EDT Quan Peacock MD LAB BLOOD ORDERABLES Final Re sult Performing Organization Address [facility] de Phone Number [facility] [address] [place] [address] * PTH, Intact (11/09/2024 3:00 AM EDT) PTH, Intact 387 160 - 721 pg/mL [facility] Comment: Suggested (KDIGO) ESRD maintenance range is two to nine times the upper normal limit (80.1 pg/mL) for the laboratory. 11/09/2024 3:00 AM EDT 11/11/2024 5:13 PM EDT Quan Peacock MD LAB BLOOD ORDERABLES Final Re sult Performing Organization Address [facility] de Phone Number [facility] [address] [place] [address] * Magnesium (11/09/2024 3:00 AM EDT) Only the most recent of3 resultswithin the time period is included. Magnesium 2.1 1.9 - 2.7 mg/dL [facility] 11/09/2024 3:00 AM EDT 11/11/2024 5:13 PM EDT us Quan Peacock MD LAB BLOOD ORDERABLES Final Re sult Performing Organization Address [facility] Co de Phone Number [facility] [address] [place] [address] * Lactate dehydrogenase (11/09/2024 3:00 AM EDT) Only the most recent of3 resultswithin the time period is included. LDH 225 120 - 246 U/L [facility] 11/09/2024 3:00 AM EDT 11/11/2024 5:13 PM EDT us Quan Peacock MD LAB BLOOD ORDERABLES Final Re sult Performing Organization Address [facility] de Phone Number [facility] [address] [place] [address] * (ABNORMAL) Glucose, random (11/09/2024 3:00 AM EDT) Only the most recent of3 resultswithin the time period is included. Glucose 129(H) 74 - 109 mg/dL [facility] 11/09/2024 3:00 AM EDT 11/11/2024 5:13 PM EDT us Quan Peacock MD LAB BLOOD ORDERABLES Final Re sult Performing Organization Address [facility] de Phone Number [facility] [address] [place] [address] * (ABNORMAL) Ferritin (11/09/2024 3:00 AM EDT) Only the most recent of3 resultswithin the time period is included. Ferritin 1,469(H) 22 - 322 ng/mL [facility] 11/09/2024 3:00 AM EDT 11/11/2024 5:13 PM EDT us Quan Peacock MD LAB BLOOD ORDERABLES Final Re sult Performing Organization Address [facility] de Phone Number [facility] [address] [place] [address] * (ABNORMAL) Creatinine, serum (11/09/2024 3:00 AM EDT) Only the most recent of3 resultswithin the time period is included. Creatinine 4.85(H) 0.70 - 1.30 mg/dL [facility] 11/09/2024 3:00 AM EDT 11/11/2024 5:13 PM EDT us Quan Peacock MD LAB BLOOD ORDERABLES Final Re sult Performing Organization Address [facility] de Phone Number [facility] [address] [place] [address] * Bilirubin, total (11/09/2024 3:00 AM EDT) Only the most recent of3 resultswithin the time period is included. Total Bilirubin 0.3 0.3 - 1.2 mg/dL [facility] 11/09/2024 3:00 AM EDT 11/11/2024 5:13 PM EDT us Quan Peacock MD LAB BLOOD ORDERABLES Final Re sult Performing Organization Address [facility] de Phone Number [facility] [address] [place] [address] * (ABNORMAL) Lipid panel (11/09/2024 3:00 AM EDT) Cholesterol 137 <200 mg/dL [facility] Comment: Optimal: ?<200 Borderline: ? 200-239 Higher Risk: ?>239 Triglycerides 311(A) <150 mg/dL [facility] Comment: Optimal: ?<150 Borderline High: ??150-199 High: ? 200-499 Very High: ?>499 HDL 27(A) >59 mg/dL [facility] Comment: Desirable: ?>59 Higher Risk: ?<40 LDL-Calc 48 <100 mg/dL [facility] Comment: Optimal: ?<100 Above Optimal: ?100-129 Borderline High: ??130-159 High: ? 160-189 Very High: ?>189 VLDL Cholesterol Juaquin 62(A) <30 mg/dL [facility] Comment: Optimal: ?<30 Borderline High: ??30-39 High: ? 40-99 Very High: ?>99 Chol/HDL Ratio 5.1(A) <3.3 [facility] Comment: Optimal: ?<3.3 Higher Risk: ?>6.2 11/09/2024 3:00 AM EDT 11/11/2024 5:13 PM EDT Quan Peacock MD LAB BLOOD ORDERABLES Final Re sult Performing Organization Address [facility] de Phone Number [facility] [address] [place] [address] * (ABNORMAL) Electrolyte panel (11/09/2024 3:00 AM EDT) Only the most recent of3 resultswithin the time period is included. Sodium 133(L) 136 - 145 mEq/L [facility] Potassium 4.1 3.4 - 5.0 mEq/L [facility] Chloride 95(L) 98 - 107 mEq/L [facility] Bicarbonate (CO2) 23 21 - 31 mEq/L [facility] Anion Gap 15(H) 3 - 14 mEq/L [facility] 11/09/2024 3:00 AM EDT 11/11/2024 5:13 PM EDT Quan Peacock MD LAB BLOOD ORDERABLES Final Re sult Performing Organization Address [facility] Co de Phone Number [facility] [address] [place] [address] * (ABNORMAL) Hemoglobin (11/07/2024 3:00 AM EDT) Only the most recent of4 resultswithin the time period is included. Hgb 9.9(L) 13.7 - 17.5 g/dL [facility] Hemoglobin x 3 29.7(L) 41.1 - 52.5 g/dL [facility] 11/07/2024 3:00 AM EDT 11/08/2024 1:22 PM EDT Quan Peacock MD LAB BLOOD ORDERABLES Final Re sult Performing Organization Address [facility] Co de Phone Number [facility] [address] [place] [address] * Potassium (11/02/2024 3:00 AM EDT) Only the most recent of9 resultswithin the time period is included. Potassium 4.1 3.4 - 5.0 mEq/L [facility] 11/02/2024 3:00 AM EDT 11/03/2024 12:45 PM EDT Quan Peacock MD LAB BLOOD ORDERABLES Final Re sult Performing Organization Address [facility] de Phone Number [facility] [address] [place] [address] from Last [address] [place] [address]
--- OUTSIDE RECORDS SUMMARY | 2024-11-17 17:51 | XMS_ITS | Encounter Summary ---
Author Organization [facility] Address [address] [place] [phone] Phone Care Team Providers Care Informatics Educator Name Role Phone Unavailable Primary Care Provider Unavailabl e Encounter Details Date Type Department Care Team ([facility] st Contact Info) Description 11/11/2024 Treatment [facility] [address] [phone] Kelli Calvin MD [address] [phone] End stage renal disease; Dependence on renal dialysis Social History Tobacco Use Types Packs/Day Years Used Date Smoking Tobacco: Never Smokeless Tobacco: Never Sex and Gender Information Value Date Recorded Sex Assigned at Not on file Legal Sex Male 11:55 AM EDT Gender Identity Not on file Sexual Orientation Not on file documented as of this encounter Miscellaneous Notes * Dialysis Note - Kelli Calvin MD - 11/11/2024 12:00 AM EDT BASIC NOTE Patient: Ministerio French : 1945 Note Author: KELLI CALVIN MD Service Date: 11/11/2024 This patient was personally seen for a basic visit as part of routine monthly dialysis care for end stage renal disease. Attending Environmental Health Officer: KELLI CALVIN Dialysis Location: [facility] Schedule: Shift: OVERVIEW Patient is stable. ADEQUACY ASSESSMENT Kt/V, Natural Log 1.43 (10/12/24) 1.48 (09/14/24) 1.44 (08/17/24) UREA REDUCTION RATIO (%) 72 (10/12/24) 73 (09/14/24) 72 (08/17/24) BUN 60 (10/12/24) 60 (09/14/24) 76 (08/17/24) BUN Post Dialysis 17 (10/12/24) 16 (09/14/24) 21 (08/17/24) Creatinine 3.92 (10/12/24) 5.44 (09/14/24) 6.52 (08/17/24) Bicarbonate (CO2) 22 (10/12/24) 24 (09/14/24) 25 (08/17/24) Sodium 134 (10/12/24) 135 (09/14/24) 130 (08/17/24) ANEMIA ASSESSMENT Hgb 9.9 (11/07/24) 9.8 (11/02/24) 9.6 (10/26/24) Iron Saturation (TSat) 19 (10/12/24) 16 (09/14/24) 29 (08/17/24) Ferritin 860 (10/12/24) 947 (09/14/24) 1,268 (08/17/24) Iron 46 (10/12/24) 44 (09/14/24) 65 (08/17/24) TIBC 241 (10/12/24) 274 (09/14/24) 223 (08/17/24) MCV 96.6 (10/12/24) 98.1 (09/14/24) 94.1 (08/17/24) Platelets 332 (10/12/24) 201 (09/14/24) 210 (08/17/24) BMM ASSESSMENT Calcium, Adjusted Total 8.9 10/12/24 9.0 09/14/24 9.0 08/17/24 Calcium 8.9 10/12/24 9.0 09/14/24 9.0 08/17/24 Phosphorus, Serum 3.9 10/12/24 5.3 09/14/24 5.4 08/17/24 Ca*PO4 34.7 10/12/24 47.7 09/14/24 48.6 08/17/24 PTH, Intact 271 08/17/24 Magnesium 1.8 10/12/24 1.8 09/14/24 1.9 08/17/24 Alkaline Phosphatase 43 10/12/24 33 09/14/24 47 08/17/24 Aluminum 4 08/17/24 NUTRITION ASSESSMENT Albumin 4.0 10/12/24 4.6 09/14/24 4.5 08/17/24 Potassium 4.1 11/02/24 4.3 10/26/24 4.6 10/19/24 ADDITIONAL LABS White Blood Cells 8.9 (10/12/24) 6.9 (09/14/24) 7.6 (08/17/24) Cholesterol 166 (08/17/24) HDL 30 (08/17/24) LDL-Calc See Comment (08/17/24) Triglycerides 549 (08/17/24) Hep B Surface Antibody 459 (08/17/24) Hepatitis B Surface Ab >1,000 (01/11/24) Uric Acid 8.1 (08/17/24) ADDITIONAL COMMENT COMMENTS: 09/12/24 stable 09/19/24 doing well 09/28/24 no new issues 10/07/24 same 10/14/24 stable 10/24/24 doing ok 10/31.25 stable 11/04/24 no new issues 11/09/24 no new issues 11/11/24 stable 07/13/24 doing well stable 07/27/24 no new issues 08/02/24 stable 08/12/23 doing ok 08/19/24 stable 09/02/24 stable 09/09/24 no new issues 04/13/24 stable 05/04/24 doing ok 05/11/24 stable 05/18/24 no need to issues 05/25/24 stable 06/03/24 doing ok 06/17/24 stable 06/24/24 no new issues 06/27/24 doong well 07/05/24 stable Signed by: KELLI CALVIN MD on 11/11/2024 at 06:00:30 PM Transcribed by: KELLI CALVIN MD on 11/11/2024 at 06:00:30 PM documented in this encounter Plan of Treatment Not on file documented as of this encounter Visit Diagnoses Diagnosis End stage renal disease Dependence on renal dialysis documented in this encounter
--- OUTSIDE RECORDS SUMMARY | 2024-11-17 17:51 | XMS_ITS | Encounter Summary ---
Author Organization [facility] [place] [facility], Address [address] [place] [address] Phone Care Team Providers Care Hammer Fitter Name Role Phone Unavailable Primary Care Provider Unavailabl e Encounter Details Date Type Department Care Team (Late st Contact Info) Description 06/02/2023 Documentation Only [facility], [address] [place] [address] Yoel Davey, [address] [place] [phone] Social History Tobacco Use Types Packs/Day Years [...]
--- OUTSIDE RECORDS SUMMARY | 2024-11-17 17:51 | XMS_ITS ---
Author Name Geetha, Clinic Address [address] [place] [id number] Phone [phone] Organization [facility] e, NA DOCUMENT DISCLAIMER Multiple document versions may exist, please be sure you review the latest version. The information in the [facility] Continuity of Care Document represents a summary of certain health and medical information. It may not contain the complete medical history for the patient and should be independently verified. The represented time in the document is Eastern Time. PROBLEMS No Known Problems ALLERGIES AND ADVERSE REACTIONS No Known Allergies [...]
--- OUTSIDE RECORDS SUMMARY | 2024-11-17 17:51 | XMS_ITS | Encounter Summary ---
Author Organization [facility] Address [address] [place] [address] Phone Care Team Providers Care Middle School Teacher Name Role Phone Unavailable Primary Care Provider Unavailabl e Encounter Details Date Type Department Care Team (Late st Contact Info) Description 04/21/2023 Documentation Only [facility] [address] [place] [address] hSubham Mayer MD [address] [place] [id number] Social History Tobacco Use Types Packs/Day Years [...]
--- OUTSIDE RECORDS SUMMARY | 2024-11-17 17:51 | XMS_ITS | Encounter Summary ---
Author Organization [facility], Address [address] [place] [address] Phone Care Team Providers Care Truck Rental Service Attendant Name Role Phone Unavailable Primary Care Provider Unavailabl e Reason for Visit * Reason Comments Med Refill Encounter Details Date Type Department Care Team ([facility] st Contact Info) Description 06/01/2024 Refill [facility], [address] [place] [phone] Shubham Mayer MD [address] [place] [phone] Social History Tobacco Use Types Packs/Day Years [...] 3:11 PM EST Quan Peacock MD LAB [id number] SOLICITED RESULTS Final Result Performing Organization Address [facility] de Phone Number [facility] [address] [place] [address] * Potassium (08/24/2024 3:00 AM EST) Pathologist [facility] Potassium 4.0 3.4 - 5.0 mEq/L [facility] 08/24/2024 3:00 AM EST 08/25/2024 3:11 PM EST Quan Peacock MD LAB BLOOD ORDERABLES Final Re sult Performing Organization Address [facility] de Phone Number [facility] [address] [place] [address] * Aluminum level (08/17/2024 3:00 AM EST) Pathologist [facility] Aluminum 4 1 - 20 ug/L [facility] 08/17/2024 3:00 AM EST 08/18/2024 12:37 PM EST Quan Peacock MD LAB BLOOD ORDERABLES Final Re sult Performing Organization Address [facility] de Phone Number [facility] [address] [place] [address] * Confirmation Test HCV (08/17/2024 3:00 AM EST) Pathologist [facility] Hep C Ab Confirmation Not needed [facility] 08/17/2024 3:00 AM EST 08/18/2024 1:26 PM EST Quan Peacock MD LAB BLOOD ORDERABLES Final Re sult Performing Organization Address [facility] Co de Phone Number [facility] [address] [place] [address] * HEPATITIS C ABS W/REFLEX RNA DETECTR (08/17/2024 3:00 AM EST) Pathologist [facility] Hep C Virus Ab Non-Reacti ve Non-Reacti ve [facility] 08/17/2024 3:00 AM EST 08/18/2024 12:58 PM EST Quan Peacock MD LAB [id number] SOLICITED RESULTS Final Result Performing Organization Address [facility] de Phone Number [facility] [address] [place] [address] * Hepatitis B Surface Ag w/Reflex Confirmation (08/17/2024 3:00 AM EST) Pathologist [facility] Hep B Surface Antigen Negative Negative [facility] 08/17/2024 3:00 AM EST 08/18/2024 12:58 PM EST Quan Peacock MD LAB BLOOD ORDERABLES Final Re sult Performing Organization Address [facility] de Phone Number [facility] [address] [place] [address] * (ABNORMAL) Uric Acid (08/17/2024 3:00 AM EST) [facility] Uric Acid 8.1(H) 4.4 - 7.6 mg/dL [facility] 08/17/2024 3:00 AM EST 08/18/2024 12:58 PM EST Quan Peacock MD LAB BLOOD ORDERABLES Final Re sult Performing Organization Address [facility] de Phone Number [facility] [address] [place] [address] * (ABNORMAL) TSAT (08/17/2024 3:00 AM EST) Pathologist [facility] Iron 65 65 - 175 ug/dL [facility] Transferrin 159(L) 215 - 365 mg/dL [facility] TIBC 223 211 - 406 ug/dL [facility] Iron Saturation (TSat) 29 22 - 52 % [facility] 08/17/2024 3:00 AM EST 08/18/2024 12:58 PM EST Quan Peacock MD LAB BLOOD ORDERABLES Final Re sult Performing Organization Address [facility] de Phone Number [facility] [address] [place] [address] * Protein, total (08/17/2024 3:00 AM EST) Total Protein 7.3 6.4 - 8.9 g/dL [facility] 08/17/2024 3:00 AM EST 08/18/2024 12:58 PM EST Quan Peacock MD LAB BLOOD ORDERABLES Final Re sult Performing Organization Address [facility] de Phone Number [facility] [address] [place] [address] * Magnesium (08/17/2024 3:00 AM EST) Pathologist [facility] Magnesium 1.9 1.9 - 2.7 mg/dL [facility] 08/17/2024 3:00 AM EST 08/18/2024 12:58 PM EST Quan Peacock MD LAB BLOOD ORDERABLES Final Re sult Performing Organization Address [facility] de Phone Number [facility] [address] [place] [address] * (ABNORMAL) Electrolyte panel (08/17/2024 3:00 AM [...] Final Re sult [facility] [address] [place] [address] * (ABNORMAL) Lipid panel (08/17/2024 3:00 AM [...] ORDERABLES Final Re sult Performing Organization Address [facility] Co de Phone Number [facility] [address] [place] [address] * LIH (08/17/2024 3:00 AM EST) Lipemia Normal Normal [facility] Icterus Normal Normal [facility] Hemolysis Normal Normal [facility] 08/17/2024 3:00 AM EST 08/18/2024 12:58 PM EST us Quan Peacock MD LAB [id number] SOLICITED RESULTS Final Result Performing Organization Address [facility] Phone Number [facility] [address] [place] [address] * Lactate dehydrogenase (08/17/2024 3:00 AM EST) Pathologist [facility] LDH 203 120 - 246 U/L [facility] 08/17/2024 3:00 AM EST 08/18/2024 12:58 PM EST us Quan Peacock MD LAB BLOOD ORDERABLES Final Re sult Performing Organization Address [facility] de Phone Number [facility] [address] [place] [address] * (ABNORMAL) Glucose, random (08/17/2024 3:00 AM EST) Pathologist [facility] Glucose 290(H) 74 - 109 mg/dL [facility] 08/17/2024 3:00 AM EST 08/18/2024 12:58 PM EST us Quan ePacock MD LAB BLOOD ORDERABLES Final Re sult Performing Organization Address [facility] de Phone Number [facility] [address] [place] [address] * (ABNORMAL) Creatinine, serum (08/17/2024 3:00 AM EST) Pathologist [facility] Creatinine 6.52(H) 0.70 - 1.30 mg/dL [facility] 08/17/2024 3:0 0 AM EST 08/18/2024 12:58 PM EST Quan Peacock MD LAB BLOOD ORDERABLES Final Re sult Performing Organization Address [facility] de Phone Number [facility] [address] [place] [address] * Bilirubin, total (08/17/2024 3:00 AM EST) Total Bilirubin 0.3 0.3 - 1.2 mg/dL [facility] 08/17/2024 3:00 AM EST 08/18/2024 12:58 PM EST Quan Peacock MD LAB BLOOD ORDERABLES Final Re sult Performing Organization Address [facility] de Phone Number [facility] [address] [place] [address] * AST (08/17/2024 3:00 AM EST) AST (SGOT) 13 <34 U/L [facility] 08/17/2024 3:00 AM EST 08/18/2024 12:58 PM EST Quan Peacock MD LAB BLOOD ORDERABLES Final Re sult Performing Organization Address [facility] de Phone Number [facility] [address] [place] [address] * ALT (08/17/2024 3:00 AM EST) ALT (SGPT) 17 10 - 49 U/L [facility] 08/17/2024 3:00 AM EST 08/18/2024 12:58 PM EST Quan Peacock MD LAB BLOOD ORDERABLES Final Re sult Performing Organization Address [facility] de Phone Number [facility] [address] [place] [address] * Alkaline phosphatase (08/17/2024 3:00 AM EST) Alkaline Phosphatase 47 46 - 116 U/L [facility] 08/17/2024 3:00 AM EST 08/18/2024 12:58 PM EST Quan Peacock MD LAB BLOOD ORDERABLES Final Re sult Performing Organization Address [facility] de Phone Number [facility] [address] [place] [address] * (ABNORMAL) Calcium Phosphorus Product, Adjusted (08/17/2024 [...] 12:58 PM EST Quan Peacock MD LAB [id number] SOLICITED RESULTS Final Result Performing Organization Address [facility] de Phone Number [facility] [address] [place] [address] * PTH, Intact (08/17/2024 3:00 AM EST) PTH, Intact 271 160 - 721 pg/mL [facility] Comment: Suggested (KDIGO) ESRD maintenance range is two to nine times the upper normal limit (80.1 pg/mL) for the laboratory. 08/17/2024 3:00 AM EST 08/18/2024 12:58 PM EST Quan Peacock MD LAB BLOOD ORDERABLES Final Re sult Performing Organization Address [facility] de Phone Number [facility] [address] [place] [address] * (ABNORMAL) Ferritin (08/17/2024 3:00 AM EST) [facility] Ferritin 1,268(H) 22 - 322 ng/mL [facility] 08/17/2024 3:00 AM EST 08/18/2024 12:58 PM EST Quan Peacock MD LAB BLOOD ORDERABLES Final Re sult Performing Organization Address [facility] de Phone Number [facility] [address] [place] [address] * Hepatitis B Surface Antibody (08/17/2024 3:00 AM EST) [facility] Hep B Surface Antibody 459 mIU/mL [facility] Comment: Interpretation: <10: No Immunity >=10: Probable Immunity 08/17/2024 3:00 AM EST 08/18/2024 12:58 PM EST Quan Peacock MD LAB BLOOD ORDERABLES Final Re sult Performing Organization Address [facility] de Phone Number [facility] [address] [place] [address] * (ABNORMAL) CBC and Differential (08/17/2024 3:00 AM EST) [facility] DIFFERENTIAL MANUAL, 2 Not Indicated [facility] [...] ORDERABLES Final Re sult Performing Organization Address [facility] Co de Phone Number [facility] [address] [place] [address] * (ABNORMAL) Kt/V Natural Log, URR (08/17/2024 3:00 AM EST) Pathologist [facility] Treatment Time 197 min [facility] Pre-Weight, lb [...] 12:52 PM EST Quan Peacock MD LAB [id number] SOLICITED RESULTS Final Result Performing Organization Address [facility] Co de Phone Number [facility] [address] [place] [address] * Hepatitis B Surface Ag w/Reflex Confirmation (07/13/2024 3:00 AM EST) Hep B Surface Antigen Negative Negative [facility] 07/13/2024 3:00 AM EST 07/14/2024 3:21 PM EST us Quan Peacock MD LAB BLOOD ORDERABLES Final Re sult Performing Organization Address [facility] Phone Number [facility] [address] [place] [address] * Protein, total (07/13/2024 3:00 AM EST) Pathologist [facility] Total Protein 7.3 6.4 - 8.9 g/dL [facility] 07/13/2024 3:00 AM EST 07/14/2024 3:21 PM EST us Quan Peacock MD LAB BLOOD ORDERABLES Final Re sult Performing Organization Address [facility] Phone Number [facility] [address] [place] [address] * Magnesium (07/13/2024 3:00 AM EST) Pathologist [facility] Magnesium 1.9 1.9 - 2.7 mg/dL [facility] 07/13/2024 3:00 AM EST 07/14/2024 3:21 PM EST us Quan Peacock MD LAB BLOOD ORDERABLES Final Re sult Performing Organization Address [facility] Phone Number [facility] [address] [place] [address] * Electrolyte panel (07/13/2024 3:00 AM EST) [...] ORDERABLES Final Re sult Performing Organization Address [facility] de Phone Number [facility] [address] [place] [address] * (ABNORMAL) TSAT (07/13/2024 3:00 AM EST) Iron 92 65 - 175 ug/dL [facility] Transferrin 155(L) 215 - 365 mg/dL [facility] TIBC 217 211 - 406 ug/dL [facility] Iron Saturation (TSat) 42 22 - 52 % [facility] 07/13/2024 3:00 AM EST 07/14/2024 3:21 PM EST Quan Peacock MD LAB BLOOD ORDERABLES Final Re sult Performing Organization Address [facility] de Phone Number [facility] [address] [place] [address] * (ABNORMAL) Glucose, random (07/13/2024 3:00 AM EST) Glucose 180(H) 74 - 109 mg/dL [facility] 07/13/2024 3:00 AM EST 07/14/2024 3:21 PM EST Quan Peacock MD LAB BLOOD ORDERABLES Final Re sult Performing Organization Address [facility] de Phone Number [facility] [address] [place] [address] * Lactate dehydrogenase (07/13/2024 3:00 AM EST) LDH 186 120 - 246 U/L [facility] 07/13/2024 3:00 AM EST 07/14/2024 3:21 PM EST Quan Peacock MD LAB BLOOD ORDERABLES Final Re sult Performing Organization Address [facility] de Phone Number [facility] [address] [place] [address] * LIH (07/13/2024 3:00 AM EST) Lipemia Normal Normal [facility] Icterus Normal Normal [facility] Hemolysis Normal Normal [facility] 07/13/2024 3:00 AM EST 07/14/2024 3:21 PM EST us Quan Peacock MD LAB [id number] SOLICITED RESULTS Final Result Performing Organization Address [facility] Phone Number [facility] [address] [place] [address] * AST (07/13/2024 3:00 AM EST) AST (SGOT) 14 <34 U/L [facility] 07/13/2024 3:00 AM EST 07/14/2024 3:21 PM EST us Quan Peacock MD LAB BLOOD ORDERABLES Final Re sult Performing Organization Address [facility] Phone Number [facility] [address] [place] [address] * (ABNORMAL) Bilirubin, total (07/13/2024 3:00 AM EST) Total Bilirubin 0.2(L) 0.3 - 1.2 mg/dL [facility] 07/13/2024 3:00 AM EST 07/14/2024 3:21 PM EST us Quan Peacock MD LAB BLOOD ORDERABLES Final Re sult Performing Organization Address [facility] Phone Number [facility] [address] [place] [address] * ALT (07/13/2024 3:00 AM EST) ALT (SGPT) 17 10 - 49 U/L [facility] 07/13/2024 3:00 AM EST 07/14/2024 3:21 PM EST us Quan Peacock MD LAB BLOOD ORDERABLES Final Re sult [facility] [address] [place] [address] * (ABNORMAL) Creatinine, serum (07/13/2024 3:00 AM EST) Creatinine 4.80(H) 0.70 - 1.30 mg/dL [facility] 07/13/2024 3:00 AM EST 07/14/2024 3:21 PM EST us Quan Peacock MD LAB BLOOD ORDERABLES Final Re sult Performing Organization Address [facility] de Phone Number [facility] [address] [place] [address] * (ABNORMAL) Alkaline phosphatase (07/13/2024 3:00 AM EST) Alkaline Phosphatase 41(L) 46 - 116 U/L [facility] 07/13/2024 3:00 AM EST 07/14/2024 3:21 PM EST us Quan Peacock MD LAB BLOOD ORDERABLES Final Re sult Performing Organization Address [facility] de Phone Number [facility] [address] [place] [address] * Calcium Phosphorus Product, Adjusted (07/13/2024 3:00 [...] PM EST us Quan Peacock MD LAB [id number] SOLICITED RESULTS Final Result [facility] [address] [place] [address] * (ABNORMAL) CBC and Differential (07/13/2024 3:00 AM EST) Pathologist [facility] DIFFERENTIAL MANUAL, 2 [...] ORDERABLES Final Re sult Performing Organization Address [facility]/ZIP Co de Phone Number [facility] [address] [place] [address] * (ABNORMAL) Kt/V Natural Log, URR (07/13/2024 3:00 AM EST) Pathologist [facility] Treatment Time 205 min [facility] Pre-Weight, lb [...] 3:19 PM EST Quan Peacock MD LAB [id number] SOLICITED RESULTS Final Result Performing Organization Address [facility] de Phone Number [facility] [address] [place] [address] * Hepatitis B Surface Ag w/Reflex Confirmation (06/15/2024 3:00 AM EST) Hep B Surface Antigen Negative Negative [facility] 06/15/2024 3:00 AM EST 06/16/2024 5:14 PM EST Quan Peacock MD LAB BLOOD ORDERABLES Final Re sult Performing Organization Address [facility] de Phone Number [facility] [address] [place] [address] * (ABNORMAL) Ferritin (06/15/2024 3:00 AM EST) Ferritin 923(H) 22 - 322 ng/mL [facility] 06/15/2024 3:00 AM EST 06/16/2024 5:14 PM EST Quan Peacock MD LAB BLOOD ORDERABLES Final Re sult Performing Organization Address [facility] de Phone Number [facility] [address] [place] [address] * (ABNORMAL) TSAT (06/15/2024 3:00 AM EST) Iron 39(L) 65 - 175 ug/dL [facility] Transferrin 173(L) 215 - 365 mg/dL [facility] TIBC 242 211 - 406 ug/dL [facility] Iron Saturation (TSat) 16(L) 22 - 52 % [facility] 06/15/2024 3:00 AM EST 06/16/2024 5:14 PM EST us Quan Peacock MD LAB BLOOD ORDERABLES Final Re sult Performing Organization Address [facility] de Phone Number [facility] [address] [place] [address] * (ABNORMAL) Magnesium (06/15/2024 3:00 AM EST) Magnesium 1.8(L) 1.9 - 2.7 mg/dL [facility] 06/15/2024 3:00 AM EST 06/16/2024 5:14 PM EST Quan Peacock MD LAB BLOOD ORDERABLES Final Re sult Performing Organization Address [facility] de Phone Number [facility] [address] [place] [address] * Protein, total (06/15/2024 3:00 AM EST) Total Protein 7.0 6.4 - 8.9 g/dL [facility] 06/15/2024 3:00 AM EST 06/16/2024 5:14 PM EST Quan Peacock MD LAB BLOOD ORDERABLES Final Re sult Performing Organization Address [facility] de Phone Number [facility] [address] [place] [address] * LIH (06/15/2024 3:00 AM EST) Lipemia Normal Normal [facility] Icterus Normal Normal [facility] Hemolysis Normal Normal [facility] 06/15/2024 3:00 AM EST 06/16/2024 5:14 PM EST us Quan Peacock MD LAB [id number] SOLICITED RESULTS Final Result Performing Organization Address [facility]/ZIP Co de Phone Number [facility] [address] [place] [address] * Lactate dehydrogenase (06/15/2024 3:00 AM EST) LDH 221 120 - 246 U/L [facility] 06/15/2024 3:00 AM EST 06/16/2024 5:14 PM EST Quan Peacock MD LAB BLOOD ORDERABLES Final Re sult Performing Organization Address [facility] Co de Phone Number [facility] [address] [place] [address] * Electrolyte panel (06/15/2024 3:00 AM EST) [...] ORDERABLES Final Re sult Performing Organization Address [facility] Co de Phone Number [facility] [address] [place] [address] * (ABNORMAL) Creatinine, serum (06/15/2024 3:00 AM EST) Pathologist [facility] Creatinine 4.72(H) 0.70 - 1.30 mg/dL [facility] 06/15/2024 3:00 AM EST 06/16/2024 5:14 PM EST Quan Peacock MD LAB BLOOD ORDERABLES Final Re sult Performing Organization Address [facility] Co de Phone Number [facility] [address] [place] [address] * (ABNORMAL) Glucose, random (06/15/2024 3:00 AM EST) Glucose 155(H) 74 - 109 mg/dL [facility] 06/15/2024 3:00 AM EST 06/16/2024 5:14 PM EST Quan Peacock MD LAB BLOOD ORDERABLES Final Re sult Performing Organization Address [facility] Co de Phone Number [facility] [address] [place] [address] * (ABNORMAL) Bilirubin, total (06/15/2024 3:00 AM EST) Total Bilirubin 0.2(L) 0.3 - 1.2 mg/dL [facility] 06/15/2024 3:00 AM EST 06/16/2024 5:14 PM EST Quan Peacock MD LAB BLOOD ORDERABLES Final Re sult Performing Organization Address [facility] de Phone Number [facility] [address] [place] [address] * AST (06/15/2024 3:00 AM EST) AST (SGOT) 14 <34 U/L [facility] 06/15/2024 3:00 AM EST 06/16/2024 5:14 PM EST Quan Peacock MD LAB BLOOD ORDERABLES Final Re sult Performing Organization Address [facility] de Phone Number [facility] [address] [place] [address] * ALT (06/15/2024 3:00 AM EST) ALT (SGPT) 14 10 - 49 U/L [facility] 06/15/2024 3:00 AM EST 06/16/2024 5:14 PM EST Quan Peacock MD LAB BLOOD ORDERABLES Final Re sult Performing Organization Address [facility] de Phone Number [facility] [address] [place] [address] * (ABNORMAL) Alkaline phosphatase (06/15/2024 3:00 AM EST) Alkaline Phosphatase 39(L) 46 - 116 U/L [facility] 06/15/2024 3:00 AM EST 06/16/2024 5:14 PM EST Quan Peacock MD LAB BLOOD ORDERABLES Final Re sult Performing Organization Address [facility] de Phone Number [facility] [address] [place] [address] * Calcium Phosphorus Product, Adjusted (06/15/2024 3:00 AM EST) Pathologist [facility] Albumin 4.4 3.6 - 5.4 g/dL [facility] Calcium 9.8 8.6 - 10.3 mg/dL [facility] Phosphorus, Serum 4.3 2.5 - 5.0 mg/dL [facility] Ca*PO4 42.1 <55.0 mg2/dL2 [facility] Calcium, Adjusted Total 9.8 8.6 - 10.3 mg/dL [facility] CA*PO4 CORRCTD 42.1 <55.0 mg2/dL2 [facility] 06/15/2024 3:00 AM EST 06/16/2024 5:14 PM EST Quan Peacock MD LAB [id number] SOLICITED RESULTS Final Result Performing Organization Address [facility] de Phone Number [facility] [address] [place] [address] * (ABNORMAL) Kt/V Natural Log, URR (06/15/2024 3:00 AM EST) Pathologist [facility] Treatment Time 195 min [facility] Pre-Weight, lb [...] PM EST us Quan Peacock MD LAB [id number] SOLICITED RESULTS Final Result [facility] [address] [place] [address] * (ABNORMAL) CBC and Differential (06/15/2024 3:00 [...] Final Re sult [facility] [address] [place] [address] documented in this encounter Visit Diagnoses Not on filedocumented in this encounter
--- OUTSIDE RECORDS SUMMARY | 2024-11-17 17:51 | XMS_ITS | Encounter Summary ---
Author Organization [facility] [place], Address [address] [place] [address] Phone Care Team Providers Care Spiral Winder Name Role Phone Unavailable Primary Care Provider Unavailabl e Reason for Visit * Reason Comments Med Refill Encounter Details Date Type Department Care Team (Late st Contact Info) Description 10/03/2023 Refill [facility], [address] [place] [address] Shubham Mayer MD [address] [place] [phone] Social History Tobacco Use Types Packs/Day Years [...]
--- OUTSIDE RECORDS SUMMARY | 2024-11-17 17:51 | XMS_ITS | Encounter Summary ---
Author Organization [facility] Address [address] [place] [address] Phone Care Team Providers Care Lard Maker Name Role Phone Unavailable Primary Care Provider Unavailabl e Encounter Details Date Type Department Care Team (Late st Contact Info) Description 05/20/2023 Documentation Only [facility] [address] [place] [address] Shubham Mayer MD [address] [place] [phone] Social History Tobacco Use Types Packs/Day Years [...]
--- OUTSIDE RECORDS SUMMARY | 2024-11-17 17:51 | XMS_ITS | Encounter Summary ---
Author Organization [facility] Address [address] [place] [address] Phone Care Team Providers Care Horticultural Manager Name Role Phone Unavailable Primary Care Provider Unavailabl e Encounter Details Date Type Department Care Team (Late st Contact Info) Description 03/20/2023 Documentation Only [facility] [address] [place] [address] Shubham Mayer MD [address] [place] [phone] Social History Tobacco Use Types Packs/Day Years [...]
== END 2024-11-17 16:48 | disposition home or self-care (01) ==
LOC: HO.HMCH 15:44
PROVIDERS: PCP Internal Medicine; Visit Provider Internal Medicine
DX: E11.65 Type 2 diabetes mellitus with hyperglycemia (principal); I12.0 Hypertensive chronic kidney disease with stage 5 chronic kidney disease or end stage renal disease; E78.00 Pure hypercholesterolemia, unspecified; N18.6 End stage renal disease; N40.1 Benign prostatic hyperplasia with lower urinary tract symptoms; N13.8 Other obstructive and reflux uropathy; R82.90 Unspecified abnormal findings in urine

== ENCOUNTER → 2024-11-17 15:43 | Outpatient (BNVA) | payer MEDICARE, SELFPAY | PROVIDERS: PCP Internal Medicine; Visit Provider Internal Medicine | DX: E11.65 Type 2 diabetes mellitus with hyperglycemia (principal); E78.00 Pure hypercholesterolemia, unspecified; I12.0 Hypertensive chronic kidney disease with stage 5 chronic kidney disease or end stage renal disease; E11.22 Type 2 diabetes mellitus with diabetic chronic kidney disease; N18.6 End stage renal disease; N40.1 Benign prostatic hyperplasia with lower urinary tract symptoms; N13.8 Other obstructive and reflux uropathy; R82.90 Unspecified abnormal findings in urine | CPT/HCPCS: 99212 ==

== ENCOUNTER 2024-11-22 16:21 | Outpatient (REF) | payer MEDICARE, SELFPAY ==
[2024-11-22 17:26] LABS: Appearance Urine Cloudy; Color Urine Yellow; Glucose Urine UA Negative (Negative); Leukocyte Esterase Urine Trace (Negative); Nitrite Urine Negative (Negative); PH >= 9.0 (5.0-9.0); Specific Gravity - Urine 1.015 (1.005-1.025); UMIC TRIGGER UACC YES; Urine Blood Large (3+) (Negative); Urine Ketones Negative (Negative); Urine Protein 300 (3+) mg/dL (Neg-Trace)
[2024-11-22 18:31] LABS: Bacteria Urine None Seen (None Seen); Hyaline Casts Urine 0-2 /LPF (0-2); RBC Urine >20 /HPF (0-2); Squamous Epithelial Cell Urine 0-2 /HPF (0-2); WBC Urine 0-5 /HPF (0-5)
--- OUTSIDE RECORDS SUMMARY | 2024-11-22 18:57 | XMS_ITS | Encounter Summary ---
Author Organization [facility] Address [address] [place] [address] Phone Care Team Providers Care Hostess Party Sales Representative Name Role Phone Unavailable Primary Care Provider Unavailabl e Encounter Details Date Type Department Care Team (Late st Contact Info) Description 05/20/2023 Documentation Only [facility] [address] [place] [address] Shubham Mayer MD [address] [place] [phone] Social History Tobacco Use Types Packs/Day Years [...]
--- OUTSIDE RECORDS SUMMARY | 2024-11-22 18:57 | XMS_ITS | Encounter Summary ---
Author Organization [facility] Address [address] [place] [address] Phone Care Team Providers Care Production Generalist Name Role Phone Unavailable Primary Care Provider Unavailabl e Encounter Details Date Type Department Care Team (Late st Contact Info) Description 04/16/2023 Documentation Only [facility] [address] [place] [address] Shubham Mayer MD [address] [place] [phone] Social History Tobacco Use Types Packs/Day Years [...]
--- OUTSIDE RECORDS SUMMARY | 2024-11-22 18:57 | XMS_ITS | Encounter Summary ---
Author Organization [facility] Address [address] [place] [address] Phone Care Team Providers Care Leading Firefighter Name Role Phone Unavailable Primary Care Provider Unavailabl e Encounter Details Date Type Department Care Team (Late st Contact Info) Description 04/21/2023 Documentation Only [facility] [address] [place] [address] Shubham Mayer MD [address] [place] [phone] Social History Tobacco Use Types Packs/Day Years [...]
--- OUTSIDE RECORDS SUMMARY | 2024-11-22 18:57 | XMS_ITS | Encounter Summary ---
Author Organization [facility] Address [address] [place] [address] Phone Care Team Providers Care Aircraft Inspector Name Role Phone Unavailable Primary Care Provider Unavailabl e Encounter Details Date Type Department Care Team (Late st Contact Info) Description 03/20/2023 Documentation Only [facility] [address] [place] [address] Shubham Mayer MD [address] [place] [phone] Social History Tobacco Use Types Packs/Day Years [...]
--- OUTSIDE RECORDS SUMMARY | 2024-11-22 18:57 | XMS_ITS | Encounter Summary ---
Author Organization [facility] [place], Address [address] [place] [address] Phone Care Team Providers Care Network Support Technician Name Role Phone Unavailable Primary Care Provider Unavailabl e Encounter Details Date Type Department Care Team (Late st Contact Info) Description 06/02/2023 Documentation Only [facility] [place], [address] [place] [address] Yoel Davey, [address] [place] [phone] Social History Tobacco Use Types Packs/Day Years [...]
--- OUTSIDE RECORDS SUMMARY | 2024-11-22 18:58 | XMS_ITS | Encounter Summary ---
Author Organization [facility] Address [address] [place] [address] Phone Care Team Providers Care Merchandise Coordinator Name Role Phone Unavailable Primary Care Provider Unavailabl e Reason for Visit * Reason Comments Med Refill Encounter Details Date Type Department Care Team (Late st Contact Info) Description 08/09/2022 Refill [facility] [place], [address] [place] [address] Shubham Mayer MD [address] [place] [phone] Social History Tobacco Use Types Packs/Day Years [...]
--- OUTSIDE RECORDS SUMMARY | 2024-11-22 18:58 | XMS_ITS | Encounter Summary ---
Author Organization [facility] Address [address] [place] [address] Phone Care Team Providers Care Elementary School Teacher'S Aide Name Role Phone Unavailable Primary Care Provider Unavailabl e Encounter Details Date Type Department Care Team (Late st Contact Info) Description 11/20/2022 Documentation Only [facility] [address] [place] [address] Shubham Mayer MD [address] [place] [phone] Social History Tobacco Use Types Packs/Day Years [...]
--- OUTSIDE RECORDS SUMMARY | 2024-11-22 18:58 | XMS_ITS | Encounter Summary ---
Author Organization [facility], Address [address] [place] [address] Phone Care Team Providers Care Environmental Services Floor Tech Name Role Phone Unavailable Primary Care Provider Unavailabl e Reason for Visit * Reason Comments Med Refill Encounter Details Date Type Department Care Team ([facility] st Contact Info) Description 06/01/2024 Refill [facility], [address] [phone] Shubham Mayer MD [address] [place] [phone] Social History Tobacco Use Types Packs/Day Years [...] 3:11 PM EST Quan Peacock MD LAB [id number] SOLICITED RESULTS Final Result Performing Organization Address [facility] de Phone Number [facility] [address] [place] [address] * Potassium (08/24/2024 3:00 AM EST) Pathologist [facility] Potassium 4.0 3.4 - 5.0 mEq/L [facility] 08/24/2024 3:00 AM EST 08/25/2024 3:11 PM EST Quan Peacock MD LAB BLOOD ORDERABLES Final Re sult Performing Organization Address [facility] de Phone Number [facility] [address] [place] [address] * Aluminum level (08/17/2024 3:00 AM EST) Pathologist [facility] Aluminum 4 1 - 20 ug/L [facility] 08/17/2024 3:00 AM EST 08/18/2024 12:37 PM EST Quan Peacock MD LAB BLOOD ORDERABLES Final Re sult Performing Organization Address [facility] de Phone Number [facility] [address] [place] [address] * Confirmation Test HCV (08/17/2024 3:00 AM EST) Pathologist [facility] Hep C Ab Confirmation Not needed [facility] 08/17/2024 3:00 AM EST 08/18/2024 1:26 PM EST Quan Peacock MD LAB BLOOD ORDERABLES Final Re sult Performing Organization Address [facility] Co de Phone Number [facility] [address] [place] [address] * HEPATITIS C ABS W/REFLEX RNA DETECTR (08/17/2024 3:00 AM EST) Pathologist [facility] Hep C Virus Ab Non-Reacti ve Non-Reacti ve [facility] 08/17/2024 3:00 AM EST 08/18/2024 12:58 PM EST Quan Peacock MD LAB [id number] SOLICITED RESULTS Final Result Performing Organization Address [facility] de Phone Number [facility] [address] [place] [address] * Hepatitis B Surface Ag w/Reflex Confirmation (08/17/2024 3:00 AM EST) Pathologist [facility] Hep B Surface Antigen Negative Negative [facility] 08/17/2024 3:00 AM EST 08/18/2024 12:58 PM EST Quan Peacock MD LAB BLOOD ORDERABLES Final Re sult Performing Organization Address [facility] de Phone Number [facility] [address] [place] [address] * (ABNORMAL) Uric Acid (08/17/2024 3:00 AM EST) [facility] Uric Acid 8.1(H) 4.4 - 7.6 mg/dL [facility] 08/17/2024 3:00 AM EST 08/18/2024 12:58 PM EST Quan Peacock MD LAB BLOOD ORDERABLES Final Re sult Performing Organization Address [facility] de Phone Number [facility] [address] [place] [address] * (ABNORMAL) TSAT (08/17/2024 3:00 AM EST) Pathologist [facility] Iron 65 65 - 175 ug/dL [facility] Transferrin 159(L) 215 - 365 mg/dL [facility] TIBC 223 211 - 406 ug/dL [facility] Iron Saturation (TSat) 29 22 - 52 % [facility] 08/17/2024 3:00 AM EST 08/18/2024 12:58 PM EST Quan Peacock MD LAB BLOOD ORDERABLES Final Re sult Performing Organization Address [facility] de Phone Number [facility] [address] [place] [address] * Protein, total (08/17/2024 3:00 AM EST) Total Protein 7.3 6.4 - 8.9 g/dL [facility] 08/17/2024 3:00 AM EST 08/18/2024 12:58 PM EST Quan Peacock MD LAB BLOOD ORDERABLES Final Re sult Performing Organization Address [facility] de Phone Number [facility] [address] [place] [address] * Magnesium (08/17/2024 3:00 AM EST) Pathologist [facility] Magnesium 1.9 1.9 - 2.7 mg/dL [facility] 08/17/2024 3:00 AM EST 08/18/2024 12:58 PM EST Quan Peacock MD LAB BLOOD ORDERABLES Final Re sult Performing Organization Address [facility] de Phone Number [facility] [address] [place] [address] * (ABNORMAL) Electrolyte panel (08/17/2024 3:00 AM [...] Final Re sult [facility] [address] [place] [address] * (ABNORMAL) Lipid panel (08/17/2024 3:00 AM [...] Re sult Performing Organization Address [facility] Co de Phone Number [facility] [address] [place] [address] * LIH (08/17/2024 3:00 AM EST) Lipemia Normal Normal [facility] Icterus Normal Normal [facility] Hemolysis Normal Normal [facility] 08/17/2024 3:00 AM EST 08/18/2024 12:58 PM EST us Quan Peacock MD LAB [id number] SOLICITED RESULTS Final Result Performing Organization Address [facility] Phone Number [facility] [address] [place] [address] * Lactate dehydrogenase (08/17/2024 3:00 AM EST) Pathologist [facility] LDH 203 120 - 246 U/L [facility] 08/17/2024 3:00 AM EST 08/18/2024 12:58 PM EST us Quan Peacock MD LAB BLOOD ORDERABLES Final Re sult Performing Organization Address [facility] de Phone Number [facility] [address] [place] [address] * (ABNORMAL) Glucose, random (08/17/2024 3:00 AM EST) Pathologist [facility] Glucose 290(H) 74 - 109 mg/dL [facility] 08/17/2024 3:00 AM EST 08/18/2024 12:58 PM EST us Quan Peacock MD LAB BLOOD ORDERABLES Final Re sult Performing Organization Address [facility] de Phone Number [facility] [address] [place] [address] * (ABNORMAL) Creatinine, serum (08/17/2024 3:00 AM EST) Pathologist [facility] Creatinine 6.52(H) 0.70 - 1.30 mg/dL [facility] 08/17/2024 3:0 0 AM EST 08/18/2024 12:58 PM EST Quan Peacock MD LAB BLOOD ORDERABLES Final Re sult Performing Organization Address [facility] de Phone Number [facility] [address] [place] [address] * Bilirubin, total (08/17/2024 3:00 AM EST) Total Bilirubin 0.3 0.3 - 1.2 mg/dL [facility] 08/17/2024 3:00 AM EST 08/18/2024 12:58 PM EST Quan Peacock MD LAB BLOOD ORDERABLES Final Re sult Performing Organization Address [facility] de Phone Number [facility] [address] [place] [address] * AST (08/17/2024 3:00 AM EST) AST (SGOT) 13 <34 U/L [facility] 08/17/2024 3:00 AM EST 08/18/2024 12:58 PM EST Quan Peacock MD LAB BLOOD ORDERABLES Final Re sult Performing Organization Address [facility] de Phone Number [facility] [address] [place] [address] * ALT (08/17/2024 3:00 AM EST) ALT (SGPT) 17 10 - 49 U/L [facility] 08/17/2024 3:00 AM EST 08/18/2024 12:58 PM EST Quan Peacock MD LAB BLOOD ORDERABLES Final Re sult Performing Organization Address [facility] de Phone Number [facility] [address] [place] [address] * Alkaline phosphatase (08/17/2024 3:00 AM EST) Alkaline Phosphatase 47 46 - 116 U/L [facility] 08/17/2024 3:00 AM EST 08/18/2024 12:58 PM EST Quan Peacock MD LAB BLOOD ORDERABLES Final Re sult Performing Organization Address [facility] de Phone Number [facility] [address] [place] [address] * (ABNORMAL) Calcium Phosphorus Product, Adjusted (08/17/2024 [...] 12:58 PM EST Quan Peacock MD LAB [id number] SOLICITED RESULTS Final Result Performing Organization Address [facility] de Phone Number [facility] [address] [place] [address] * PTH, Intact (08/17/2024 3:00 AM EST) PTH, Intact 271 160 - 721 pg/mL [facility] Comment: Suggested (KDIGO) ESRD maintenance range is two to nine times the upper normal limit (80.1 pg/mL) for the laboratory. 08/17/2024 3:00 AM EST 08/18/2024 12:58 PM EST Quan Peacock MD LAB BLOOD ORDERABLES Final Re sult Performing Organization Address [facility] de Phone Number [facility] [address] [place] [address] * (ABNORMAL) Ferritin (08/17/2024 3:00 AM EST) [facility] Ferritin 1,268(H) 22 - 322 ng/mL [facility] 08/17/2024 3:00 AM EST 08/18/2024 12:58 PM EST Quan Peacock MD LAB BLOOD ORDERABLES Final Re sult Performing Organization Address [facility] de Phone Number [facility] [address] [place] [address] * Hepatitis B Surface Antibody (08/17/2024 3:00 AM EST) [facility] Hep B Surface Antibody 459 mIU/mL [facility] Comment: Interpretation: <10: No Immunity >=10: Probable Immunity 08/17/2024 3:00 AM EST 08/18/2024 12:58 PM EST Quan Peacock MD LAB BLOOD ORDERABLES Final Re sult Performing Organization Address [facility] de Phone Number [facility] [address] [place] [address] * (ABNORMAL) CBC and Differential (08/17/2024 3:00 AM EST) [facility] DIFFERENTIAL MANUAL, 2 Not Indicated [facility] [...] ORDERABLES Final Re sult Performing Organization Address City/[facility] Co de Phone Number [facility] [address] [place] [address] * (ABNORMAL) Kt/V Natural Log, URR (08/17/2024 3:00 AM EST) Pathologist [facility] Treatment Time 197 min [facility] Pre-Weight, lb [...] 12:52 PM EST Quan Peacock MD LAB [id number] SOLICITED RESULTS Final Result Performing Organization Address [facility] Co de Phone Number [facility] [address] [place] [address] * Hepatitis B Surface Ag w/Reflex Confirmation (07/13/2024 3:00 AM EST) Hep B Surface Antigen Negative Negative [facility] 07/13/2024 3:00 AM EST 07/14/2024 3:21 PM EST us Quan Peacock MD LAB BLOOD ORDERABLES Final Re sult Performing Organization Address [facility] Phone Number [facility] [address] [place] [address] * Protein, total (07/13/2024 3:00 AM EST) Pathologist [facility] Total Protein 7.3 6.4 - 8.9 g/dL [facility] 07/13/2024 3:00 AM EST 07/14/2024 3:21 PM EST us Quan Peacock MD LAB BLOOD ORDERABLES Final Re sult Performing Organization Address [facility] Phone Number [facility] [address] [place] [address] * Magnesium (07/13/2024 3:00 AM EST) Pathologist [facility] Magnesium 1.9 1.9 - 2.7 mg/dL [facility] 07/13/2024 3:00 AM EST 07/14/2024 3:21 PM EST us Quan Peacock MD LAB BLOOD ORDERABLES Final Re sult Performing Organization Address [facility] Phone Number [facility] [address] [place] [address] * Electrolyte panel (07/13/2024 3:00 AM EST) [...] Re sult Performing Organization Address [facility] de Phone Number [facility] [address] [place] [address] * (ABNORMAL) TSAT (07/13/2024 3:00 AM EST) Iron 92 65 - 175 ug/dL [facility] Transferrin 155(L) 215 - 365 mg/dL [facility] TIBC 217 211 - 406 ug/dL [facility] Iron Saturation (TSat) 42 22 - 52 % [facility] 07/13/2024 3:00 AM EST 07/14/2024 3:21 PM EST Quan Peacock MD LAB BLOOD ORDERABLES Final Re sult Performing Organization Address [facility] de Phone Number [facility] [address] [place] [address] * (ABNORMAL) Glucose, random (07/13/2024 3:00 AM EST) Glucose 180(H) 74 - 109 mg/dL [facility] 07/13/2024 3:00 AM EST 07/14/2024 3:21 PM EST Quan Peacock MD LAB BLOOD ORDERABLES Final Re sult Performing Organization Address [facility] de Phone Number [facility] [address] [place] [address] * Lactate dehydrogenase (07/13/2024 3:00 AM EST) LDH 186 120 - 246 U/L [facility] 07/13/2024 3:00 AM EST 07/14/2024 3:21 PM EST Quan Peacock MD LAB BLOOD ORDERABLES Final Re sult Performing Organization Address [facility] de Phone Number [facility] [address] [place] [address] * LIH (07/13/2024 3:00 AM EST) Lipemia Normal Normal [facility] Icterus Normal Normal [facility] Hemolysis Normal Normal [facility] 07/13/2024 3:00 AM EST 07/14/2024 3:21 PM EST us Quan Peacock MD LAB [id number] SOLICITED RESULTS Final Result Performing Organization Address [facility] Phone Number [facility] [address] [place] [address] * AST (07/13/2024 3:00 AM EST) AST (SGOT) 14 <34 U/L [facility] 07/13/2024 3:00 AM EST 07/14/2024 3:21 PM EST us Quan Peacock MD LAB BLOOD ORDERABLES Final Re sult Performing Organization Address [facility] Phone Number [facility] [address] [place] [address] * (ABNORMAL) Bilirubin, total (07/13/2024 3:00 AM EST) Total Bilirubin 0.2(L) 0.3 - 1.2 mg/dL [facility] 07/13/2024 3:00 AM EST 07/14/2024 3:21 PM EST us Quan Peacock MD LAB BLOOD ORDERABLES Final Re sult Performing Organization Address [facility] Phone Number [facility] [address] [place] [address] * ALT (07/13/2024 3:00 AM EST) ALT (SGPT) 17 10 - 49 U/L [facility] 07/13/2024 3:00 AM EST 07/14/2024 3:21 PM EST us Quan Peacock MD LAB BLOOD ORDERABLES Final Re sult [facility] [address] [place] [address] * (ABNORMAL) Creatinine, serum (07/13/2024 3:00 AM EST) Creatinine 4.80(H) 0.70 - 1.30 mg/dL [facility] 07/13/2024 3:00 AM EST 07/14/2024 3:21 PM EST us Quan Peacock MD LAB BLOOD ORDERABLES Final Re sult Performing Organization Address [facility] de Phone Number [facility] [address] [place] [address] * (ABNORMAL) Alkaline phosphatase (07/13/2024 3:00 AM EST) Alkaline Phosphatase 41(L) 46 - 116 U/L [facility] 07/13/2024 3:00 AM EST 07/14/2024 3:21 PM EST us Quan Peacock MD LAB BLOOD ORDERABLES Final Re sult Performing Organization Address [facility] de Phone Number [facility] [address] [place] [address] * Calcium Phosphorus Product, Adjusted (07/13/2024 3:00 [...] PM EST us Quan Peacock MD LAB [id number] SOLICITED RESULTS Final Result [facility] [address] [place] [address] * (ABNORMAL) CBC and Differential (07/13/2024 3:00 AM EST) Pathologist [facility] DIFFERENTIAL MANUAL, 2 Not Indicated [facility] White [...] ORDERABLES Final Re sult Performing Organization Address City/[facility]/ZIP Co de Phone Number [facility] [address] [place] [address] * (ABNORMAL) Kt/V Natural Log, URR (07/13/2024 3:00 AM EST) Pathologist [facility] Treatment Time 205 min [facility] Pre-Weight, lb [...] 3:19 PM EST Quan Peacock MD LAB [id number] SOLICITED RESULTS Final Result Performing Organization Address [facility] de Phone Number [facility] [address] [place] [address] * Hepatitis B Surface Ag w/Reflex Confirmation (06/15/2024 3:00 AM EST) Hep B Surface Antigen Negative Negative [facility] 06/15/2024 3:00 AM EST 06/16/2024 5:14 PM EST Quan Peacock MD LAB BLOOD ORDERABLES Final Re sult Performing Organization Address [facility] de Phone Number [facility] [address] [place] [address] * (ABNORMAL) Ferritin (06/15/2024 3:00 AM EST) Ferritin 923(H) 22 - 322 ng/mL [facility] 06/15/2024 3:00 AM EST 06/16/2024 5:14 PM EST Quan Peacock MD LAB BLOOD ORDERABLES Final Re sult Performing Organization Address [facility] de Phone Number [facility] [address] [place] [address] * (ABNORMAL) TSAT (06/15/2024 3:00 AM EST) Iron 39(L) 65 - 175 ug/dL [facility] Transferrin 173(L) 215 - 365 mg/dL [facility] TIBC 242 211 - 406 ug/dL [facility] Iron Saturation (TSat) 16(L) 22 - 52 % [facility] 06/15/2024 3:00 AM EST 06/16/2024 5:14 PM EST us Quan Peacock MD LAB BLOOD ORDERABLES Final Re sult Performing Organization Address [facility] de Phone Number [facility] [address] [place] [address] * (ABNORMAL) Magnesium (06/15/2024 3:00 AM EST) Magnesium 1.8(L) 1.9 - 2.7 mg/dL [facility] 06/15/2024 3:00 AM EST 06/16/2024 5:14 PM EST Quan Peacock MD LAB BLOOD ORDERABLES Final Re sult Performing Organization Address [facility] de Phone Number [facility] [address] [place] [address] * Protein, total (06/15/2024 3:00 AM EST) Total Protein 7.0 6.4 - 8.9 g/dL [facility] 06/15/2024 3:00 AM EST 06/16/2024 5:14 PM EST Quan Peacock MD LAB BLOOD ORDERABLES Final Re sult Performing Organization Address [facility] de Phone Number [facility] [address] [place] [address] * LIH (06/15/2024 3:00 AM EST) Lipemia Normal Normal [facility] Icterus Normal Normal [facility] Hemolysis Normal Normal [facility] 06/15/2024 3:00 AM EST 06/16/2024 5:14 PM EST us Quan Peacock MD LAB [id number] SOLICITED RESULTS Final Result Performing Organization Address City/[facility]/ZIP Co de Phone Number [facility] [address] [place] [address] * Lactate dehydrogenase (06/15/2024 3:00 AM EST) LDH 221 120 - 246 U/L [facility] 06/15/2024 3:00 AM EST 06/16/2024 5:14 PM EST Quan Peacock MD LAB BLOOD ORDERABLES Final Re sult Performing Organization Address [facility] Co de Phone Number [facility] [address] [place] [address] * Electrolyte panel (06/15/2024 3:00 AM EST) [...] Final Re sult Performing Organization Address [facility] Co de Phone Number [facility] [address] [place] [address] * (ABNORMAL) Creatinine, serum (06/15/2024 3:00 AM EST) Pathologist [facility] Creatinine 4.72(H) 0.70 - 1.30 mg/dL [facility] 06/15/2024 3:00 AM EST 06/16/2024 5:14 PM EST Quan Peacock MD LAB BLOOD ORDERABLES Final Re sult Performing Organization Address [facility] Co de Phone Number [facility] [address] [place] [address] * (ABNORMAL) Glucose, random (06/15/2024 3:00 AM EST) Glucose 155(H) 74 - 109 mg/dL [facility] 06/15/2024 3:00 AM EST 06/16/2024 5:14 PM EST Quan Peacock MD LAB BLOOD ORDERABLES Final Re sult Performing Organization Address [facility] Co de Phone Number [facility] [address] [place] [address] * (ABNORMAL) Bilirubin, total (06/15/2024 3:00 AM EST) Total Bilirubin 0.2(L) 0.3 - 1.2 mg/dL [facility] 06/15/2024 3:00 AM EST 06/16/2024 5:14 PM EST Quan Peacock MD LAB BLOOD ORDERABLES Final Re sult Performing Organization Address [facility] de Phone Number [facility] [address] [place] [address] * AST (06/15/2024 3:00 AM EST) AST (SGOT) 14 <34 U/L [facility] 06/15/2024 3:00 AM EST 06/16/2024 5:14 PM EST Quan Peacock MD LAB BLOOD ORDERABLES Final Re sult Performing Organization Address [facility] de Phone Number [facility] [address] [place] [address] * ALT (06/15/2024 3:00 AM EST) ALT (SGPT) 14 10 - 49 U/L [facility] 06/15/2024 3:00 AM EST 06/16/2024 5:14 PM EST Quan Peacock MD LAB BLOOD ORDERABLES Final Re sult Performing Organization Address [facility] de Phone Number [facility] [address] [place] [address] * (ABNORMAL) Alkaline phosphatase (06/15/2024 3:00 AM EST) Alkaline Phosphatase 39(L) 46 - 116 U/L [facility] 06/15/2024 3:00 AM EST 06/16/2024 5:14 PM EST Quan Peacock MD LAB BLOOD ORDERABLES Final Re sult Performing Organization Address [facility] de Phone Number [facility] [address] [place] [address] * Calcium Phosphorus Product, Adjusted (06/15/2024 3:00 AM EST) Pathologist [facility] Albumin 4.4 3.6 - 5.4 g/dL [facility] Calcium 9.8 8.6 - 10.3 mg/dL [facility] Phosphorus, Serum 4.3 2.5 - 5.0 mg/dL [facility] Ca*PO4 42.1 <55.0 mg2/dL2 [facility] Calcium, Adjusted Total 9.8 8.6 - 10.3 mg/dL [facility] CA*PO4 CORRCTD 42.1 <55.0 mg2/dL2 [facility] 06/15/2024 3:00 AM EST 06/16/2024 5:14 PM EST Quan Peacock MD LAB [id number] SOLICITED RESULTS Final Result Performing Organization Address [facility] de Phone Number [facility] [address] [place] [address] * (ABNORMAL) Kt/V Natural Log, URR (06/15/2024 3:00 AM EST) Pathologist [facility] Treatment Time 195 min [facility] Pre-Weight, lb [...] PM EST us Quan Peacock MD LAB [id number] SOLICITED RESULTS Final Result [facility] [address] [place] [address] * (ABNORMAL) CBC and Differential (06/15/2024 3:00 [...] Final Re sult [facility] [address] [place] [address] documented in this encounter Visit Diagnoses Not on filedocumented in this encounter
--- OUTSIDE RECORDS SUMMARY | 2024-11-22 18:58 | XMS_ITS | Encounter Summary ---
Author Organization [facility], Address [address] [place] [address] Phone Care Team Providers Care Strike Operations Officer Name Role Phone Unavailable Primary Care Provider Unavailabl e Reason for Visit * Reason Comments Med Refill Encounter Details Date Type Department Care Team (Late st Contact Info) Description 10/03/2023 Refill [facility], [address] [place] [address] Shubham Mayer MD [address] [place] [id number] Social History Tobacco Use Types Packs/Day Years [...]
--- OUTSIDE RECORDS SUMMARY | 2024-11-22 18:58 | XMS_ITS ---
Author Name [facility], Clinic Address [address] [place] [id number] Phone [phone] Organization [facility] e, NA DOCUMENT DISCLAIMER Multiple document versions may exist, please be sure you review the latest version. The information in the [facility] Continuity of Care Document represents a summary [...]
--- OUTSIDE RECORDS SUMMARY | 2024-11-22 18:58 | XMS_ITS | Encounter Summary ---
Author Organization [facility] Address [address] [place] [phone] Phone Care Team Providers Care Disposal Worker Name Role Phone Unavailable Primary Care Provider Unavailabl e Encounter Details Date Type Department Care Team ([facility] st Contact Info) Description 11/21/2024 Treatment [facility]. [address] [phone] Kelli Calvin MD [address] [phone] End stage renal disease; Dependence [...] Dialysis Note - Kelli Calvin MD - 11/21/2024 12:00 AM EDT BASIC NOTE Patient: Ministerio French : 1945 Note Author: KELLI CALVIN MD Service Date: 11/21/2024 Telehealth encounter using audiovisual technology, performed according to state requirements. Appropriate patient consent obtained. This patient was personally seen for a basic visit as part of routine monthly dialysis care for end stage renal disease. Attending Degreasing Solution Mixer: KELLI CALVIN Dialysis Location: [facility] Schedule: Shift: 1 ADEQUACY ASSESSMENT Kt/V, Natural Log 1.48 (11/09/24) 1.43 (10/12/24) 1.48 (09/14/24) UREA REDUCTION RATIO (%) 73 (11/09/24) 72 (10/12/24) 73 (09/14/24) BUN 67 (11/09/24) 60 (10/12/24) 60 (09/14/24) BUN Post Dialysis 18 (11/09/24) 17 (10/12/24) 16 (09/14/24) Creatinine 4.85 (11/09/24) 3.92 (10/12/24) 5.44 (09/14/24) Bicarbonate (CO2) 23 (11/09/24) 22 (10/12/24) 24 (09/14/24) Sodium 133 (11/09/24) 134 (10/12/24) 135 (09/14/24) ANEMIA ASSESSMENT Hgb 10.2 (11/09/24) 9.9 (11/07/24) 9.8 (11/02/24) Iron Saturation (TSat) 26 (11/09/24) 19 (10/12/24) 16 (09/14/24) Ferritin 1,469 (11/09/24) 860 (10/12/24) 947 (09/14/24) Iron 62 (11/09/24) 46 (10/12/24) 44 (09/14/24) TIBC 241 (11/09/24) 241 (10/12/24) 274 (09/14/24) MCV 94.4 (11/09/24) 96.6 (10/12/24) 98.1 (09/14/24) Platelets 244 (11/09/24) 332 (10/12/24) 201 (09/14/24) BMM ASSESSMENT Calcium, Adjusted Total 8.7 11/09/24 8.9 10/12/24 9.0 09/14/24 Calcium 8.7 11/09/24 8.9 10/12/24 9.0 09/14/24 Phosphorus, Serum 5.6 11/09/24 3.9 10/12/24 5.3 09/14/24 Ca*PO4 48.7 11/09/24 34.7 10/12/24 47.7 09/14/24 PTH, Intact 387 11/09/24 271 08/17/24 Magnesium 2.1 11/09/24 1.8 10/12/24 1.8 09/14/24 Alkaline Phosphatase 45 11/09/24 43 10/12/24 33 09/14/24 Aluminum 4 08/17/24 NUTRITION ASSESSMENT Albumin 4.5 11/09/24 4.0 10/12/24 4.6 09/14/24 Potassium 4.1 11/09/24 4.1 11/02/24 4.3 10/26/24 ADDITIONAL LABS White Blood Cells 7.2 (11/09/24) 8.9 (10/12/24) 6.9 (09/14/24) Cholesterol 137 (11/09/24) 166 (08/17/24) HDL 27 (11/09/24) 30 (08/17/24) LDL-Calc 48 (11/09/24) See Comment (08/17/24) Triglycerides 311 (11/09/24) 549 (08/17/24) Hep B Surface Antibody 459 (08/17/24) Hepatitis B Surface Ab >1,000 (01/11/24) Uric Acid 8.1 (08/17/24) ADDITIONAL COMMENT COMMENTS: 09/12/24 stable 09/19/24 doing well 09/28/24 no new issues 10/07/24 same 10/14/24 stable 10/24/24 doing ok 10/31.25 stable 11/04/24 no new issues 11/09/24 no new issues 11/11/24 stable 11/21/24 doing well, recent f/u PCP and doing well per PT 07/13/24 doing well 24 stable 07/27/24 no new issues 08/02/24 stable 08/12/23 doing ok 08/19/24 stable 09/02/24 stable 09/09/24 no new issues 04/13/24 stable 05/04/24 doing ok 05/11/24 stable 05/18/24 no need to issues 05/25/24 stable 06/03/24 doing ok 06/17/24 stable 06/24/24 no new issues 06/27/24 doong well 07/05/24 stable Signed by: KELLI CALVIN MD on 11/21/2024 at 09:17:15 AM Transcribed by: KELLI CALVIN MD on 11/21/2024 at 09:17:15 AM documented in this encounter Plan of Treatment Not on file documented as of this encounter Visit Diagnoses Diagnosis End stage renal disease Dependence on renal dialysis documented in this encounter
--- OUTSIDE RECORDS SUMMARY | 2024-11-22 18:58 | XMS_ITS | Clinical Summary ---
Author Organization [facility] Address [address] [address] Phone Care Team Providers Care Edi Manager Name Role Phone Unavailable Primary Care [...] Encounters Date Type Department Care Team Description 11/21/2024 Treatment [facility] [address] [phone] Quan Peacock MD End stage renal disease; Dependence on renal dialysis 11/11/2024 Treatment [facility] [address] [phone] Quan Peacock MD End stage renal disease; Dependence on renal dialysis 11/09/2024 Treatment [facility] [place] [id number] [phone] Quan Peacock MD End stage renal disease; Dependence on renal dialysis 11/04/2024 Treatment [facility] [address] [phone] Quan Peacock MD End stage renal disease; Dependence on renal dialysis 10/31/2024 Treatment [facility] [address] [phone] Quan Peacock MD End stage renal disease; Dependence on renal dialysis 10/24/2024 Treatment [facility] [address] [phone] Quan Peacock MD End stage renal disease; Dependence on renal dialysis 10/14/2024 Treatment [facility] [address] [phone] Quan Peacock MD End stage renal disease; Dependence on renal dialysis 10/07/2024 Treatment [facility] [address] [phone] Quan Peacock MD End stage renal disease; Dependence on renal dialysis 09/28/2024 Treatment [facility] [address] [phone] Quan Peacock MD 09/19/2024 Treatment [facility] [address] [phone] Quan Peacock MD 09/12/2024 Treatment [facility] [address] [phone] Quan Peacock MD 09/09/2024 Treatment [facility] [address] [phone] Quan Peacock MD 09/02/2024 Treatment [facility] [address] [phone] Quan Peacock MD 08/31/2024 Orders Only [facility] the [address] [phone] Quan Peacock MD from Last 3 Months [...] Vaccine: 50+ Years Completed 12/28/2017, 06/30/2016, 07/09/2010 Pneumococcal Vaccine: Peds ( 0 to 5 Years) and At-Risk Patients (6 to 49 Years) Discontinued 12/28/2017, 06/30/2016, 07/09/2010 Procedures Procedure Name Priority Date/Time Associated Diagnosis Comments FERRITIN Routine 11/09/2024 3:00 AM EDT PTH, INTACT Routine 11/09/2024 3:00 AM EDT TRANSFERRIN SATURATION Routine 5 3:00 AM EDT PROTEIN, TOTAL, SERUM Routine [...] 3:00 AM EST CREATININE, SERUM Routine 09/14/2024 3: 00 AM EST BILIRUBIN, TOTAL Routine 09/14/2024 3:00 [...] EST from Last 3 Months Results * [facility] (11/09/2024 3:00 AM EDT) Only the most recent of12 resultswithin the time period is included. Lipemia Normal Normal [facility] Icterus Normal Normal [facility] Hemolysis Normal Normal [facility] 11/09/2024 3:00 AM EDT 11/11/2024 5:13 PM EDT Quan Peacock MD LAB [id number] SOLICITED RESULTS Final Result Performing Organization Address [facility]/ZIP Co de Phone Number APS [facility] [address] [place] [address] * (ABNORMAL) Kt/V Natural Log, URR (11/09/2024 [...] 3:00 AM EDT 11/11/2024 4:56 PM EDT Quan Peacock MD LAB [id number] SOLICITED RESULTS Final Result Performing Organization Address [facility] de Phone Number [facility]PS [facility] [address] [place] [address] * (ABNORMAL) Calcium Phosphorus Product, Adjusted (11/09/2024 [...] 5:13 PM EDT Quan Peacock MD LAB [id number] SOLICITED RESULTS Final Result Performing Organization Address [facility] Co de Phone Number [facility] [address] [place] [address] * (ABNORMAL) TSAT (11/09/2024 3:00 AM EDT) Only the most recent of3 resultswithin the time period is included. Pathologist [facility] Iron 62(L) 65 - 175 ug/dL [facility] Transferrin 172(L) 215 - 365 mg/dL [facility] TIBC 241 211 - 406 ug/dL [facility] Iron Saturation (TSat) 26 22 - 52 % [facility] 11/09/2024 3:00 AM EDT 11/11/2024 5:13 PM EDT Quan Peacock MD LAB BLOOD ORDERABLES Final Re sult Performing Organization Address [facility] de Phone Number [facility] [address] [place] [address] * (ABNORMAL) CBC and Differential (11/09/2024 3:00 AM EDT) Only the most recent of3 resultswithin the time period is included. Pathologist [facility] DIFFERENTIAL MANUAL, 2 Not Indicated [facility] White [...] ORDERABLES Final Re sult Performing Organization Address [facility] Co de Phone Number [facility] [address] [place] [address] * ALT (11/09/2024 3:00 AM EDT) Only the most recent of3 resultswithin the time period is included. ALT (SGPT) 16 10 - 49 U/L [facility] 11/09/2024 3:00 AM EDT 11/11/2024 5:13 PM EDT Quan Peacock MD LAB BLOOD ORDERABLES Final Re sult Performing Organization Address [facility] de Phone Number [facility] [address] [place] [address] * AST (11/09/2024 3:00 AM EDT) Only the most recent of3 resultswithin the time period is included. AST (SGOT) 14 <34 U/L [facility] 11/09/2024 3:00 AM EDT 11/11/2024 5:13 PM EDT Quan Peacock MD LAB BLOOD ORDERABLES Final Re sult Performing Organization Address [facility] Co de Phone Number [facility] [address] [place] [address] * Protein, total (11/09/2024 3:00 AM EDT) Only the most recent of3 resultswithin the time period is included. Total Protein 7.4 6.4 - 8.9 g/dL [facility] 11/09/2024 3:00 AM EDT 11/11/2024 5:13 PM EDT Quan Peacock MD LAB BLOOD ORDERABLES Final Re sult Performing Organization Address [facility] de Phone Number [facility] [address] [place] [address] * (ABNORMAL) Alkaline phosphatase (11/09/2024 3:00 AM EDT) Only the most recent of3 resultswithin the time period is included. Alkaline Phosphatase 45(L) 46 - 116 U/L [facility] 11/09/2024 3:00 AM EDT 11/11/2024 5:13 PM EDT Quan Peacock MD LAB BLOOD ORDERABLES Final Re sult Performing Organization Address [facility] de Phone Number [facility] [address] [place] [address] * PTH, Intact (11/09/2024 3:00 AM EDT) PTH, Intact 387 160 - 721 pg/mL [facility] Comment: Suggested (KDIGO) ESRD maintenance range is two to nine times the upper normal limit (80.1 pg/mL) for the laboratory. 11/09/2024 3:00 AM EDT 11/11/2024 5:13 PM EDT Quan Peacock MD LAB BLOOD ORDERABLES Final Re sult Performing Organization Address [facility] de Phone Number [facility] [address] [place] [address] * Magnesium (11/09/2024 3:00 AM EDT) Only the most recent of3 resultswithin the time period is included. Magnesium 2.1 1.9 - 2.7 mg/dL [facility] 11/09/2024 3:00 AM EDT 11/11/2024 5:13 PM EDT Quan Peacock MD LAB BLOOD ORDERABLES Final Re sult Performing Organization Address [facility] Co de Phone Number [facility] [address] [place] [address] * Lactate dehydrogenase (11/09/2024 3:00 AM EDT) Only the most recent of3 resultswithin the time period is included. LDH 225 120 - 246 U/L [facility] 11/09/2024 3:00 AM EDT 11/11/2024 5:13 PM EDT Quan Peacock MD LAB BLOOD ORDERABLES Final Re sult Performing Organization Address [facility] de Phone Number [facility] [address] [place] [address] * (ABNORMAL) Glucose, random (11/09/2024 3:00 AM EDT) Only the most recent of3 resultswithin the time period is included. Glucose 129(H) 74 - 109 mg/dL [facility] 11/09/2024 3:00 AM EDT 11/11/2024 5:13 PM EDT Quan Peacock MD LAB BLOOD ORDERABLES Final Re sult Performing Organization Address [facility] de Phone Number [facility] [address] [place] [address] * (ABNORMAL) Ferritin (11/09/2024 3:00 AM EDT) Only the most recent of3 resultswithin the time period is included. Ferritin 1,469(H) 22 - 322 ng/mL [facility] 11/09/2024 3:00 AM EDT 11/11/2024 5:13 PM EDT Quan Peacock MD LAB BLOOD ORDERABLES Final Re sult Performing Organization Address [facility] de Phone Number [facility] [address] [place] [address] * (ABNORMAL) Creatinine, serum (11/09/2024 3:00 AM EDT) Only the most recent of3 resultswithin the time period is included. Creatinine 4.85(H) 0.70 - 1.30 mg/dL [facility] 11/09/2024 3:00 AM EDT 11/11/2024 5:13 PM EDT Quan Peacock MD LAB BLOOD ORDERABLES Final Re sult Performing Organization Address [facility] de Phone Number [facility] [address] [place] [address] * Bilirubin, total (11/09/2024 3:00 AM EDT) Only the most recent of3 resultswithin the time period is included. Total Bilirubin 0.3 0.3 - 1.2 mg/dL [facility] 11/09/2024 3:00 AM EDT 11/11/2024 5:13 PM EDT Quan Peacock MD LAB BLOOD ORDERABLES Final Re sult Performing Organization Address [facility] de Phone Number [facility] [address] [place] [address] * (ABNORMAL) Lipid panel (11/09/2024 3:00 AM [...] Final Re sult [facility] [address] [place] [address] * (ABNORMAL) Electrolyte panel (11/09/2024 3:00 AM [...] ORDERABLES Final Re sult Performing Organization Address [facility] Co de Phone Number [facility] [address] [place] [address] * (ABNORMAL) Hemoglobin (11/07/2024 3:00 AM EDT) Only the most recent of4 resultswithin the time period is included. Hgb 9.9(L) 13.7 - 17.5 g/dL [facility] Hemoglobin x 3 29.7(L) 41.1 - 52.5 g/dL [facility] 11/07/2024 3:00 AM EDT 11/08/2024 1:22 PM EDT Quan Peacock MD LAB BLOOD ORDERABLES Final Re sult Performing Organization Address [facility] de Phone Number [facility] [address] [place] [address] * Potassium (11/02/2024 3:00 AM EDT) Only the most recent of9 resultswithin the time period is included. Potassium 4.1 3.4 - 5.0 mEq/L [facility] 11/02/2024 3:00 AM EDT 11/03/2024 12:45 PM EDT Quan Peacock MD LAB BLOOD ORDERABLES Final Re sult Performing Organization Address [facility] Co de Phone Number [facility] [address] [place] [address] from Last 3 Months Insurance [facility]
--- OUTSIDE RECORDS SUMMARY | 2024-11-22 18:58 | XMS_ITS | Encounter Summary ---
Author Organization [facility] Address [address] [place] [address] Phone Care Team Providers Care Secondary Connector Armature Name Role Phone Unavailable Primary Care Provider Unavailabl e Encounter Details Date Type Department Care Team (Late st Contact Info) Description 01/30/2023 Documentation Only [facility] [address] [place] [address] Shubham Mayer MD [address] [place] [phone] Social History Tobacco Use Types Packs/Day Years [...]
== END 2024-11-22 16:22 | disposition home or self-care (01) ==
LOC: HO.LAB 16:21
PROVIDERS: PCP Internal Medicine; Visit Provider Internal Medicine
DX: R30.0 Dysuria (principal)
CPT/HCPCS: 81001

== ENCOUNTER 2024-11-29 09:34 | Outpatient (AMB) | payer MEDICARE, SELFPAY ==
--- NOTE | 2024-11-29 09:36 | A.OFFVIS_ITS ---
Intake Visit Reasons: 6M/PSA(SET) Intake Note: Ministerio 79 yr old male presents today via video call appointment for his 6 month follow up visit s/p PSA. Allergies No Known Allergies Allergy (Verified 11/17/24 15:47) HPI Comments Details: 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 He seen for the following urologic issues - lower urinary tract symptoms - elevated PSA Telemedicine evaluation 15 minute consultation DoxZollo ivone Video attempted Significant jump in PSA Has been on finasteride daily Previous discussion regarding biopsy Willing to move ahead with biopsy 11/30 MRI shows 2.1 and 1.9 cm lesions, total volume 120 cc Lesions described as PI-RADS 4 and PI-RADS 5 Previously discussed biopsy with patient - he would prefer to continue to follow PSA as this has remained relatively stable for the past 5-6 years, is aware of the risks and benefits of delayed diagnosis Prior negative biopsy 2004 PSA has run in the 12-15 range for many years HUEY normal Lower urinary tract symptoms Current visit is for - further evaluation of lower urinary tract symptoms, predominantly obstructive - episode of retention June 2020 Current treatment includes - tamsulosin and finasteride Prior treatments include - none Prostate Symptom Score - moderate, bother 2 Symptoms include - incomplete emptying, weak stream, nocturia Results from testing include - PSA 04/30 15 this is in historic range for him and has prior negative biopsy from 2004 - 15.0, 05/01 16.5, 10/30 13.7, 12/01 14, 10/04 26 Prostate volume 120g Testing at next visit will include - PSA in 6 months [facility] Medical History (Updated 11/17/24 @ 16:29 by Jada Andrews MD) Weak urinary stream Acute kidney injury ESRD (end stage renal disease) CKD (chronic kidney disease) High cholesterol Hypertension Surgical History Hx of tonsillectomy Social History Household Members: Family Housing: House Do you presently have visiting nurse or other home services: No Alcohol intake: never Patient Tobacco Use Status: Former Tobacco user Tobacco use type: Cigarette Years Smoked: quit 25 year/old e-Cigarette/Vaping Use: Never Used Second Hand Smoke Exposure: No service: No 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: Yes (walker ) Hearing needs: No Vision needs: Yes Review of Systems Const All systems reviewed & are unremarkable except as noted in HPI and below Reports no additional complaints Resp Reports no additional complaints GI Reports no additional complaints Reports as per HPI Musc Reports no additional complaints Physical Exam Telemedicine evaluation Appropriate responses Regular breathing rate and rhythm HEENT Head: Yes normal to inspection Ears: hearing grossly normal bilaterally Eyes General: appearance normal, both eyes and all related structures Neck Neck: Yes normal visual inspection Chest Chest palpation & inspection: normal inspection of the chest Resp Effort & Inspection: normal respiratory effort and able to speak in complete sentences Telehealth Telehealth Telehealth Platform: [employer] Location of provider rendering services: practice address Location of patient: address on file Patient Identification confirmed using: Name, : Yes Telehealth method: video Patient verbally consented to treatment: Yes Patient verbally consented to billing insurance company: Yes Patient informed of any privacy concerns related to visit: Yes Minutes spent on Phone/Video with Pt.: 15 Assessment & Plan Assessment & Plan (1) BPH w urinary obs/LUTS: Code(s): N40.1 - Benign prostatic hyperplasia with lower urinary tract symptoms; N13.8 - Other obstructive and reflux uropathy Category: Medical (2) Elevated PSA: Code(s): R97.20 - Elevated prostate specific antigen [PSA] Category: Medical Plan Risks and benefits regarding trans rectal ultrasound with prostate biopsy were discussed. Options of continued surveillance, no treatment and biopsy were offered. The risks include but are not limited to, urinary tract infection, sepsis, difficulty urinating, bleeding into the rectum or bladder that requires intervention and transfusion,and failure to diagnose prostate cancer. The patient understands the options and the risks involved. They wish to proceed. Printed information was provided to ensure he remains off anticoagulation for the appropriate length of time. He may require cardiology or PCP clearance. An antibiotic will be administered prior to, and following the procedure Medications: New levofloxacin take 1 tablet day before procedure, 1 tablet day of procedure and 1 tablet day after procedure 500 mg PO DAILY 3 days 3 tabs 0RF R97.20 - Elevated prostate specific antigen [PSA] Refilled tamsulosin 0.4 mg PO DAILY 90 days 90 caps 1RF R97.20 - Elevated prostate specific antigen [PSA] tamsulosin 0.4 mg PO DAILY 90 days 90 caps 1RF Patient Instructions: This note is constructed using voice recognition software. While every effort has been made to ensure accuracy pulmonary function technician errors may have been included. Imaging studies, laboratory and physical exam results were discussed and reviewed in detail. No major barriers to patient understanding were identified. An opportunity to ask questions regarding the treatment plan was provided. All questions were answered. The patient expressed understanding and agreement with the above treatment plan. The patient is aware they should contact our office by phone for worsening of their current condition or the appearance of new urologic symptoms. Compliance is encouraged with any medications and followup testing that is ordered. It is a privilege to participate in the urologic care of your patient. If you have any questions or concerns regarding treatment for the above conditions, or other urologic issues, please do not hesitate to contact me. The office telephone contact is [phone]. Sincerely, Dr Fernie Lorenzo MD, [facility] - Urology Compassionate Specialist Care for the Genitourinary System Coding Level of Care Code Tele Est Pt Level 4 (62834) Complex EM visit Add On G2211 Diagnoses BPH w urinary obs/LUTS N40.1; N13.8 Elevated PSA R97.20
--- OUTSIDE RECORDS SUMMARY | 2024-11-29 10:34 | XMS_ITS | Clinical Summary ---
Author Organization [facility] Address [address] [address] Phone Care Team Providers Care Production Team Advisor Name Role Phone Unavailable Primary Care Provider [...] Treatment [facility] [address] [phone] Quan Peacock MD End stage renal disease; Dependence on renal dialysis 11/11/2024 Treatment [facility] [address] [phone] Quan Peacock MD End stage renal disease; Dependence on renal dialysis 11/09/2024 Treatment [facility] [place] [address] [phone] Quan Peacock MD End stage renal disease; Dependence on renal dialysis 11/04/2024 Treatment [facility] [address] [phone] Quan Peacock MD End stage renal disease; Dependence on renal dialysis 10/31/2024 Treatment [facility] [address] [address] Quan Peacock MD End stage renal disease; Dependence on renal dialysis 10/24/2024 Treatment [facility] [address] [address] Quan Peacock MD End stage renal disease; Dependence on renal dialysis 10/14/2024 Treatment [facility] [address] [address] Quan Peacock MD End stage renal disease; Dependence on renal dialysis 10/07/2024 Treatment [facility] [address] [address] Quan Peacock MD End stage renal disease; Dependence on renal dialysis 09/28/2024 Treatment [facility] [address] [address] Quan Peacock MD 09/19/2024 Treatment [facility] [address] [address] Quan Peacock MD 09/12/2024 Treatment [facility] [address] [address] Quan Peacock MD 09/09/2024 Treatment [facility] [address] [address] Quan Peacock MD 09/02/2024 Treatment [facility] [address] [address] Quan Peacock MD 08/31/2024 Orders Only [facility] the [address] [address] Quan Peacock MD from Last 3 Months [...] Priority Date/Time Associated Diagnosis Comments HEMOGLOBIN Routine 11/23/2024 3:00 AM EDT FERRITIN Routine 11/09/2024 3:00 AM EDT PTH, [...] LIH (HC) Routine 08/31/2024 3:00 AM EST from Last 3 Months Results * (ABNORMAL) Hemoglobin (11/23/2024 3:00 AM EDT) Only the most recent of5 resultswithin the time period is included. Hgb 11.0(L) 13.7 - 17.5 g/dL [facility] Hemoglobin x 3 33.0(L) 41.1 - 52.5 g/dL [facility] 11/23/2024 3:00 AM EDT 11/24/2024 12:44 PM EDT us Quan Peacock MD LAB BLOOD ORDERABLES Final Re sult Performing Organization Address [facility] Co de Phone Number APS [facility] [address] [place] [address] * LIH (11/09/2024 3:00 AM EDT) Only the most recent of11 resultswithin the time period is included. Lipemia Normal Normal [facility] Icterus Normal Normal [facility] Hemolysis Normal Normal [facility] 11/09/2024 3:00 AM EDT 11/11/2024 5:13 PM EDT us Quan Peacock MD LAB [id number] SOLICITED RESULTS Final Result Performing Organization Address [facility] de Phone Number [facility] [address] [place] [address] * (ABNORMAL) Kt/V Natural Log, URR (11/09/2024 [...] PM EDT us Quan Peacock MD LAB [id number] SOLICITED RESULTS Final Result Performing Organization Address [facility] de Phone Number [facility] [address] [place] [address] * (ABNORMAL) Calcium Phosphorus Product, Adjusted (11/09/2024 3:00 AM EDT) Only the most recent of3 resultswithin the time period is included. Pathologist [facility] Albumin 4.5 3.6 - 5.4 g/dL [facility] Calcium 8.7 8.6 - 10.3 mg/dL [facility] Phosphorus, Serum 5.6(H) 2.5 - 5.0 mg/dL [facility] Ca*PO4 48.7 <55.0 mg2/dL2 [facility] Calcium, Adjusted Total 8.7 8.6 - 10.3 mg/dL [facility] CA*PO4 CORRCTD 48.7 <55.0 mg2/dL2 [facility] 11/09/2024 3:00 AM EDT 11/11/2024 5:13 PM EDT Quan Peacock MD LAB [id number] SOLICITED RESULTS Final Result Performing Organization Address [facility] Co de Phone Number [facility] [address] [place] [address] * (ABNORMAL) TSAT (11/09/2024 3:00 AM EDT) Only the most recent of3 resultswithin the time period is included. [facility] Iron 62(L) 65 - 175 ug/dL [facility] Transferrin 172(L) 215 - 365 mg/dL [facility] TIBC 241 211 - 406 ug/dL [facility] Iron Saturation (TSat) 26 22 - 52 % [facility] 11/09/2024 3:00 AM EDT 11/11/2024 5:13 PM EDT Quan Peacock MD LAB BLOOD ORDERABLES Final Re sult Performing Organization Address City/[facility]/ZIP Co de Phone Number [facility] [address] [place] [address] * (ABNORMAL) CBC and Differential (11/09/2024 3:00 AM EDT) Only the most recent of3 resultswithin the time period is included. [facility] DIFFERENTIAL MANUAL, 2 Not Indicated [facility] White [...] ORDERABLES Final Re sult Performing Organization Address [facility] de Phone Number [facility] [address] [place] [address] * ALT (11/09/2024 3:00 AM EDT) Only the most recent of3 resultswithin the time period is included. [facility] ALT (SGPT) 16 10 - 49 U/L [facility] 11/09/2024 3:00 AM EDT 11/11/2024 5:13 PM EDT Quan Peacock MD LAB BLOOD ORDERABLES Final Re sult Performing Organization Address City/[facility] de Phone Number [facility] [address] [place] [address] * AST (11/09/2024 3:00 AM EDT) Only the most recent of3 resultswithin the time period is included. AST (SGOT) 14 <34 U/L [facility] 11/09/2024 3:00 AM EDT 11/11/2024 5:13 PM EDT Quan Peacock MD LAB BLOOD ORDERABLES Final Re sult Performing Organization Address [facility] de Phone Number [facility] [address] [place] [address] * Protein, total (11/09/2024 3:00 AM EDT) Only the most recent of3 resultswithin the time period is included. Total Protein 7.4 6.4 - 8.9 g/dL [facility] 11/09/2024 3:00 AM EDT 11/11/2024 5:13 PM EDT Quan Peacock MD LAB BLOOD ORDERABLES Final Re sult Performing Organization Address [facility] de Phone Number [facility] [address] [place] [address] * (ABNORMAL) Alkaline phosphatase (11/09/2024 3:00 AM EDT) Only the most recent of3 resultswithin the time period is included. Alkaline Phosphatase 45(L) 46 - 116 U/L [facility] 11/09/2024 3:00 AM EDT 11/11/2024 5:13 PM EDT Quan Peacock MD LAB BLOOD ORDERABLES Final Re sult Performing Organization Address [facility] Co de Phone Number [facility] [address] [place] [address] * PTH, Intact (11/09/2024 3:00 AM EDT) PTH, Intact 387 160 - 721 pg/mL [facility] Comment: Suggested (KDIGO) ESRD maintenance range is two to nine times the upper normal limit (80.1 pg/mL) for the laboratory. 11/09/2024 3:00 AM EDT 11/11/2024 5:13 PM EDT Quan Peacock MD LAB BLOOD ORDERABLES Final Re sult Performing Organization Address [facility] Co de Phone Number [facility] [address] [place] [address] * Magnesium (11/09/2024 3:00 AM EDT) Only the most recent of3 resultswithin the time period is included. Pathologist [facility] Magnesium 2.1 1.9 - 2.7 mg/dL [facility] 11/09/2024 3:00 AM EDT 11/11/2024 5:13 PM EDT Quan Peacock MD LAB BLOOD ORDERABLES Final Re sult Performing Organization Address [facility] de Phone Number [facility] [address] [place] [address] * Lactate dehydrogenase (11/09/2024 3:00 AM EDT) Only the most recent of3 resultswithin the time period is included. Pathologist [facility] LDH 225 120 - 246 U/L [facility] 11/09/2024 3:00 AM EDT 11/11/2024 5:13 PM EDT Quan Peacock MD LAB BLOOD ORDERABLES Final Re sult Performing Organization Address [facility] de Phone Number [facility] [address] [place] [address] * (ABNORMAL) Glucose, random (11/09/2024 3:00 AM EDT) Only the most recent of3 resultswithin the time period is included. Glucose 129(H) 74 - 109 mg/dL [facility] 11/09/2024 3:00 AM EDT 11/11/2024 5:13 PM EDT Quan Peacock MD LAB BLOOD ORDERABLES Final Re sult Performing Organization Address [facility] Co de Phone Number [facility] [address] [place] [address] * (ABNORMAL) Ferritin (11/09/2024 3:00 AM EDT) Only the most recent of3 resultswithin the time period is included. Ferritin 1,469(H) 22 - 322 ng/mL [facility] 11/09/2024 3:00 AM EDT 11/11/2024 5:13 PM EDT Quan Peacock MD LAB BLOOD ORDERABLES Final Re sult Performing Organization Address [facility] de Phone Number [facility] [address] [place] [address] * (ABNORMAL) Creatinine, serum (11/09/2024 3:00 AM EDT) Only the most recent of3 resultswithin the time period is included. Creatinine 4.85(H) 0.70 - 1.30 mg/dL [facility] 11/09/2024 3:00 AM EDT 11/11/2024 5:13 PM EDT Quan Peacock MD LAB BLOOD ORDERABLES Final Re sult Performing Organization Address [facility] de Phone Number [facility] [address] [place] [address] * Bilirubin, total (11/09/2024 3:00 AM EDT) Only the most recent of3 resultswithin the time period is included. Total Bilirubin 0.3 0.3 - 1.2 mg/dL [facility] 11/09/2024 3:00 AM EDT 11/11/2024 5:13 PM EDT us Quan Peacock MD LAB BLOOD ORDERABLES Final Re sult Performing Organization Address [facility] de Phone Number [facility] [address] [place] [address] * (ABNORMAL) Lipid panel (11/09/2024 3:00 AM [...] ORDERABLES Final Re sult Performing Organization Address City/[facility] Co de Phone Number [facility] [address] [place] [address] * (ABNORMAL) Electrolyte panel (11/09/2024 3:00 AM [...] ORDERABLES Final Re sult Performing Organization Address [facility] de Phone Number [facility] [address] [place] [address] * Potassium (11/02/2024 3:00 AM EDT) Only the most recent of8 resultswithin the time period is included. Potassium 4.1 3.4 - 5.0 mEq/L [facility] 11/02/2024 3:00 AM EDT 11/03/2024 12:45 PM EDT Quan Peacock MD LAB BLOOD ORDERABLES Final Re sult Performing Organization Address [facility] de Phone Number [facility] [address] [place] [address] from Last [address] [place] [address] [facility]
--- OUTSIDE RECORDS SUMMARY | 2024-11-29 10:34 | XMS_ITS | Encounter Summary ---
Author Organization [facility] Address [address] [place] [address] Phone Care Team Providers Care Inspector Shells Name Role Phone Unavailable Primary Care Provider Unavailabl e Encounter Details Date Type Department Care Team (Late st Contact Info) Description 05/20/2023 Documentation Only [facility] [address] [place] [address] Shubham Mayer MD [address] [place] [phone] Social History Tobacco Use Types Packs/Day Years [...]
--- OUTSIDE RECORDS SUMMARY | 2024-11-29 10:34 | XMS_ITS | Encounter Summary ---
Author Organization [facility] [place], Address [address] [place] [address] Phone Care Team Providers Care Newspaper Delivery Counselor Name Role Phone Unavailable Primary Care Provider Unavailabl e Encounter Details Date Type Department Care Team (Late st Contact Info) Description 06/02/2023 Documentation Only [facility] [place], [address] [place] [address] Yoel Davey, [address] [place] [phone] Social History Tobacco Use Types Packs/Day Years [...]
--- OUTSIDE RECORDS SUMMARY | 2024-11-29 10:34 | XMS_ITS | Encounter Summary ---
Author Organization [facility] Address [address] [place] [address] Phone Care Team Providers Care It Disaster Recovery Manager Name Role Phone Unavailable Primary Care Provider Unavailabl e Encounter Details Date Type Department Care Team (Late st Contact Info) Description 04/16/2023 Documentation Only [facility] [address] [place] [address] Shubham Mayer MD [address] [place] [phone] Social History Tobacco Use Types Packs/Day Years [...]
--- OUTSIDE RECORDS SUMMARY | 2024-11-29 10:34 | XMS_ITS | Encounter Summary ---
Author Organization [facility] Address [address] [place] [address] Phone Care Team Providers Care Motor Vehicles Supervisor Name Role Phone Unavailable Primary Care Provider Unavailabl e Encounter Details Date Type Department Care Team (Late st Contact Info) Description 04/21/2023 Documentation Only [facility] [address] [address] Shubham Mayer MD [address] [place] [phone] Social History Tobacco Use Types Packs/Day Years [...]
--- OUTSIDE RECORDS SUMMARY | 2024-11-29 10:34 | XMS_ITS | Encounter Summary ---
Author Organization [facility] Address [address] [place] [address] Phone Care Team Providers Care Veterinary Epidemiologist Name Role Phone Unavailable Primary Care Provider Unavailabl e Encounter Details Date Type Department Care Team (Late st Contact Info) Description 03/20/2023 Documentation Only [facility] [address] [place] [address] Shubham Mayer MD [address] [place] [phone] Social History Tobacco Use Types Packs/Day Years [...]
--- OUTSIDE RECORDS SUMMARY | 2024-11-29 10:35 | XMS_ITS | Encounter Summary ---
Author Organization [facility] [place], Address [address] [place] [address] Phone Care Team Providers Care Guide Dog Instructor Name Role Phone Unavailable Primary Care Provider Unavailabl e Reason for Visit * Reason Comments Med Refill Encounter Details Date Type Department Care Team (Late st Contact Info) Description 08/09/2022 Refill [facility] [place], [address] [place] [address] Shubham Mayer MD [address] [place] [phone] Social History Tobacco Use Types Packs/Day Years [...]
--- OUTSIDE RECORDS SUMMARY | 2024-11-29 10:35 | XMS_ITS | Encounter Summary ---
Author Organization [facility] [place], Address [address] [place] [address] Phone Care Team Providers Care Economic Manager Name Role Phone Unavailable Primary Care Provider Unavailabl e Reason for Visit * Reason Comments Med Refill Encounter Details Date Type Department Care Team (Late st Contact Info) Description 10/03/2023 Refill [facility] [place], [address] [place] [address] Shubham Mayer MD [address] [place] [phone] Social History Tobacco Use Types Packs/Day Years [...]
--- OUTSIDE RECORDS SUMMARY | 2024-11-29 10:35 | XMS_ITS | Encounter Summary ---
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 [phone] Social History Tobacco Use Types Packs/Day Years [...] 3:11 PM EST Quan Peacock MD LAB [id number] SOLICITED RESULTS Final Result Performing Organization Address [facility] [place] de Phone Number [facility] [address] [place] [address] * Potassium (08/24/2024 3:00 AM EST) Pathologist [facility] [place] Potassium 4.0 3.4 - 5.0 mEq/L [facility] 08/24/2024 3:00 AM EST 08/25/2024 3:11 PM EST Quan Peacock MD LAB BLOOD ORDERABLES Final Re sult Performing Organization Address [facility] de Phone Number [facility] [address] [place] [address] * Aluminum level (08/17/2024 3:00 AM EST) Pathologist [facility] [place] Aluminum 4 1 - 20 ug/L [facility] 08/17/2024 3:00 AM EST 08/18/2024 12:37 PM EST Quan Peacock MD LAB BLOOD ORDERABLES Final Re sult Performing Organization Address [facility] de Phone Number [facility] [address] [place] [address] * Confirmation Test HCV (08/17/2024 3:00 AM EST) Pathologist [facility] [place] Hep C Ab Confirmation Not needed [facility] 08/17/2024 3:00 AM EST 08/18/2024 1:26 PM EST Quan Peacock MD LAB BLOOD ORDERABLES Final Re sult Performing Organization Address [facility] Co de Phone Number [facility] [address] [place] [address] * HEPATITIS C ABS W/REFLEX RNA DETECTR (08/17/2024 3:00 AM EST) Pathologist [facility] [place] Hep C Virus Ab Non-Reacti ve Non-Reacti ve [facility] 08/17/2024 3:00 AM EST 08/18/2024 12:58 PM EST Quan Peacock MD LAB [id number] SOLICITED RESULTS Final Result Performing Organization Address [facility] de Phone Number [facility] [address] [place] [address] * Hepatitis B Surface Ag w/Reflex Confirmation (08/17/2024 3:00 AM EST) Pathologist [facility] [place] Hep B Surface Antigen Negative Negative [facility] 08/17/2024 3:00 AM EST 08/18/2024 12:58 PM EST Quan Peacock MD LAB BLOOD ORDERABLES Final Re sult Performing Organization Address [facility] de Phone Number [facility] [address] [place] [address] * (ABNORMAL) Uric Acid (08/17/2024 3:00 AM EST) [facility] Uric Acid 8.1(H) 4.4 - 7.6 mg/dL [facility] 08/17/2024 3:00 AM EST 08/18/2024 12:58 PM EST Quan Peacock MD LAB BLOOD ORDERABLES Final Re sult Performing Organization Address [facility] de Phone Number [facility] [address] [place] [address] * (ABNORMAL) TSAT (08/17/2024 3:00 AM EST) Pathologist [facility] [place] Iron 65 65 - 175 ug/dL [facility] Transferrin 159(L) 215 - 365 mg/dL [facility] TIBC 223 211 - 406 ug/dL [facility] Iron Saturation (TSat) 29 22 - 52 % [facility] 08/17/2024 3:00 AM EST 08/18/2024 12:58 PM EST Quan Peacock MD LAB BLOOD ORDERABLES Final Re sult Performing Organization Address [facility] de Phone Number [facility] [address] [place] [address] * Protein, total (08/17/2024 3:00 AM EST) Total Protein 7.3 6.4 - 8.9 g/dL [facility] 08/17/2024 3:00 AM EST 08/18/2024 12:58 PM EST Quan Peacock MD LAB BLOOD ORDERABLES Final Re sult Performing Organization Address [facility] de Phone Number [facility] [address] [place] [address] * Magnesium (08/17/2024 3:00 AM EST) Pathologist [facility] [place] Magnesium 1.9 1.9 - 2.7 mg/dL [facility] 08/17/2024 3:00 AM EST 08/18/2024 12:58 PM EST Quan Peacock MD LAB BLOOD ORDERABLES Final Re sult Performing Organization Address [facility] de Phone Number [facility] [address] [place] [address] * (ABNORMAL) Electrolyte panel (08/17/2024 3:00 AM [...] Final Re sult [facility] [address] [place] [address] * (ABNORMAL) Lipid panel (08/17/2024 3:00 AM [...] ORDERABLES Final Re sult Performing Organization Address [facility] Co de Phone Number [facility] [address] [place] [address] * LIH (08/17/2024 3:00 AM EST) Lipemia Normal Normal [facility] Icterus Normal Normal [facility] Hemolysis Normal Normal [facility] 08/17/2024 3:00 AM EST 08/18/2024 12:58 PM EST us Quan Peacock MD LAB [id number] SOLICITED RESULTS Final Result Performing Organization Address [facility] Phone Number [facility] [address] [place] [address] * Lactate dehydrogenase (08/17/2024 3:00 AM EST) Pathologist [facility] [place] LDH 203 120 - 246 U/L [facility] 08/17/2024 3:00 AM EST 08/18/2024 12:58 PM EST us Quan Peacock MD LAB BLOOD ORDERABLES Final Re sult Performing Organization Address [facility] de Phone Number [facility] [address] [place] [address] * (ABNORMAL) Glucose, random (08/17/2024 3:00 AM EST) Pathologist [facility] [place] Glucose 290(H) 74 - 109 mg/dL [facility] 08/17/2024 3:00 AM EST 08/18/2024 12:58 PM EST us Quan Peacock MD LAB BLOOD ORDERABLES Final Re sult Performing Organization Address [facility] de Phone Number [facility] [address] [place] [address] * (ABNORMAL) Creatinine, serum (08/17/2024 3:00 AM EST) Pathologist [facility] [place] Creatinine 6.52(H) 0.70 - 1.30 mg/dL [facility] 08/17/2024 3:0 0 AM EST 08/18/2024 12:58 PM EST Quan Peacock MD LAB BLOOD ORDERABLES Final Re sult Performing Organization Address [facility] [place] de Phone Number [facility] [address] [place] [address] * Bilirubin, total (08/17/2024 3:00 AM EST) Total Bilirubin 0.3 0.3 - 1.2 mg/dL [facility] 08/17/2024 3:00 AM EST 08/18/2024 12:58 PM EST Quan Peacock MD LAB BLOOD ORDERABLES Final Re sult Performing Organization Address [facility] de Phone Number [facility] [address] [place] [address] * AST (08/17/2024 3:00 AM EST) AST (SGOT) 13 <34 U/L [facility] 08/17/2024 3:00 AM EST 08/18/2024 12:58 PM EST Quan Peacock MD LAB BLOOD ORDERABLES Final Re sult Performing Organization Address [facility] de Phone Number [facility] [address] [place] [address] * ALT (08/17/2024 3:00 AM EST) ALT (SGPT) 17 10 - 49 U/L [facility] 08/17/2024 3:00 AM EST 08/18/2024 12:58 PM EST Quan Peacock MD LAB BLOOD ORDERABLES Final Re sult Performing Organization Address [facility] de Phone Number [facility] [address] [place] [address] * Alkaline phosphatase (08/17/2024 3:00 AM EST) Alkaline Phosphatase 47 46 - 116 U/L [facility] 08/17/2024 3:00 AM EST 08/18/2024 12:58 PM EST Quan Peacock MD LAB BLOOD ORDERABLES Final Re sult Performing Organization Address [facility] de Phone Number [facility] [address] [place] [address] * (ABNORMAL) Calcium Phosphorus Product, Adjusted (08/17/2024 [...] 12:58 PM EST Quan Peacock MD LAB [id number] SOLICITED RESULTS Final Result Performing Organization Address [facility] de Phone Number [facility] [address] [place] [address] * PTH, Intact (08/17/2024 3:00 AM EST) PTH, Intact 271 160 - 721 pg/mL [facility] Comment: Suggested (KDIGO) ESRD maintenance range is two to nine times the upper normal limit (80.1 pg/mL) for the laboratory. 08/17/2024 3:00 AM EST 08/18/2024 12:58 PM EST Quan Peacock MD LAB BLOOD ORDERABLES Final Re sult Performing Organization Address [facility] de Phone Number [facility] [address] [place] [address] * (ABNORMAL) Ferritin (08/17/2024 3:00 AM EST) [facility] Ferritin 1,268(H) 22 - 322 ng/mL [facility] 08/17/2024 3:00 AM EST 08/18/2024 12:58 PM EST Quan Peacock MD LAB BLOOD ORDERABLES Final Re sult Performing Organization Address [facility] de Phone Number [facility] [address] [place] [address] * Hepatitis B Surface Antibody (08/17/2024 3:00 AM EST) [facility] Hep B Surface Antibody 459 mIU/mL [facility] Comment: Interpretation: <10: No Immunity >=10: Probable Immunity 08/17/2024 3:00 AM EST 08/18/2024 12:58 PM EST Quan Peacock MD LAB BLOOD ORDERABLES Final Re sult Performing Organization Address [facility] de Phone Number [facility] [address] [place] [address] * (ABNORMAL) CBC and Differential (08/17/2024 3:00 AM EST) [facility] DIFFERENTIAL MANUAL, 2 Not Indicated [facility] [...] ORDERABLES Final Re sult Performing Organization Address [facility] Co de Phone Number [facility] [address] [place] [address] * (ABNORMAL) Kt/V Natural Log, URR (08/17/2024 3:00 AM EST) Pathologist [facility] [place] Treatment Time 197 min [facility] Pre-Weight, lb [...] 12:52 PM EST Quan Peacock MD LAB [id number] SOLICITED RESULTS Final Result Performing Organization Address [facility] Co de Phone Number [facility] [address] [place] [address] * Hepatitis B Surface Ag w/Reflex Confirmation (07/13/2024 3:00 AM EST) Hep B Surface Antigen Negative Negative [facility] 07/13/2024 3:00 AM EST 07/14/2024 3:21 PM EST us Quan Peacock MD LAB BLOOD ORDERABLES Final Re sult Performing Organization Address [facility] Phone Number [facility] [address] [place] [address] * Protein, total (07/13/2024 3:00 AM EST) Pathologist [facility] [place] Total Protein 7.3 6.4 - 8.9 g/dL [facility] 07/13/2024 3:00 AM EST 07/14/2024 3:21 PM EST us Quan Peacock MD LAB BLOOD ORDERABLES Final Re sult Performing Organization Address [facility] Phone Number [facility] [address] [place] [address] * Magnesium (07/13/2024 3:00 AM EST) Pathologist [facility] [place] Magnesium 1.9 1.9 - 2.7 mg/dL [facility] 07/13/2024 3:00 AM EST 07/14/2024 3:21 PM EST us uQan Peacock MD LAB BLOOD ORDERABLES Final Re sult Performing Organization Address [facility] Phone Number [facility] [address] [place] [address] * Electrolyte panel (07/13/2024 3:00 AM EST) [...] ORDERABLES Final Re sult Performing Organization Address [facility] de Phone Number [facility] [address] [place] [address] * (ABNORMAL) TSAT (07/13/2024 3:00 AM EST) Iron 92 65 - 175 ug/dL [facility] Transferrin 155(L) 215 - 365 mg/dL [facility] TIBC 217 211 - 406 ug/dL [facility] Iron Saturation (TSat) 42 22 - 52 % [facility] 07/13/2024 3:00 AM EST 07/14/2024 3:21 PM EST Quan Peacock MD LAB BLOOD ORDERABLES Final Re sult Performing Organization Address [facility] de Phone Number [facility] [address] [place] [address] * (ABNORMAL) Glucose, random (07/13/2024 3:00 AM EST) Glucose 180(H) 74 - 109 mg/dL [facility] 07/13/2024 3:00 AM EST 07/14/2024 3:21 PM EST Quan Peacock MD LAB BLOOD ORDERABLES Final Re sult Performing Organization Address [facility] de Phone Number [facility] [address] [place] [address] * Lactate dehydrogenase (07/13/2024 3:00 AM EST) LDH 186 120 - 246 U/L [facility] 07/13/2024 3:00 AM EST 07/14/2024 3:21 PM EST Quan Peacock MD LAB BLOOD ORDERABLES Final Re sult Performing Organization Address [facility] de Phone Number [facility] [address] [place] [address] * LIH (07/13/2024 3:00 AM EST) Lipemia Normal Normal [facility] Icterus Normal Normal [facility] Hemolysis Normal Normal [facility] 07/13/2024 3:00 AM EST 07/14/2024 3:21 PM EST us Quan Peacock MD LAB [id number] SOLICITED RESULTS Final Result Performing Organization Address [facility] Phone Number [facility] [address] [place] [address] * AST (07/13/2024 3:00 AM EST) AST (SGOT) 14 <34 U/L [facility] 07/13/2024 3:00 AM EST 07/14/2024 3:21 PM EST us Quan Peacock MD LAB BLOOD ORDERABLES Final Re sult Performing Organization Address [facility] Phone Number [facility] [address] [place] [address] * (ABNORMAL) Bilirubin, total (07/13/2024 3:00 AM EST) Total Bilirubin 0.2(L) 0.3 - 1.2 mg/dL [facility] 07/13/2024 3:00 AM EST 07/14/2024 3:21 PM EST us Quan Peacock MD LAB BLOOD ORDERABLES Final Re sult Performing Organization Address [facility] Phone Number [facility] [address] [place] [address] * ALT (07/13/2024 3:00 AM EST) ALT (SGPT) 17 10 - 49 U/L [facility] 07/13/2024 3:00 AM EST 07/14/2024 3:21 PM EST us Quan Peacock MD LAB BLOOD ORDERABLES Final Re sult [facility] [address] [place] [address] * (ABNORMAL) Creatinine, serum (07/13/2024 3:00 AM EST) Creatinine 4.80(H) 0.70 - 1.30 mg/dL [facility] 07/13/2024 3:00 AM EST 07/14/2024 3:21 PM EST us Quan Peacock MD LAB BLOOD ORDERABLES Final Re sult Performing Organization Address [facility] de Phone Number [facility] [address] [place] [address] * (ABNORMAL) Alkaline phosphatase (07/13/2024 3:00 AM EST) Alkaline Phosphatase 41(L) 46 - 116 U/L [facility] 07/13/2024 3:00 AM EST 07/14/2024 3:21 PM EST us Quan Peacock MD LAB BLOOD ORDERABLES Final Re sult Performing Organization Address [facility] de Phone Number [facility] [address] [place] [address] * Calcium Phosphorus Product, Adjusted (07/13/2024 3:00 [...] PM EST us Quan Peacock MD LAB [id number] SOLICITED RESULTS Final Result [facility] [address] [place] [address] * (ABNORMAL) CBC and Differential (07/13/2024 3:00 AM EST) Pathologist [facility] [place] DIFFERENTIAL MANUAL, 2 Not Indicated [facility] White [...] ORDERABLES Final Re sult Performing Organization Address City/[facility]/ZIP Co de Phone Number [facility] [address] [place] [address] * (ABNORMAL) Kt/V Natural Log, URR (07/13/2024 3:00 AM EST) Pathologist [facility] [place] Treatment Time 205 min [facility] Pre-Weight, lb [...] 3:19 PM EST Quan Peacock MD LAB [id number] SOLICITED RESULTS Final Result Performing Organization Address [facility] de Phone Number [facility] [address] [place] [address] * Hepatitis B Surface Ag w/Reflex Confirmation (06/15/2024 3:00 AM EST) Hep B Surface Antigen Negative Negative [facility] 06/15/2024 3:00 AM EST 06/16/2024 5:14 PM EST Quan Peacock MD LAB BLOOD ORDERABLES Final Re sult Performing Organization Address [facility] de Phone Number [facility] [address] [place] [address] * (ABNORMAL) Ferritin (06/15/2024 3:00 AM EST) Ferritin 923(H) 22 - 322 ng/mL [facility] 06/15/2024 3:00 AM EST 06/16/2024 5:14 PM EST Quan Peacock MD LAB BLOOD ORDERABLES Final Re sult Performing Organization Address [facility] de Phone Number [facility] [address] [place] [address] * (ABNORMAL) TSAT (06/15/2024 3:00 AM EST) Iron 39(L) 65 - 175 ug/dL [facility] Transferrin 173(L) 215 - 365 mg/dL [facility] TIBC 242 211 - 406 ug/dL [facility] Iron Saturation (TSat) 16(L) 22 - 52 % [facility] 06/15/2024 3:00 AM EST 06/16/2024 5:14 PM EST us Quan Peacock MD LAB BLOOD ORDERABLES Final Re sult Performing Organization Address [facility] de Phone Number [facility] [address] [place] [address] * (ABNORMAL) Magnesium (06/15/2024 3:00 AM EST) Magnesium 1.8(L) 1.9 - 2.7 mg/dL [facility] 06/15/2024 3:00 AM EST 06/16/2024 5:14 PM EST Quan Peacock MD LAB BLOOD ORDERABLES Final Re sult Performing Organization Address [facility] de Phone Number [facility] [address] [place] [address] * Protein, total (06/15/2024 3:00 AM EST) Total Protein 7.0 6.4 - 8.9 g/dL [facility] 06/15/2024 3:00 AM EST 06/16/2024 5:14 PM EST Quan Peacock MD LAB BLOOD ORDERABLES Final Re sult Performing Organization Address [facility] de Phone Number [facility] [address] [place] [address] * LIH (06/15/2024 3:00 AM EST) Lipemia Normal Normal [facility] Icterus Normal Normal [facility] Hemolysis Normal Normal [facility] 06/15/2024 3:00 AM EST 06/16/2024 5:14 PM EST us Quan Peacock MD LAB [id number] SOLICITED RESULTS Final Result Performing Organization Address City/[facility]/ZIP Co de Phone Number [facility] [address] [place] [address] * Lactate dehydrogenase (06/15/2024 3:00 AM EST) LDH 221 120 - 246 U/L [facility] 06/15/2024 3:00 AM EST 06/16/2024 5:14 PM EST Quan Peacock MD LAB BLOOD ORDERABLES Final Re sult Performing Organization Address [facility] Co de Phone Number [facility] [address] [place] [address] * Electrolyte panel (06/15/2024 3:00 AM EST) [...] ORDERABLES Final Re sult Performing Organization Address [facility] Co de Phone Number [facility] [address] [place] [address] * (ABNORMAL) Creatinine, serum (06/15/2024 3:00 AM EST) Pathologist [facility] [place] Creatinine 4.72(H) 0.70 - 1.30 mg/dL [facility] 06/15/2024 3:00 AM EST 06/16/2024 5:14 PM EST Quan Peacock MD LAB BLOOD ORDERABLES Final Re sult Performing Organization Address [facility] Co de Phone Number [facility] [address] [place] [address] * (ABNORMAL) Glucose, random (06/15/2024 3:00 AM EST) Glucose 155(H) 74 - 109 mg/dL [facility] 06/15/2024 3:00 AM EST 06/16/2024 5:14 PM EST Quan Peacock MD LAB BLOOD ORDERABLES Final Re sult Performing Organization Address [facility] Co de Phone Number [facility] [address] [place] [address] * (ABNORMAL) Bilirubin, total (06/15/2024 3:00 AM EST) Total Bilirubin 0.2(L) 0.3 - 1.2 mg/dL [facility] 06/15/2024 3:00 AM EST 06/16/2024 5:14 PM EST Quan Peacock MD LAB BLOOD ORDERABLES Final Re sult Performing Organization Address [facility] de Phone Number [facility] [address] [place] [address] * AST (06/15/2024 3:00 AM EST) AST (SGOT) 14 <34 U/L [facility] 06/15/2024 3:00 AM EST 06/16/2024 5:14 PM EST Quan Peacock MD LAB BLOOD ORDERABLES Final Re sult Performing Organization Address [facility] de Phone Number [facility] [address] [place] [address] * ALT (06/15/2024 3:00 AM EST) ALT (SGPT) 14 10 - 49 U/L [facility] 06/15/2024 3:00 AM EST 06/16/2024 5:14 PM EST Quan Peacock MD LAB BLOOD ORDERABLES Final Re sult Performing Organization Address [facility] [place] de Phone Number [facility] [address] [place] [address] * (ABNORMAL) Alkaline phosphatase (06/15/2024 3:00 AM EST) Alkaline Phosphatase 39(L) 46 - 116 U/L [facility] 06/15/2024 3:00 AM EST 06/16/2024 5:14 PM EST Quan Peacock MD LAB BLOOD ORDERABLES Final Re sult Performing Organization Address [facility] de Phone Number [facility] [address] [place] [address] * Calcium Phosphorus Product, Adjusted (06/15/2024 3:00 AM EST) Pathologist [facility] [place] Albumin 4.4 3.6 - 5.4 g/dL [facility] Calcium 9.8 8.6 - 10.3 mg/dL [facility] Phosphorus, Serum 4.3 2.5 - 5.0 mg/dL [facility] Ca*PO4 42.1 <55.0 mg2/dL2 [facility] Calcium, Adjusted Total 9.8 8.6 - 10.3 mg/dL [facility] CA*PO4 CORRCTD 42.1 <55.0 mg2/dL2 [facility] 06/15/2024 3:00 AM EST 06/16/2024 5:14 PM EST Quan Peacock MD LAB [id number] SOLICITED RESULTS Final Result Performing Organization Address [facility] de Phone Number [facility] [address] [place] [address] * (ABNORMAL) Kt/V Natural Log, URR (06/15/2024 3:00 AM EST) Pathologist [facility] [place] Treatment Time 195 min [facility] Pre-Weight, lb [...] PM EST us Quan Peacock MD LAB [id number] SOLICITED RESULTS Final Result [facility] [address] [place] [address] * (ABNORMAL) CBC and Differential (06/15/2024 3:00 [...] Final Re sult [facility] [address] [place] [address] documented in this encounter Visit Diagnoses Not on filedocumented in this encounter
--- OUTSIDE RECORDS SUMMARY | 2024-11-29 10:35 | XMS_ITS | Encounter Summary ---
Author Organization [facility] Address [address] [place] [address] Phone Care Team Providers Care Market Editor Name Role Phone Unavailable Primary Care Provider Unavailabl e Encounter Details Date Type Department Care Team (Late st Contact Info) Description 01/30/2023 Documentation Only [facility] [address] [place] [address] Shubham Mayer MD [address] [place] [phone] Social History Tobacco Use Types Packs/Day Years [...]
--- OUTSIDE RECORDS SUMMARY | 2024-11-29 10:35 | XMS_ITS | Encounter Summary ---
Author Organization [facility] Address [address] [place] [address] Phone Care Team Providers Care Business Analytics Faculty Member Name Role Phone Unavailable Primary Care Provider Unavailabl e Encounter Details Date Type Department Care Team (Late st Contact Info) Description 11/20/2022 Documentation Only [facility] [address] [place] [address] Shubham Mayer MD [address] [place] [phone] Social History Tobacco Use Types Packs/Day Years [...]
== END 2024-11-29 10:16 | disposition home or self-care (01) ==
LOC: HO.HUSH 09:34
PROVIDERS: PCP Internal Medicine; Visit Provider Urology
DX: N40.1 Benign prostatic hyperplasia with lower urinary tract symptoms (principal); N13.8 Other obstructive and reflux uropathy; R97.20 Elevated prostate specific antigen [PSA]
CPT/HCPCS: 99214; G2211

== ENCOUNTER 2024-12-20 07:48 | Outpatient (REF) | payer MEDICARE, SELFPAY ==
--- OUTSIDE RECORDS SUMMARY | 2024-12-20 07:50 | XMS_ITS | Encounter Summary ---
Author Organization [facility] [place], Address [address] [place] [address] Phone Care Team Providers Care Children'S Attendant Name Role Phone Unavailable Primary Care Provider Unavailabl e Reason for Visit * Reason Comments Med Refill Encounter Details Date Type Department Care Team (Late st Contact Info) Description 10/03/2023 Refill [facility], [address] [place] [address] Shubham Mayer MD [address] [place] [phone] Social History Tobacco Use Types Packs/Day Years [...]
--- OUTSIDE RECORDS SUMMARY | 2024-12-20 07:50 | XMS_ITS | Encounter Summary ---
Author Organization [facility] Address [address] [place] [address] Phone Care Team Providers Care Turf Farmer Name Role Phone Unavailable Primary Care Provider Unavailabl e Encounter Details Date Type Department Care Team (Late st Contact Info) Description 01/30/2023 Documentation Only [facility] [address] [place] [address] Shubham Mayer MD [address] [place] [phone] Social History Tobacco Use Types Packs/Day Years [...]
--- OUTSIDE RECORDS SUMMARY | 2024-12-20 07:50 | XMS_ITS | Encounter Summary ---
Author Organization [facility] Address [address] [place] [address] Phone Care Team Providers Care Lead Carpenter Name Role Phone Unavailable Primary Care Provider Unavailabl e Encounter Details Date Type Department Care Team (Late st Contact Info) Description 11/20/2022 Documentation Only [facility] [address] [place] [address] Shubham Mayer MD [address] [place] [phone] Social History Tobacco Use Types Packs/Day Years [...]
--- OUTSIDE RECORDS SUMMARY | 2024-12-20 07:50 | XMS_ITS | Encounter Summary ---
Author Organization [facility] Address [address] [place] [address] Phone Care Team Providers Care Balancing Machine Operator Name Role Phone Unavailable Primary Care Provider Unavailabl e Encounter Details Date Type Department Care Team (Late st Contact Info) Description 04/21/2023 Documentation Only [facility] [address] [place] [address] Shubham Mayer MD [address] [place] [phone] Social History Tobacco Use Types Packs/Day Years [...]
--- OUTSIDE RECORDS SUMMARY | 2024-12-20 07:50 | XMS_ITS | Encounter Summary ---
Author Organization [facility] Address [address] [place] [address] Phone Care Team Providers Care Web Services Manager Name Role Phone Unavailable Primary Care Provider Unavailabl e Reason for Visit * Reason Comments Med Refill Encounter Details Date Type Department Care Team (Late st Contact Info) Description 08/09/2022 Refill [facility] [place], [address] [place] [address] Shubham Mayer MD [address] [place] [phone] Social History Tobacco Use Types Packs/Day Years [...]
--- OUTSIDE RECORDS SUMMARY | 2024-12-20 07:50 | XMS_ITS | Encounter Summary ---
Author Organization [facility] Address [address] [place] [address] Phone Care Team Providers Care Stress Engineer Name Role Phone Unavailable Primary Care Provider Unavailabl e Encounter Details Date Type Department Care Team (Late st Contact Info) Description 05/20/2023 Documentation Only [facility] [address] [place] [address] Shubham Mayer MD [address] [place] [phone] Social History Tobacco Use Types Packs/Day Years [...]
--- OUTSIDE RECORDS SUMMARY | 2024-12-20 07:50 | XMS_ITS | Encounter Summary ---
Author Organization [facility] Address [address] [place] [phone] Phone Care Team Providers Care Commercial Lines Manager Name Role Phone Unavailable Primary Care Provider Unavailabl e Encounter Details Date Type Department Care Team ([facility] st Contact Info) Description 12/19/2024 Treatment [facility] [address] [address] Kelli Calvin MD [address] [phone] End stage renal disease; Dependence [...] Dialysis Note - Kelli Calvin MD - 12/19/2024 12:00 AM EDT Patient: Ministerio French : 1945 Note Type: Dialysis Rounds-Comp Service Date: 12/19/2024 This patient was personally seen for a complete visit as part of routine monthly dialysis care for end stage renal disease. Attending Principal Statistical Programmer: KELLI CALVIN MD Dialysis Location: [facility] Schedule: Shift: 1 ADEQUACY ASSESSMENT Kt/V, Natural Log 1.47 (12/14/24) 1.48 (11/09/24) 1.43 (10/12/24) UREA REDUCTION RATIO (%) 73 (12/14/24) 73 (11/09/24) 72 (10/12/24) BUN 60 (12/14/24) 67 (11/09/24) 60 (10/12/24) BUN Post Dialysis 16 (12/14/24) 18 (11/09/24) 17 (10/12/24) Creatinine 5.20 (12/14/24) 4.85 (11/09/24) 3.92 (10/12/24) Bicarbonate (CO2) 26 (12/14/24) 23 (11/09/24) 22 (10/12/24) Sodium 137 (12/14/24) 133 (11/09/24) 134 (10/12/24) ANEMIA ASSESSMENT Hgb 12.0 (12/14/24) 11.0 (11/23/24) 10.2 (11/09/24) Iron Saturation (TSat) 33 (12/14/24) 26 (11/09/24) 19 (10/12/24) Ferritin 1,469 (11/09/24) 860 (10/12/24) 947 (09/14/24) Iron 78 (12/14/24) 62 (11/09/24) 46 (10/12/24) TIBC 239 (12/14/24) 241 (11/09/24) 241 (10/12/24) MCV 96.7 (12/14/24) 94.4 (11/09/24) 96.6 (10/12/24) Platelets 229 (12/14/24) 244 (11/09/24) 332 (10/12/24) BMM ASSESSMENT Calcium, Adjusted Total 8.6 12/14/24 8.7 11/09/24 8.9 10/12/24 Calcium 8.6 12/14/24 8.7 11/09/24 8.9 10/12/24 Phosphorus, Serum 4.6 12/14/24 5.4 11/30/24 5.6 11/09/24 Ca*PO4 39.6 12/14/24 48.7 11/09/24 34.7 10/12/24 PTH, Intact 387 11/09/24 271 08/17/24 Magnesium 2.1 12/14/24 2.1 11/09/24 1.8 10/12/24 Alkaline Phosphatase 49 12/14/24 45 11/09/24 43 10/12/24 Aluminum 4 08/17/24 NUTRITION ASSESSMENT Albumin 4.5 12/14/24 4.5 11/09/24 4.0 10/12/24 Potassium 4.4 12/14/24 4.1 11/09/24 4.1 11/02/24 ADDITIONAL LABS White Blood Cells 6.4 (12/14/24) 7.2 (11/09/24) 8.9 (10/12/24) Cholesterol 137 (11/09/24) 166 (08/17/24) HDL 27 [...] f/u PCP and doing well per PT 11/30/24 stable, f/u Urol ( [facility]) 12/05/24 stable 12/12/24 doin gok 12/19/24 stable 07/13/24 doing well 24 stable 07/27/24 no new issues 08/02/24 stable 08/12/23 doing ok 08/19/24 stable 09/02/24 stable 09/09/24 no new issues 04/13/24 stable 05/04/24 doing ok 05/11/24 stable 05/18/24 no need to issues 05/25/24 stable 06/03/24 doing ok 06/17/24 stable 06/24/24 no new issues 06/27/24 doong well 07/05/24 stable Signed by: KELLI CALVIN MD on 12/19/2024 at 08:42:36 AM Transcribed by: KELLI CALVIN MD on 12/19/2024 at 08:42:36 AM documented in this encounter Plan of Treatment Not on file documented as of this encounter Visit Diagnoses Diagnosis End stage renal disease Dependence on renal dialysis documented in this encounter
--- OUTSIDE RECORDS SUMMARY | 2024-12-20 07:50 | XMS_ITS | Encounter Summary ---
Author Organization [facility] Address [address] [place] [address] Phone Care Team Providers Care Rubber Compounder Name Role Phone Unavailable Primary Care Provider Unavailabl e Encounter Details Date Type Department Care Team (Late st Contact Info) Description 04/16/2023 Documentation Only [facility] [address] [place] [address] Shubham Mayer MD [address] [place] [phone] Social History Tobacco Use Types Packs/Day Years [...]
--- OUTSIDE RECORDS SUMMARY | 2024-12-20 07:50 | XMS_ITS | Encounter Summary ---
Author Organization [facility] Address [address] [place] [address] Phone Care Team Providers Care Social Work Supervisor Name Role Phone Unavailable Primary Care Provider Unavailabl e Encounter Details Date Type Department Care Team (Late st Contact Info) Description 03/20/2023 Documentation Only [facility] [address] [place] [address] Shubham Mayer MD [address] [place] [phone] Social History Tobacco Use Types Packs/Day Years [...]
--- OUTSIDE RECORDS SUMMARY | 2024-12-20 07:50 | XMS_ITS | Encounter Summary ---
Author Organization [facility], Address [address] [place] [address] Phone Care Team Providers Care Adobe Architect Name Role Phone Unavailable Primary Care Provider Unavailabl e Reason for Visit * Reason Comments Med Refill Encounter Details Date Type Department Care Team ([facility] st Contact Info) Description 06/01/2024 Refill [facility], [address] [phone] Shubham Mayer MD [address] [place] [phone] Social History Tobacco Use Types Packs/Day Years [...] TEST HCV Routine 08/17/2024 3:00 AM EST ENDER () Routine 08/17/2024 3:00 AM EST KT/V [...] 3:11 PM EST Quan Peacock MD LAB [id number] SOLICITED RESULTS Final Result Performing Organization Address [facility] de Phone Number [facility] [address] [place] [address] * Potassium (08/24/2024 3:00 AM EST) Pathologist [facility] Potassium 4.0 3.4 - 5.0 mEq/L [facility] 08/24/2024 3:00 AM EST 08/25/2024 3:11 PM EST Quan Peacock MD LAB BLOOD ORDERABLES Final Re sult Performing Organization Address [facility] de Phone Number [facility] [address] [place] [address] * Aluminum level (08/17/2024 3:00 AM EST) Pathologist [facility] Aluminum 4 1 - 20 ug/L [facility] 08/17/2024 3:00 AM EST 08/18/2024 12:37 PM EST Quan Peacock MD LAB BLOOD ORDERABLES Final Re sult Performing Organization Address [facility] de Phone Number [facility] [address] [place] [address] * Confirmation Test HCV (08/17/2024 3:00 AM EST) Pathologist [facility] Hep C Ab Confirmation Not needed [facility] 08/17/2024 3:00 AM EST 08/18/2024 1:26 PM EST Quan Peacock MD LAB BLOOD ORDERABLES Final Re sult Performing Organization Address [facility] Co de Phone Number [facility] [address] [place] [address] * HEPATITIS C ABS W/REFLEX RNA DETECTR (08/17/2024 3:00 AM EST) Pathologist [facility] Hep C Virus Ab Non-Reacti ve Non-Reacti ve [facility] 08/17/2024 3:00 AM EST 08/18/2024 12:58 PM EST Quan Peacock MD LAB [id number] SOLICITED RESULTS Final Result Performing Organization Address [facility] de Phone Number [facility] [address] [place] [address] * Hepatitis B Surface Ag w/Reflex Confirmation (08/17/2024 3:00 AM EST) Pathologist [facility] Hep B Surface Antigen Negative Negative [facility] 08/17/2024 3:00 AM EST 08/18/2024 12:58 PM EST Quan Peacock MD LAB BLOOD ORDERABLES Final Re sult Performing Organization Address [facility] de Phone Number [facility] [address] [place] [address] * (ABNORMAL) Uric Acid (08/17/2024 3:00 AM EST) [facility] Uric Acid 8.1(H) 4.4 - 7.6 mg/dL [facility] 08/17/2024 3:00 AM EST 08/18/2024 12:58 PM EST Quan Peacock MD LAB BLOOD ORDERABLES Final Re sult Performing Organization Address [facility] de Phone Number [facility] [address] [place] [address] * (ABNORMAL) TSAT (08/17/2024 3:00 AM EST) Pathologist [facility] Iron 65 65 - 175 ug/dL [facility] Transferrin 159(L) 215 - 365 mg/dL [facility] TIBC 223 211 - 406 ug/dL [facility] Iron Saturation (TSat) 29 22 - 52 % [facility] 08/17/2024 3:00 AM EST 08/18/2024 12:58 PM EST Quan Peacock MD LAB BLOOD ORDERABLES Final Re sult Performing Organization Address [facility] de Phone Number [facility] [address] [place] [address] * Protein, total (08/17/2024 3:00 AM EST) Total Protein 7.3 6.4 - 8.9 g/dL [facility] 08/17/2024 3:00 AM EST 08/18/2024 12:58 PM EST Quan Peacock MD LAB BLOOD ORDERABLES Final Re sult Performing Organization Address [facility] de Phone Number [facility] [address] [place] [address] * Magnesium (08/17/2024 3:00 AM EST) Pathologist [facility] Magnesium 1.9 1.9 - 2.7 mg/dL [facility] 08/17/2024 3:00 AM EST 08/18/2024 12:58 PM EST Quan Peacock MD LAB BLOOD ORDERABLES Final Re sult Performing Organization Address [facility] de Phone Number [facility] [address] [place] [address] * (ABNORMAL) Electrolyte panel (08/17/2024 3:00 AM [...] Final Re sult [facility] [address] [place] [address] * (ABNORMAL) Lipid panel (08/17/2024 3:00 AM [...] ORDERABLES Final Re sult Performing Organization Address [facility] Co de Phone Number [facility] [address] [place] [address] * LIH (08/17/2024 3:00 AM EST) Lipemia Normal Normal [facility] Icterus Normal Normal [facility] Hemolysis Normal Normal [facility] 08/17/2024 3:00 AM EST 08/18/2024 12:58 PM EST us Quan Peacock MD LAB [id number] SOLICITED RESULTS Final Result Performing Organization Address [facility] Phone Number [facility] [address] [place] [address] * Lactate dehydrogenase (08/17/2024 3:00 AM EST) Pathologist [facility] LDH 203 120 - 246 U/L [facility] 08/17/2024 3:00 AM EST 08/18/2024 12:58 PM EST us Quan Peacock MD LAB BLOOD ORDERABLES Final Re sult Performing Organization Address [facility] de Phone Number [facility] [address] [place] [address] * (ABNORMAL) Glucose, random (08/17/2024 3:00 AM EST) Pathologist [facility] Glucose 290(H) 74 - 109 mg/dL [facility] 08/17/2024 3:00 AM EST 08/18/2024 12:58 PM EST us Quan Peacock MD LAB BLOOD ORDERABLES Final Re sult Performing Organization Address [facility] de Phone Number [facility] [address] [place] [address] * (ABNORMAL) Creatinine, serum (08/17/2024 3:00 AM EST) Pathologist [facility] Creatinine 6.52(H) 0.70 - 1.30 mg/dL [facility] 08/17/2024 3:00 AM EST 08/18/2024 12:58 PM EST Quan Peacock MD LAB BLOOD ORDERABLES Final Re sult Performing Organization Address [facility] de Phone Number [facility] [address] [place] [address] * Bilirubin, total (08/17/2024 3:00 AM EST) Total Bilirubin 0.3 0.3 - 1.2 mg/dL [facility] 08/17/2024 3:00 AM EST 08/18/2024 12:58 PM EST Quan Peacock MD LAB BLOOD ORDERABLES Final Re sult Performing Organization Address [facility] de Phone Number [facility] [address] [place] [address] * AST (08/17/2024 3:00 AM EST) AST (SGOT) 13 <34 U/L [facility] 08/17/2024 3:00 AM EST 08/18/2024 12:58 PM EST Quan Peacock MD LAB BLOOD ORDERABLES Final Re sult Performing Organization Address [facility] de Phone Number [facility] [address] [place] [address] * ALT (08/17/2024 3:00 AM EST) ALT (SGPT) 17 10 - 49 U/L [facility] 08/17/2024 3:00 AM EST 08/18/2024 12:58 PM EST Quan Peacock MD LAB BLOOD ORDERABLES Final Re sult Performing Organization Address [facility] de Phone Number [facility] [address] [place] [address] * Alkaline phosphatase (08/17/2024 3:00 AM EST) Alkaline Phosphatase 47 46 - 116 U/L [facility] 08/17/2024 3:00 AM EST 08/18/2024 12:58 PM EST Quan Peacock MD LAB BLOOD ORDERABLES Final Re sult Performing Organization Address [facility] de Phone Number [facility] [address] [place] [address] * (ABNORMAL) Calcium Phosphorus Product, Adjusted (08/17/2024 [...] 12:58 PM EST Quan Peacock MD LAB [id number] SOLICITED RESULTS Final Result Performing Organization Address [facility] de Phone Number [facility] [address] [place] [address] * PTH, Intact (08/17/2024 3:00 AM EST) PTH, Intact 271 160 - 721 pg/mL [facility] Comment: Suggested (KDIGO) ESRD maintenance range is two to nine times the upper normal limit (80.1 pg/mL) for the laboratory. 08/17/2024 3:00 AM EST 08/18/2024 12:58 PM EST Quan Peacock MD LAB BLOOD ORDERABLES Final Re sult Performing Organization Address [facility] de Phone Number [facility] [address] [place] [address] * (ABNORMAL) Ferritin (08/17/2024 3:00 AM EST) [facility] Ferritin 1,268(H) 22 - 322 ng/mL [facility] 08/17/2024 3:00 AM EST 08/18/2024 12:58 PM EST Quan Peacock MD LAB BLOOD ORDERABLES Final Re sult Performing Organization Address [facility] de Phone Number [facility] [address] [place] [address] * Hepatitis B Surface Antibody (08/17/2024 3:00 AM EST) [facility] Hep B Surface Antibody 459 mIU/mL [facility] Comment: Interpretation: <10: No Immunity >=10: Probable Immunity 08/17/2024 3:00 AM EST 08/18/2024 12:58 PM EST Quan Peacock MD LAB BLOOD ORDERABLES Final Re sult Performing Organization Address [facility] de Phone Number [facility] [address] [place] [address] * (ABNORMAL) CBC and Differential (08/17/2024 3:00 AM EST) [facility] DIFFERENTIAL MANUAL, 2 Not Indicated [facility] White [...] ORDERABLES Final Re sult Performing Organization Address [facility] Co de Phone Number [facility] [address] [place] [address] * (ABNORMAL) Kt/V Natural Log, URR (08/17/2024 3:00 AM EST) Pathologist [facility] Treatment Time 197 min [facility] Pre-Weight, lb [...] 12:52 PM EST Quan Peacock MD LAB [id number] SOLICITED RESULTS Final Result Performing Organization Address [facility] Co de Phone Number [facility] [address] [place] [address] * Hepatitis B Surface Ag w/Reflex Confirmation (07/13/2024 3:00 AM EST) Hep B Surface Antigen Negative Negative [facility] 07/13/2024 3:00 AM EST 07/14/2024 3:21 PM EST us Quan Peacock MD LAB BLOOD ORDERABLES Final Re sult Performing Organization Address [facility] Phone Number [facility] [address] [place] [address] * Protein, total (07/13/2024 3:00 AM EST) Pathologist [facility] Total Protein 7.3 6.4 - 8.9 g/dL [facility] 07/13/2024 3:00 AM EST 07/14/2024 3:21 PM EST us Quan Peacock MD LAB BLOOD ORDERABLES Final Re sult Performing Organization Address [facility] Phone Number [facility] [address] [place] [address] * Magnesium (07/13/2024 3:00 AM EST) Pathologist [facility] Magnesium 1.9 1.9 - 2.7 mg/dL [facility] 07/13/2024 3:00 AM EST 07/14/2024 3:21 PM EST us Quan Peacock MD LAB BLOOD ORDERABLES Final Re sult Performing Organization Address [facility] Phone Number [facility] [address] [place] [address] * Electrolyte panel (07/13/2024 3:00 AM EST) [...] ORDERABLES Final Re sult Performing Organization Address [facility] Co de Phone Number [facility] [address] [place] [address] * (ABNORMAL) TSAT (07/13/2024 3:00 AM EST) Iron 92 65 - 175 ug/dL [facility] Transferrin 155(L) 215 - 365 mg/dL [facility] TIBC 217 211 - 406 ug/dL [facility] Iron Saturation (TSat) 42 22 - 52 % [facility] 07/13/2024 3:00 AM EST 07/14/2024 3:21 PM EST Quan Peacock MD LAB BLOOD ORDERABLES Final Re sult Performing Organization Address [facility] de Phone Number [facility] [address] [place] [address] * (ABNORMAL) Glucose, random (07/13/2024 3:00 AM EST) Glucose 180(H) 74 - 109 mg/dL [facility] 07/13/2024 3:00 AM EST 07/14/2024 3:21 PM EST Quan Peacock MD LAB BLOOD ORDERABLES Final Re sult Performing Organization Address [facility] de Phone Number [facility] [address] [place] [address] * Lactate dehydrogenase (07/13/2024 3:00 AM EST) LDH 186 120 - 246 U/L [facility] 07/13/2024 3:00 AM EST 07/14/2024 3:21 PM EST Quan Peacock MD LAB BLOOD ORDERABLES Final Re sult Performing Organization Address [facility] de Phone Number [facility] [address] [place] [address] * LIH (07/13/2024 3:00 AM EST) Lipemia Normal Normal [facility] Icterus Normal Normal [facility] Hemolysis Normal Normal [facility] 07/13/2024 3:00 AM EST 07/14/2024 3:21 PM EST us Quan Peacock MD LAB [id number] SOLICITED RESULTS Final Result Performing Organization Address [facility] Phone Number [facility] [address] [place] [address] * AST (07/13/2024 3:00 AM EST) AST (SGOT) 14 <34 U/L [facility] 07/13/2024 3:00 AM EST 07/14/2024 3:21 PM EST Quan Peacock MD LAB BLOOD ORDERABLES Final Re sult Performing Organization Address [facility] Phone Number [facility] [address] [place] [address] * (ABNORMAL) Bilirubin, total (07/13/2024 3:00 AM EST) Total Bilirubin 0.2(L) 0.3 - 1.2 mg/dL [facility] 07/13/2024 3:00 AM EST 07/14/2024 3:21 PM EST Quan Peacock MD LAB BLOOD ORDERABLES Final Re sult Performing Organization Address [facility] de Phone Number [facility] [address] [place] [address] * ALT (07/13/2024 3:00 AM EST) ALT (SGPT) 17 10 - 49 U/L [facility] 07/13/2024 3:00 AM EST 07/14/2024 3:21 PM EST us Quan Peacock MD LAB BLOOD ORDERABLES Final Re sult [facility] [address] [place] [address] * (ABNORMAL) Creatinine, serum (07/13/2024 3:00 AM EST) Creatinine 4.80(H) 0.70 - 1.30 mg/dL [facility] 07/13/2024 3:00 AM EST 07/14/2024 3:21 PM EST us Quan Peacock MD LAB BLOOD ORDERABLES Final Re sult Performing Organization Address [facility] de Phone Number [facility] [address] [place] [address] * (ABNORMAL) Alkaline phosphatase (07/13/2024 3:00 AM EST) Alkaline Phosphatase 41(L) 46 - 116 U/L [facility] 07/13/2024 3:00 AM EST 07/14/2024 3:21 PM EST us Quan Peacock MD LAB BLOOD ORDERABLES Final Re sult Performing Organization Address [facility] de Phone Number [facility] [address] [place] [address] * Calcium Phosphorus Product, Adjusted (07/13/2024 3:00 [...] PM EST us Quan Peacock MD LAB [id number] SOLICITED RESULTS Final Result [facility] [address] [place] [address] * (ABNORMAL) CBC and Differential (07/13/2024 3:00 AM EST) Pathologist [facility] DIFFERENTIAL MANUAL, 2 Not Indicated [facility] White [...] ORDERABLES Final Re sult Performing Organization Address [facility] Co de Phone Number [facility] [address] [place] [address] * (ABNORMAL) Kt/V Natural Log, URR (07/13/2024 3:00 AM EST) Pathologist [facility] Treatment Time 205 min [facility] Pre-Weight, lb [...] 3:19 PM EST Quan Peacock MD LAB [id number] SOLICITED RESULTS Final Result Performing Organization Address [facility] de Phone Number [facility] [address] [place] [address] * Hepatitis B Surface Ag w/Reflex Confirmation (06/15/2024 3:00 AM EST) Hep B Surface Antigen Negative Negative [facility] 06/15/2024 3:00 AM EST 06/16/2024 5:14 PM EST Quan Peacock MD LAB BLOOD ORDERABLES Final Re sult Performing Organization Address [facility] de Phone Number [facility] [address] [place] [address] * (ABNORMAL) Ferritin (06/15/2024 3:00 AM EST) Ferritin 923(H) 22 - 322 ng/mL [facility] 06/15/2024 3:00 AM EST 06/16/2024 5:14 PM EST Quan Peacock MD LAB BLOOD ORDERABLES Final Re sult Performing Organization Address [facility] de Phone Number [facility] [address] [place] [address] * (ABNORMAL) TSAT (06/15/2024 3:00 AM EST) Iron 39(L) 65 - 175 ug/dL [facility] Transferrin 173(L) 215 - 365 mg/dL [facility] TIBC 242 211 - 406 ug/dL [facility] Iron Saturation (TSat) 16(L) 22 - 52 % [facility] 06/15/2024 3:00 AM EST 06/16/2024 5:14 PM EST Quan Peacock MD LAB BLOOD ORDERABLES Final Re sult Performing Organization Address [facility] de Phone Number [facility] [address] [place] [address] * (ABNORMAL) Magnesium (06/15/2024 3:00 AM EST) Magnesium 1.8(L) 1.9 - 2.7 mg/dL [facility] 06/15/2024 3:00 AM EST 06/16/2024 5:14 PM EST Quan Peacock MD LAB BLOOD ORDERABLES Final Re sult Performing Organization Address [facility] de Phone Number [facility] [address] [place] [address] * Protein, total (06/15/2024 3:00 AM EST) Pathologist [facility] Total Protein 7.0 6.4 - 8.9 g/dL [facility] 06/15/2024 3:00 AM EST 06/16/2024 5:14 PM EST Quan Peacock MD LAB BLOOD ORDERABLES Final Re sult Performing Organization Address [facility] de Phone Number [facility] [address] [place] [address] * LIH (06/15/2024 3:00 AM EST) Lipemia Normal Normal [facility] Icterus Normal Normal [facility] Hemolysis Normal Normal [facility] 06/15/2024 3:00 AM EST 06/16/2024 5:14 PM EST Quan Peacock MD LAB [id number] SOLICITED RESULTS Final Result Performing Organization Address [facility]/ZIP Co de Phone Number [facility] [address] [place] [address] * Lactate dehydrogenase (06/15/2024 3:00 AM EST) LDH 221 120 - 246 U/L [facility] 06/15/2024 3:00 AM EST 06/16/2024 5:14 PM EST Quan Peacock MD LAB BLOOD ORDERABLES Final Re sult Performing Organization Address [facility] Co de Phone Number [facility] [address] [place] [address] * Electrolyte panel (06/15/2024 3:00 AM EST) [...] ORDERABLES Final Re sult Performing Organization Address [facility] de Phone Number [facility] [address] [place] [address] * (ABNORMAL) Creatinine, serum (06/15/2024 3:00 AM EST) Creatinine 4.72(H) 0.70 - 1.30 mg/dL [facility] 06/15/2024 3:00 AM EST 06/16/2024 5:14 PM EST Quan Peacock MD LAB BLOOD ORDERABLES Final Re sult Performing Organization Address [facility] Co de Phone Number [facility] [address] [place] [address] * (ABNORMAL) Glucose, random (06/15/2024 3:00 AM EST) Glucose 155(H) 74 - 109 mg/dL [facility] 06/15/2024 3:00 AM EST 06/16/2024 5:14 PM EST Quan Peacock MD LAB BLOOD ORDERABLES Final Re sult Performing Organization Address [facility] de Phone Number [facility] [address] [place] [address] * (ABNORMAL) Bilirubin, total (06/15/2024 3:00 AM EST) Total Bilirubin 0.2(L) 0.3 - 1.2 mg/dL [facility] 06/15/2024 3:00 AM EST 06/16/2024 5:14 PM EST Quan Peacock MD LAB BLOOD ORDERABLES Final Re sult Performing Organization Address [facility] de Phone Number [facility] [address] [place] [address] * AST (06/15/2024 3:00 AM EST) AST (SGOT) 14 <34 U/L [facility] 06/15/2024 3:00 AM EST 06/16/2024 5:14 PM EST Quan Peacock MD LAB BLOOD ORDERABLES Final Re sult Performing Organization Address [facility] de Phone Number [facility] [address] [place] [address] * ALT (06/15/2024 3:00 AM EST) ALT (SGPT) 14 10 - 49 U/L [facility] 06/15/2024 3:00 AM EST 06/16/2024 5:14 PM EST Quan Peacock MD LAB BLOOD ORDERABLES Final Re sult Performing Organization Address [facility] de Phone Number [facility] [address] [place] [address] * (ABNORMAL) Alkaline phosphatase (06/15/2024 3:00 AM EST) Alkaline Phosphatase 39(L) 46 - 116 U/L [facility] 06/15/2024 3:00 AM EST 06/16/2024 5:14 PM EST Quan Peacock MD LAB BLOOD ORDERABLES Final Re sult Performing Organization Address [facility] de Phone Number [facility] [address] [place] [address] * Calcium Phosphorus Product, Adjusted (06/15/2024 3:00 AM EST) Pathologist [facility] Albumin 4.4 3.6 - 5.4 g/dL [facility] Calcium 9.8 8.6 - 10.3 mg/dL [facility] Phosphorus, Serum 4.3 2.5 - 5.0 mg/dL [facility] Ca*PO4 42.1 <55.0 mg2/dL2 [facility] Calcium, Adjusted Total 9.8 8.6 - 10.3 mg/dL [facility] CA*PO4 CORRCTD 42.1 <55.0 mg2/dL2 [facility] 06/15/2024 3:00 AM EST 06/16/2024 5:14 PM EST Quan Peacock MD LAB [id number] SOLICITED RESULTS Final Result Performing Organization Address [facility] de Phone Number [facility] [address] [place] [address] * (ABNORMAL) Kt/V Natural Log, URR (06/15/2024 3:00 AM EST) Pathologist [facility] Treatment Time 195 min [facility] Pre-Weight, lb [...] PM EST us Quan Peacock MD LAB [id number] SOLICITED RESULTS Final Result [facility] [address] [place] [address] * (ABNORMAL) CBC and Differential (06/15/2024 3:00 [...] Final Re sult [facility] [address] [place] [address] documented in this encounter Visit Diagnoses Not on filedocumented in this encounter
--- OUTSIDE RECORDS SUMMARY | 2024-12-20 07:50 | XMS_ITS | Encounter Summary ---
Author Organization [facility], Address [address] [place] [address] Phone Care Team Providers Care Dining Room Manager Name Role Phone Unavailable Primary Care Provider Unavailabl e Encounter Details Date Type Department Care Team (Late st Contact Info) Description 06/02/2023 Documentation Only [facility], [address] [place] [address] Yoel Davey, [address] [place] [phone] Social History Tobacco Use Types Packs/Day Years [...]
--- OUTSIDE RECORDS SUMMARY | 2024-12-20 07:50 | XMS_ITS | Clinical Summary ---
Author Organization [facility] Address [address] [address] Phone Care Team Providers Care Product Marketing Coordinator Name Role Phone Unavailable Primary Care [...] Encounters Date Type Department Care Team Description 12/19/2024 Treatment [facility] [place] [id number] [phone] Quan Peacock MD End stage renal disease; Dependence on renal dialysis 12/12/2024 Treatment [facility] [place] [address] [phone] Quan Peacock MD End stage renal disease; Dependence on renal dialysis 12/05/2024 Treatment [facility] [place] [address] [address] Quan Peacock MD End stage renal disease; Dependence on renal dialysis 11/30/2024 Orders Only [facility] [place] [address] [address] Quan Peacock MD 11/30/2024 Treatment [facility] [address] [phone] Quan Peacock MD End stage renal disease; Dependence on renal dialysis 11/21/2024 Treatment [facility] [address] [phone] Quan Peacock MD End stage renal disease; Dependence on renal dialysis 11/11/2024 Treatment [facility] [address] [phone] Quan Peacock MD End stage renal disease; Dependence on renal dialysis 11/09/2024 Treatment [facility] [address] [phone] Quan Peacock MD End stage renal disease; Dependence on renal dialysis 11/04/2024 Treatment [facility] [address] [phone] Quan Peacock MD End stage renal disease; Dependence on renal dialysis 10/31/2024 Treatment [facility] [address] [phone] Quan Peacock MD End stage renal disease; Dependence on renal dialysis 10/24/2024 Treatment [facility] [address] [phone] Quan Peacock MD End stage renal disease; Dependence on renal dialysis 10/14/2024 Treatment [facility] [address] [phone] Quan Peacock MD End stage renal disease; Dependence on renal dialysis 10/07/2024 Treatment [facility] [address] [phone] Quan Peacock MD End stage renal disease; Dependence on renal dialysis 09/28/2024 Treatment [facility] [address] [facility] [address] [place] [address] Quan Peacock MD from Last 3 Months [...] Procedure Name Priority Date/Time Associated Diagnosis Comments HEPATITIS B SURFACE ANTIGEN W/REFL CONFIRM Routine 12/14/2024 3:00 AM EDT TRANSFERRIN SATURATION Routine 3:00 AM EDT PROTEIN, TOTAL, SERUM Routine 12/14/2024 3:00 AM EDT ELECTROLYTE PANEL Routine 12/14/2024 3:0 0 AM EDT LIH (HC) Routine 12/14/2024 3:00 AM EDT MAGNESIUM Routine 12/14/2024 3:00 AM EDT LACTATE DEHYDROGENASE Routine 12/14/2024 3:00 AM EDT CREATININE, SERUM Routine 12/14/2024 3:0 0 AM EDT GLUCOSE, RANDOM Routine 12/14/2024 3:00 AM EDT BUN/CREATININE RATIO Routine 12/14/2024 3:00 AM EDT BILIRUBIN, TOTAL Routine 12/14/2024 3:00 AM EDT AST Routine 12/14/2024 3:00 AM EDT ALT Routine 12/14/2024 3:00 AM EDT ALKALINE PHOSPHATASE Routine 12/14/2024 3:00 AM EDT CALCIUM PHOSPHORUS PRODUCT, ADJUSTED (HC) Routine 12/14/2024 3:00 AM EDT CBC AND DIFFERENTIAL Routine 12/14/2024 3:00 AM EDT KT/V NATURAL LOG, URR (HC) Routine 12/14/2024 3:00 AM EDT PHOSPHATE ( PHOSPHORUS) Routine 11/30/2024 3:00 AM EDT LIH (HC) Routine 11/30/2024 3:00 AM EDT HEMOGLOBIN Routine 11/23/2024 3:00 AM EDT FERRITIN [...] EST POTASSIUM Routine 09/28/2024 3:00 AM EST from Last 3 Months Results * LIH (12/14/2024 3:00 AM EDT) Only the most recent of9 resultswithin the time period is included. Lipemia Normal Normal [facility] Icterus Normal Normal [facility] Hemolysis Normal Normal [facility] 12/14/2024 3:00 AM EDT 12/15/2024 1:19 PM EDT Quan Peacock MD LAB [id number] SOLICITED RESULTS Final Result Performing Organization Address [place] Co de Phone Number [facility] [address] [place] [address] * (ABNORMAL) Kt/V Natural Log, URR (12/14/2024 3:00 AM EDT) Only the most recent of3 resultswithin the time period is included. Treatment Time 197 min [facility] Pre-Weight, lb 87.6 kg [facility] Post-Weight, lb 86.3 kg [facility] Ultrafiltration Rate 5 <=13 mL/kg/hr [facility] Comment: Recommend achieving Ultrafiltration Rate (UFR) <=10 mL/kg/hr References: Ralph MARIE et al. Kidney Int. 2010; 79(2):250-257 BUN 60(H) 7 - 25 mg/dL [facility] BUN Post Dialysis 16 7 - 25 mg/dL [facility] UREA REDUCTION RATIO (%) 73 >=65 % [facility] Kt/V Natural Log 1.47 >=1.2 [facility] 12/14/2024 3:00 AM EDT 12/15/2024 1:10 PM EDT us Quan Peacock MD LAB [id number] SOLICITED RESULTS Final Result Performing Organization Address [place] de Phone Number [facility] [address] [place] [address] * Calcium Phosphorus Product, Adjusted (12/14/2024 3:00 AM EDT) Only the most recent of3 resultswithin the time period is included. Albumin 4.5 3.6 - 5.4 g/dL [facility] Calcium 8.6 8.6 - 10.3 mg/dL [facility] Phosphorus, Serum 4.6 2.5 - 5.0 mg/dL [facility] Ca*PO4 39.6 <55.0 mg2/dL2 [facility] Calcium, Adjusted Total 8.6 8.6 - 10.3 mg/dL [facility] CA*PO4 CORRCTD 39.6 <55.0 mg2/dL2 [facility] 12/14/2024 3:00 AM EDT 12/15/2024 1:19 PM EDT Quan Peacock MD LAB [id number] SOLICITED RESULTS Final Result Performing Organization Address [place] de Phone Number [facility] [address] [place] [address] * Hepatitis B Surface Ag w/Reflex Confirmation (12/14/2024 3:00 AM EDT) Hep B Surface Antigen Negative Negative [facility] 12/14/2024 3:00 AM EDT 12/15/2024 1:19 PM EDT Quan Peacock MD LAB BLOOD ORDERABLES Final Re sult Performing Organization Address [facility] de Phone Number [facility] [address] [place] [address] * BUN/CREATININE RATIO (12/14/2024 3:00 AM EDT) BUN/Creatinine Ratio 11.5 <=23.0 [facility] 12/14/2024 3:00 AM EDT 12/15/2024 1:19 PM EDT Quan Peacock MD LAB [id number] SOLICITED RESULTS Final Result Performing Organization Address [facility] de Phone Number [facility] [address] [place] [address] * (ABNORMAL) TSAT (12/14/2024 3:00 AM EDT) Only the most recent of3 resultswithin the time period is included. Iron 78 65 - 175 ug/dL [facility] Transferrin 171(L) 215 - 365 mg/dL [facility] TIBC 239 211 - 406 ug/dL [facility] Iron Saturation (TSat) 33 22 - 52 % [facility] 12/14/2024 3:00 AM EDT 12/15/2024 1:19 PM EDT us Quan Peacock MD LAB BLOOD ORDERABLES Final Re sult [facility] [address] [place] [address] * (ABNORMAL) CBC and Differential (12/14/2024 3:00 AM EDT) Only the most recent of3 resultswithin the time period is included. DIFFERENTIAL MANUAL, 2 Not Indicated [facility] White Blood Cells 6.4 4.2 - 9.1 K/uL [facility] RBC 3.95(L) 4.63 - 6.08 M/uL [facility] Hgb 12.0(L) 13.7 - 17.5 g/dL [facility] Hemoglobin x 3 36.0(L) 41.1 - 52.5 g/dL [facility] Hematocrit 38.2(L) 40.1 - 51.0 % [facility] MCV 96.7(H) 79.0 - 92.2 fL [facility] MCH 30.4 25.7 - 32.2 pg [facility] MCHC 31.4(L) 32.3 - 36.5 g/dL [facility] Platelets 229 163 - 337 K/uL [facility] RDW 15.5(H) 11.6 - 14.4 % [facility] Neutrophils Relative 59.0 34.0 - 67.9 % [facility] Lymphocytes Relative 26.8 21.8 - 53.1 % [facility] Monocytes 10.5 5.3 - 12.2 % [facility] Eosinophils Relative 2.4 0.8 - 7.0 % [facility] Basophils Relative 1.3(H) 0.2 - 1.2 % [facility] Immature Granulocytes 0.0 0.0 - 1.0 % [facility] 12/14/2024 3:00 AM EDT 12/15/2024 2:14 PM EDT us Quan Peacock MD LAB BLOOD ORDERABLES Final Re sult Performing Organization Address City/[facility]/ZIP Co de Phone Number [facility] [address] [place] [address] * ALT (12/14/2024 3:00 AM EDT) Only the most recent of3 resultswithin the time period is included. Pathologist [facility] ALT (SGPT) 14 10 - 49 U/L [facility] 12/14/2024 3:00 AM EDT 12/15/2024 1:19 PM EDT us Quan Peacock MD LAB BLOOD ORDERABLES Final Re sult Performing Organization Address [place] Co de Phone Number [facility] [address] [place] [address] * AST (12/14/2024 3:00 AM EDT) Only the most recent of3 resultswithin the time period is included. AST (SGOT) 15 <34 U/L [facility] 12/14/2024 3:00 AM EDT 12/15/2024 1:19 PM EDT us Quan Peacock MD LAB BLOOD ORDERABLES Final Re sult Performing Organization Address [facility] de Phone Number [facility] [address] [place] [address] * Protein, total (12/14/2024 3:00 AM EDT) Only the most recent of3 resultswithin the time period is included. Total Protein 7.2 6.4 - 8.9 g/dL [facility] 12/14/2024 3:00 AM EDT 12/15/2024 1:19 PM EDT us Quan Peacock MD LAB BLOOD ORDERABLES Final Re sult Performing Organization Address [place] Co de Phone Number [facility] [address] [place] [address] * Alkaline phosphatase (12/14/2024 3:00 AM EDT) Only the most recent of3 resultswithin the time period is included. Alkaline Phosphatase 49 46 - 116 U/L [facility] 12/14/2024 3:00 AM EDT 12/15/2024 1:19 PM EDT us Quan Peacock MD LAB BLOOD ORDERABLES Final Re sult Performing Organization Address [place]/[facility] de Phone Number [facility] [address] [place] [address] * Magnesium (12/14/2024 3:00 AM EDT) Only the most recent of3 resultswithin the time period is included. Magnesium 2.1 1.9 - 2.7 mg/dL [facility] 12/14/2024 3:00 AM EDT 12/15/2024 1:19 PM EDT Quan Peacock MD LAB BLOOD ORDERABLES Final Re sult Performing Organization Address [facility] Phone Number [facility] [address] [place] [address] * Lactate dehydrogenase (12/14/2024 3:00 AM EDT) Only the most recent of3 resultswithin the time period is included. LDH 205 120 - 246 U/L [facility] 12/14/2024 3:00 AM EDT 12/15/2024 1:19 PM EDT Quan Peacock MD LAB BLOOD ORDERABLES Final Re sult Performing Organization Address [facility] Phone Number [facility] [address] [place] [address] * (ABNORMAL) Glucose, random (12/14/2024 3:00 AM EDT) Only the most recent of3 resultswithin the time period is included. Glucose 168(H) 70 - 99 mg/dL [facility] Comment: ADA guidelines outline the following fasting glucose ranges: Normal: ? <100 Prediabetes: 100-125 Diabetes: ? >125 12/14/2024 3:00 AM EDT 12/15/2024 1:19 PM EDT us Quan Peacock MD LAB BLOOD ORDERABLES Final Re sult Performing Organization Address [place]/[facility] de Phone Number [facility] [address] [place] [address] * (ABNORMAL) Creatinine, serum (12/14/2024 3:00 AM EDT) Only the most recent of3 resultswithin the time period is included. Creatinine 5.20(H) 0.70 - 1.30 mg/dL [facility] 12/14/2024 3:00 AM EDT 12/15/2024 1:19 PM EDT us Quan Peacock MD LAB BLOOD ORDERABLES Final Re sult Performing Organization Address [facility] de Phone Number [facility] [address] [place] [address] * Bilirubin, total (12/14/2024 3:00 AM EDT) Only the most recent of3 resultswithin the time period is included. Total Bilirubin 0.3 0.3 - 1.2 mg/dL [facility] 12/14/2024 3:00 AM EDT 12/15/2024 1:19 PM EDT us Quan Peacock MD LAB BLOOD ORDERABLES Final Re sult Performing Organization Address [facility] de Phone Number [facility] [address] [place] [address] * Electrolyte panel (12/14/2024 3:00 AM EDT) Only the most recent of3 resultswithin the time period is included. Sodium 137 136 - 145 mEq/L [facility] Potassium 4.4 3.4 - 5.0 mEq/L [facility] Chloride 99 98 - 107 mEq/L [facility] Bicarbonate (CO2) 26 21 - 31 mEq/L [facility] Anion Gap 12 3 - 14 mEq/L [facility] 12/14/2024 3:00 AM EDT 12/15/2024 1:19 PM EDT us Quan Peacock MD LAB BLOOD ORDERABLES Final Re sult Performing Organization Address [place]/[facility] de Phone Number [facility] [address] [place] [address] * (ABNORMAL) Phosphorus (11/30/2024 3:00 AM EDT) Phosphorus, Serum 5.4(H) 2.5 - 5.0 mg/dL [facility] 11/30/2024 3:00 AM EDT 12/01/2024 2:16 PM EDT Quan Peacock MD LAB BLOOD ORDERABLES Final Re sult Performing Organization Address [facility] de Phone Number [facility] [address] [place] [address] * (ABNORMAL) Hemoglobin (11/23/2024 3:00 AM EDT) Only the most recent of5 resultswithin the time period is included. Hgb 11.0(L) 13.7 - 17.5 g/dL [facility] Hemoglobin x 3 33.0(L) 41.1 - 52.5 g/dL [facility] 11/23/2024 3:00 AM EDT 11/24/2024 12:44 PM EDT Quan Peacock MD LAB BLOOD ORDERABLES Final Re sult Performing Organization Address [facility] de Phone Number [facility] [address] [place] [address] * PTH, Intact (11/09/2024 3:00 AM EDT) PTH, Intact 387 160 - 721 pg/mL [facility] Comment: Suggested (KDIGO) ESRD maintenance range is two to nine times the upper normal limit (80.1 pg/mL) for the laboratory. 11/09/2024 3:00 AM EDT 11/11/2024 5:13 PM EDT Quan Peacock MD LAB BLOOD ORDERABLES Final Re sult Performing Organization Address [place]/[facility]/ZIP Co de Phone Number [facility] [address] [place] [address] * (ABNORMAL) Ferritin (11/09/2024 3:00 AM EDT) Only the most recent of2 resultswithin the time period is included. Ferritin 1,469(H) 22 - 322 ng/mL [facility] 11/09/2024 3:00 AM EDT 11/11/2024 5:13 PM EDT us Quan Peacock MD LAB BLOOD ORDERABLES Final Re sult Performing Organization Address [place] de Phone Number [facility] [address] [place] [address] * (ABNORMAL) Lipid panel (11/09/2024 3:00 AM [...] ORDERABLES Final Re sult Performing Organization Address [place]/[facility] de Phone Number [facility] [address] [place] [address] * Potassium (11/02/2024 3:00 AM EDT) Only the most recent of5 resultswithin the time period is included. Potassium 4.1 3.4 - 5.0 mEq/L [facility] 11/02/2024 3:00 AM EDT 11/03/2024 12:45 PM EDT Quan Peacock MD LAB BLOOD ORDERABLES Final Re sult Performing Organization Address [place] de Phone Number [facility] [address] [place] [address] from Last 3 [address] [place] [address]
[2024-12-20] MEDS: Lidocaine HCl 1 % MPF 5 ML VIAL 10 ML SUBCUT (08:22)
--- NOTE | 2024-12-20 08:27 | W.PM.OPN ---
Operative Note Operative Note Date of Service: 12/20/24 Narrative: Preoperative diagnosis: Elevated PSA Postoperative diagnosis: Elevated PSA Procedure: 1. transrectal ultrasound measurement of prostate 2. transrectal ultrasound-guided pudendal nerve block 3. transrectal ultrasound-guided prostate biopsy 12 core Surgeon: Dr. Fernie Lorenzo Anesthetic: 10cc 1% lidocaine Indications for procedure: Elevated PSA - 11/30 MRI shows 2.1 and 1.9 cm lesions, total volume 120 cc - Lesions described as PI-RADS 4 and PI-RADS 5 Counselling: Technical aspects, risks and benefits of proposed procedure were discussed in full. All questions have been answered, written consent has been obtained and patient agrees to proceed. Procedure: The patient was brought into the procedure area and placed in a left lateral decubitus position. Patient identity confirmed. Perioperative antibiotics confirmed. Safety pause time out performed. HUEY was performed to dilate rectal sphincter Iodine 10cc with 60 cc gel was placed per rectum to reduce infection risk using a catheter tip syringe. 8 Hz Migdalia rectal end-fire ultrasound probe was placed transrectally without difficulty. The prostate was visualized. Seminal vesicles were normal. Prostate margins were clearly demarcated. Bladder was seen superiorly. No cystic structures were noted No calcifications were noted at the surgical margin The prostate was otherwise heterogenous in nature - numerous whorls on BPH The prostate was measured in 3 dimensions Prostatic Width: 5.9 cm Prostatic Height: 5.96 cm Urethral Length: 6.7 cm Total volume equals : 123 ml An ultrasound-guided pudendal nerve block was performed using a 22 gauge spinal needle in the sagittal plane. 4 cc of 1% lidocaine placed at the junction of each seminal vesicle and 2 cc placed at the apex of the prostate. A 12 core biopsy was performed with 6 cores each side using an 18 gauge prostate biopsy gun. Two cores each were taken at the prostate apex, mid and base on each side. Cores were spaced between lateral and medial aspects. Each core was examined as placed on specimen foam as part of air quality specialist to ensure a minimum 1 cm of length and minimal discontinuity. He tolerated the procedure well with minimal rectal bleeding. Blood pressure remained stable following procedure. He was able to ambulate to bathroom after 5 minutes. Printed instructions regarding antibiotic use and common adverse events from the procedure such as low-grade temperature, potential infection and bleeding were given. He understands to call the office or go to an emergency room should any of these events arise. Pathology: 12 core prostate biopsy. CPT code 71078: Transrectal ultrasound; this is a diagnostic test for evaluation of the prostate and surrounding structures, looking for abnormalities or suspicious areas worrisome for cancer CPT code 64825: Biopsy, prostate; needle or punch, single or multiple, any approach CPT code 13534: Ultrasonic guidance for needle placement (eg, biopsy, aspiration, injection, localization device), imaging supervision and interpretation
== END 2024-12-20 07:49 | disposition home or self-care (01) ==
LOC: HO.US 07:48
PROVIDERS: PCP Internal Medicine; Visit Provider Urology
DX: R97.20 Elevated prostate specific antigen [PSA] (principal)
CPT/HCPCS: 55700; 76942; 88305; J2003

== ENCOUNTER → 2024-12-20 07:48 | Outpatient (BNV) | payer MEDICARE, SELFPAY | PROVIDERS: PCP Internal Medicine; Visit Provider Urology | DX: R97.20 Elevated prostate specific antigen [PSA] (principal) | CPT/HCPCS: 55700; 76872; 76942 ==

== ENCOUNTER 2025-01-06 14:17 | Outpatient (AMB) | payer MEDICARE, SELFPAY ==
--- NOTE | 2025-01-06 14:18 | A.OFFVIS_ITS ---
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 ivone Video attempted 01/01 PSA jump Biopsy follow-up Chronic inflammation - continues with dialysis 11/30 MRI shows 2.1 and 1.9 cm lesions, total volume 120 cc Lesions described as PI-RADS 4 and PI-RADS 5 Previously discussed biopsy with patient - he would prefer to continue to follow PSA as this has remained relatively stable for the past 5-6 years, is aware of the risks and benefits of delayed diagnosis Prior negative biopsy 2004 PSA has run in the 12-15 range for many years HUEY normal Lower urinary tract symptoms Current visit is for - further evaluation of lower urinary tract symptoms, predominantly obstructive - episode of retention June 2020 Current treatment includes - tamsulosin and finasteride Prior treatments include - none Prostate Symptom Score - moderate, bother 2 Symptoms include - incomplete emptying, weak stream, nocturia Results from testing include - PSA 04/30 15 this is in historic range for him and has prior negative biopsy from 2004 - 15.0, 05/01 16.5, 10/30 13.7, 12/01 14, 10/04 26 Prostate volume 120g Testing at next visit will include - PSA in 6 months [facility] Medical History (Updated 11/17/24 @ 16:29 by Jada Andrews MD) Weak urinary stream Acute kidney injury ESRD (end stage renal disease) CKD (chronic kidney disease) High cholesterol Hypertension Surgical History Hx of tonsillectomy Social History Household Members: Family Housing: House Do you presently have visiting nurse or other home services: No Alcohol intake: never Patient Tobacco Use Status: Former Tobacco user Tobacco use type: Cigarette Years Smoked: quit 25 year/old e-Cigarette/Vaping Use: Never Used Second Hand Smoke Exposure: No service: No 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: Yes (walker ) Hearing needs: No Vision needs: Yes Review of Systems Const All systems reviewed & are unremarkable except as noted in HPI and below Reports no additional complaints Resp Reports no additional complaints GI Reports no additional complaints Reports as per HPI Musc Reports no additional complaints Physical Exam Telemedicine evaluation Appropriate responses Regular breathing rate and rhythm HEENT Head: Yes normal to inspection Ears: hearing grossly normal bilaterally Eyes General: appearance normal, both eyes and all related structures Neck Neck: Yes normal visual inspection Chest Chest palpation & inspection: normal inspection of the chest Resp Effort & Inspection: normal respiratory effort and able to speak in complete sentences Telehealth Telehealth Location of provider rendering services: practice address Location of patient: address on file Patient Identification confirmed using: Name, : Yes Telehealth method: voice only Patient verbally consented to treatment: Yes Patient verbally consented to billing insurance company: Yes Patient informed of any privacy concerns related to visit: Yes Assessment & Plan Assessment & Plan (1) BPH w urinary obs/LUTS: Code(s): N40.1 - Benign prostatic hyperplasia with lower urinary tract symptoms; N13.8 - Other obstructive and reflux uropathy Category: Medical (2) Elevated PSA: Code(s): R97.20 - Elevated prostate specific antigen [PSA] Category: Medical Plan Six-month follow-up PSA Orders: Orders PSA,Total (Free>4and<10) 6 Months N13.8 - Other obstructive and reflux uropathy, N40.1 - Benign prostatic hyperplasia with lower urinary tract symptoms Patient Instructions: This note is constructed using voice recognition software. While every effort has been made to ensure accuracy evening sitter errors may have been included. Imaging studies, laboratory and physical exam results were discussed and reviewed in detail. No major barriers to patient understanding were identified. An opportunity to ask questions regarding the treatment plan was provided. All questions were answered. The patient expressed understanding and agreement with the above treatment plan. The patient is aware they should contact our office by phone for worsening of their current condition or the appearance of new urologic symptoms. Compliance is encouraged with any medications and followup testing that is ordered. It is a privilege to participate in the urologic care of your patient. If you have any questions or concerns regarding treatment for the above conditions, or other urologic issues, please do not hesitate to contact me. The office telephone contact is [phone]. Sincerely, Dr Fernie Lorenzo MD, [facility] - Urology Compassionate Specialist Care for the Genitourinary System Coding Level of Care Code Tele Est Pt Level 3 (54720) Complex EM visit Add On G2211 Diagnoses BPH w urinary obs/LUTS N40.1; N13.8 Elevated PSA R97.20
--- OUTSIDE RECORDS SUMMARY | 2025-01-06 14:19 | XMS_ITS | Encounter Summary ---
Author Organization [facility] Address [address] [place] [address] Phone Care Team Providers Care Production Superintendent Name Role Phone Unavailable Primary Care Provider Unavailabl e Encounter Details Date Type Department Care Team (Late st Contact Info) Description 04/16/2023 Documentation Only [facility] [address] [place] [address] Shubham Mayer MD [address] [place] [id number] Social History Tobacco Use Types Packs/Day Years [...]
== END 2025-01-06 15:26 | disposition home or self-care (01) ==
LOC: HO.HUSH 14:17
PROVIDERS: PCP Internal Medicine; Visit Provider Urology
DX: N40.1 Benign prostatic hyperplasia with lower urinary tract symptoms (principal); N13.8 Other obstructive and reflux uropathy; R97.20 Elevated prostate specific antigen [PSA]
CPT/HCPCS: 99213; G2211

== ENCOUNTER 2025-04-26 05:30 | Inpatient (IN) | payer MEDICARE, SELFPAY ==
--- NOTE | ~2025-04-26 | XR_ITS ---
CLINICAL HISTORY: Crackles 1 view chest x-ray Comparison: CR - XR CHEST 2V - 04/29/25 19:30 EDT Findings: There is airspace opacity within the right upper lobe, new since the prior study. There is pulmonary hypoinflation. There are mild bibasilar opacities likely secondary to atelectasis. Heart size is normal. No acute fracture. There is gaseous distention of bowel within the visualized abdomen. IMPRESSION: 1. There is new atelectasis or infiltrate within the right upper lobe. 2. There is mild pulmonary hypoinflation with mild bibasilar atelectasis. This document has been electronically signed by: Willow Quiñonez MD on 04/30/2025 12:55:15
--- NOTE | ~2025-04-26 | XR_ITS ---
CLINICAL HISTORY: Confirm OGT, TLC, and ETT 1 view chest x-ray Comparison: CR - XR CHEST 1V - 04/30/25 10:37 EDT Findings: Airspace opacities within the bilateral lungs with worsening at the lung bases. No pneumothorax. Orogastric tube tip within the mid stomach. Right internal jugular central venous line within the superior vena cava. Endotracheal tube 5 cm above the shahid. Heart size is normal. No acute fracture. IMPRESSION: 1. Orogastric tube tip within the mid stomach. Right internal jugular central venous line within the superior vena cava. Endotracheal tube 5 cm above the shahid. 2. There are bilateral lung infiltrates with interval worsening. This document has been electronically signed by: Willow Quiñonez MD on 04/30/2025 14:54:14
--- NOTE | ~2025-04-26 | XR_ITS ---
CLINICAL HISTORY: constipation 1 view abdomen Comparison: None provided Findings: Multiple dilated loops of small bowel are present. Couple of pelvic calcifications are seen, likely representing phleboliths. No acute osseous abnormality is identified. IMPRESSION: Multiple dilated loops of small bowel suspicious for small bowel obstruction. This document has been electronically signed by: Sharon Washington on 04/26/2025 07:04:51
--- NOTE | ~2025-04-26 | XR_ITS ---
CLINICAL HISTORY: sob 2 view chest x-ray Comparison: None provided Findings: Mild pulmonary hypoinflation. No consolidative process. No evidence of pleural effusion. Linear opacity along the expected course of 1 of the major fissures visible on the lateral view. Normal size heart. No acute fracture. IMPRESSION: Possible linear atelectasis adjacent to 1 of the major fissures. Alternatively, there may be a small amount of fluid tracking within 1 of the major fissures. This document has been electronically signed by: Willow Quiñonez MD on 04/29/2025 20:29:51
--- NOTE | ~2025-04-26 | CT_ITS ---
EXAMINATION: CT ABDOMEN PELVIS WITHOUT IV CONTRAST HISTORY: eval for SBO COMPARISON: There are no prior studies available for comparison. TECHNIQUE: CT scan of the abdomen and pelvis was performed without contrast using standard departmental protocol. Coronal and sagittal reformatted images were generated and reviewed. Oral contrast material was not administered at the request of the referring physician. This CT exam was performed with one or more of the following dose reduction techniques: automated exposure control, adjustment of the mA and/or kV according to patient size, use of iterative reconstruction technique. DLP: 621 mGy-cm FINDINGS: LOWER CHEST: The visualized lung bases are clear. There is no pleural effusion. CARDIOVASCULATURE: The heart is normal in size. There is no pericardial effusion. LIVER: The liver is normal in size and contour. The liver has an unremarkable unenhanced appearance. GALLBLADDER / BILE DUCTS: There is cholelithiasis. There is no intra or extrahepatic biliary ductal dilatation. SPLEEN: The spleen is normal in size and has an unremarkable unenhanced appearance. PANCREAS: The pancreas has an unremarkable unenhanced appearance. ADRENAL GLANDS: Unremarkable. KIDNEYS/RETROPERITONEUM: The kidneys are atrophic. No renal calculi are identified. There is no hydronephrosis. There is a 5.6 cm cyst at the upper pole of the right kidney. An additional cystic lesion is seen at the lower pole measuring 3.4 cm. This contains hypodense material. Previously, this lesion was larger and demonstrated diffusely increased density, possibly representing a hemorrhagic cyst. There is a 2.3 cm cyst at the upper pole of the left kidney. LYMPH NODES: No retroperitoneal lymphadenopathy is identified in the abdomen or pelvis. VASCULATURE: The abdominal aorta demonstrates atherosclerotic calcification, but is normal in caliber. MESENTERY/PERITONEUM: No free fluid. No masses. There is no free intraperitoneal gas. STOMACH: There is fluid in the distal esophagus. The stomach is distended with fluid. SMALL BOWEL: There is dilatation of proximal and mid small bowel loops which are fluid-filled. There is an umbilical hernia containing a small bowel loop causing obstruction. The distal colon is collapsed. COLON: There is extensive diverticulosis of the colon, without evidence of diverticulitis. APPENDIX: Normal. URINARY BLADDER/PELVIC ORGANS: The urinary bladder is unremarkable. The prostate is enlarged. 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 CT/CT abdomen pelvis wo IV con IMPRESSION: 1. Umbilical hernia causing mid to distal small bowel obstruction. 2. 3.4 cm cystic lesion at the lower pole of the right kidney containing internal hyperdensity. Correlation with ultrasound is recommended to evaluate for neoplasm. Electronically signed by: Ministerio Chaidez MD 04/26/2025 08:52 AM EDT
--- NOTE | ~2025-04-26 | CT_ITS ---
CLINICAL HISTORY: abd distension,hypotension, s p surgery CT abdomen and pelvis with contrast Comparison: CT of the abdomen from 04/26/2025 Findings: Mild bibasilar atelectasis and/or pneumonitis of the imaged lung bases. Please refer to separate report for chest CT. Fluid in the distention of the imaged esophagus and stomach are mild. Moderate to severe dilatation of the small bowel loops with small-bowel loops measuring up to 4.4 cm diameter. Is concerning for high-grade small-bowel obstruction with transition point suggested in the right midabdomen. Closed loop morphology not excluded given question 2nd transition point in the left upper quadrant. Moderate to severe stool burden present. Imaged appendix is within normal limits (imaged 581 of series 16). No definite pneumatosis. Gas and fluid of the anterior abdominal wall is nonspecific and concerning for abscess. Small sinus tract also considered given adjacent gas and fluid (imaged 625 of series 16). Mild free fluid in the abdomen pelvis nonspecific and may be postprocedural. Multiple cystic lesions with 1 cm nodularity concerning for neoplasm in the lower pole of the right kidney. No hydronephrosis. Cholelithiasis in the distended gallbladder. Small cystic lesions of the liver are not further characterize by CT at this time. The adrenal glands are normal. Mild volume loss of the pancreas. Mild/borderline splenomegaly. The prostate gland measures 5.6 cm and indents upon the urinary bladder with mild distention of the urinary bladder. [id number] wall thickening of the urinary bladder is nonspecific. Small fat containing inguinal hernias. Grade 1 anterolisthesis at L5-S1 with vacuum disc phenomenon. Bilateral spondylolysis of the L5. Mild-moderate osteoarthritis of the hips, left worse than right. Subcutaneous edema is noted. IMPRESSION: 1. Small bowel dilatation concerning for high-grade small bowel obstruction. 2. Gas and fluid anterior abdomen is nonspecific and may be postprocedural. Enteric cutaneous fistula and/or drain diaphysis can have a similar imaging appearance This document has been electronically signed by: Roman Lechuga MD on 04/30/2025 01:30:12
--- NOTE | ~2025-04-26 | CT_ITS ---
CLINICAL HISTORY: On HD, marked hypotension, s p surgery r o PE --- Additional Notes or Special Instructions: Patient will have dialysis within 24 hrs, OK per MD. CT angiography chest with contrast. With MIP MPR Postprocessing. Comparison: CT of the abdomen and pelvis from 04/29/2025 Findings: No central pulmonary embolism. Moderate cardiomegaly with multi chamber enlargement of the heart. Fluid in the patulous esophagus. Small mediastinal lymph nodes are nonspecific and likely reactive. Small bilateral pleural effusions with underlying bibasilar atelectasis/consolidation. No pneumothorax. Mild emphysematous changes and scarring noted. Please refer to separate report for included abdomen. Degenerative changes include imaged shoulders and imaged spine. Sternum fracture deformity appears old/chronic. IMPRESSION: 1. No central pulmonary embolism. 2. Small pleural effusions with mild bibasilar atelectasis and/or consolidation. This document has been electronically signed by: Roman Lechuga MD on 04/30/2025 01:08:40
--- NOTE | ~2025-04-26 | XR_ITS ---
EXAMINATION: XR ABDOMEN 1 VIEW (KUB) HISTORY: abd distention COMPARISON: Comparison is made with the prior examination dated 04/26/2025. FINDINGS: Three supine views of the abdomen are submitted. Again seen are multiple dilated loops of small bowel consistent with obstruction. There are phleboliths in the pelvis. There are no abnormal soft tissue masses. The bones are intact. XR/XR KUB IMPRESSION: Small bowel obstruction without change. Electronically signed by: Ministerio Chaidez MD 04/28/2025 09:29 AM EDT
[2025-04-26 05:35] VITALS: BP 174/79; PULSE 78; RESP 16; TEMP 36.2; O2SAT 96; BMI 29.8
--- NOTE | 2025-04-26 05:41 | ECG_ITS ---
Test Reason : LETHARGY Blood Pressure : */* mmHG Vent. Rate : 73 BPM Atrial Rate : 73 BPM P-R Int : 140 ms QRS Dur : 94 ms QT Int : 414 ms P-R-T Axes : 69 47 72 degrees QTcB Int : 456 ms Normal sinus rhythm Normal ECG When compared with ECG of 04-Jun-2023 23:37, No significant change was found Referred By: Generic ED Physician Electronically Signed By: SHANIQUE RACHEL
--- NOTE | 2025-04-26 06:12 | PC.NURSE ---
Pt coming from home reporting he has not had a BM since Thursday. He has been taking miralax x4 doses, and drinking his fluids per his HD fluid restriction. Pt reporting he has not ate any food over the last 2 days. Pt goes to HD MW, last tx Thursday he goes for 3 hours and finished a full tx. Pt denies abdominal history, hernia noted, pt reporting he has had it for years with no issues. Pt is firm and distended with hypoactive bowel sounds. Pt reporting increased burping, now with bile. Denies flatulus or any liquid stool. Pt has been changing his binders for CASTANEDA, reporting he has still been taking them as well even though he is not eating. Pt denies SOB/CP/back pain. Reporting his normal urinary output with no concerns. 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 Awaiting labs/radiology at this time, pt changed over, placed on monitor, call carrillo within reach.
[2025-04-26 06:28] LABS: MANUAL DIFF FLAG NO
[2025-04-26 06:30] LABS: Hematocrit 37.7 % (42.0-52.0); Hemoglobin 13.4 g/dl (14.0-18.0); Imm Gran Abs Auto 0.06 X10*3/uL (0.00-0.03); Imm Gran Pct Auto 0.4 % (0.0-0.4); Lymphocytes Absolute Auto 1.1 X10*3/uL (1.2-4.9); Mean Corpuscular HGB Conc 35.5 g/dl (31.0-36.0); Mean Corpuscular Hemoglobin 31.5 pg (27.0-33.0); Mean Corpuscular Volume 88.7 fL (80.0-98.0); NRBC Abs Auto 0.000 X10*3/uL (0.0-0.012); NRBC Pct Auto 0.0 /100WBC (0.0-0.2); Platelet Count 236 X10*3/uL (160-400); Red Blood Count 4.25 X10*6/uL (4.60-5.80); White Blood Count 15.5 X10*3/uL (4.8-10.8)
--- OUTSIDE RECORDS SUMMARY | 2025-04-26 06:32 | XMS_ITS ---
Author Name Geetha, Clinic Address [address] [place] [id number] Phone [phone] Organization [facility] e, NA DOCUMENT DISCLAIMER Multiple document versions may exist, please be sure you review the latest version. The information in the [facility] Continuity [...] Date / Time Height 170 cm January 05, 2025 12: 00 AM LAB RESULTS Infectious Diseases Result Type Result Value Relevant Referen ce Range Interpretation Date Hep B Surface Ag (HBsAg) Negative No Reference Range Provided Normal December 14, 2024 Hep B Surface Ab (anti-HBs) 459 No Reference Range Provided Normal December 14, 2024 TRANSPLANT WAITLIST STATUS No Information on Transplant Waitlist Status
--- NOTE | 2025-04-26 06:44 | ED.GENADULT ---
HPI - General Adult General Chief complaint: General Medical Stated complaint: Dialysis PT, general medical Time Seen by Provider: 04/26/25 06:44 Source: patient and family Mode of arrival: ambulatory Limitations: no limitations History of Present Illness ED Provider: HPI narrative: 79-year-old male, diabetic, end-stage renal disease on hemodialysis Thursday and Thursday, missed dialysis today he has been having increased abdominal pain for the past 5 days, still passing gas but last bowel movement was about 5 days ago, missed dialysis today due to some nausea as he described acid reflux as well as increased abdominal distention. Dr. Peacock and Dr. Ramirez are his nephrologists Related Data Home Medications ?Medication ?Instructions ?Recorded ?Confirmed loratadine 10 mg tablet 10 mg PO DAILY 06/05/23 11/17/24 acetaminophen 650 mg 650 mg PO BID@0900,1700 12/14/23 11/17/24 tablet,extended release (Tylenol Arthritis Pain) carvedilol 12.5 mg tablet 12.5 mg PO BID 12/14/23 11/17/24 docusate sodium 100 mg capsule 100 mg PO DAILY 12/14/23 11/17/24 (Colace) ergocalciferol (vitamin D2) 62.5 62.5 mcg PO DAILY 12/14/23 11/17/24 mcg (2,500 unit) capsule renovite 1 tab PO .QD 12/14/23 11/17/24 sevelamer HCl 400 mg tablet 400 mg PO DAILY 08/18/24 11/17/24 Previous Rx's ?Medication ?Instructions ?Recorded blood sugar diagnostic (FreeStyle #300 ea 08/18/24 Lite Strips) blood-glucose meter (FreeStyle #1 ea 08/18/24 Lite Meter kit) lancets 28 gauge (FreeStyle #300 ea 08/18/24 Lancets) finasteride 5 mg tablet 5 mg PO DAILY 90 days #90 tabs 11/08/24 amlodipine 5 mg tablet 5 mg PO DAILY #90 tabs 11/17/24 atorvastatin 10 mg tablet 10 mg PO DAILY #90 tabs 11/17/24 levofloxacin 500 mg tablet 500 mg PO DAILY 3 days #3 tabs 11/29/24 tamsulosin 0.4 mg capsule 0.4 mg PO DAILY 90 days #90 caps 11/29/24 Allergies Allergy/AdvReac Type Severity Reaction Status Date / Time No Known Allergies Allergy Verified 04/26/25 05:38 Review of Systems Constitutional: Constitutional: Reports as per HPI [facility] Past Medical History Medical History (Updated 04/26/25 @ 09:11 by Yovani Fierro DO) Weak urinary stream Acute kidney injury ESRD (end stage renal disease) CKD (chronic kidney disease) High cholesterol Hypertension Surgical History Hx of tonsillectomy Social History Social History Household Members: Family Housing: House Do you presently have visiting nurse or other home services: No Alcohol intake: never Patient Tobacco Use Status: Former Tobacco user Tobacco use type: Cigarette Years Smoked: quit 25 year/old e-Cigarette/Vaping Use: Never Used Second Hand Smoke Exposure: No Advance Directives: No Advance Directives Information Provided: Yes service: No 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: Yes (walker ) Hearing needs: No Vision needs: Yes Physical Exam ED Vital Signs: Vital Signs - 24 hr 04/26/25 05:35 04/26/25 08:02 Temperature 97.2 F 98.1 F Pulse Rate 78 55 Respiratory Rate 16 18 Blood Pressure 174/79 H 185/75 H Pulse Oximetry 96 97 Oxygen Delivery Method Room Air Room Air BMI result Body Mass Index 29.8 Const Other: Gen: ?In some discomfort HEENT: PERRLA, EOMI, MMM, Neck: Supple, no LAD CV: RRR, functional left upper extremity AV fistula Resp: ?No wheezing rales rhonchi no stridor moving air well Abd: ?Bowel sounds are present but abdomen is distended with a periumbilical hernia MSK: FROM, strength 5/5 all extremities Skin: Warm, dry, intact, Neuro: ?Alert and oriented x3, moving upper and lower extremities symmetrically, no obvious facial asymmetry noted Medications Administered Discontinued Medications Generic Name Dose Route Start Last Admin Trade Name Freq PRN Reason Stop Dose Admin Ondansetron HCl 4 mg 04/26/25 06:45 04/26/25 07:13 Ondansetron Hcl 4 Mg/2 Ml Vial IVPUSH 04/26/25 06:46 4 mg ONCE ONE Administration Medical Decision Making Medical Decision Making [facility] Narrative: 7:19 AM 04/26/2025 (Dr. Yovani Fierro): Distended abdomen, x-ray suspicious for SBO we will obtain CT anticipating admission we will provide antiemetics for nausea, blood work to evaluate for electrolyte derangements, ECG without any changes to suspect significant hyperkalemia, and I will get in touch with his hemodialysis team anticipate admission and surgical consultation 9:10 AM 04/26/2025 (Dr. Yovani Fierro): Dr. Rodriguez is aware patient is going to be admitted to the hospital, we will consult General surgery for SBO Differential Diagnosis Differential Diagnoses: The differential diagnosis associated with the presentation includes (SBO, bowel perforation, diverticulitis, infectious colitis, ischemic colitis) Admission/Observation Consideration of admission/observation: Escalation of care including admission/observation considered Consult Healthcare Provider Management of the patient was discussed with: Hospitalist and Commodity Industry Analyst (Surgery and Dr. Rodriguez ( renal)) Lab Data [facility] Lab Attestation statement: I reviewed the patient's lab results. 04/26/25 06:23 04/26/25 06:23 Labs: Lab Results 04/26/25 Range/Units 06:23 WBC 15.5 H (4.8-10.8) X10*3/uL RBC 4.25 L D (4.60-5.80) X10*6/uL Hgb 13.4 L D (14.0-18.0) g/dl Hct 37.7 L D (42.0-52.0) % MCV 88.7 (80.0-98.0) fL MCH 31.5 (27.0-33.0) pg MCHC 35.5 (31.0-36.0) g/dl RDW 14.1 (11.0-16.0) % Plt Count 236 (160-400) X10*3/uL MPV 9.2 L (9.4-12.4) fL Immature Gran % (Auto) 0.4 (0.0-0.4) % Neut % (Auto) 84.4 H (45-73) % Lymph % (Auto) 6.8 L (20-40) % [place] % (Auto) 8.1 (2-11) % Eos % (Auto) 0.1 (0-4) % Baso % (Auto) 0.2 (0-2) % Lymph # (Auto) 1.1 L (1.2-4.9) X10*3/uL [place] # (Auto) 1.3 H (0.1-1.2) X10*3/uL Eos # (Auto) 0.0 (0.0-0.4) X10*3/uL Baso # (Auto) 0.0 (0.0-0.2) X10*3/uL Abs Immat Gran (auto) 0.06 H (0.00-0.03) X10*3/uL Absolute Neuts (auto) 13.1 H (2.0-8.3) x10*3/uL Absolute Nucleated RBC 0.000 (0.0-0.012) X10*3/uL Nucleated RBC % (auto) 0.0 (0.0-0.2) /100WBC Sodium 129 L (135-145) mmol/L Potassium 5.4 H D (3.3-5.1) mmol/L Chloride 86 L (96-108) mmol/L Carbon Dioxide 23 (22-29) mmol/L Anion Gap 25 H (12-20) BUN 89 H (9-16) mg/dL Creatinine 6.94 H* (0.5-1.4) mg/dL Estim Creat Clear Calc 9.0 Estimated GFR 8 Random Glucose 296 H (60-115) mg/dL Calcium 10.2 D (8.4-10.2) mg/dL Total Bilirubin 0.5 (0.0-1.0) mg/dL AST 18 (5-37) U/L ALT 12 (0-40) U/L Alkaline Phosphatase 53 (39-117) U/L Total Protein 7.9 (6.5-8.0) g/dL Albumin 4.7 (3.5-5.0) g/dL Independent Interpretation I performed an independent interpretation of an: EKG (73 beats per minute, normal EKG) and Plain X-Ray (Multiple dilated loop of bowels) Radiology Impression Discussion of test interpretation with radiology: I have reviewed the radiologist's reading. Radiologist Impression: 1. Umbilical hernia causing mid to distal small bowel obstruction. 2. 3.4 cm cystic lesion at the lower pole of the right kidney containing internal hyperdensity. Correlation with ultrasound is recommended to evaluate for neoplasm. Prescription Management I considered prescription management with: Pain Medication Chronic Conditions Patient?s care impacted by: Diabetes, Hypertension and Other (End-stage renal disease on hemodialysis) Critical Care Time Critical Care Time Critical Care Time: Yes Total Critical Care Time: 45 Attestation: Time is exclusive of separately billable procedures. Time includes: direct patient care, patient reassessment, coordination of patient care, interpretation of data (laboratory data, pulse oximetry, arterial blood gases and chest xrays), review of patient's medical records, medical consultation and documentation of patient care. Procedures excluded from critical care time: central intravenous line placement and electrocardiography. Discharge Plan Discharge Clinical Impression: SBO (small bowel obstruction) Patient Disposition: Admitted As Inpatient Print Language: Hebrew
[2025-04-26 06:58] LABS: Alanine Aminotransferase 12 U/L (0-40); Albumin Level 4.7 g/dL (3.5-5.0); Alkaline Phosphatase 53 U/L (39-117); Anion Gap 25 (12-20); Aspartate Amino Transferase 18 U/L (5-37); Blood Urea Nitrogen 89 mg/dL (9-16); Calcium 10.2 mg/dL (8.4-10.2); Carbon Dioxide 23 mmol/L (22-29); Chloride 86 mmol/L (96-108); Creatinine Clr Calc Pharmacy 9.0; Estimated Glomerular Filt Rate 8; Potassium 5.4 mmol/L (3.3-5.1); Sodium 129 mmol/L (135-145); Total Protein 7.9 g/dL (6.5-8.0)
[2025-04-26 08:02] VITALS: BP 185/75; PULSE 55; RESP 18; TEMP 36.7; O2SAT 97
[2025-04-26 10:07] VITALS: PULSE 70; RESP 15; O2SAT 97
--- NOTE | 2025-04-26 10:24 | P.CONGS_ITS ---
History of Present Illness Consult details Consult date: 04/26/25 <Katherine Trujillo PA-C - Last Filed: 04/26/25 10:55> Reason for consult: other (SBO, umbilical hernia) <Katherine Trujillo PA-C - Last Filed: 04/26/25 10:55> Narrative: 79 year old male with ESRD on hemodialysis MWF, diabetes mellitus, HTN, hypercholesterolemia, BPH who presented to the ED with complaints of constipation, worsening reflux. He reports he has just generally been feeling unwell since Thursday. He went to dialysis on Thursday but reports he almost didn't make it through as he wasn't feeling well overall. He denies overt abdominal pain, nausea or vomiting, fevers, chills, diarrhea, cough, shortness of breath, chest pain. He does endorse belching and severe heart burn that was so severe last night and actually made him come to the ED for evaluation. He missed dialysis today. Last BM was Thursday. He has been passing a small amount of gas. Work up in the ED included CBC, BMP, LFTs which was significant for leukocytosis of 15.5, multiple electrolyte abnormalities and Cr 6.94. CT scan abd pelvis was performed which showed distended stomach, dilated small bowel loops with umbilical hernia containing small bowel with distal SB decompressed. General surgery consult was obtained for SBO secondary to umbilical hernia. He denies prior abdominal surgery. <Katherine Trujillo PA-C - Last Filed: 04/26/25 10:55> Review of Systems 2 Review of Systems: Yes all other systems are reviewed and are negative < Katherine Trujillo PA-C - Last Filed: 04/26/25 10:55> [facility] Past Medical History Medical History: Medical History Weak urinary stream Acute kidney injury ESRD (end stage renal disease) CKD (chronic kidney disease) High cholesterol Hypertension <ANNETTA Coe Last Filed: 04/26/25 10:55> Surgical History Surgical History: Surgical History Hx of tonsillectomy <ANNETTA Coe Last Filed: 04/26/25 10:55> Social History Social History: Social History Household Members: Spouse Housing: House Do you presently have visiting nurse or other home services: No Alcohol intake: never Patient Tobacco Use Status: Former Tobacco user Tobacco use type: Cigarette Years Smoked: quit 25 year/old e-Cigarette/Vaping Use: Never Used Second Hand Smoke Exposure: No service: No 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: Yes (walker ) Hearing needs: No Vision needs: Yes <Katherine Trujillo PA-C - Last Filed: 04/26/25 10:55> Meds Allergies/Adverse reactions: Allergies Allergy/AdvReac Type Severity Reaction Status Date / Time No Known Allergies Allergy Verified 04/26/25 05:38 <Katherine Trujillo PA-C - Last Filed: 04/26/25 10:55> Home medications: Home Medications ?Medication ?Instructions ?Recorded ?Confirmed ?Last Taken ?Type loratadine 10 mg tablet 10 mg PO DAILY 06/05/2304/1004/25/25 History acetaminophen 650 mg 650 mg PO BID@0900,1700 05/0 01/3104/26/25 04/25/25 History tablet,extended release (Tylenol Arthritis Pain) carvedilol 12.5 mg tablet 12.5 mg PO BID 12/14/2304/1004/25/25 History amlodipine 5 mg tablet 5 mg PO SUTUTHSA 04/26/2504/25/25 History atorvastatin 10 mg tablet 10 mg PO BEDTIME 04/26/2504/25/25 History calcium acetate(phosphat bind) 667 1,334 mg PO TID 04/26/25 04/25/25 History mg capsule cholecalciferol (vitamin D3) 50 50 mcg PO DAILY 04/26/25 04/25/25 History mcg (2,000 unit) capsule (Vitamin D3) vitamin B complex-vitamin C-folic 1 tab PO DAILY 04/2604/26/25 04/25/25 History acid 0.8 mg tablet ([place]ota-[place]) <ANNETTA Coe Last Filed: 04/26/25 10:55> Physical Exam 2 Vital Signs: Vital Signs: Last Vital Signs Temp 98.1 F 04/26/25 08:02 Pulse 70 04/26/25 10:07 Resp 15 04/26/25 10:07 BP 185/75 H 04/26/25 08:02 Pulse Ox 97 04/26/25 10:07 O2 Del Method Room Air 04/26/25 10:07 BMI result Body Mass Index 29.8 <Katherine Trujillo PA-C - Last Filed: 04/26/25 10:55> Const: General: comfortable, no acute distress and alert <Katherine Trujillo PA-C - Last Filed: 04/26/25 10:55> Orientation/consciousness: patient oriented x3 <Katherine Trujillo PA-C - Last Filed: 04/26/25 10:55> Resp: Effort & Inspection: normal respiratory effort and able to speak in complete sentences <ANNETTA Coe Last Filed: 04/26/25 10:55> GI: Other: protuberant abdomen moderate umbilical hernia, soft, easily manually reduced with gentle pressure, no overlying skin changes <Katherine Trujillo PA-C Last Filed: 04/26/25 10:55> Inspection: Yes distended and No scar <Katherine Trujillo PA-C - Last Filed: 04/26/25 10:55> Palpation (GI): Soft to palpation, nontender and no guarding <Katherine Trujillo PA-C Last Filed: 04/26/25 10:55> Percussion: Yes tympanic to percussion <ANNETTA Coe Last Filed: 04/26/25 10:55> Skin: General skin exam: no rashes or lesions noted <ANNETTA Coe Last Filed: 04/26/25 10:55> Neuro: General: patient oriented x3 and moves all extremities <ANNETTA Coe Last Filed: 04/26/25 10:55> Extrem: Other: AV fistula left upper extremity <ANNETTA Coe Last Filed: 04/26/25 10:55> Results Labs Result diagrams: 04/26/25 06:23 04/26/25 06:23 <Katherine Trujillo PA-C - Last Filed: 04/26/25 10:55> Labs: Abnormal lab results 04/26/25 Range/Units 06:23 WBC 15.5 H (4.8-10.8) X10*3/uL RBC 4.25 L D (4.60-5.80) X10*6/uL Hgb 13.4 L D (14.0-18.0) g/dl Hct 37.7 L D (42.0-52.0) % MPV 9.2 L (9.4-12.4) fL Neut % (Auto) 84.4 H (45-73) % Lymph % (Auto) 6.8 L (20-40) % Lymph # (Auto) 1.1 L (1.2-4.9) X10*3/uL [place] # (Auto) 1.3 H (0.1-1.2) X10*3/uL Abs Immat Gran (auto) 0.06 H (0.00-0.03) X10*3/uL Absolute Neuts (auto) 13.1 H (2.0-8.3) x10*3/uL Sodium 129 L (135-145) mmol/L Potassium 5.4 H D (3.3-5.1) mmol/L Chloride 86 L (96-108) mmol/L Anion Gap 25 H (12-20) BUN 89 H (9-16) mg/dL Creatinine 6.94 H* (0.5-1.4) mg/dL Random Glucose 296 H (60-115) mg/dL Short CBC 04/26/25 Range/Units 06:23 WBC 15.5 H (4.8-10.8) X10*3/uL Hgb 13.4 L D (14.0-18.0) g/dl Hct 37.7 L D (42.0-52.0) % Plt Count 236 (160-400) X10*3/uL BMP 04/26/25 06:23 Sodium 129 L Potassium 5.4 H D Chloride 86 L Carbon Dioxide 23 BUN 89 H Creatinine 6.94 H* Calcium 10.2 D Liver Function 04/26/25 Range/Units 06:23 Total Bilirubin 0.5 (0.0-1.0) mg/dL AST 18 (5-37) U/L ALT 12 (0-40) U/L Alkaline Phosphatase 53 (39-117) U/L Albumin 4.7 (3.5-5.0) g/dL All other labs normal. <Katherine Trujillo PA-C - Last Filed: 04/26/25 10:55> Imaging Abdomen CT scan report/results: report reviewed and image reviewed <Katherine Trujillo PA-C - Last Filed: 04/26/25 10:55> Additional studies: labs reviewed <Katherine Trujillo PA-C - Last Filed: 04/26/25 10:55> Assessment and Plan (1) SBO (small bowel obstruction): Status: Acute <Katherine Trujillo PA-C - Last Filed: 04/26/25 10:55> (2) Umbilical hernia: Status: Acute <Katherine Trujillo PA-C - Last Filed: 04/26/25 10:55> He has an umbilical hernia containing small bowel loop However, this reducible currently He says he has had this hernia for many years although this has been increasing gradually He has no vomiting There is no tenderness on the hernia site In view of the dilated small bowel loops on CAT scan, I told him that it may be best to repair this I explained the technique of repair of the umbilical hernia with mesh I reviewed the risks of bleeding, infections, bowel injury, recurrence, postop pain, inherent risks of anesthesia including NC and strokes I have put him on the add on schedule for tomorrow His was at bedside Dialysis today <Salvador Nguyễn MD - Last Filed: 04/26/25 15:55> 79 year old male with ESRD on hemodialysis, diabetes mellitus, HTN, hypercholesterolemia, BPH who presented to the ED with complaints of constipation, worsening reflux. CT scan abd pelvis shows dilated small bowel loops with umbilical hernia containing small bowel with distal SB decompressed, good air distally in rectum. His umbilical was easily reduced at bedside. Therefore recommended admission to medicine for correction of his multiple lab abormalities following his missed dialysis and then we can proceed with repair of the umbilical hernia to prevent recurrence once he is optimized. Can hold off on NGT for now as he is not vomiting. Can have clear liquids and advanced as tolerated. Will continue to follow. <Katherine Trujillo PA-C - Last Filed: 04/26/25 10:55> Procedures Date of Service Date of Service: 04/26/25 <Katherine Trujillo PA-C - Last Filed: 04/26/25 10:55> 04/26/25 <Salvador Nguyễn MD - Last Filed: 04/26/25 15:55>
--- NOTE | 2025-04-26 11:42 | P.HPHOSP_ITS ---
History of Present Illness Date of Service: 04/26/25 Chief Complaint: abdominal pain and constipation x 3 days Pt with medical hx of esrd on HD, HTN, and HLD who presented to ED with c/o abdominal pain and constipation since thursday. Pt states that his last bm was on sat and since thursday he has been feeling nauseous and has generalized abdominal pain with bloating and distention. He then started to have severe acid reflex with dyspeptic sx and severe burning in chest since yesterday which prompted him to come to ed today. Pt denies any fever, chills, vomiting, blood in stools, chest pain, URI, focal weakness or palpitations. In ed CT abd showed umbilical hernia causing mid to distal small bowel obstruction. Mild leucocytosis. Surgery was consulted and they were able to reduce ummbilical hernia in ed. Review of Systems 2 Constitutional: Constitutional: Denies chills, Denies fever(s), Reports poor appetite and Reports weakness ENT: Reports system reviewed and no additional complaints, except as documented Cardiovascular: Cardiovascular: Denies chest pain and Denies dyspnea Respiratory: Respiratory: Reports no additional respiratory complaints and Denies dyspnea Gastrointestinal: Gastrointestinal: Reports abdominal pain, Reports constipation, Reports GI cramping, Reports dyspepsia, Reports heartburn and Reports nausea Genitourinary: Genitourinary: Denies dysuria and Denies flank pain Musculoskeletal: Musculoskeletal: Reports no additional musculoskeletal complaints Integumentary/Breasts: Skin/Breast: Reports as per HPI Neurologic: Reports as per HPI and Reports weakness [facility] Medical History (Updated 04/26/25 @ 12:04 by Janet Tapia MD) Weak urinary stream Acute kidney injury ESRD (end stage renal disease) CKD (chronic kidney disease) High cholesterol Hypertension Surgical History Hx of tonsillectomy Social History Household Members: Family Housing: House Do you presently have visiting nurse or other home services: No Alcohol intake: never Patient Tobacco Use Status: Former Tobacco user Tobacco use type: Cigarette Years Smoked: quit 25 year/old e-Cigarette/Vaping Use: Never Used Second Hand Smoke Exposure: No Advance Directives: No Advance Directives Information Provided: Yes service: No 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: Yes (felix ) Hearing needs: No Vision needs: Yes Meds Allergies Allergy/AdvReac Type Severity Reaction Status Date / Time No Known Allergies Allergy Verified 04/26/25 05:38 Active Medications: Current Medications Acetaminophen (Acetaminophen 325 Mg Tablet) 650 mg PO Q6H PRN PRN Reason: Pain, Mild 1-3,fever,headache Calcium Carbonate (Calcium Carbonate 750 Mg Tab.Chew) 750 mg PO Q4H PRN PRN Reason: Heartburn Heparin Sodium (Porcine) (Heparin Sodium,Porcine 5,000 Unit/Ml Vial) 5,000 unit SUBCUT Q8H FLAKO Magnesium Hydroxide (Milk Of Magnesia 30 Ml Oral.Susp) 30 ml PO DAILY PRN PRN Reason: Constipation Melatonin (Melatonin 3 Mg Tablet) 6 mg PO BEDTIME PRN PRN Reason: Insomnia Pantoprazole Sodium (Pantoprazole Sodium 40 Mg/10 Ml Vial) 40 mg IVPUSH DAILY FLAKO Sodium Chloride (0.9 % Sodium Chloride Flush 3 Ml Syringe) 3 ml IVFLUSH QSHIFT [facility] Home Medications ?Medication ?Instructions ?Recorded ?Confirmed ?Last Taken ?Type loratadine 10 mg tablet 10 mg PO DAILY 06/05/2311/0804/25/25 History acetaminophen 650 mg 650 mg PO BID@0900,1700 01/3111/17/24 04/26/25 05:30 History tablet,extended release (Tylenol Arthritis Pain) carvedilol 12.5 mg tablet 12.5 mg PO BID 12/14/2311/0804/25/25 History docusate sodium 100 mg capsule 100 mg PO DAILY 11/17/24 Unknown History (Colace) ergocalciferol (vitamin D2) 62.5 62.5 mcg PO DAILY 01/3111/17/24 04/25/25 History mcg (2,500 unit) capsule renovite 1 tab PO .QD 12/14/2304/25/25 History sevelamer HCl 400 mg tablet 400 mg PO DAILY 08/18/24 0 11/17/24 Unknown History calcium acetate(phosphat bind) 667 1,334 mg PO TID 04/26/25 04/25/25 History mg capsule Physical Exam 2 Vital Signs and Narrative: Vital Signs: Last Vital Signs Temp 98.1 F 04/26/25 08:02 Pulse 70 04/26/25 10:07 Resp 15 04/26/25 10:07 BP 185/75 H 04/26/25 08:02 Pulse Ox 97 04/26/25 10:07 O2 Del Method Room Air 04/26/25 10:07 BMI result Body Mass Index 29.8 Alert and oriented x3, awake and alertm lying in bed, constant hiccups, Heart: RRR lungs CTAB, on RA, no rales or wheezing abdomen: distended, non tender, BS present, no fluid thrill, extremities: no GAVIN, no rash neuro: moving all extremities, sensations intact, Skin: no rash or erosions psyc: calm and cooperative Results Labs 04/26/25 06:23 04/26/25 06:23 Labs: Laboratory Results - last 24 hr 04/26/25 06:23 MCV 88.7 MCH 31.5 MCHC 35.5 RDW 14.1 Plt Count 236 MPV 9.2 L Immature Gran % (Auto) 0.4 Neut % (Auto) 84.4 H Lymph % (Auto) 6.8 L [place] % (Auto) 8.1 Eos % (Auto) 0.1 Baso % (Auto) 0.2 Lymph # (Auto) 1.1 L [place] # (Auto) 1.3 H Eos # (Auto) 0.0 Baso # (Auto) 0.0 Abs Immat Gran (auto) 0.06 H Absolute Neuts (auto) 13.1 H Absolute Nucleated RBC 0.000 Nucleated RBC % (auto) 0.0 Anion Gap 25 H Estim Creat Clear Calc 9.0 Estimated GFR 8 Random Glucose 296 H Calcium 10.2 D Total Bilirubin 0.5 AST 18 ALT 12 Alkaline Phosphatase 53 Total Protein 7.9 Albumin 4.7 Imaging Radiologist's Impressions: Impressions Abdomen/Pelvis CT 04/26/25 08:22 IMPRESSION: 1. Umbilical hernia causing mid to distal small bowel obstruction. 2. 3.4 cm cystic lesion at the lower pole of the right kidney containing internal hyperdensity. Correlation with ultrasound is recommended to evaluate for neoplasm. Electronically signed by: Ministerio Chaidez MD 04/26/2025 08:52 AM EDT Assessment and Plan (1) Hypertension: Status: Acute (2) Hypercholesterolemia: Status: Acute (3) SBO (small bowel obstruction): Status: Acute (4) ESRD (end stage renal disease): Status: Acute (5) Hyperkalemia: Status: Acute (6) Hiccups: Status: Acute (7) Abdominal pain: Status: Acute (8) Dyspepsia: Status: Acute Plan 79 yo M with medical hx of HTN, HLD, ESRD on HD presented with 3 days hx of abdominal pain, constipation and dyspepesis and was found to have SBO due to umbilical hernia. SBO Abdominal pain Dyspepsia Hiccups presented with abd pain, nausea, and dyspepsis, was found to have mild leucocytosis in ed, Afebrile with hyperK and hyponatremia on labs. Ct abdomen~ Umbilical hernia causing mid to distal small bowel obstruction. 2. 3.4 cm cystic lesion at the lower pole of the right kidney containing internal hyperdensity. Correlation with ultrasound is recommended to evaluate for neoplasm. Surgery was consulted on ED and they reduced hernia at bedside with some resolution of sx. Pt is now able to pass flatus. - Clear liquid diet, advance as tolerated - IV protonix for dyspepsia - zofran for nausea - supportive treatment - serial abdominal exam for worsening distention and pain - surgery following,will need hernia repair at some point ESRD on HD: follows with [facility], M/W/F renal made aware . HTN: resume carvedilol and amlodipine HLD: resume statin OMN: SBO, CLD, Quality Stroke Does the patient have a stroke diagnosis?: No VTE Prior VTE?: No VTE Risk Level:: Medical - moderate - high VTE Device Contraindication: N/A - Device Ordered VTE Drug Contraindication: N/A - Med Ordered
--- NOTE | 2025-04-26 11:56 | HO.NURTONUR ---
Ministerio is a 79M patient who presented to the ED after not being able to have a BM, patient is alert and oriented, uses walker for ambulation. patient has dialysis MWF, missed today for ED visit. patient unable to pass gas, has known abd hernia. patient ntoed to be burping and hiccuping. #20 RAC, limb restricted on the left for fistula. CT showed SBO, plan for electrolytes being fixed and then surgical consult. clear LIQ OK.
[2025-04-26 12:51] VITALS: BP 169/84; PULSE 72; RESP 15; TEMP 36.6; O2SAT 93
--- NOTE | 2025-04-26 14:00 | PHA.MEDREC ---
Addendum entered by Axel Barrios PharmD 04/26/25 14:06: reviewed Original Note: Pharmacy Consult ? Medication Reconciliation Pharmacy has completed the medication reconciliation. Patient was able to confirm all of his medications. Patient is no longer taking Docusate 100 mg, and Sevelamer 400 mg. Patient last had his medications yesterday.
[2025-04-26 15:08] LABS: Reflex Lactate? Lactic Acid Added
--- NOTE | 2025-04-26 16:19 | PM.EVENT ---
Event Note Date of Service: 04/26/25 Event Note: Contacted by surgery today. Plan for laparoscopic herniorrhaphy of strangulated umbilical hernia tomorrow 04/27. NPO midnight. Time Spent With Patient Time: Total time managing care of this patient today ____ minutes.
[2025-04-26 16:22] LABS: ~Lactic Acid-LAB USE ONLY 2.2 mmol/L (0.5-2.0)
--- NOTE | 2025-04-26 16:42 | PM.EVENT ---
Event Note Date of Service: 04/26/25 Event Note: Seen on afternoon rounds Currently undergoing dialysis Says he is comfortable Denies any pain with regards to his umbilical hernia Abdomen is soft Hernia nontender and reducible partially He is passing flatus well Appears comfortable Plan to proceed with repair of umbilical hernia repair tomorrow I reviewed with him the technique of this procedure I explained the risks including but not limited to bleeding, infections, bowel injury, recurrence, inherent risks of anesthesia NPO post midnight Discussed with the hospitalist service Time Spent With Patient Time: Total time managing care of this patient today ____ minutes.
[2025-04-26 17:38] LABS: Reflex Lactate? 2 Y
[2025-04-26] MEDS: 0.9 % Sodium Chloride Flush 3 ML SYRINGE IVFLUSH (18:22)
[2025-04-26] MEDS: Lactated Ringers 1,000 ML 80 ML IVCONT (18:22)
[2025-04-26 18:25] VITALS: BP 127/78; PULSE 97; RESP 18; TEMP 36.1; O2SAT 96
[2025-04-26 18:42] LABS: ~Lactic Acid-LAB USE ONLY 1.6 mmol/L (0.5-2.0)
[2025-04-26 19:30] VITALS: BP 121/64; PULSE 86; RESP 15; TEMP 36.6; O2SAT 96
[2025-04-27] VITALS (11 sets, daily range): BP systolic 132–171; BP diastolic 62–77; PULSE 72–90; RESP 12–18; TEMP 36.4–37.4; O2SAT 94–100
[2025-04-27 06:18] LABS: Hematocrit 35.4 % (42.0-52.0); Hemoglobin 12.4 g/dl (14.0-18.0); Mean Corpuscular HGB Conc 35.0 g/dl (31.0-36.0); Mean Corpuscular Hemoglobin 31.6 pg (27.0-33.0); Mean Corpuscular Volume 90.1 fL (80.0-98.0); NRBC Abs Auto 0.000 X10*3/uL (0.0-0.012); NRBC Pct Auto 0.0 /100WBC (0.0-0.2); Platelet Count 204 X10*3/uL (160-400); Red Blood Count 3.93 X10*6/uL (4.60-5.80); White Blood Count 5.3 X10*3/uL (4.8-10.8)
[2025-04-27] MEDS: Lactated Ringers 1,000 ML 80 ML IVCONT ×2 (06:30→17:11)
[2025-04-27 06:40] LABS: Alanine Aminotransferase 13 U/L (0-40); Albumin Level 4.1 g/dL (3.5-5.0); Alkaline Phosphatase 46 U/L (39-117); Anion Gap 21 (12-20); Aspartate Amino Transferase 20 U/L (5-37); Blood Urea Nitrogen 62 mg/dL (9-16); Calcium 9.2 mg/dL (8.4-10.2); Carbon Dioxide 26 mmol/L (22-29); Chloride 91 mmol/L (96-108); Creatinine Clr Calc Pharmacy 11.3; Estimated Glomerular Filt Rate 10; Potassium 5.1 mmol/L (3.3-5.1); Sodium 133 mmol/L (135-145); Total Protein 7.0 g/dL (6.5-8.0)
[2025-04-27 06:48] LABS: Band Neutrophils Percent 26 % (3-5); Lymphocytes Absolute Manual 0.8 X10*3/uL (1.2-4.9); Lymphocytes Percent Manual 16 % (20-40); Monocytes Absolute Manual 0.5 X10*3/uL (0.1-1.2); Monocytes Percent Manual 10 % (2-11); Neutrophils Absolute Manual 3.9 X10*3/uL (2.0-8.3); Neutrophils Percent Manual 48 % (45-73)
[2025-04-27 06:50] LABS: Toxic Vacuolation PRESENT
[2025-04-27 06:51] LABS: Large Platelet PRESENT; Ovalocytes 1+ (5-14) /OIF; RBC Morphology NOTED
[2025-04-27 06:52] LABS: Burr Cells 1+ (0-2) /OIF
[2025-04-27] MEDS: 0.9 % Sodium Chloride Flush 3 ML SYRINGE IVFLUSH (07:54)
--- NOTE | 2025-04-27 08:10 | P.PNGS_ITS ---
Subjective Subjective Date of Service: 04/27/25 <Katherine Trujillo PA-C - Last Filed: 04/27/25 08:12> 04/27/25 <Salvador Nguyễn MD - Last Filed: 04/27/25 13:25> Interval history: Had dialysis yesterday. Has some soreness at umbilical hernia site. Passing flatus but remains concerned that he has not had a BM yet. Denies nausea, vomiting. Belching improved. <Katherine Trujillo PA-C - Last Filed: 04/27/25 08:12> Physical Exam 2 Vital Signs: Vital Signs: Last Vital Signs Temp 99.2 F 04/27/25 07:12 Pulse 79 04/27/25 07:12 Resp 14 04/27/25 07:12 BP 161/77 H 04/27/25 07:12 Pulse Ox 96 04/27/25 07:12 O2 Del Method Room Air 04/27/25 07:12 BMI result Body Mass Index 29.8 <Katherine Trujillo PA-C - Last Filed: 04/27/25 08:12> Const: Orientation/consciousness: patient oriented x3 <Katherine Trujillo PA-C - Last Filed: 04/27/25 08:12> Resp: Effort & Inspection: normal respiratory effort <ANNETTA Coe Last Filed: 04/27/25 08:12> GI: Other: solft distended umbilical hernia soft, reducible <Katherine Trujillo PA-C - Last Filed: 04/27/25 08:12> Palpation (GI): nontender and no guarding <Katherine Trujillo PA-C - Last Filed: 04/27/25 08:12> Skin: General skin exam: no rashes or lesions noted <ANNETTA Coe Last Filed: 04/27/25 08:12> Neuro: General: patient oriented x3 and moves all extremities <ANNETTA Coe Last Filed: 04/27/25 08:12> Objective Data Active Medications Acetaminophen (Acetaminophen 325 Mg Tablet) 650 mg PO Q6H PRN PRN Reason: Pain, Mild 1-3,fever,headache Amlodipine Besylate (Amlodipine Besylate 5 Mg Tablet) 5 mg PO DAILY [facility]; Protocol Last Admin: 04/27/25 07:53 Dose: 5 mg Documented By: CHRISTOPHER Atorvastatin Calcium (Atorvastatin Calcium 10 Mg Tablet) 10 mg PO BEDTIME [facility] Last Admin: 04/26/25 20:00 Dose: 10 mg Documented By: SINDHU Calcium Acetate (Calcium Acetate 667 Mg Capsule) 1,334 mg PO TID [facility] Last Admin: 04/27/25 07:54 Dose: Not Given Documented By: CHRISTOPHER Non-Admin Reason: NPO Calcium Carbonate (Calcium Carbonate 750 Mg Tab.Chew) 750 mg PO Q4H PRN PRN Reason: Heartburn Last Admin: 04/26/25 12:53 Dose: 750 mg Documented By: DORI Carvedilol (Carvedilol 12.5 Mg Tablet) 12.5 mg PO BID [facility]; Protocol Last Admin: 04/27/25 07:53 Dose: 12.5 mg Documented By: CHRISTOPHER Finasteride (Finasteride 5 Mg Tablet) 5 mg PO DAILY [facility] Last Admin: 04/27/25 07:54 Dose: 5 mg Documented By: CHRISTOPHER Heparin Sodium (Porcine) (Heparin Sodium,Porcine 5,000 Unit/Ml Vial) 5,000 unit SUBCUT Q8H [facility] Last Admin: 04/27/25 02:06 Dose: Not Given Documented By: SINDHU Non-Admin Reason: hold per Dr Michael Lactated Ringer's (Lr) 1,000 mls @ 80 mls/hr IVCONT .[id number] [facility] Last Admin: 04/27/25 06:30 Dose: 80 mls/hr Documented By: SINDHU Magnesium Hydroxide (Milk Of Magnesia 30 Ml Oral.Susp) 30 ml PO DAILY PRN PRN Reason: Constipation Melatonin (Melatonin 3 Mg Tablet) 6 mg PO BEDTIME PRN PRN Reason: Insomnia Pantoprazole Sodium (Pantoprazole Sodium 40 Mg/10 Ml Vial) 40 mg IVPUSH DAILY [facility] Last Admin: 04/27/25 07:55 Dose: 40 mg Documented By: CHRISTOPHER Sodium Chloride (0.9 % Sodium Chloride Flush 3 Ml Syringe) 3 ml IVFLUSH QSHIFT [facility] Last Admin: 04/27/25 07:54 Dose: 3 ml Documented By: CHRISTOPHER Tamsulosin HCl (Tamsulosin Hcl 0.4 Mg Capsule) 0.4 mg PO BEDTIME [facility] Last Admin: 04/26/25 20:00 Dose: 0.4 mg Documented By: SINDHU <Katherine Trujillo PA-C - Last Filed: 04/27/25 08:12> Labs CBC & Chem 7: 04/27/25 05:47 04/27/25 05:47 <Katherine Trujillo PA-C - Last Filed: 04/27/25 08:12> Labs: Laboratory Results - last 24 hr 04/26/25 04/26/25 04/26/25 13:04 15:35 18:02 MCV MCH MCHC RDW Plt Count MPV Immature Gran % (Auto) Neut % (Auto) Lymph % (Auto) [place] % (Auto) Eos % (Auto) Baso % (Auto) Lymph # (Auto) [place] # (Auto) Eos # (Auto) Baso # (Auto) Abs Immat Gran (auto) Absolute Neuts (auto) Absolute Nucleated RBC Nucleated RBC % (auto) Neutrophils % (Manual) Band Neutrophils % Lymphocytes % (Manual) Monocytes % (Manual) Abs Neuts (Manual) Lymphocytes # (Manual) Monocytes # (Manual) Toxic Vacuolation Platelet Estimate Large Platelets Plt Morphology Comment RBC Morphology Ovalocytes [place] Cells Anion Gap Estim Creat Clear Calc Estimated GFR Random Glucose Lactic Acid 2.7 H* Lactic Acid F/U @ 2Hr 2.2 H* Lactic Acid F/U @ 4Hr 1.6 Calcium Total Bilirubin AST ALT Alkaline Phosphatase Total Protein Albumin 04/27/25 05:47 MCV 90.1 MCH 31.6 MCHC 35.0 RDW 14.3 Plt Count 204 MPV 9.7 Immature Gran % (Auto) Cancelled Neut % (Auto) Cancelled Lymph % (Auto) Cancelled [place] % (Auto) Cancelled Eos % (Auto) Cancelled Baso % (Auto) Cancelled Lymph # (Auto) Cancelled [place] # (Auto) Cancelled Eos # (Auto) Cancelled Baso # (Auto) Cancelled Abs Immat Gran (auto) Cancelled Absolute Neuts (auto) Cancelled Absolute Nucleated RBC 0.000 Nucleated RBC % (auto) 0.0 Neutrophils % (Manual) 48 Band Neutrophils % 26 H Lymphocytes % (Manual) 16 L Monocytes % (Manual) 10 Abs Neuts (Manual) 3.9 Lymphocytes # (Manual) 0.8 L Monocytes # (Manual) 0.5 Toxic Vacuolation PRESENT Platelet Estimate NORMAL Large Platelets PRESENT Plt Morphology Comment NOTED RBC Morphology NOTED Ovalocytes 1+ (5-14) [place] Cells 1+ (0-2) Anion Gap 21 H Estim Creat Clear Calc 11.3 Estimated GFR 10 Random Glucose 206 H Lactic Acid Lactic Acid F/U @ 2Hr Lactic Acid F/U @ 4Hr Calcium 9.2 D Total Bilirubin 0.5 AST 20 ALT 13 Alkaline Phosphatase 46 Total Protein 7.0 Albumin 4.1 <Katherine Trujillo PA-C - Last Filed: 04/27/25 08:12> Procedures Date of Service Date of Service: 04/27/25 <Katherine Trujillo PA-C - Last Filed: 04/27/25 08:12> 04/27/25 <Salvador Nguyễn MD - Last Filed: 04/27/25 13:25> Progress Note: A&P Assessment and plan (1) SBO (small bowel obstruction): Status: Acute <Katherine Trujillo PA-C - Last Filed: 04/27/25 08:12> Assessment and Plan: Patient understands technique of repair of the umbilical hernia He is aware of the risks, benefits, and alternatives and has given consent Patient is clinically NOT obstructed Hernia is reducible He is passing flatus He has had no nausea or vomiting <Salvador Nguyễn MD - Last Filed: 04/27/25 13:25> (2) Umbilical hernia: Status: Acute <Katherine Trujillo PA-C - Last Filed: 04/27/25 08:12> Assessment and Plan: Umbilical hernia remains soft, reducible. Labs marginally improved today. Plan was for repair of umbilical hernia with mesh in OR today. Will discuss with medicine/anesthesia. Cont NPO. <Katherine Trujillo PA-C - Last Filed: 04/27/25 08:12> Time Spent With Patient Time: Total time managing care of this patient today ____ minutes. <ANNETTA Coe Last Filed: 04/27/25 08:12> Quality Stroke Does the patient have a stroke diagnosis?: No <Katherine Trujillo PA-C - Last Filed: 04/27/25 08:12> VTE Prior VTE?: No <Katherine Trujillo PA-C - Last Filed: 04/27/25 08:12> VTE Risk Level:: Medical - moderate - high <ANNETTA Coe Last Filed: 04/27/25 08:12> VTE Device Contraindication: N/A - Device Ordered <ANNETTA Coe Last Filed: 04/27/25 08:12> VTE Drug Contraindication: N/A - Med Ordered <ANNETTA Coe Last Filed: 04/27/25 08:12>
--- NOTE | 2025-04-27 11:30 | P.PNIM_ITS ---
Subjective Subjective Date of Service: 04/27/25 Interval History: Patient seen today by bedside, comfortable and calm. Endorses some abdominal distention but no significant pain. Passing flatus. Plan for umbilical hernia repair today as per discussion with surgery. Review of Systems Review of Systems: Yes all other systems are reviewed and are negative Physical Exam 2 Exam: Exam: General: A&O x3, oriented to time place person and situation, comfortable, no pain Cardiac: S1, S2 auscultated with no S3/4, no MRG. Well perfused. Respiratory: Normal breath sounds auscultated throughout all lung zones, without wheezing, rales. Normal rate. GI/ : Distended abdomen, which is nontender on palpation. Bowel sounds present. MSK: Normal ambulation without pain at bony prominences or musculature Neurological: Normal neurological examination on overview, without obvious CN II-XII abnormalities. Vital Signs: Vital Signs: Last Vital Signs Temp 99.2 F 04/27/25 07:12 Pulse 79 04/27/25 07:12 Resp 14 04/27/25 07:12 BP 161/77 H 04/27/25 07:12 Pulse Ox 96 04/27/25 07:12 O2 Del Method Room Air 04/27/25 07:12 BMI result Body Mass Index 29.8 Objective Data Active Medications Acetaminophen (Acetaminophen 325 Mg Tablet) 650 mg PO Q6H PRN PRN Reason: Pain, Mild 1-3,fever,headache Amlodipine Besylate (Amlodipine Besylate 5 Mg Tablet) 5 mg PO DAILY [facility]; Protocol Last Admin: 04/27/25 07:53 Dose: 5 mg Documented By: CHRISTOPHER Atorvastatin Calcium (Atorvastatin Calcium 10 Mg Tablet) 10 mg PO BEDTIME [facility] Last Admin: 04/26/25 20:00 Dose: 10 mg Documented By: SINDHU Calcium Acetate (Calcium Acetate 667 Mg Capsule) 1,334 mg PO TID [facility] Last Admin: 04/27/25 07:54 Dose: Not Given Documented By: CHRISTOPHER Non-Admin Reason: NPO Calcium Carbonate (Calcium Carbonate 750 Mg Tab.Chew) 750 mg PO Q4H PRN PRN Reason: Heartburn Last Admin: 04/26/25 12:53 Dose: 750 mg Documented By: DORI Carvedilol (Carvedilol 12.5 Mg Tablet) 12.5 mg PO BID [facility]; Protocol Last Admin: 04/27/25 07:53 Dose: 12.5 mg Documented By: CHRISTOPHER Finasteride (Finasteride 5 Mg Tablet) 5 mg PO DAILY [facility] Last Admin: 04/27/25 07:54 Dose: 5 mg Documented By: CHRISTOPHER Heparin Sodium (Porcine) (Heparin Sodium,Porcine 5,000 Unit/Ml Vial) 5,000 unit SUBCUT Q8H [facility] Last Admin: 04/27/25 02:06 Dose: Not Given Documented By: SINDHU Non-Admin Reason: hold per Dr Michael Lactated Ringer's (Lr) 1,000 mls @ 80 mls/hr IVCONT .[id number] [facility] Last Admin: 04/27/25 06:30 Dose: 80 mls/hr Documented By: SINDHU Magnesium Hydroxide (Milk Of Magnesia 30 Ml Oral.Susp) 30 ml PO DAILY PRN PRN Reason: Constipation Melatonin (Melatonin 3 Mg Tablet) 6 mg PO BEDTIME PRN PRN Reason: Insomnia Pantoprazole Sodium (Pantoprazole Sodium 40 Mg/10 Ml Vial) 40 mg IVPUSH DAILY [facility] Last Admin: 04/27/25 07:55 Dose: 40 mg Documented By: CHRISTOPHER Sodium Chloride (0.9 % Sodium Chloride Flush 3 Ml Syringe) 3 ml IVFLUSH QSHIFT [facility] Last Admin: 04/27/25 07:54 Dose: 3 ml Documented By: CHRISTOPHER Tamsulosin HCl (Tamsulosin Hcl 0.4 Mg Capsule) 0.4 mg PO BEDTIME [facility] Last Admin: 04/26/25 20:00 Dose: 0.4 mg Documented By: SINDHU Labs 04/27/25 05:47 04/27/25 05:47 Labs: Laboratory Results - last 24 hr 04/26/25 04/26/25 04/26/25 13:04 15:35 18:02 MCV MCH MCHC RDW Plt Count MPV Immature Gran % (Auto) Neut % (Auto) Lymph % (Auto) [place] % (Auto) Eos % (Auto) Baso % (Auto) Lymph # (Auto) [place] # (Auto) Eos # (Auto) Baso # (Auto) Abs Immat Gran (auto) Absolute Neuts (auto) Absolute Nucleated RBC Nucleated RBC % (auto) Neutrophils % (Manual) Band Neutrophils % Lymphocytes % (Manual) Monocytes % (Manual) Abs Neuts (Manual) Lymphocytes # (Manual) Monocytes # (Manual) Toxic Vacuolation Platelet Estimate Large Platelets Plt Morphology Comment RBC Morphology Ovalocytes [place] Cells Anion Gap Estim Creat Clear Calc Estimated GFR Random Glucose Lactic Acid 2.7 H* Lactic Acid F/U @ 2Hr 2.2 H* Lactic Acid F/U @ 4Hr 1.6 Calcium Total Bilirubin AST ALT Alkaline Phosphatase Total Protein Albumin 04/27/25 05:47 MCV 90.1 MCH 31.6 MCHC 35.0 RDW 14.3 Plt Count 204 MPV 9.7 Immature Gran % (Auto) Cancelled Neut % (Auto) Cancelled Lymph % (Auto) Cancelled [place] % (Auto) Cancelled Eos % (Auto) Cancelled Baso % (Auto) Cancelled Lymph # (Auto) Cancelled [place] # (Auto) Cancelled Eos # (Auto) Cancelled Baso # (Auto) Cancelled Abs Immat Gran (auto) Cancelled Absolute Neuts (auto) Cancelled Absolute Nucleated RBC 0.000 Nucleated RBC % (auto) 0.0 Neutrophils % (Manual) 48 Band Neutrophils % 26 H Lymphocytes % (Manual) 16 L Monocytes % (Manual) 10 Abs Neuts (Manual) 3.9 Lymphocytes # (Manual) 0.8 L Monocytes # (Manual) 0.5 Toxic Vacuolation PRESENT Platelet Estimate NORMAL Large Platelets PRESENT Plt Morphology Comment NOTED RBC Morphology NOTED Ovalocytes 1+ (5-14) [place] Cells 1+ (0-2) Anion Gap 21 H Estim Creat Clear Calc 11.3 Estimated GFR 10 Random Glucose 206 H Lactic Acid Lactic Acid F/U @ 2Hr Lactic Acid F/U @ 4Hr Calcium 9.2 D Total Bilirubin 0.5 AST 20 ALT 13 Alkaline Phosphatase 46 Total Protein 7.0 Albumin 4.1 Assessment and Plan (1) Hypertension: Status: Acute (2) Hypercholesterolemia: Status: Acute (3) Type 2 diabetes mellitus with hyperglycemia: Status: Acute (4) Hyponatremia: Status: Acute (5) SBO (small bowel obstruction): Status: Acute (6) Umbilical hernia: Status: Acute (7) Abdominal pain: Status: Acute (8) ESRD (end stage renal disease): Status: Acute (9) Hyperkalemia: Status: Acute Plan 79 yo M with medical hx of HTN, HLD, ESRD on HD presented with 3 days hx of abdominal pain, constipation and dyspepesis and was found to have SBO due to umbilical hernia. SBO Umbilical hernia Abdominal pain Dyspepsia Hiccups presented with abd pain, nausea, and dyspepsis, was found to have mild leucocytosis in ed, Afebrile with hyperK and hyponatremia on labs. Ct abdomen~ Umbilical hernia causing mid to distal small bowel obstruction. 3.4 cm cystic lesion at the lower pole of the right kidney containing internal hyperdensity. Correlation with ultrasound is recommended to evaluate for neoplasm. Surgery was consulted on ED and they reduced hernia at bedside with some resolution of sx. Pt is now able to pass flatus. PLAN - NPO - IV Protonix - Zofran p.r.n. - plan for umbilical herniorrhaphy today - supportive treatment ESRD on HD Hyperkalemia Hyponatremia follows with [facility], M/W/F Received hemodialysis 04/26 HTN: resume carvedilol and amlodipine HLD: resume statin [facility] - VTE: Hold perioperatively - CODE STATUS: Full code - DIET: NPO Total time managing care of this patient today: 35 minutes. Quality Stroke Does the patient have a stroke diagnosis?: No VTE Prior VTE?: No VTE Risk Level:: Medical - moderate - high VTE Device Contraindication: N/A - Device Ordered VTE Drug Contraindication: N/A - Med Ordered
[2025-04-27 11:47] LABS: Glucose, Whole Blood 189 mg/dL (60-115)
--- NOTE | 2025-04-27 12:41 | HO.ANESPROP2 ---
HPI - Anesthesia Eval Consult details Narrative: dialysis 04/26 79 yo M with medical hx of HTN, HLD, ESRD on HD presented with 3 days hx of abdominal pain, constipation and dyspepesis and was found to have SBO due to umbilical hernia. SBO Umbilical hernia Abdominal pain Dyspepsia Hiccups esrd --dialysis 04/26 presented with abd pain, nausea, and dyspepsis, was found to have mild leucocytosis in ed, Afebrile with hyperK and hyponatremia on labs. Ct abdomen~ Umbilical hernia causing mid to distal small bowel obstruction. 3.4 cm cystic lesion at the lower pole of the right kidney containing internal hyperdensity. Correlation with ultrasound is recommended to evaluate for neoplasm. Surgery was consulted on ED and they reduced hernia at bedside with some resolution of sx. Pt is now able to pass flatus. PMFSH Active Problems Active Problems: All Active Problems Dyspepsia (Acute) Abdominal pain (Acute) Hiccups (Acute) Hyperkalemia (Acute) SBO (small bowel obstruction) (Acute) Cloudy urine (Acute) Type 2 diabetes mellitus with hyperglycemia (Acute) Annual physical exam (Acute) Umbilical hernia (Acute) Hypertension (Acute) Hypercholesterolemia (Acute) ESRD (end stage renal disease) (Acute) Elevated PSA (Acute) BPH w urinary obs/LUTS (Acute) Urinary retention with incomplete bladder emptying (Acute) Metabolic acidosis (Acute) Hyponatremia (Acute) Acute renal failure (Acute) Past Medical History Medical History Weak urinary stream Acute kidney injury ESRD (end stage renal disease) CKD (chronic kidney disease) High cholesterol Hypertension Family History Family history of problems with anesthesia: No Surgical History Surgical History Hx of tonsillectomy History of Problems with Anesthesia: No Social History Social History Household Members: Spouse Housing: House Are you a primary clinical care leader to a significant other at home: No Do you presently have visiting nurse or other home services: No Alcohol intake: never Patient Tobacco Use Status: Former Tobacco user Tobacco use type: Cigarette Years Smoked: quit 25 year/old e-Cigarette/Vaping Use: Never Used Second Hand Smoke Exposure: No service: No 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: Yes (walker ) Hearing needs: No Vision needs: Yes Meds Allergies Allergy/AdvReac Type Severity Reaction Status Date / Time No Known Allergies Allergy Verified 04/26/25 05:38 Active Medications: Current Medications Acetaminophen (Acetaminophen 325 Mg Tablet) 650 mg PO Q6H PRN PRN Reason: Pain, Mild 1-3,fever,headache Amlodipine Besylate (Amlodipine Besylate 5 Mg Tablet) 5 mg PO DAILY [facility]; Protocol Last Admin: 04/27/25 07:53 Dose: 5 mg Atorvastatin Calcium (Atorvastatin Calcium 10 Mg Tablet) 10 mg PO BEDTIME [facility] Last Admin: 04/26/25 20:00 Dose: 10 mg Calcium Acetate (Calcium Acetate 667 Mg Capsule) 1,334 mg PO TID [facility] Last Admin: 04/27/25 07:54 Dose: Not Given Calcium Carbonate (Calcium Carbonate 750 Mg Tab.Chew) 750 mg PO Q4H PRN PRN Reason: Heartburn Last Admin: 04/26/25 12:53 Dose: 750 mg Carvedilol (Carvedilol 12.5 Mg Tablet) 12.5 mg PO BID [facility]; Protocol Last Admin: 04/27/25 07:53 Dose: 12.5 mg Finasteride (Finasteride 5 Mg Tablet) 5 mg PO DAILY [facility] Last Admin: 04/27/25 07:54 Dose: 5 mg Heparin Sodium (Porcine) (Heparin Sodium,Porcine 5,000 Unit/Ml Vial) 5,000 unit SUBCUT Q8H [facility] Last Admin: 04/27/25 02:06 Dose: Not Given Lactated Ringer's (Lr) 1,000 mls @ 80 mls/hr IVCONT .[id number] [facility] Last Admin: 04/27/25 06:30 Dose: 80 mls/hr Magnesium Hydroxide (Milk Of Magnesia 30 Ml Oral.Susp) 30 ml PO DAILY PRN PRN Reason: Constipation Melatonin (Melatonin 3 Mg Tablet) 6 mg PO BEDTIME PRN PRN Reason: Insomnia Pantoprazole Sodium (Pantoprazole Sodium 40 Mg/10 Ml Vial) 40 mg IVPUSH DAILY [facility] Last Admin: 04/27/25 07:55 Dose: 40 mg Sodium Chloride (0.9 % Sodium Chloride Flush 3 Ml Syringe) 3 ml IVFLUSH QSHIFT [facility] Last Admin: 04/27/25 07:54 Dose: 3 ml Tamsulosin HCl (Tamsulosin Hcl 0.4 Mg Capsule) 0.4 mg PO BEDTIME [facility] Last Admin: 04/26/25 20:00 Dose: 0.4 mg Home Medications ?Medication ?Instructions ?Recorded ?Confirmed ?Last Taken ?Type loratadine 10 mg tablet 10 mg PO DAILY 06/05/23 04/26/25 04/25/25 History acetaminophen 650 mg 650 mg PO BID@0900,1700 12/14/23 04/26/25 04/25/25 History tablet,extended release (Tylenol Arthritis Pain) carvedilol 12.5 mg tablet 12.5 mg PO BID 12/14/23 04/26/25 04/25/25 History amlodipine 5 mg tablet 5 mg PO SUTUTHSA 04/26/25 04/26/25 04/25/25 History atorvastatin 10 mg tablet 10 mg PO BEDTIME 04/26/25 04/26/25 04/25/25 History calcium acetate(phosphat bind) 667 1,334 mg PO TID 04/26/25 04/26/25 04/25/25 History mg capsule cholecalciferol (vitamin D3) 50 50 mcg PO DAILY 04/26/25 04/26/25 04/25/25 History mcg (2,000 unit) capsule (Vitamin D3) vitamin B complex-vitamin C-folic 1 tab PO DAILY 04/26/25 04/26/25 04/25/25 History acid 0.8 mg tablet ([place]) Exam Height,Weight and Vital Signs: Height 5 ft 7 in Weight 86.183 kg Last Vital Signs Temp 99.3 F 04/27/25 11:38 Pulse 81 04/27/25 11:38 Resp 16 04/27/25 11:38 BP 132/69 04/27/25 11:38 Pulse Ox 97 04/27/25 11:38 O2 Del Method Room Air 04/27/25 11:38 Pertinent Lab Results Pertinent Lab Results: Laboratory Tests 04/26/25 04/26/25 04/26/25 06:23 13:04 15:35 WBC 15.5 H RBC 4.25 L D Hgb 13.4 L D Hct 37.7 L D MCV 88.7 MCH 31.5 MCHC 35.5 RDW 14.1 Plt Count 236 MPV 9.2 L Immature Gran % (Auto) 0.4 Neut % (Auto) 84.4 H Lymph % (Auto) 6.8 L [place] % (Auto) 8.1 Eos % (Auto) 0.1 Baso % (Auto) 0.2 Lymph # (Auto) 1.1 L [place] # (Auto) 1.3 H Eos # (Auto) 0.0 Baso # (Auto) 0.0 Abs Immat Gran (auto) 0.06 H Absolute Neuts (auto) 13.1 H Absolute Nucleated RBC 0.000 Nucleated RBC % (auto) 0.0 Neutrophils % (Manual) Band Neutrophils % Lymphocytes % (Manual) Monocytes % (Manual) Abs Neuts (Manual) Lymphocytes # (Manual) Monocytes # (Manual) Toxic Vacuolation Platelet Estimate Large Platelets Plt Morphology Comment RBC Morphology Ovalocytes [place] Cells Sodium 129 L Potassium 5.4 H D Chloride 86 L Carbon Dioxide 23 Anion Gap 25 H BUN 89 H Creatinine 6.94 H* Estim Creat Clear Calc 9.0 Estimated GFR 8 POC Glucose Random Glucose 296 H Lactic Acid 2.7 H* Lactic Acid F/U @ 2Hr 2.2 H* Lactic Acid F/U @ 4Hr Calcium 10.2 D Total Bilirubin 0.5 AST 18 ALT 12 Alkaline Phosphatase 53 Total Protein 7.9 Albumin 4.7 04/26/25 04/27/25 04/27/25 18:02 05:47 11:44 WBC 5.3 RBC 3.93 L Hgb 12.4 L Hct 35.4 L MCV 90.1 MCH 31.6 MCHC 35.0 RDW 14.3 Plt Count 204 MPV 9.7 Immature Gran % (Auto) Cancelled Neut % (Auto) Cancelled Lymph % (Auto) Cancelled [place] % (Auto) Cancelled Eos % (Auto) Cancelled Baso % (Auto) Cancelled Lymph # (Auto) Cancelled [place] # (Auto) Cancelled Eos # (Auto) Cancelled Baso # (Auto) Cancelled Abs Immat Gran (auto) Cancelled Absolute Neuts (auto) Cancelled Absolute Nucleated RBC 0.000 Nucleated RBC % (auto) 0.0 Neutrophils % (Manual) 48 Band Neutrophils % 26 H Lymphocytes % (Manual) 16 L Monocytes % (Manual) 10 Abs Neuts (Manual) 3.9 Lymphocytes # (Manual) 0.8 L Monocytes # (Manual) 0.5 Toxic Vacuolation PRESENT Platelet Estimate NORMAL Large Platelets PRESENT Plt Morphology Comment NOTED RBC Morphology NOTED Ovalocytes 1+ (5-14) [place] Cells 1+ (0-2) Sodium 133 L Potassium 5.1 Chloride 91 L Carbon Dioxide 26 Anion Gap 21 H BUN 62 H Creatinine 5.52 H* Estim Creat Clear Calc 11.3 Estimated GFR 10 POC Glucose 189 H Random Glucose 206 H Lactic Acid Lactic Acid F/U @ 2Hr Lactic Acid F/U @ 4Hr 1.6 Calcium 9.2 D Total Bilirubin 0.5 AST 20 ALT 13 Alkaline Phosphatase 46 Total Protein 7.0 Albumin 4.1 Airway Mallampati Class: II TM Dist: >3cm Neck ROM: Limited Heart: rrr Lungs: cta Assessment and Plan Assessment Anesthesia Assessment: Anesthesia Plan Discussed and Chart Reviewed Final Anesthetic Review Family History of Problems with Anesthesia: No History of Problems with Anesthesia: No NPO: Yes ASA Class: III and Emergency Final Preanesthetic Review: No Changes in Pt Med Stat, Meds/Allgs Chart Reviewed, Consent Obtained/Reviewed and Anes Risks/Benef Reviewed Patient Risk: High Procedure Risk: Intermediate Anesthetic Plan Anesthetic Plan: GA and Agree w/ Assess. and Plan Disposition: Standard PACU
--- NOTE | 2025-04-27 13:25 | P.OP_ITS ---
Operative Note Operative Note Date of Service: 04/27/25 Narrative: Preop diagnosis: Umbilical hernia, reducible, about 3 cm in diameter Postop diagnosis: The same Procedure: Repair of umbilical hernia with medium-sized Phasix mesh Surgeon: Salvador Nguyễn MD general surgery physician assistant: ABEBE Trujillo The patient is a 79-year-old male admitted for constipation with noted to have umbilical hernia. This contained a loop of small bowel but this was reduced. He was clinically not obstructed. In view of the involvement of small bowel, we decided to proceed with the repair of the hernia especially as the patient is on hemodialysis and it would have been difficult to schedule for surgery with his dialysis schedule He understood the technique of the planned procedure as well as the risks, benefits, and alternatives. He was brought to the operating room and placed supine under general anesthesia via endotracheal tube. The abdomen was prepped and draped in the usual sterile fashion. A surgical time-out was done. The patient received cefazolin 2 g IV preoperatively. An NG-tube was inserted by the anesthesiologist which did not have significant output. I infiltrated the planned line of incision with lidocaine 1%. I made a short umbilical transverse curvilinear incision with a blade 15. This was carried down through the full-thickness of the skin and subcutaneous fat. The hernia sac was visualized. This contained small amounts of omentum. I dissected the entire hernia off of the rest of the fascial edges of the defect with electrocautery as well as Metzenbaum scissors. By doing so was able to completely reduce the entire hernia. The underside was freed up to allow good placement of the mesh The hernia defect was about 3 cm so I used a medium-sized Phasix mesh and this was positioned under the defect. This was secured to the fascial edge using the Prolene straps on both sides with Prolene 2-0 sutures . I then closed the fascia over the mesh with a running Maxon 1 stitch . The subcutaneous layer was post with Polysorb 3-0 simple sutures. Skin closure was achieved with Polysorb 4-0 subcuticular running stitch . The area was infiltrated with Marcaine 0.5% for postop analgesia. Dressings were applied and the procedure was completed the patient tolerated procedure well. There were no immediate complications. Initial and final counts of sponges and instruments were correct. Estimated blood loss was less than 10 cc. The patient was extubated without difficulty and transferred to the recovery room with stable vital signs.
--- NOTE | 2025-04-27 15:19 | PM.EVENT ---
Event Note Date of Service: 04/27/25 Event Note: Seen earlier postop He underwent uneventful repair of an umbilical hernia with mesh Appears to have good pain control Stable vital signs Abdomen is soft Pain management Okay to have clear liquids and slowly advance Discussed with daughter at bedside Time Spent With Patient Time: Total time managing care of this patient today ____ minutes.
--- NOTE | 2025-04-27 16:20 | MHC.CM.PN ---
CM MET WITH PTS DAUGHTER AT BEDSIDE, PT SLEEPING SHE REPORTS PT LIVES WITH HIS AND IS INDEPENDENT WITH CARE HE HAS NO DME OR SERVICES HCP ON FILE PCP: [facility] IMM DELIVERED DCP: HOME VIA FAMILY TRANSPORT
[2025-04-27] MEDS: oxyCODONE HCl Immed Release 5 MG TABLET PO (17:10)
[2025-04-28 03:52] VITALS: BP 142/69; PULSE 89; RESP 18; TEMP 36.6; O2SAT 95
[2025-04-28] MEDS: Lactated Ringers 1,000 ML 80 ML IVCONT (05:10)
[2025-04-28 07:58] VITALS: BP 131/69; PULSE 130; RESP 18; TEMP 36.7; O2SAT 94
--- NOTE | 2025-04-28 08:09 | ECG_ITS ---
Test Reason : tachycardia- Stat Blood Pressure : */* mmHG Vent. Rate : 146 BPM Atrial Rate : * BPM P-R Int : * ms QRS Dur : 86 ms QT Int : 294 ms P-R-T Axes : * 1 126 degrees QTcB Int : 458 ms Atrial fibrillation with rapid ventricular response with premature ventricular or aberrantly conducted complexes Nonspecific ST and T wave abnormality Abnormal ECG When compared with ECG of 26-Apr-2025 06:16, Atrial fibrillation has replaced Sinus rhythm Vent. rate has increased by 73 bpm Referred By: Saulo Garcia Electronically Signed By: SHANIQUE RACHEL
--- NOTE | 2025-04-28 08:49 | PM.PNGS ---
Subjective Subjective Date of Service: 04/28/25 <Katherine Trujillo PA-C - Last Filed: 04/28/25 08:53> 04/28/25 <Salvador Nguyễn MD - Last Filed: 04/28/25 09:55> Interval history: C/o belching and fullness with clear liquids this morning. Feels more bloated. Mild incisional pain. He is passing flatus but no BM. <Katherine Trujillo PA-C - Last Filed: 04/28/25 08:53> Physical Exam Vital Signs: Vital Signs: Last Vital Signs Temp 98.1 F 04/28/25 07:58 Pulse 130 H 04/28/25 07:58 Resp 18 04/28/25 07:58 BP 131/69 04/28/25 07:58 Pulse Ox 94 04/28/25 07:58 O2 Del Method Room Air 04/28/25 07:58 O2 Flow Rate 6 04/27/25 13:46 BMI result Body Mass Index 29.8 <Katherine Trujillo PA-C - Last Filed: 04/28/25 08:53> Const: General: comfortable, no acute distress and alert <Katherine Trujillo PA-C - Last Filed: 04/28/25 08:53> Orientation/consciousness: patient oriented x3 <ANNETTA Coe Last Filed: 04/28/25 08:53> Resp: Effort & Inspection: able to speak in complete sentences and not tachypneic <Katherine Trujillo PA-C - Last Filed: 04/28/25 08:53> GI: Other: increasingly distended and tympanitic this morning but soft <Katherine Trujillo PA-C - Last Filed: 04/28/25 08:53> Inspection: Yes incision (dressing clean and intact ) <ANNETTA Coe Last Filed: 04/28/25 08:53> Palpation (GI): no guarding <ANNETTA Coe Last Filed: 04/28/25 08:53> Skin: General skin exam: no rashes or lesions noted <ANNETTA Coe Last Filed: 04/28/25 08:53> Neuro: General: patient oriented x3 <Katherine Trujillo PA-C - Last Filed: 04/28/25 08:53> Objective Data Active Medications Acetaminophen (Acetaminophen 325 Mg Tablet) 650 mg PO Q6H PRN PRN Reason: Pain, Mild 1-3,fever,headache Last Admin: 04/28/25 05:09 Dose: 650 mg Documented By: SARA Amlodipine Besylate (Amlodipine Besylate 5 Mg Tablet) 5 mg PO DAILY [facility]; Protocol Last Admin: 04/27/25 07:53 Dose: 5 mg Documented By: CHRISTOPHER Atorvastatin Calcium (Atorvastatin Calcium 10 Mg Tablet) 10 mg PO BEDTIME [facility] Last Admin: 04/27/25 20:13 Dose: 10 mg Documented By: SARA Calcium Acetate (Calcium Acetate 667 Mg Capsule) 1,334 mg PO TID [facility] Last Admin: 04/27/25 20:13 Dose: 1,334 mg Documented By: SARA Calcium Carbonate (Calcium Carbonate 750 Mg Tab.Chew) 750 mg PO Q4H PRN PRN Reason: Heartburn Last Admin: 04/26/25 12:53 Dose: 750 mg Documented By: DORI Carvedilol (Carvedilol 12.5 Mg Tablet) 12.5 mg PO BID [facility]; Protocol Last Admin: 04/27/25 20:13 Dose: 12.5 mg Documented By: SARA Finasteride (Finasteride 5 Mg Tablet) 5 mg PO DAILY [facility] Last Admin: 04/27/25 07:54 Dose: 5 mg Documented By: CHRISTOPHER Heparin Sodium (Porcine) (Heparin Sodium,Porcine 5,000 Unit/Ml Vial) 5,000 unit SUBCUT Q8H [facility] Last Admin: 04/28/25 03:48 Dose: 5,000 unit Documented By: SARA Lactated Ringer's (Lr) 1,000 mls @ 80 mls/hr IVCONT .[id number] [facility] Last Admin: 04/28/25 05:10 Dose: 80 mls/hr Documented By: SARA Magnesium Hydroxide (Milk Of Magnesia 30 Ml Oral.Susp) 30 ml PO DAILY PRN PRN Reason: Constipation Melatonin (Melatonin 3 Mg Tablet) 6 mg PO BEDTIME PRN PRN Reason: Insomnia Morphine Sulfate (Morphine Sulfate 2 Mg/Ml Cartridge) 2 mg IVPUSH Q3H PRN; Protocol PRN Reason: Pain, Severe (Pain Scale 7-10) Naloxone HCl (Naloxone Hcl 0.4 Mg/Ml Vial) 0.04 mg IVPUSH Q5M PRN PRN Reason: Excessive sedation or RR < 8 Ondansetron HCl (Ondansetron Hcl 4 Mg/2 Ml Vial) 4 mg IVPUSH Q6H PRN PRN Reason: nausea Oxycodone HCl (Oxycodone Hcl Immed Release 5 Mg Tablet) 5 mg PO Q4H PRN PRN Reason: Pain, Moderate(Pain Scale 4-6) Last Admin: 04/27/25 17:10 Dose: 5 mg Documented By: CHRISTOPHER Pantoprazole Sodium (Pantoprazole Sodium 40 Mg/10 Ml Vial) 40 mg IVPUSH DAILY [facility] Last Admin: 04/27/25 07:55 Dose: 40 mg Documented By: CHRISTOPHER Sodium Chloride (0.9 % Sodium Chloride Flush 3 Ml Syringe) 3 ml IVFLUSH QSHIFT [facility] Last Admin: 04/28/25 06:54 Dose: Not Given Documented By: MARK Non-Admin Reason: IV Running Tamsulosin HCl (Tamsulosin Hcl 0.4 Mg Capsule) 0.4 mg PO BEDTIME [facility] Last Admin: 04/27/25 20:13 Dose: 0.4 mg Documented By: SARA <Katherine Trujillo PA-C - Last Filed: 04/28/25 08:53> Labs CBC & Chem 7: 04/27/25 05:47 04/27/25 05:47 <Katherine Trujillo PA-C - Last Filed: 04/28/25 08:53> Labs: Laboratory Results - last 24 hr 04/27/25 11:44 POC Glucose 189 H <Katherine Trujillo PA-C - Last Filed: 04/28/25 08:53> Procedures Date of Service Date of Service: 04/28/25 <Katherine Trujillo PA-C - Last Filed: 04/28/25 08:53> 04/28/25 <Salvador Nguyễn MD - Last Filed: 04/28/25 09:55> Progress Note: A&P Assessment and plan (1) Umbilical hernia: Status: Acute <Katherine Trujillo PA-C - Last Filed: 04/28/25 08:53> Assessment and Plan: Seems more distended this morning Passing flatus Abdomen is soft otherwise Dressings dry No vomiting Heart rate elevated - in AFib Limit to sips of clears for now in view of distention Treat for AFib Seen and examined independently <Salvador Nguyễn MD - Last Filed: 04/28/25 09:55> Assessment and Plan: POD #1 s/p repair of umbilical hernia with mesh. GI function slow to return, increasingly distended and more belching this morning. Dressing clean and intact, Can have sips of liquids but encouraged to listen to body. Now in a fib with RVR. Encouraged increasing activity and OOB once HR better controlled to promote GI function . IS use. Will continue to follow. <Katherine Trujillo PA-C - Last Filed: 04/28/25 08:53> Time Spent With Patient Time: Total time managing care of this patient today ____ minutes. <Katherine Trujillo PA-C - Last Filed: 04/28/25 08:53> Quality Stroke Does the patient have a stroke diagnosis?: No <Katherine Trujillo PA-C - Last Filed: 04/28/25 08:53> VTE Prior VTE?: No <Katherine Trujillo PA-C - Last Filed: 04/28/25 08:53> VTE Risk Level:: Medical - moderate - high <Katherine Trujillo PA-C - Last Filed: 04/28/25 08:53> VTE Device Contraindication: N/A - Device Ordered <Katherine Trujillo PA-C - Last Filed: 04/28/25 08:53> VTE Drug Contraindication: N/A - Med Ordered <Katherine Trujillo PA-C - Last Filed: 04/28/25 08:53>
--- NOTE | 2025-04-28 08:51 | HO.POSTANES ---
Post Anesthesia Evaluation Post Anesthesia Evaluation Date of Service: 04/28/25 Vital Signs: Vital Signs Temp Pulse Resp BP Pulse Ox O2 Del Method 04/28/25 07:58 98.1 F 130 H 18 131/69 94 Room Air 04/28/25 03:52 97.8 F 89 18 142/69 H 95 Room Air Anesthesia: General Mental Status: Awake Pain Control: Satisfactory Nausea/Vomiting: None Hydration: Adequate Anesthesia-Related Issues: No Anes. Related Issues
--- NOTE | 2025-04-28 09:40 | PC.NURSE ---
patients' HR noted to be elevated during 0800 vitals, HR fluctuating between 110-135, denies chest pain, discomfort or dizziness. MD made aware, stat EKG ordered and showed afib with RVR. Patient placed on cont. tele monitor, plan was to give 5mg IVP metoprolol but patient self converted back to sinus rhythm before medication administration. HR between 95-105 now, MD updated, plan to continue to monitor.
--- NOTE | 2025-04-28 14:41 | MHC.CM.PN ---
PT NOT YET MEDICALLY CLEARED, WAITING FOR RETURN OF GI FUNCTION DCP REMAINS HOME VIA FAMILY TRANSPORT
[2025-04-28 15:09] VITALS: BP 123/56; PULSE 107; RESP 20; TEMP 37.4; O2SAT 93
[2025-04-28 15:25] LABS: Anion Gap 20 (12-20); Blood Urea Nitrogen 38 mg/dL (9-16); Calcium 8.7 mg/dL (8.4-10.2); Carbon Dioxide 26 mmol/L (22-29); Chloride 94 mmol/L (96-108); Creatinine Clr Calc Pharmacy 16.3; Estimated Glomerular Filt Rate 15; Magnesium 1.9 mg/dL (1.6-2.6); Potassium 3.9 mmol/L (3.3-5.1); Sodium 136 mmol/L (135-145)
[2025-04-28 15:30] LABS: Troponin-I High Sensitivity 17.7 ng/L (<3.5-35.0)
--- NOTE | 2025-04-28 15:35 | PM.EVENT ---
Event Note Date of Service: 04/28/25 Event Note: Seen on afternoon rounds Feels well Heart rate controlled now Abdomen distended but soft Dressings dry Once tolerating clear liquids, okay to slowly advance Time Spent With Patient Time: Total time managing care of this patient today ____ minutes.
[2025-04-28 15:40] VITALS: BP 115/58; PULSE 104; RESP 18; TEMP 37.3; O2SAT 92
--- NOTE | 2025-04-28 16:00 | P.PNIM_ITS ---
Subjective Subjective Date of Service: 04/28/25 Interval History: Complaints of some abdominal distention this morning, which is painless to touch. Patient has an appetite, passing flatus. No nausea or vomiting. Noting the patient experienced multiple episodes of AFib RVR, asymptomatic with normal blood pressure. These episodes of AFib RVR are interspersed with rapid NSVT identified on telemetry. Lab work performed, revealing normal potassium, magnesium. Since the patient has postoperative day 2, his troponin was also checked, at baseline and flat. ECG was performed, which revealed atrial fibrillation, without T-wave abnormalities, ST changes. Review of Systems Review of Systems: Yes all other systems are reviewed and are negative Physical Exam 2 Exam: Exam: General: A&O x3, oriented to time place person and situation, comfortable, no pain Cardiac: S1, S2 auscultated with no S3/4, no MRG. Well perfused. Respiratory: Normal breath sounds auscultated throughout all lung zones, without wheezing, rales. Normal rate. GI/ : Abdominal distention, s/p surgery, resonant to percussion, nontender on palpation MSK: Normal ambulation without pain at bony prominences or musculature Neurological: Normal neurological examination on overview, without obvious CN II-XII abnormalities. Vital Signs: Vital Signs: Last Vital Signs Temp 99.2 F 04/28/25 15:40 Pulse 104 H 04/28/25 15:40 Resp 18 04/28/25 15:40 BP 115/58 L 04/28/25 15:40 Pulse Ox 92 04/28/25 15:40 O2 Del Method Room Air 04/28/25 15:40 O2 Flow Rate 6 04/27/25 13:46 BMI result Body Mass Index 29.8 Objective Data Active Medications Acetaminophen (Acetaminophen 325 Mg Tablet) 650 mg PO Q6H PRN PRN Reason: Pain, Mild 1-3,fever,headache Last Admin: 04/28/25 05:09 Dose: 650 mg Documented By: SARA Amlodipine Besylate (Amlodipine Besylate 5 Mg Tablet) 5 mg PO DAILY [facility]; Protocol Last Admin: 04/28/25 13:58 Dose: 5 mg Documented By: DORI Atorvastatin Calcium (Atorvastatin Calcium 10 Mg Tablet) 10 mg PO BEDTIME [facility] Last Admin: 04/27/25 20:13 Dose: 10 mg Documented By: SARA Calcium Acetate (Calcium Acetate 667 Mg Capsule) 1,334 mg PO TID [facility] Last Admin: 04/28/25 14:06 Dose: 1,334 mg Documented By: DORI Calcium Carbonate (Calcium Carbonate 750 Mg Tab.Chew) 750 mg PO Q4H PRN PRN Reason: Heartburn Last Admin: 04/26/25 12:53 Dose: 750 mg Documented By: DORI Carvedilol (Carvedilol 25 Mg Tablet) 25 mg PO BID [facility]; Protocol Finasteride (Finasteride 5 Mg Tablet) 5 mg PO DAILY [facility] Last Admin: 04/28/25 13:58 Dose: 5 mg Documented By: DORI Heparin Sodium (Porcine) (Heparin Sodium,Porcine 5,000 Unit/Ml Vial) 5,000 unit SUBCUT Q8H [facility] Last Admin: 04/28/25 13:58 Dose: 5,000 unit Documented By: DORI Magnesium Hydroxide (Milk Of Magnesia 30 Ml Oral.Susp) 30 ml PO DAILY PRN PRN Reason: Constipation Melatonin (Melatonin 3 Mg Tablet) 6 mg PO BEDTIME PRN PRN Reason: Insomnia Morphine Sulfate (Morphine Sulfate 2 Mg/Ml Cartridge) 2 mg IVPUSH Q3H PRN; Protocol PRN Reason: Pain, Severe (Pain Scale 7-10) Naloxone HCl (Naloxone Hcl 0.4 Mg/Ml Vial) 0.04 mg IVPUSH Q5M PRN PRN Reason: Excessive sedation or RR < 8 Ondansetron HCl (Ondansetron Hcl 4 Mg/2 Ml Vial) 4 mg IVPUSH Q6H PRN PRN Reason: nausea Oxycodone HCl (Oxycodone Hcl Immed Release 5 Mg Tablet) 5 mg PO Q4H PRN PRN Reason: Pain, Moderate(Pain Scale 4-6) Last Admin: 04/27/25 17:10 Dose: 5 mg Documented By: CHRISTOPHER Pantoprazole Sodium (Pantoprazole Sodium 40 Mg/10 Ml Vial) 40 mg IVPUSH DAILY [facility] Last Admin: 04/28/25 13:58 Dose: 40 mg Documented By: DORI Sodium Chloride (0.9 % Sodium Chloride Flush 3 Ml Syringe) 3 ml IVFLUSH QSHIFT [facility] Last Admin: 04/28/25 06:54 Dose: Not Given Documented By: MARK Non-Admin Reason: IV Running Tamsulosin HCl (Tamsulosin Hcl 0.4 Mg Capsule) 0.4 mg PO BEDTIME [facility] Last Admin: 04/27/25 20:13 Dose: 0.4 mg Documented By: SARA Labs 04/27/25 05:47 04/28/25 14:36 Labs: Laboratory Results - last 24 hr 04/28/25 04/28/25 14:34 14:36 Hold Purple Top SEE NOTE Anion Gap 20 Estim Creat Clear Calc 16.3 Estimated GFR 15 Random Glucose 185 H Calcium 8.7 Magnesium 1.9 Troponin I High Sens 17.7 Assessment and Plan (1) Hypertension: Status: Acute (2) Hypercholesterolemia: Status: Acute (3) Type 2 diabetes mellitus with hyperglycemia: Status: Acute (4) SBO (small bowel obstruction): Status: Acute (5) Umbilical hernia: Status: Acute (6) Acute renal failure: Status: Acute (7) ESRD (end stage renal disease): Status: Acute (8) Atrial fibrillation with RVR: Status: Acute (9) NSVT (nonsustained ventricular tachycardia): Status: Acute Plan 79 yo M with medical hx of HTN, HLD, ESRD on HD presented with 3 days hx of abdominal pain, constipation and dyspepesis and was found to have SBO due to umbilical hernia, s/p herniorrhaphy 04/27, complicated by aftrial fibrillation with RVR. SBO Umbilical hernia Abdominal pain Dyspepsia Hiccups Presented with abd pain, nausea, and dyspepsis, was found to have mild leucocytosis in ed, Afebrile with hyperK and hyponatremia on labs. Ct abdomen~ Umbilical hernia causing mid to distal small bowel obstruction. 3.4 cm cystic lesion at the lower pole of the right kidney containing internal hyperdensity. Correlation with ultrasound is recommended to evaluate for neoplasm. Surgery was consulted on ED and they reduced hernia at bedside with some resolution of sx. Pt is now able to pass flatus. Umbilical herniorrhaphy performed 04/27 PLAN - Clear liquid diet - IV Protonix - Zofran p.r.n. - Supportive treatment AFib RVR NSVT Suffered with multiple episodes of asymptomatic atrial fibrillation RVR Patient's carvedilol was on hold perioperatively Restarted carvedilol, administered an extra 12.5 mg Received 5 mg IV metoprolol, with resolution of atrial fibrillation RVR Intermittent bursts of NSVT Potassium and magnesium are within normal limits. Troponin flat and normal PLAN - increase carvedilol to 25 mg b.i.d. p.o. - metoprolol 5-10 mg IV p.r.n. for episodes of RVR - ensure euvolemia - we will require anticoagulation with the apixaban postoperatively (we will clear with surgery) ESRD on HD Hyperkalemia Hyponatremia follows with [facility], M/W/F Received hemodialysis 04/26 HTN: resume carvedilol and amlodipine HLD: resume statin [facility] - VTE: Hold perioperatively - CODE STATUS: Full code - DIET: NPO Total time managing care of this patient today: 45 minutes. Quality Stroke Does the patient have a stroke diagnosis?: No VTE Prior VTE?: No VTE Risk Level:: Medical - moderate - high VTE Device Contraindication: N/A - Device Ordered VTE Drug Contraindication: N/A - Med Ordered
[2025-04-28] MEDS: Milk of Magnesia 30 ML ORAL.SUSP PO (18:04)
[2025-04-28 19:36] VITALS: BP 107/60; PULSE 86; RESP 18; TEMP 36.3; O2SAT 94
[2025-04-29] VITALS (14 sets, daily range): BP systolic 73–133; BP diastolic 48–75; PULSE 75–93; RESP 16–26; TEMP 36.1–37; O2SAT 88–96
[2025-04-29] MEDS: 0.9 % Sodium Chloride Flush 3 ML SYRINGE IVFLUSH (08:24)
--- NOTE | 2025-04-29 14:33 | PM.PNGS ---
Subjective Subjective Date of Service: 04/29/25 Interval history: Patient is doing a little bit better assess he was passing gas tolerating the sepsis liquids but also having some burping. Physical Exam Vital Signs: Vital Signs: Last Vital Signs Temp 97.0 F 04/29/25 11:43 Pulse 77 04/29/25 11:43 Resp 18 04/29/25 11:43 BP 117/57 L 04/29/25 11:43 Pulse Ox 92 04/29/25 11:43 O2 Del Method Room Air 04/29/25 11:43 O2 Flow Rate 6 04/27/25 13:46 BMI result Body Mass Index 29.8 Const: General: cooperative, healthy appearing and comfortable GI: Other: Abdomen is soft but very distended tympanitic hypo bowel sounds no significant pain other than at the umbilicus where the surgery was Objective Data Active Medications Acetaminophen (Acetaminophen 325 Mg Tablet) 650 mg PO Q6H PRN PRN Reason: Pain, Mild 1-3,fever,headache Last Admin: 04/29/25 06:47 Dose: 650 mg Documented By: ROVERTO Amlodipine Besylate (Amlodipine Besylate 5 Mg Tablet) 5 mg PO DAILY [facility]; Protocol Last Admin: 04/29/25 08:23 Dose: 5 mg Documented By: ANNE MARIE Atorvastatin Calcium (Atorvastatin Calcium 10 Mg Tablet) 10 mg PO BEDTIME [facility] Last Admin: 04/28/25 21:18 Dose: 10 mg Documented By: ROVERTO Calcium Acetate (Calcium Acetate 667 Mg Capsule) 1,334 mg PO TID [facility] Last Admin: 04/29/25 08:23 Dose: 1,334 mg Documented By: ANNE MARIE Calcium Carbonate (Calcium Carbonate 750 Mg Tab.Chew) 750 mg PO Q4H PRN PRN Reason: Heartburn Last Admin: 04/28/25 23:35 Dose: 750 mg Documented By: ROVERTO Carvedilol (Carvedilol 25 Mg Tablet) 25 mg PO BID [facility]; Protocol Last Admin: 04/29/25 08:24 Dose: 25 mg Documented By: ANNE MARIE Finasteride (Finasteride 5 Mg Tablet) 5 mg PO DAILY [facility] Last Admin: 04/29/25 08:23 Dose: 5 mg Documented By: ANNE MARIE Heparin Sodium (Porcine) (Heparin Sodium,Porcine 5,000 Unit/Ml Vial) 5,000 unit SUBCUT Q8H [facility] Last Admin: 04/29/25 11:28 Dose: 5,000 unit Documented By: ANNE MARIE Lorazepam (Lorazepam 1 Mg Tablet) 1 mg PO BEDTIME PRN PRN Reason: Sleep Lorazepam (Lorazepam 0.5 Mg Tablet) 0.5 mg PO Q8H PRN PRN Reason: Anxiety Magnesium Hydroxide (Milk Of Magnesia 30 Ml Oral.Susp) 30 ml PO DAILY PRN PRN Reason: Constipation Last Admin: 04/28/25 18:04 Dose: 30 ml Documented By: VENESSA Melatonin (Melatonin 3 Mg Tablet) 6 mg PO BEDTIME PRN PRN Reason: Insomnia Morphine Sulfate (Morphine Sulfate 2 Mg/Ml Cartridge) 2 mg IVPUSH Q3H PRN; Protocol PRN Reason: Pain, Severe (Pain Scale 7-10) Naloxone HCl (Naloxone Hcl 0.4 Mg/Ml Vial) 0.04 mg IVPUSH Q5M PRN PRN Reason: Excessive sedation or RR < 8 Ondansetron HCl (Ondansetron Hcl 4 Mg/2 Ml Vial) 4 mg IVPUSH Q6H PRN PRN Reason: nausea Oxycodone HCl (Oxycodone Hcl Immed Release 5 Mg Tablet) 5 mg PO Q4H PRN PRN Reason: Pain, Moderate(Pain Scale 4-6) Last Admin: 04/27/25 17:10 Dose: 5 mg Documented By: CHRISTOPHER Pantoprazole Sodium (Pantoprazole Sodium 40 Mg/10 Ml Vial) 40 mg IVPUSH DAILY@0630 [facility] Sodium Chloride (0.9 % Sodium Chloride Flush 3 Ml Syringe) 3 ml IVFLUSH QSHIFT [facility] Last Admin: 04/29/25 08:24 Dose: 3 ml Documented By: ANNE MARIE Tamsulosin HCl (Tamsulosin Hcl 0.4 Mg Capsule) 0.4 mg PO BEDTIME [facility] Last Admin: 04/28/25 21:18 Dose: 0.4 mg Documented By: TARYNARTGiana Labs 04/27/25 05:47 04/28/25 14:36 Labs: Laboratory Results - last 24 hr 04/28/25 04/28/25 14:34 14:36 Hold Purple Top SEE NOTE Anion Gap 20 Estim Creat Clear Calc 16.3 Estimated GFR 15 Random Glucose 185 H Calcium 8.7 Magnesium 1.9 Troponin I High Sens 17.7 Procedures Date of Service Date of Service: 04/29/25 Progress Note: A&P Assessment and plan (1) Ileus: Status: Acute Plan 79-year-old male with ileus status post umbilical hernia repair with mesh. Today feeling not as great burping a little bit more plan to decrease his p.o. intake and maybe put him on a little IV fluids. Encouraged just sips of liquids for now. We will discuss with the med see him about getting him on some IV fluids Time Spent With Patient Time: Total time managing care of this patient today ____ minutes. Quality Stroke Does the patient have a stroke diagnosis?: No VTE Prior VTE?: No VTE Risk Level:: Medical - moderate - high VTE Device Contraindication: N/A - Device Ordered VTE Drug Contraindication: N/A - Med Ordered
[2025-04-29] MEDS: Milk of Magnesia 30 ML ORAL.SUSP PO (14:43)
[2025-04-29] MEDS: Lactated Ringers 1,000 ML 80 ML IVCONT (15:35)
--- NOTE | 2025-04-29 16:25 | HO.PM.IMPN ---
Subjective Subjective Date of Service: 04/29/25 Interval History: FEELS WELL TODAY. ABDOMEN STILL DISTENDED. AN APPETITE AND EAGER TO EAT. GIVEN RECENT SURGERY, INFORMING THE PATIENT TO MAINTAIN CURRENT COURSE FOR BOWEL REST Review of Systems Review of Systems: Yes all other systems are reviewed and are negative Physical Exam Exam: Exam: General: A&O x3, oriented to time place person and situation, comfortable, no pain Cardiac: S1, S2 auscultated with no S3/4, no MRG. Well perfused. Respiratory: Normal breath sounds auscultated throughout all lung zones, without wheezing, rales. Normal rate. GI/ : Abdominal distention, s/p surgery, resonant to percussion, nontender on palpation MSK: Normal ambulation without pain at bony prominences or musculature Neurological: Normal neurological examination on overview, without obvious CN II-XII abnormalities. Vital Signs: Vital Signs: Last Vital Signs Temp 97.5 F 04/29/25 16:00 Pulse 75 04/29/25 16:00 Resp 18 04/29/25 16:00 BP 133/73 04/29/25 16:00 Pulse Ox 94 04/29/25 16:00 O2 Del Method Room Air 04/29/25 16:00 O2 Flow Rate 6 04/27/25 13:46 BMI result Body Mass Index 29.8 Objective Data Active Medications Acetaminophen (Acetaminophen 325 Mg Tablet) 650 mg PO Q6H PRN PRN Reason: Pain, Mild 1-3,fever,headache Last Admin: 04/29/25 14:41 Dose: 650 mg Documented By: ANNE MARIE Amlodipine Besylate (Amlodipine Besylate 5 Mg Tablet) 5 mg PO DAILY [facility]; Protocol Last Admin: 04/29/25 08:23 Dose: 5 mg Documented By: ANNE MARIE Atorvastatin Calcium (Atorvastatin Calcium 10 Mg Tablet) 10 mg PO BEDTIME [facility] Last Admin: 04/28/25 21:18 Dose: 10 mg Documented By: ROVERTO Calcium Acetate (Calcium Acetate 667 Mg Capsule) 1,334 mg PO TID [facility] Last Admin: 04/29/25 14:41 Dose: 1,334 mg Documented By: ANNE MARIE Calcium Carbonate (Calcium Carbonate 750 Mg Tab.Chew) 750 mg PO Q4H PRN PRN Reason: Heartburn Last Admin: 04/28/25 23:35 Dose: 750 mg Documented By: ROVERTO Carvedilol (Carvedilol 25 Mg Tablet) 25 mg PO BID [facility]; Protocol Last Admin: 04/29/25 08:24 Dose: 25 mg Documented By: ANNE MAIRE Finasteride (Finasteride 5 Mg Tablet) 5 mg PO DAILY [facility] Last Admin: 04/29/25 08:23 Dose: 5 mg Documented By: ANNE MARIE Heparin Sodium (Porcine) (Heparin Sodium,Porcine 5,000 Unit/Ml Vial) 5,000 unit SUBCUT Q8H [facility] Last Admin: 04/29/25 11:28 Dose: 5,000 unit Documented By: ANNE MARIE Lactated Ringer's (Lr) 1,000 mls @ 80 mls/hr IVCONT .[id number] [facility] Last Admin: 04/29/25 15:35 Dose: 80 mls/hr Documented By: ANNE MARIE Lorazepam (Lorazepam 1 Mg Tablet) 1 mg PO BEDTIME PRN PRN Reason: Sleep Lorazepam (Lorazepam 0.5 Mg Tablet) 0.5 mg PO Q8H PRN PRN Reason: Anxiety Last Admin: 04/29/25 15:41 Dose: 0.5 mg Documented By: ANNE MARIE Magnesium Hydroxide (Milk Of Magnesia 30 Ml Oral.Susp) 30 ml PO DAILY PRN PRN Reason: Constipation Last Admin: 04/29/25 14:43 Dose: 30 ml Documented By: ANNE MARIE Melatonin (Melatonin 3 Mg Tablet) 6 mg PO BEDTIME PRN PRN Reason: Insomnia Morphine Sulfate (Morphine Sulfate 2 Mg/Ml Cartridge) 2 mg IVPUSH Q3H PRN; Protocol PRN Reason: Pain, Severe (Pain Scale 7-10) Naloxone HCl (Naloxone Hcl 0.4 Mg/Ml Vial) 0.04 mg IVPUSH Q5M PRN PRN Reason: Excessive sedation or RR < 8 Ondansetron HCl (Ondansetron Hcl 4 Mg/2 Ml Vial) 4 mg IVPUSH Q6H PRN PRN Reason: nausea Oxycodone HCl (Oxycodone Hcl Immed Release 5 Mg Tablet) 5 mg PO Q4H PRN PRN Reason: Pain, Moderate(Pain Scale 4-6) Last Admin: 04/27/25 17:10 Dose: 5 mg Documented By: CHRISTOPHER Pantoprazole Sodium (Pantoprazole Sodium 40 Mg/10 Ml Vial) 40 mg IVPUSH DAILY@0630 [facility] Sodium Chloride (0.9 % Sodium Chloride Flush 3 Ml Syringe) 3 ml IVFLUSH QSHIFT [facility] Last Admin: 04/29/25 14:43 Dose: Not Given Documented By: ANNE MAIRE Non-Admin Reason: Previously Administered Tamsulosin HCl (Tamsulosin Hcl 0.4 Mg Capsule) 0.4 mg PO BEDTIME [facility] Last Admin: 04/28/25 21:18 Dose: 0.4 mg Documented By: ROVERTO Labs 04/27/25 05:47 04/28/25 14:36 Assessment and Plan (1) Atrial fibrillation with RVR: Status: Acute (2) Hypercholesterolemia: Status: Acute (3) NSVT (nonsustained ventricular tachycardia): Status: Acute (4) Hypertension: Status: Acute (5) Type 2 diabetes mellitus with hyperglycemia: Status: Acute (6) Hyponatremia: Status: Acute (7) SBO (small bowel obstruction): Status: Acute (8) Umbilical hernia: Status: Acute (9) Ileus: Status: Acute (10) Acute renal failure: Status: Acute (11) ESRD (end stage renal disease): Status: Acute (12) Hyperkalemia: Status: Acute Plan 79 yo M with medical hx of HTN, HLD, ESRD on HD presented with 3 days hx of abdominal pain, constipation and dyspepesis and was found to have SBO due to umbilical hernia, s/p herniorrhaphy 04/27, complicated by aftrial fibrillation with RVR. SBO Umbilical hernia Abdominal pain Dyspepsia Hiccups Presented with abd pain, nausea, and dyspepsis, was found to have mild leucocytosis in ed, Afebrile with hyperK and hyponatremia on labs. Ct abdomen~ Umbilical hernia causing mid to distal small bowel obstruction. 3.4 cm cystic lesion at the lower pole of the right kidney containing internal hyperdensity. Correlation with ultrasound is recommended to evaluate for neoplasm. Surgery was consulted on ED and they reduced hernia at bedside with some resolution of sx. Pt is now able to pass flatus. Umbilical herniorrhaphy performed 04/27 PLAN - Clear liquid diet - IV Protonix - Zofran p.r.n. - Supportive treatment - IVF 80cc/hr x 1L total (r/v tomorrow) AFib RVR NSVT Suffered with multiple episodes of asymptomatic atrial fibrillation RVR Patient's carvedilol was on hold perioperatively Restarted carvedilol, administered an extra 12.5 mg Received 5 mg IV metoprolol, with resolution of atrial fibrillation RVR Intermittent bursts of NSVT Potassium and magnesium are within normal limits. Troponin flat and normal PLAN - increase carvedilol to 25 mg b.i.d. p.o. - metoprolol 5-10 mg IV p.r.n. for episodes of RVR - ensure euvolemia - we will require anticoagulation with the apixaban postoperatively (we will clear with surgery) ESRD on HD Hyperkalemia Hyponatremia follows with [facility], M/W/F Received hemodialysis 04/26 HTN: resume carvedilol and amlodipine HLD: resume statin [facility] - VTE: Hold perioperatively - CODE STATUS: Full code - DIET: NPO - IVF Total time managing care of this patient today: 35 minutes. Quality Stroke Does the patient have a stroke diagnosis?: No VTE Prior VTE?: No VTE Risk Level:: Medical - moderate - high VTE Device Contraindication: N/A - Device Ordered VTE Drug Contraindication: N/A - Med Ordered
--- NOTE | 2025-04-29 18:58 | PM.EVENT ---
Event Note Date of Service: 04/29/25 Event Note: Patient was seen and examined per nursing request-question of shortness of breath When see the patient patient does not seem to be short of breath but feel weak. He said he passed bowel and after that he is feeling better. Patient denies any history of asthma or COPD or any smoking history. Physical exam-unchanged from 2 days hospitalist not accept-has some pulmonary wheezing bilateral. Plan:? Shortness of breaths: Currently patient is talking in full sentences, has wheezing Differential: Etiology unclear but possible Considering history of ESRD question fluid overload versus atelectasis since had a recent surgery Patient says he still urinates Will add IV Lasix, nebs We will check CBC, BMP, VBG, chest x-ray night team is aware to follow up labs and patient clinically Time Spent With Patient Time: Total time managing care of this patient today ____ minutes.
[2025-04-29 19:51] LABS: Hematocrit 31.9 % (42.0-52.0); Hemoglobin 11.0 g/dl (14.0-18.0); Mean Corpuscular HGB Conc 34.5 g/dl (31.0-36.0); Mean Corpuscular Hemoglobin 31.3 pg (27.0-33.0); Mean Corpuscular Volume 90.6 fL (80.0-98.0); NRBC Abs Auto 0.000 X10*3/uL (0.0-0.012); NRBC Pct Auto 0.0 /100WBC (0.0-0.2); Platelet Count 187 X10*3/uL (160-400); Red Blood Count 3.52 X10*6/uL (4.60-5.80); White Blood Count 3.0 X10*3/uL (4.8-10.8)
[2025-04-29 19:59] LABS: Venous Blood Gas Refer to POC result
[2025-04-29 20:01] LABS: VBG HCO3 25 mmol/L (22-26); VBG O2 % Saturation 93.0 %
[2025-04-29 20:11] LABS: Anion Gap 24 (12-20); Blood Urea Nitrogen 76 mg/dL (9-16); Calcium 9.2 mg/dL (8.4-10.2); Carbon Dioxide 23 mmol/L (22-29); Chloride 91 mmol/L (96-108); Creatinine Clr Calc Pharmacy 10.1; Estimated Glomerular Filt Rate 9; Potassium 4.5 mmol/L (3.3-5.1); Sodium 133 mmol/L (135-145)
[2025-04-29] MEDS: Albuterol/Iprat 2.5/0.5MG 3 ML AMPUL.NEB INHALE (20:56)
--- NOTE | 2025-04-29 22:00 | P.EN_ITS ---
Event Note Date of Service: 04/30/25 Event Note: 8:28 p.m.-contacted by nursing that patient seems to be exhausted. Abdominal exam showing adequate bowel sounds but feels nondistended. Patient had a bowel movement today. His oxygen has been fluctuating between 88-93% on room air. His blood pressure has been trending down, most recent is 86/50. There is no fever or tachycardia. He has been placed on supplemental oxygen via nasal cannula, 2 L/min. CXR recently obtained showed possible linear atelectasis adjacent to one of the major fissures. Labs remarkable for worsening creatinine and BUN, now 6.19 and 76, respectively. Lasix Coreg and tamsulosin were held. Normal saline 500 ml given stat. On evaluation patient seems somnolent but answer questions appropriately. He denies abdominal pain, nausea or vomiting. Cardiopulmonary exam is unremarkable. Abdominal exam is remarkable marked distention, S(+) bowel sounds in all quadrants and non tenderness. 10:30 p.m. - D/W Dr. Mukherjee and Dr. Adames. Recommended chest, abdomen, pelvis CT scan with IV contrast. 10:54 p.m.- BP improved, 126/71. Patient is is now alert and conversant. No ICU transfer needed at this point. 1:30 a.m. - chest, abdomen and pelvis CT results showed are no central pulmonary embolism; it did showed small pleural effusions with mild bibasilar atelectasis and/or consolidations. Small bowel dilatation concerning for high-grade small- bowel obstruction, gas and fluid anterior abdomen is nonspecific and may be pos tprocedure an enteric cutaneous fistula and/or drain diaphysis. 3:21 a.m. - BP 106/59, HR 83, RR 20, temp 97.5 degrees, O2 sat 92% on room air. Time Spent With Patient Time: Total time managing care of this patient today ____ minutes.
[2025-04-29 22:26] LABS: Glucose, Whole Blood 184 mg/dL (60-115)
[2025-04-29] MEDS: Albumin Human 25 % 100 ML 133.33 ML IV (22:27)
[2025-04-29] MEDS: iohexoL 350 MG/ML 100 ML INFUS..BTL 85 ML IV (23:54)
[2025-04-30] VITALS (23 sets, daily range): BP systolic 65–131; BP diastolic 24–61; PULSE 39–96; RESP 16–32; TEMP 35–37.6; O2SAT 86–99
[2025-04-30] MEDS: 0.9 % Sodium Chloride Flush 3 ML SYRINGE IVFLUSH (00:19)
--- NOTE | 2025-04-30 01:25 | PC.NURSE ---
[id number] Nursing note. Report received from daytime RN, Vital signs obtained and Assessment of patient performed. Pt sent for 2 view chest X-ray, labs obtained. 2017 Dr. Michael notified of VBG results and Lasix held for BP 101/[address] Micahel reviewed lab results and cxy results showing atelectasis. Pt encouraged and performed IS, 5x reaching 1000 with each inspiration of IS. Pt on RA with O2 sats 88% but improving to 95% with IS. Patient appearing tired as frequently closing his eyes but able to communicate clearly in full sentences. Abdomen found to be firmly distended, hypo bs , passing flatus. Subsequent VS pt becoming significantly hypotensive with O2 sats on RA with range 86-[address] Michael notified and placed on 2LNC and IV fluid bolus ordered. Second IV access obtained and Dr. Michael came to bedside to assess patient. Albumin IV given as ordered. Pt BP responded favorably to fluids as documented and pt was re-assessed by Dr. Michael. Chest CTA and Abdominal CT ordered, Blood cultures and lactic ordered. 0 CT ready to take patient, patient to be brought to CT. Nursing report given to oncoming RN, Celia.
--- NOTE | 2025-04-30 05:31 | PC.NURSE ---
Patient c/o SOB. He is on dialysis with IVF. He had low BP earlier and now more stable. Lungs clear/dim but he is short of breath. Has only scheduled UD. Messaged hospitalist for PRN order.
[2025-04-30] MEDS: Albuterol/Iprat 2.5/0.5MG 3 ML AMPUL.NEB INHALE ×2 (05:57→11:29)
[2025-04-30] MEDS: Furosemide 40 MG/4 ML VIAL IVPUSH ×2 (10:40)
--- NOTE | 2025-04-30 11:00 | PC.NURSE ---
Patient c/o difficulty breathing, appears in distress, which is new finding since last assessment. [employer] called, patient head elevated, vss, diuretics ordered 80mg Lasix IVpush administered, patient placed on cpap, chest xray ordered and taken. Patient reports feeling better on cpap. Family at bedside updated on patient's treatment by provider.
[2025-04-30 12:00] LABS: Anion Gap 23 (12-20); Blood Urea Nitrogen 95 mg/dL (9-16); Calcium 8.9 mg/dL (8.4-10.2); Carbon Dioxide 24 mmol/L (22-29); Chloride 87 mmol/L (96-108); Creatinine Clr Calc Pharmacy 9.3; Estimated Glomerular Filt Rate 8; Potassium 4.5 mmol/L (3.3-5.1); Sodium 129 mmol/L (135-145)
[2025-04-30 12:11] LABS: Glucose, Whole Blood 187 mg/dL (60-115)
--- NOTE | 2025-04-30 12:33 | PM.EVENT ---
Event Note Date of Service: 04/30/25 Event Note: Rapid response called at approximately 10:25 for pt having increased SOB and difficulty breathing. Pt seen and evaluated at bedside where he is noted to have audible rhonchi and rales apparent without auscultation. Vital signs stable with BP normotensive and satting at 94-96% on 2L NC. Pt denies N/V/D or abd pain. Last BM yesterday. No CP or pressure. CXR was obtained and pt given Lasix 80mg IV and started on ceftriaxone and azithromycin. Neprhology contacted who will arrange HD later in the day for emergent dialysis for fluid overload. Pt was placed on temporary CPAP by respiratory. Time Spent With Patient Time: Total time managing care of this patient today ____ minutes.
[2025-04-30 12:44] LABS: VBG HCO3 22 mmol/L (22-26); VBG O2 % Saturation 100.0 %
[2025-04-30 12:44] LABS: Hematocrit 28.3 % (42.0-52.0); Hemoglobin 9.4 g/dl (14.0-18.0); Mean Corpuscular HGB Conc 33.2 g/dl (31.0-36.0); Mean Corpuscular Hemoglobin 31.3 pg (27.0-33.0); Mean Corpuscular Volume 94.3 fL (80.0-98.0); NRBC Abs Auto 0.020 X10*3/uL (0.0-0.012); NRBC Pct Auto 0.3 /100WBC (0.0-0.2); Platelet Count 203 X10*3/uL (160-400); Red Blood Count 3.00 X10*6/uL (4.60-5.80)
[2025-04-30] MEDS: Vasopressin 20 UNIT/100 ML INFUS..BTL 12 UNIT IVCONT (12:49)
[2025-04-30 12:51] LABS: Venous Blood Gas Refer to POC result
[2025-04-30 12:54] LABS: WBC ABN SCTR FOR CBC 1
[2025-04-30 12:55] LABS: White Blood Count 7.6 X10*3/uL (4.8-10.8)
--- NOTE | 2025-04-30 13:01 | P.PNGS_ITS ---
Subjective Subjective Date of Service: 04/30/25 Interval history: Yesterday the patient was having some more shortness of breath and desaturations in his blood pressure was little softer. CT scan of his abdomen and pelvis was carried out overnight which ruled out any pulmonary embolism but at the same time showed that he had distended small bowel loops consistent with small-bowel obstruction. Discussed with the hospitalist overnight with recommendations for placement of NG tube. Patient was also given some IV fluids and apparently his hemodynamics were improved. There had initially been a concern so maybe transfer him to the ICU but he improved over the night and this was never carried out. Early in the morning on medical rounds patient denied any nausea or vomiting or any abdominal pain. Around mid day the patient had acute profuse vomiting while talking to his family. A little earlier than this he had been put on CPAP to help him with some shortness of breath. There was concern about his fluid balance in there was already plan to see if we could get dialysis today for him. With the vomiting patient most likely aspirated and then went into cardiac distress and a code was called. He was in PEA and received CPR as well as multiple rounds of epinephrine and was intubated and suctioned. Eventually vitals were noted with a pulse blood pressure and patient was transferred to the ICU. Here he is undergoing urgent dialysis. Discussion was had with the family who said that the patient did not want to be a DNR and with the wanted resuscitation. Physical Exam 2 Vital Signs: Vital Signs: Last Vital Signs Temp 97.9 F 04/30/25 08:00 Pulse 72 04/30/25 12:49 Resp 28 H 04/30/25 11:33 BP 90/54 L 04/30/25 12:49 Pulse Ox 92 04/30/25 05:25 O2 Del Method Nasal Cannula 04/30/25 08:00 O2 Flow Rate 2 04/30/25 08:00 Oxygen Flow Rate 2 04/30/25 06:42 BMI result Body Mass Index 29.8 GI: Other: Abdomen is softer than yesterday hypoactive bowel sounds 0 G-tube putting out dark brown green fluid. Incision site for umbilical hernia looks good no erythema no drainage Objective Data Active Medications Albuterol/Ipratropium (Albuterol/Iprat 2.5/0.5mg 3 Ml Ampul.Neb) 3 ml INHALE RQ4H WHILE AWAKE FLAKO Last Admin: 04/30/25 11:29 Dose: 3 ml Documented By: SHERON Heparin Sodium (Porcine) (Heparin Sodium,Porcine 5,000 Unit/Ml Vial) 5,000 unit SUBCUT Q8H [facility] Last Admin: 04/30/25 11:13 Dose: 5,000 unit Documented By: TIFFANY Propofol (Diprivan) 1,000 mg in 100 mls @ 0 mls/hr IVCONT .Q0M [facility]; Protocol Last Admin: 04/30/25 12:42 Dose: 30 mcg/kg/min, 15.51 mls/hr Documented By: HELEN Norepinephrine Bitartrate (Levophed) 8 mg in 250 mls @ 0 mls/hr IVCONT .Q0M [facility]; Protocol Last Titration: 04/30/25 12:47 Dose: 0.5 mcg/kg/min, 80.8 mls/hr Documented By: HELEN Ampicillin Sodium/Sulbactam (Sodium 3 gm/ Sodium Chloride) 100 mls @ 200 mls/hr IV Q6H [facility] Vasopressin (Vasostrict) 20 unit in 100 mls @ 12 mls/hr IVCONT .Q8H20M [facility]; Protocol Last Admin: 04/30/25 12:49 Dose: 0.04 unit/min, 12 mls/hr Documented By: HELEN Vancomycin HCl (Vancomycin/Ns) 2,000 mg in 500 mls @ 250 mls/hr IV ONCE ONE Stop: 04/30/25 14:47 Vancomycin HCl 500 mg/ Sodium (Chloride) 110 mls @ 110 mls/hr IV ONCE ONE Stop: 05/01/25 19:59 Pantoprazole Sodium (Pantoprazole Sodium 40 Mg/10 Ml Vial) 40 mg IVPUSH DAILY@0630 [facility] Last Admin: 04/30/25 06:37 Dose: 40 mg Documented By: JANN Pharmacy Consult (Consult Rx Vancomycin Dosing) 1 each MISCELLANE DAILY PRN PRN Reason: Consult order Sodium Chloride (0.9 % Sodium Chloride Flush 3 Ml Syringe) 3 ml IVFLUSH QSHIFT [facility] Last Admin: 04/30/25 08:48 Dose: Not Given Documented By: TIFFANY Non-Admin Reason: IV Running Labs 04/30/25 12:34 04/30/25 12:34 Labs: Laboratory Results - last 24 hr 04/29/25 04/29/25 04/29/25 19:40 19:50 22:21 MCV 90.6 MCH 31.3 MCHC 34.5 RDW 14.1 Plt Count 187 MPV 9.6 Immature Gran % (Auto) Neut % (Auto) Lymph % (Auto) Colbert % (Auto) Eos % (Auto) Baso % (Auto) Lymph # (Auto) Colbert # (Auto) Eos # (Auto) Baso # (Auto) Abs Immat Gran (auto) Absolute Neuts (auto) Absolute Nucleated RBC 0.000 Nucleated RBC % (auto) 0.0 VBG pH 7.54 H VBG pCO2 30 VBG pO2 75 VBG HCO3 25 VBG O2 Saturation 93.0 VBG Base Excess 4.0 Anion Gap 24 H Estim Creat Clear Calc 10.1 Estimated GFR 9 POC Glucose 184 H Random Glucose 216 H Lactic Acid Calcium 9.2 04/29/25 04/30/25 04/30/25 22:54 10:55 12:07 MCV MCH MCHC RDW Plt Count MPV Immature Gran % (Auto) Neut % (Auto) Lymph % (Auto) Colbert % (Auto) Eos % (Auto) Baso % (Auto) Lymph # (Auto) Colbert # (Auto) Eos # (Auto) Baso # (Auto) Abs Immat Gran (auto) Absolute Neuts (auto) Absolute Nucleated RBC Nucleated RBC % (auto) VBG pH VBG pCO2 VBG pO2 VBG HCO3 VBG O2 Saturation VBG Base Excess Anion Gap 23 H Estim Creat Clear Calc 9.3 Estimated GFR 8 POC Glucose 187 H Random Glucose 193 H Lactic Acid 1.9 Calcium 8.9 04/30/25 04/30/25 12:34 12:41 MCV 94.3 MCH 31.3 MCHC 33.2 RDW 14.3 Plt Count 203 MPV 9.9 Immature Gran % (Auto) Cancelled Neut % (Auto) Cancelled Lymph % (Auto) Cancelled Colbert % (Auto) Cancelled Eos % (Auto) Cancelled Baso % (Auto) Cancelled Lymph # (Auto) Cancelled Colbert # (Auto) Cancelled Eos # (Auto) Cancelled Baso # (Auto) Cancelled Abs Immat Gran (auto) Cancelled Absolute Neuts (auto) Cancelled Absolute Nucleated RBC 0.020 H Nucleated RBC % (auto) 0.3 H VBG pH 7.31 L VBG pCO2 44 VBG pO2 182 VBG HCO3 22 VBG O2 Saturation 100.0 VBG Base Excess -3.3 Anion Gap Estim Creat Clear Calc Estimated GFR POC Glucose Random Glucose Lactic Acid Calcium Procedures Date of Service Date of Service: 04/30/25 Progress Note: A&P Assessment and plan (1) SBO (small bowel obstruction): Status: Acute Assessment and Plan: Patient is status post umbilical hernia reduction repair for bowel loops obstruction with postop ileus and what seems to be abdominal distention and pressure and his renal issues and dehydration and then fluid resuscitation causing issues with his breathing. Patient had not received NG tube placement as had been feeling better. With a CPAP this may have exaggerated his gastric distention triggering some of the vomiting and then leading to the aspiration. At this point plan is to continue with airway breathing circular certain resuscitation and dialysis. Obviously NPO while intubated in the ICU with OG decompression of the stomach. We will follow along Time Spent With Patient Time: Total time managing care of this patient today ____ minutes. Quality Stroke Does the patient have a stroke diagnosis?: No VTE Prior VTE?: No VTE Risk Level:: Medical - moderate - high VTE Device Contraindication: N/A - Device Ordered VTE Drug Contraindication: N/A - Med Ordered
--- NOTE | 2025-04-30 13:02 | P.PNIM_ITS ---
Subjective Subjective Date of Service: 04/30/25 Interval History: Rapid response was called at approximately 10:25 for increased shortness of breath and respiratory distress. On bedside evaluation, the patient had audible rhonchi and rales; vital signs were stable with normotension and oxygen saturation 94?96% on 2L nasal cannula. The patient denied nausea, vomiting, diarrhea, abdominal pain, or chest pain; last bowel movement was yesterday. Pt has been hypotensive during the night and started on maintenance fluids. Chest X-ray was obtained. The patient received IV Lasix 80 mg and was started on ceftriaxone and azithromycin. Nephrology was contacted and urgent hemodialysis was arranged for fluid overload. While awaiting hemodialysis around 12:00, the patient had a large emesis and became unresponsive, prompting a second rapid response and immediate code blue. The patient was found unresponsive with copious feculent emesis. ACLS protocol was initiated, the patient was intubated, ROSC was achieved, and the patient was transferred to the ICU. The clinical picture is concerning for aspiration event and possible bowel obstruction leading to cardiac arrest. Family was updated and the patient was transferred to the ICU. Review of Systems Review of Systems: Yes all other systems are reviewed and are negative Physical Exam 2 Exam: Exam: General: AOx3, no acute distress Resp: Diffuse rhonchi CVS: S1, S2, RRR GI: +BS, NT, distended, tympanic Skin: Warm, dry Neuro: Cranial nerves II-XII grossly intact bilaterally. Motor grossly intact bilaterally Extremities: No edema Psych: Appropriate affect Vital Signs: Vital Signs: Last Vital Signs Temp 97.9 F 04/30/25 08:00 Pulse 72 04/30/25 12:49 Resp 28 H 04/30/25 11:33 BP 90/54 L 04/30/25 12:49 Pulse Ox 92 04/30/25 05:25 O2 Del Method Nasal Cannula 04/30/25 08:00 O2 Flow Rate 2 04/30/25 08:00 Oxygen Flow Rate 2 04/30/25 06:42 BMI result Body Mass Index 29.8 Objective Data Active Medications Albuterol/Ipratropium (Albuterol/Iprat 2.5/0.5mg 3 Ml Ampul.Neb) 3 ml INHALE RQ4H WHILE AWAKE FLAKO Last Admin: 04/30/25 11:29 Dose: 3 ml Documented By: SHERON Heparin Sodium (Porcine) (Heparin Sodium,Porcine 5,000 Unit/Ml Vial) 5,000 unit SUBCUT Q8H [facility] Last Admin: 04/30/25 11:13 Dose: 5,000 unit Documented By: TIFFANY Propofol (Diprivan) 1,000 mg in 100 mls @ 0 mls/hr IVCONT .Q0M [facility]; Protocol Last Admin: 04/30/25 12:42 Dose: 30 mcg/kg/min, 15.51 mls/hr Documented By: HELEN Norepinephrine Bitartrate (Levophed) 8 mg in 250 mls @ 0 mls/hr IVCONT .Q0M [facility]; Protocol Last Titration: 04/30/25 12:47 Dose: 0.5 mcg/kg/min, 80.8 mls/hr Documented By: HELEN Ampicillin Sodium/Sulbactam (Sodium 3 gm/ Sodium Chloride) 100 mls @ 200 mls/hr IV Q6H [facility] Vasopressin (Vasostrict) 20 unit in 100 mls @ 12 mls/hr IVCONT .Q8H20M [facility]; Protocol Last Admin: 04/30/25 12:49 Dose: 0.04 unit/min, 12 mls/hr Documented By: HELEN Vancomycin HCl (Vancomycin/Ns) 2,000 mg in 500 mls @ 250 mls/hr IV ONCE ONE Stop: 04/30/25 14:47 Vancomycin HCl 500 mg/ Sodium (Chloride) 110 mls @ 110 mls/hr IV ONCE ONE Stop: 05/01/25 19:59 Pantoprazole Sodium (Pantoprazole Sodium 40 Mg/10 Ml Vial) 40 mg IVPUSH DAILY@0630 [facility] Last Admin: 04/30/25 06:37 Dose: 40 mg Documented By: JANN Pharmacy Consult (Consult Rx Vancomycin Dosing) 1 each MISCELLANE DAILY PRN PRN Reason: Consult order Sodium Chloride (0.9 % Sodium Chloride Flush 3 Ml Syringe) 3 ml IVFLUSH QSHIFT [facility] Last Admin: 04/30/25 08:48 Dose: Not Given Documented By: TIFFANY Non-Admin Reason: IV Running Labs 04/30/25 12:34 04/30/25 10:55 Labs: Laboratory Results - last 24 hr 0904/29/25 04/29/25 19:40 19:50 22:21 MCV 90.6 MCH 31.3 MCHC 34.5 RDW 14.1 Plt Count 187 MPV 9.6 Immature Gran % (Auto) Neut % (Auto) Lymph % (Auto) [place] % (Auto) Eos % (Auto) Baso % (Auto) Lymph # (Auto) [place] # (Auto) Eos # (Auto) Baso # (Auto) Abs Immat Gran (auto) Absolute Neuts (auto) Absolute Nucleated RBC 0.000 Nucleated RBC % (auto) 0.0 VBG pH 7.54 H VBG pCO2 30 VBG pO2 75 VBG HCO3 25 VBG O2 Saturation 93.0 VBG Base Excess 4.0 Anion Gap 24 H Estim Creat Clear Calc 10.1 Estimated GFR 9 POC Glucose 184 H Random Glucose 216 H Lactic Acid Calcium 9.2 04/29/25 04/30/25 04/30/25 22:54 10:55 12:07 MCV MCH MCHC RDW Plt Count MPV Immature Gran % (Auto) Neut % (Auto) Lymph % (Auto) [place] % (Auto) Eos % (Auto) Baso % (Auto) Lymph # (Auto) [place] # (Auto) Eos # (Auto) Baso # (Auto) Abs Immat Gran (auto) Absolute Neuts (auto) Absolute Nucleated RBC Nucleated RBC % (auto) VBG pH VBG pCO2 VBG pO2 VBG HCO3 VBG O2 Saturation VBG Base Excess Anion Gap 23 H Estim Creat Clear Calc 9.3 Estimated GFR 8 POC Glucose 187 H Random Glucose 193 H Lactic Acid 1.9 Calcium 8.9 04/30/25 04/30/25 12:34 12:41 MCV 94.3 MCH 31.3 MCHC 33.2 RDW 14.3 Plt Count 203 MPV 9.9 Immature Gran % (Auto) Cancelled Neut % (Auto) Cancelled Lymph % (Auto) Cancelled [place] % (Auto) Cancelled Eos % (Auto) Cancelled Baso % (Auto) Cancelled Lymph # (Auto) Cancelled [place] # (Auto) Cancelled Eos # (Auto) Cancelled Baso # (Auto) Cancelled Abs Immat Gran (auto) Cancelled Absolute Neuts (auto) Cancelled Absolute Nucleated RBC 0.020 H Nucleated RBC % (auto) 0.3 H VBG pH 7.31 L VBG pCO2 44 VBG pO2 182 VBG HCO3 22 VBG O2 Saturation 100.0 VBG Base Excess -3.3 Anion Gap Estim Creat Clear Calc Estimated GFR POC Glucose Random Glucose Lactic Acid Calcium Assessment and Plan (1) Acute hypoxic respiratory failure: Status: Acute Plan 79 yo M with medical hx of HTN, HLD, ESRD on HD presented with 3 days hx of abdominal pain, constipation and dyspepesis and was found to have SBO due to umbilical hernia, s/p herniorrhaphy 04/27, complicated by aftrial fibrillation with RVR. Rapid response Pt with initial RR at approximately 10:25 for SOB and difficulty breathing Pt with rhonchi/rales, vitals stable and satting at 94-96% on 2L NC Concern for fluid overload: pt given Lasix and nephrology consulted with plan for ESRD later in the day Pt placed on CPAP with some relief Check CXR Code blue Pt found unresponsive with copious feculent emesis at approximately noon while awaiting for hemodialysis Code blue initiated with ACLS protocol followed Pt intubated, ROSC achieved, and pt transferred to ICU Concerning for aspiration event possibly secondary to SBO Question of SBO vs ileus CT last night showed concerns for possible high-grade SBO Pt asymptomatic: denies N/V/D or abdominal pain General surgery contacted thought possibly postsurgical ileus Pt made NPO, placed on maintenance fluids General surgery following Question of pneumonia CTA of chest negative for PE but showed small pleural effusions and mild bibasilar atelectasis/or consolidation Pt empirically started on azithromycin and ceftriaxone, started on 04/30/2025 AFib RVR NSVT Suffered with multiple episodes of asymptomatic atrial fibrillation RVR Patient's carvedilol was on hold perioperatively Restarted carvedilol, administered an extra 12.5 mg Received 5 mg IV metoprolol, with resolution of atrial fibrillation RVR Intermittent bursts of NSVT Potassium and magnesium are within normal limits. Troponin flat and normal PLAN - increase carvedilol to 25 mg b.i.d. p.o. - metoprolol 5-10 mg IV p.r.n. for episodes of RVR - ensure euvolemia - we will require anticoagulation with the apixaban postoperatively (we will clear with surgery) ESRD on HD Complicated by hyperkalemia and hyponatremia follows with [facility], M/W/F Received hemodialysis 04/28 HTN Continue carvedilol and amlodipine HLD Continue statin BPH Continue tamsulosin Full Code DVT Prophylaxis: Heparin Pt is transferred to the ICU for continued care. Quality Stroke Does the patient have a stroke diagnosis?: No VTE Prior VTE?: No VTE Risk Level:: Medical - moderate - high VTE Device Contraindication: N/A - Device Ordered VTE Drug Contraindication: N/A - Med Ordered
[2025-04-30 13:07] LABS: Atypical Lymph Absolute Manual 0.2 x10*3/uL; Atypical Lymphs Percent Manual 3 % (0-6); Band Neutrophils Percent 24 % (3-5); Basophils Abs Manual 0.1 X10*3/uL (0.0-0.2); Basophils Percent Manual 1 % (0-2); Eosinophils Absolute Manual 0.2 X10*3/uL (0.0-0.4); Eosinophils Percent Manual 2 % (0-4); Lymphocytes Absolute Manual 1.5 X10*3/uL (1.2-4.9); Lymphocytes Percent Manual 20 % (20-40); Metamyelocytes Absolute 0.2 X10*3/uL; Metamyelocytes Percent 3 %; Monocytes Absolute Manual 0.5 X10*3/uL (0.1-1.2); Monocytes Percent Manual 7 % (2-11); Myelocytes Absolute 0.1 X10*/uL; Myelocytes Percent 1 %; Neutrophils Absolute Manual 4.8 X10*3/uL (2.0-8.3); Neutrophils Percent Manual 39 % (45-73)
[2025-04-30 13:11] LABS: Dohle Bodies PRESENT
[2025-04-30 13:12] LABS: Toxic Granulation PRESENT; Toxic Vacuolation PRESENT
[2025-04-30 13:13] LABS: RBC Morphology NORMAL
--- NOTE | 2025-04-30 13:24 | PC.NURSE ---
Patient saturation dropped to 80% on cpap, upon assessment patient found vomiting with cpap mask on. Mask removed, line service supervisor call and suction started. Large volume of dark brown/black liquid suctioned. Patient unresponsive code blue called, no pulse found, chest compression started by ICU nurse. Patient was intubated by ED provider, after 4 round of cpr, rosc achieved. Patient was transferred to ICU. Report given to ICU nurse at bedside.
--- NOTE | 2025-04-30 13:28 | PM.EVENT ---
Event Note Date of Service: 04/30/25 Event Note: Patient is a 79 Y M w/ diabetes mellitus, c/b ESRD, on HD // presenting to ED on 04/26 w/ abdominal pain, found to have SBO d/t umbilical hernia; on 04/27, patient underwent hernia repair; on 04/30 AM, patient developed dyspnea, thought to be d/t volume overload; at 04/30 12:00, patient had aspiration event, subsequently developed acute hypoxic respiratory failure and respiratory arrest; CPR performed for 15 minutes, patient intubated; patient transferred to ICU in overt shock N: intubated, sedated w/ propofol gtt CV: profound shock, likely distributive shock in setting of cardiac arrest, norepinephrine gtt, vasopressin gtt R: acute hypoxic respiratory failure d/t aspiration, and likely component of actelectasis d/t abdominal distension and volume overload; intubated, wean as tolerated GI: umbilical hernia s/p repair 04/27, though w/ persistent ileus c/b aspiration; appreciate general surgery recommendations : ESRD on HD //, to perform HD as tolerated H: no acute issues; chemical DVT prophylaxis ID: empiric unasyn in setting of aspiration, vancyomcyin; of note, clinical change and shock d/t aspiration and cardiac arrest, less likely d/t septic shock E: to monitor hypo-/hyper-glycemia P: no acute issues Time Spent With Patient Time: Total time managing care of this patient today ____ minutes.
[2025-04-30 13:29] LABS: Anion Gap 26 (12-20); Blood Urea Nitrogen 95 mg/dL (9-16); Calcium 8.6 mg/dL (8.4-10.2); Carbon Dioxide 22 mmol/L (22-29); Chloride 87 mmol/L (96-108); Creatinine Clr Calc Pharmacy 8.8; Estimated Glomerular Filt Rate 8; Magnesium 3.6 mg/dL (1.6-2.6); Potassium 5.0 mmol/L (3.3-5.1); Sodium 130 mmol/L (135-145)
--- NOTE | 2025-04-30 13:40 | W.PM.CCHP ---
Procedures Date of Service Date of Service: 04/30/25 Central Line Placement Right IJ: Consent for Procedure: Emergent-no informed consent obtained Time out performed: Yes Sterile Technique Used: Yes Patient placed on monitor/pulse ox: Yes MD prep: mask, gown, gloves and other Central line prep: Chlorhexidine scrub Central line lumen inserted: triple Post procedure: sutured in place, good blood return, all ports aspirated, flushed, capped and sterile dressing applied Post procedure x-ray: other (awaiting chest x-ray) Patient tolerated procedure: well Complications: none
[2025-04-30] MEDS: Norepinephrine Bitartrate/NS 16 MG/250 ML PLAST..BAG 64.64 MG IVCONT (15:00)
[2025-04-30 15:02] LABS: Reflex Lactate? Lactic Acid Added
--- NOTE | 2025-04-30 15:29 | W.MHC.ACPN ---
Advanced Care Planning Note Advanced Care Planning Note Discussed with: family member(s) Time spent (in minutes): 30 Narrative: I introduced myself to patient's , son, and daughter; I offered updates and clarifications of Mr. French's hospital course; we discussed Mr. French suffered an aspiration event, that was complicated by a cardiac arrest earlier today; we discussed Mr. French's very critical and guarded clinical status, specifically Mr. French's shock necessitating 3 vasopressors; Mr. French's family's hope is for him to not be uncomfortable; we discussed comfort-focused care; Mr. French's family believe it is appropriate to transition Mr. French to comfort-focused care at this point in time Problems Discussed (1) Acute hypoxic respiratory failure:
[2025-04-30] MEDS: fentaNYL citrate/NS 1,000 MCG/100 ML PLAST..BAG 10 MCG IVCONT (15:35)
--- NOTE | 2025-04-30 15:39 | P.DN_ITS ---
Discharge Sum: Prov Provider Primary care physician: Jada Andrews MD Pronouncing clinician: Lora Mukherjee Discharge Sum: Diag PCOD Cause of : Acute respiratory failure with hypoxia Contributing Factors (1) Aspiration into airway: (2) Ileus: Discharge Sum: Summary Date and Time Date of admission: 04/26/25 10:19 Summary Details: Mr. French is a 79 Y M with diabetes mellitus, complicated by end-stage renal disease, on hemodialysis M/W/F presenting to the emergency department on 04/26 with abdominal pain, found to have a small bowel obstruction due to an umbilical hernia; on 04/27, Mr. French underwent a hernia repair; on 04/30 AM, Mr. French developed dyspnea, thought to be due to volume overload, and was placed on non-invasive ventilation; at around 12:00, Mr. French suffered an aspiration event, complicated by acute hypoxic respiratory failure and cardiac arrest; CPR was performed for 15 minutes, during which Mr. French was intubated, and with return of spontaneous circulation; in the ICU, Mr. French was in overt shock necessitating 3 vasopressors and acute hypoxic respiratory failure necessitating maximal oxygen support; Mr. French's , son, and azam alaynater were at the bedside; after some time with Mr. French, they decided to transition Mr. French to comfort-focused care; Mr. French with his family at the bedside 04/30 at 16:27. Additional Data Confirmation of as documented by pronouncing clinician: no pulse, no respirations, no heart sounds, pupils fixed and dilated and other Family: at bedside Attending physician: Lora Mukherjee MD
[2025-04-30 15:54] LABS: ~Lactic Acid-LAB USE ONLY 1.1 mmol/L (0.5-2.0)
== END 2025-04-30 19:03 | disposition expired | DRG 353 ==
LOC: HO.ED 09:11 → HO.EDOVER 10:19 → HO.S3 11:53 → HO.IMC 04-28 14:22 → HO.ICU 04-30 13:11
PROVIDERS: Hospitalist; Internal Medicine; Physician Assistant Medical; Student in an Organized Health Care Education/Training Program; Surgery; Admitting Provider Hospitalist; Emergency Provider Emergency Medicine; PCP Internal Medicine; Visit Provider Internal Medicine Critical Care Medicine
PROC: 0WUF0JZ Supplement Abdominal Wall with Synthetic Substitute, Open Approach (ICD-10-PCS; principal; 2025-04-27 12:30)
DX: K42.0 Umbilical hernia with obstruction, without gangrene (principal); J96.01 Acute respiratory failure with hypoxia; N18.6 End stage renal disease; I12.0 Hypertensive chronic kidney disease with stage 5 chronic kidney disease or end stage renal disease; E87.1 Hypo-osmolality and hyponatremia; I47.20 Ventricular tachycardia, unspecified; K56.7 Ileus, unspecified; J98.11 Atelectasis; I46.9 Cardiac arrest, cause unspecified; R57.8 Other shock; T17.918A Gastric contents in respiratory tract, part unspecified causing other injury, initial encounter; E87.5 Hyperkalemia; N40.0 Benign prostatic hyperplasia without lower urinary tract symptoms; E78.5 Hyperlipidemia, unspecified; Z51.5 Encounter for palliative care; E11.22 Type 2 diabetes mellitus with diabetic chronic kidney disease; Z99.2 Dependence on renal dialysis; Z87.891 Personal history of nicotine dependence; Z79.899 Other long term (current) drug therapy
CPT/HCPCS: 36415; 71045; 71046; 71275; 74018; 74176; 74177; 80048; 80053; 82803; 82947; 83605; 83735; 84100; 84484; 85007; 85025; 85027; 87040; 87077; 87186; 87205; 90999; 93005; 94002; 94640; 94660; 94799; 97161; 99285; C1781; J0168; J0456; J0616; J0690; J0696; J1171; J1644; J1938; J2003; J2250; J2371; J2405; J2470; J2598; J2704; J2795; J3010; J7120; P9047; Q9967

== ENCOUNTER → 2025-04-26 05:41 | Outpatient (BNV) | payer MEDICARE, SELFPAY | PROVIDERS: Admitting Provider Hospitalist; Emergency Provider Emergency Medicine; PCP Internal Medicine; Visit Provider Internal Medicine | DX: Z13.6 Encounter for screening for cardiovascular disorders (principal) | CPT/HCPCS: 93010 ==

== ENCOUNTER → 2025-04-26 06:10 | Outpatient (BNV) | payer MEDICARE, SELFPAY | PROVIDERS: Emergency Provider Emergency Medicine; PCP Internal Medicine; Visit Provider Radiology Vascular & Interventional Radiology | DX: K42.9 Umbilical hernia without obstruction or gangrene (principal); K56.609 Unspecified intestinal obstruction, unspecified as to partial versus complete obstruction; N28.9 Disorder of kidney and ureter, unspecified; K63.89 Other specified diseases of intestine | CPT/HCPCS: 74018; 74176 ==

== ENCOUNTER 2025-04-26 10:19 | Outpatient (BNV) | payer MEDICARE, SELFPAY | END 2025-04-28 08:09 | PROVIDERS: Admitting Provider Hospitalist; Emergency Provider Emergency Medicine; PCP Internal Medicine; Visit Provider Internal Medicine | DX: I48.91 Unspecified atrial fibrillation (principal) | CPT/HCPCS: 93010 ==

== ENCOUNTER 2025-04-26 10:19 | Outpatient (BNV) | payer MEDICARE, SELFPAY | END 2025-04-29 19:20 | PROVIDERS: Admitting Provider Hospitalist; Emergency Provider Emergency Medicine; PCP Internal Medicine; Visit Provider Radiology Diagnostic Radiology | DX: R06.02 Shortness of breath (principal) | CPT/HCPCS: 71046; 71275; 74177 ==

== ENCOUNTER 2025-04-26 10:19 | Outpatient (BNV) | payer MEDICARE, SELFPAY | END 2025-04-30 10:37 | PROVIDERS: Admitting Provider Hospitalist; Emergency Provider Emergency Medicine; PCP Internal Medicine; Visit Provider Radiology Diagnostic Radiology | DX: J98.11 Atelectasis (principal) | CPT/HCPCS: 71045 ==

== ENCOUNTER 2025-04-26 10:19 | Outpatient (BNV) | payer MEDICARE, SELFPAY | END 2025-04-28 08:08 | PROVIDERS: Admitting Provider Hospitalist; Emergency Provider Emergency Medicine; PCP Internal Medicine; Visit Provider Radiology Diagnostic Radiology | DX: K56.609 Unspecified intestinal obstruction, unspecified as to partial versus complete obstruction (principal) | CPT/HCPCS: 74018 ==

== ENCOUNTER → 2025-04-26 10:19 | Outpatient (BNV) | payer MEDICARE, SELFPAY | PROVIDERS: Admitting Provider Hospitalist; Emergency Provider Emergency Medicine; PCP Internal Medicine; Visit Provider Hospitalist | DX: I12.0 Hypertensive chronic kidney disease with stage 5 chronic kidney disease or end stage renal disease (principal); E78.00 Pure hypercholesterolemia, unspecified; K56.609 Unspecified intestinal obstruction, unspecified as to partial versus complete obstruction; N18.6 End stage renal disease; E87.5 Hyperkalemia; R06.6 Hiccough; R10.9 Unspecified abdominal pain; R10.13 Epigastric pain | CPT/HCPCS: 99222; 99233; 99499 ==

== ENCOUNTER → 2025-04-26 10:19 | Outpatient (BNV) | payer MEDICARE, SELFPAY | PROVIDERS: Admitting Provider Hospitalist; Emergency Provider Emergency Medicine; PCP Internal Medicine; Visit Provider Physician Assistant Surgical | DX: K56.609 Unspecified intestinal obstruction, unspecified as to partial versus complete obstruction (principal); K42.9 Umbilical hernia without obstruction or gangrene | CPT/HCPCS: 99222; 99499 ==

== ENCOUNTER → 2025-04-26 10:19 | Outpatient (BNV) | payer MEDICARE, SELFPAY | PROVIDERS: Admitting Provider Hospitalist; Emergency Provider Emergency Medicine; PCP Internal Medicine; Visit Provider Internal Medicine Critical Care Medicine | DX: T17.908A Unspecified foreign body in respiratory tract, part unspecified causing other injury, initial encounter (principal); K56.7 Ileus, unspecified; J96.01 Acute respiratory failure with hypoxia | CPT/HCPCS: 36556; 99238; 99497; 99499 ==